=== PATIENT | female | born 1995 | race Caucasian/White ===

== ENCOUNTER 2017-07-26 12:51 | Emergency (ER) | payer MEDICAID, SELFPAY | END 2017-07-26 15:08 | disposition home or self-care (01) | PROVIDERS: Emergency Provider Emergency Medicine; Visit Provider Emergency Medicine | DX: G44.209 Tension-type headache, unspecified, not intractable (principal); I10 Essential (primary) hypertension | CPT/HCPCS: 70450; 81001; 81025; 87086; 96372; 99284 ==

== ENCOUNTER 2017-08-31 13:21 | Emergency (ER) | payer MEDICAID, SELFPAY ==
[2017-08-31 13:54] VITALS: BP 164/90; PULSE 104; RESP 18; TEMP 37; O2SAT 97; BMI 43.9
--- NOTE | 2017-08-31 14:19 | HMH.EDUTC ---
[facility] [place]ression: Viral upper respiratory illness, Left ear impacted cerumen Disposition: Home, Self-Care Condition on Discharge: Good Instructions: DI for Viral Upper Respiratory Infection -- Adult Additional Instructions: * No sign of bacterial infection. Likely viral. Virus can take 7-14 days to run their course * Nasal Saline and bulb syringe or nose crytsal to remove nasal drainage and help with nasal congestion. Hard to eat, drink, sleep with nasal congestion so important to keep nose cleaned out * Monitor Temp. Tylenol every 4 hours as needed no more then 5 times a day or 4000mg in 24 hours and/or ibuprofen every 6 hours as needed no more then 3200mg in 24 hours (as long as your primary care doctor has told you that it is ok to take both) for fever/aches/pain. ER if fever no less than 101 despite tylenol and ibuprofen * Encourage fluids, water, gatorade, powerade, pedialyte if /toddler/child * warm salt water gargles * warm fluids * sore throat lozenges * sleep elevated * humidifier/vaporizer * OTC cold/flu/sinus medication is ok but pick one. Do not take multiple different ones as they have similar ingredients and you can overdose on cold medication. Referrals: Chico Alexandra MD [Primary Care Provider] - (IMMEDIATELY for new or worsening symptoms OR no noticeable improvement over the next 48-72 hours. 911 for difficulty breathing or swallowing.) Time of Disposition: 15:10 Medical Decision Making Vital Signs: 08/31/17 13:54 Temperature 98.6 F Temperature Source Temporal Artery Scan Pulse Rate [Right Brachial] 104 H Respiratory Rate 18 Blood Pressure [Right Arm] 164/90 Blood Pressure Mean [Right Arm] 114 Blood Pressure Source [Right Arm] Automatic Cuff Blood Pressure Position [Right Arm] Sitting 02 Sat by Pulse Oximetry 97 Oxygen Delivery Method Room Air - Lab Data Lab results reviewed: Yes: I reviewed the patient's lab results. Lab Results 08/31/17 13:57: Influenza Type A Ag Negative, Influenza Type B Ag Negative - Prasanna Inquiry Pt receiving controlled substance: No [facility] [place] - General Stated complaint: cough,sob Time Seen by Provider: 08/31/17 14:00 Mode of Arrival: Family Vehicle Source of Information: Patient Limitations: No Limitations Description of Symptoms (Recalled from Triage Doc. by RN): COUGH,YELLOW GREEN MUCOUS, RUNNY NOSE, SOB. HEENT Symptoms (Recalled from RN notes): No Resp Symptoms (Recalled from RN notes): Yes (COUGH, RUNNY NOSE, YELLOW GREEN MUCOUS,SOB) Skin Symptoms (Recalled from RN notes): No MS Symptoms (Recalled from RN notes): No Functional Status (Recalled from RN notes): NA - History of Present Illness Provider Complaint: c/o cough and nasal drainage. Started late yesterday. No fever, aches, chills. Feels SOA at times while coughing. No SOA w/ exertion. Hasn't taken or tried anything for symptoms. w/ rhinorrhea and cough x weeks and neg flu. - Related Data Allergies Allergy/AdvReac Type Severity Reaction Status Date / Time No Known Allergies Allergy Verified 08/31/17 13:59 - Worker's Comp Is this a Worker's Comp case?: No [facility] History I have reviewed the patient's past medical history: Yes (denies PMHx) Laterality Cases: Right: Arthroscopy Knee, Bilateral: Tonsillectomy (and adnoids) Other Surgeries: Yes: Other (oral surgery) - *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 Smoking Status: Never smoker Alcohol Intake: never - Psychiatric History Expresses thoughts of harming self/others: None Suicide Plan Description: No Plan ROS Obtained: Yes Systems reviewed as appropriate & no additional complaints - Constitutional Constitutional: Denies body ache, Denies chills, Denies difficulty sleeping, Denies fever(s), Denies poor appetite - Eyes Eyes: Denies eye discharge - ENT Ears, Nose, Mouth, and Throat: Reports as per HPI, Denies otalgia, Denies sinus pressure, Denies sore throat - Cardiovascular Cardiovascular: Denies chest pain, Denies
[2017-08-31 14:41] LABS: UTC Influenza A Antigen Negative (Negative); UTC Influenza B Antigen Negative (Negative)
== END 2017-08-31 15:32 | disposition home or self-care (01) ==
PROVIDERS: Emergency Provider Nurse Practitioner Family; Family Provider Internal Medicine Adolescent Medicine; PCP Internal Medicine Adolescent Medicine
DX: J06.9 Acute upper respiratory infection, unspecified (principal); H61.22 Impacted cerumen, left ear
CPT/HCPCS: 87804; 99201

== ENCOUNTER 2017-09-15 18:10 | Emergency (ER) | payer MEDICAID, SELFPAY ==
[2017-09-15 18:12] VITALS: BMI 32.0
[2017-09-15 18:17] VITALS: BP 141/85; PULSE 88; RESP 16; TEMP 36.7; O2SAT 98; BMI 43.9
--- NOTE | 2017-09-15 18:17 | XR_ITS ---
XR knee LT 3V HISTORY: Pain following injury ITS.REASON: fall ORDERING PHYSICIAN: Aristeo Mejía MD PATIENT AGE: 22 years COMPARISON: 04/07/2011 FINDINGS: No fracture or dislocation. No lytic or blastic change. Normal mineralization. No significant arthritic changes evident. No other significant findings IMPRESSION: Negative left knee, no acute finding
--- NOTE | 2017-09-15 18:51 | HMH.EDFALL ---
ED Disposition Clinical Impression: Hematoma of leg Qualifiers: Encounter type: initial encounter Laterality: left Qualified Code(s): S80.12XA - Contusion of left lower leg, initial encounter Disposition: Home, Self-Care Condition on Discharge: Good Instructions: DI for Hematoma (Bruise), How to Use Crutches, How to Apply an Victor Hugo Wrap, How To Perform RICE (Rest, Ice, Compress, Elevate) Additional Instructions: Additional instructions for EXTREMITY PAIN: Return to an emergency department immediately if you have uncontrollable pain, fever, loss of feeling or inability to move your injured extremity. Follow-up with your physician if improved in 1 week. Prescriptions: Ibuprofen [Ibuprofen 800mg Tab] 800 mg PO Q8HP PRN #15 tab PRN Reason: Moderate Pain Referrals: [place] Alexandra MD [Primary Care Provider] - - Critical Care Critical Care Time: No Attestation: On 09/15/17, the high probability of a clinically significant, sudden or life threatening deterioration of the following system(s) required my full and direct attention, intervention and personal management. The time I documented below is in addition to time spent performing reported procedures but includes the following listed in this critical care notation. Medical Decision Making Vital Signs: 09/15/17 18:17 Temperature 98.1 F Temperature Source Oral Pulse Rate [Left Radial] 88 Respiratory Rate 16 Blood Pressure [Left Arm] 141/85 Blood Pressure Mean [Left Arm] 103 Blood Pressure Source [Left Arm] Automatic Cuff Blood Pressure Position [Left Arm] Sitting 02 Sat by Pulse Oximetry 98 Oxygen Delivery Method Room Air Orders (Tests/Meds): ORDERS Category Date Time Status Knee XR left 3 views [XR knee LT 3V] Stat Exams 09/15/17 18:17 Taken - Radiology Data #1 Image(s): Knee X-ray interpreted by Aristeo Mejía MD. Negative for fracture, dislocation, or foreign body. - Prasanna Inquiry Pt receiving controlled substance: No Fall HPI - General Chief Complaint: Fall Stated Complaint: [id number] injured left leg Mode of Arrival: Wheelchair Limitations: No Limitations Description of Symptoms (Recalled from ER Triage Doc. by RN): fell, injured left knee - History of Present Illness HPI Narrative: 30 minutes ago the patient fell into a hole trapping her left leg. She now has swelling and bruising in the infrapatellar area. No other areas. She is able to walk for couple of minutes but then has a lot of pain. No true prior to arrival. - Related Data Previous Rx's Medication Instructions Recorded Ibuprofen [Ibuprofen 800mg Tab] 800 mg PO Q8HP PRN #15 tab 09/15/17 Allergies Allergy/AdvReac Type Severity Reaction Status Date / Time No Known Allergies Allergy Verified 08/31/17 13:59 [facility] History I have reviewed the patient's past medical history: Yes 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: Denies:: Cancer, Diabetes Mellitus Type 1, Diabetes Mellitus Type 2, MRSA Laterality Cases: Right: Arthroscopy Knee, Bilateral: Tonsillectomy Other Surgeries: Yes: Other (oral surgery) Amputation: No - *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 Educational Level: Completed High School Smoking Status: Never smoker Alcohol Intake: current Alcohol Intake Frequency:: holidays/special occasions only - Psychiatric History Expresses thoughts of harming self/others: None Suicide Plan Description: No Plan Para: 2 ROS Obtained: Yes Systems reviewed as appropriate & no additional complaints - Musculoskeletal Musculoskeletal: Reports as per HPI - Neurologic Neurologic: Denies weakness Physical Exam - General General appearance: alert, in no apparent distress - Respiratory Respiratory exam: Absent: respiratory distress - Cardiovascular Cardiovascular exam: Present: regular rate, normal rhythm - Neurological Exam Neurological exam: Present: alert, oriented X3 - Other Other exam information: Soft tissue swelling and ecchymosis, hematoma in the proximal pretibial
[2017-09-15 19:21] VITALS: BP 133/79; PULSE 89; RESP 16; TEMP 36.4
--- NOTE | 2017-09-15 19:22 | PC.NURSE ---
MARGARITA WRAP AND CRUTCHES GIVEN WITH TEACHING
== END 2017-09-15 19:23 | disposition home or self-care (01) ==
PROVIDERS: Emergency Provider Emergency Medicine; Family Provider Internal Medicine Adolescent Medicine; PCP Internal Medicine Adolescent Medicine
DX: S80.12XA Contusion of left lower leg, initial encounter (principal); W17.2XXA Fall into hole, initial encounter
CPT/HCPCS: 73562; 99281

== ENCOUNTER 2017-10-05 09:30 | Outpatient (RCR) | payer MEDICAID, SELFPAY ==
--- NOTE | 2017-09-27 09:31 | HMH.PTOPEV ---
Rehab Outpatient Evaluation Rehab OP Evaluation Start: 09/27/17 09:16 Freq: Status: Active Protocol: Document 09/27/17 09:17 BILLROSLYN (Rec: 09/27/17 09:31 BILLROSLYN [id number]) Electronically Signed By Maximo Mansfield PT 09/27/17 09:17 Outpatient Therapy Subjective History Subjective History This is the initial Physical Therapy evaluation for Yaritza Sanders. Pt is a 22 y/o female referred to PT for c/o L knee pain. Pt reports ~ 2 weeks ago she stepped on a water main cover and the cover gave way. Pt reports this caused her leg to drop into the underground space, up to the thigh, and caused her to fall. Pt reports pain and swelling since this injury. Xray was negative for fx. Chief Complaint Pain Swelling Symptom Type Sharp Symptoms Relieved By Rest/Positioning Symptoms Aggravated By Standing Physical Activity Walking Prior Functional Limitations None Current Functional Limitations Housework Standing Squatting Recreation Activity Walking Stairs Symptom Description Intermittent Level of pain today (0-10) 0 Pain scale - at its best (0-10) 0 Pain scale - at its worst (0-10) 5 Hip/Knee Eval Gait Observation General Gait Pattern Observation Antalgic Gait Decrease Weight Bear (L) Decrease Stride Lngth (L) Assistive Device Assistive Devices None / NA Palpation Tenderness left Knee Palpation Finding Tenderness Knee Palpation Overall Comment TTP 2/4 at L pes anserine and L lateral Jt line Hip Palpation Findings None/Normal MMT Hip Strength Reason Not Measured WFL Knee Extension Strength Grade 4 Good Knee Flexion Strength Grade 4 Good ROM Knee Extension Active Range of Motion ( lacking 15 degrees degrees) Knee Flexion Active Range of Motion ( 90 w/ pain at end degrees) Knee ROM Limitations Pain Effusion joint effusion knee exam standard left Special Tests Knee Apprehension Test Negative Left Knee Apley Compression Test Positive Left
== END 2017-10-05 09:35 | disposition home or self-care (01) ==
LOC: PT 09:30
PROVIDERS: Family Provider Internal Medicine Adolescent Medicine; PCP Internal Medicine Adolescent Medicine; Visit Provider Nurse Practitioner Family
DX: M25.562 Pain in left knee (principal)
CPT/HCPCS: 97010; 97014; 97110; G0283

== ENCOUNTER 2017-10-20 10:27 | Emergency (ER) | payer MEDICAID, SELFPAY ==
[2017-10-20 10:37] VITALS: BP 137/86; PULSE 85; RESP 20; TEMP 36.6; O2SAT 97; BMI 37.5
--- NOTE | 2017-10-20 10:49 | HMH.EDUTC ---
[facility] [place] Clinical Impression: Otitis media Qualifiers: Otitis media type: unspecified Laterality: right Qualified Code(s): H66.91 - Otitis media, unspecified, right ear Disposition: Home, Self-Care Condition on Discharge: Good Instructions: Ear Infections (Alternative Therapy), Ear Infections (Middle Ear) (Alternative Therapy), Middle Ear Infection Additional Instructions: Take medication as prescribed Follow up with family doctor 12-24 hours if no improvement or worsening of symptoms Return if needed Straight to ER if if any life threatening symptoms Prescriptions: Amoxicillin [Amoxicillin 500mg Cap] 500 mg PO TID #30 cap Fluticasone Propionate [Flonase 50mcg nasal spray 16gm] 2 spr NS DAILY #1 bottle Guaifenesin/Pseudoephedrne HCl [Mucinex D ER 1,200-120 mg Tab] 1 each PO Q12H #10 tab.er.12h Referrals: Nikia Haywood APRN [Primary Care Provider] - Forms: Work/School Release Time of Disposition: 10:57 Medical Decision Making - Medical Records Medical records reviewed: Yes: I reviewed the patient's medical records. Vital Signs: 10/20/17 10:37 Temperature 98 F Temperature Source Temporal Artery Scan Pulse Rate [Right] 85 Respiratory Rate 20 Blood Pressure [Right Arm] 137/86 Blood Pressure Mean [Right Arm] 103 02 Sat by Pulse Oximetry 97 Oxygen Delivery Method Room Air - Prasanna Inquiry Pt receiving controlled substance: No Prasanna was queried for this patient: No [facility] [place] HPI - General Stated complaint: ear pain,cough,congestion Mode of Arrival: Ambulatory Source of Information: Patient Limitations: No Limitations HEENT Symptoms (Recalled from RN notes): Yes Resp Symptoms (Recalled from RN notes): No Skin Symptoms (Recalled from RN notes): No MS Symptoms (Recalled from RN notes): No Functional Status (Recalled from RN notes): N - History of Present Illness Provider Complaint: Patient state that she has been having pain in her right ear, cough, nasal congestion and sore throat for about 6-7 days now State that pain in left ear has continued to get worse State that this morning she woke up and pain in right ear has continued to get worse and now feels sore to touch - Related Data Previous Rx's Medication Instructions Recorded Ibuprofen [Ibuprofen 800mg Tab] 800 mg PO Q8HP PRN #15 tab 09/15/17 Amoxicillin [Amoxicillin 500mg 500 mg PO TID #30 cap 10/20/17 Cap] Fluticasone Propionate [Flonase 2 spr NS DAILY #1 bottle 10/20/17 50mcg nasal spray 16gm] Guaifenesin/Pseudoephedrne HCl 1 each PO Q12H #10 tab.er.12h 10/20/17 [Mucinex D ER 1,200-120 mg Tab] Allergies Allergy/AdvReac Type Severity Reaction Status Date / Time No Known Allergies Allergy Verified 08/31/17 13:59 - Worker's Comp Is this a Worker's Comp case?: No [facility] History I have reviewed the patient's past medical history: Yes 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: Denies:: Cancer, Diabetes Mellitus Type 1, Diabetes Mellitus Type 2, MRSA Laterality Cases: Right: Arthroscopy Knee, Bilateral: Tonsillectomy Other Surgeries: Yes: Other (oral surgery) Amputation: No - 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 Smoking Status: Never smoker Alcohol Intake: never Alcohol Intake Frequency:: holidays/special occasions only - Psychiatric History Expresses thoughts of harming self/others: None Suicide Plan Description: No Plan ROS Obtained: Yes All systems reviewed & no additional complaints - Constitutional Constitutional: Reports chills - ENT Ears, Nose, Mouth, and Throat: Reports otalgia, Reports nasal congestion, Reports sore throat - Respiratory Respiratory: Yes cough Physical Exam - General General appearance: alert, in no apparent distress - Expanded ENT Exam TM/Canal exam: Right TM: erythema, bulging Comment: Throat red, irritated - Respiratory Respiratory exam: Present: normal lung sounds bilaterally. Absent: respiratory distress - Cardiovascular Cardiovascular exam: Present: regular rate, normal rhythm. Absent: JVD
--- NOTE | 2017-10-20 10:52 | ED_ITS ---
[facility] [place] Clinical Impression: Otitis media Qualifiers: Otitis media type: unspecified Laterality: right Qualified Code(s): H66.91 - Otitis media, unspecified, right ear Disposition: Home, Self-Care Condition on Discharge: Good Instructions: Ear Infections (Alternative Therapy), Ear Infections (Middle Ear ) (Alternative Therapy), Middle Ear Infection Additional Instructions: Take medication as prescribed Follow up with family doctor 12-24 hours if no improvement or worsening of symptoms Return if needed Straight to ER if if any life threatening symptoms Prescriptions: Amoxicillin [Amoxicillin 500mg Cap] 500 mg PO TID #30 cap Fluticasone Propionate [Flonase 50mcg nasal spray 16gm] 2 spr NS DAILY #1 bottle Guaifenesin/Pseudoephedrne HCl [Mucinex D ER 1,200-120 mg Tab] 1 each PO Q12H # 10 tab.er.12h Referrals: Nikia Haywood APRN [Primary Care Provider] - Forms: Work/School Release Time of Disposition: 10:57 Medical Decision Making - Medical Records Medical records reviewed: Yes: I reviewed the patient's medical records. Vital Signs: 10/20/17 10:37 Temperature 98 F Temperature Source Temporal Artery Scan Pulse Rate [Right] 85 Respiratory Rate 20 Blood Pressure [Right Arm] 137/86 Blood Pressure Mean [Right Arm] 103 02 Sat by Pulse Oximetry 97 Oxygen Delivery Method Room Air - Prasanna Inquiry Pt receiving controlled substance: No Prasanna was queried for this patient: No [facility] [place] [facility] [place]PI - General Stated complaint: ear pain,cough,congestion Mode of Arrival: Ambulatory Source of Information: Patient Limitations: No Limitations HEENT Symptoms (Recalled from RN notes): Yes Resp Symptoms (Recalled from RN notes): No Skin Symptoms (Recalled from RN notes): No MS Symptoms (Recalled from RN notes): No Functional Status (Recalled from RN notes): N - History of Present Illness Provider Complaint: Patient state that she has been having pain in her right ear , cough, nasal congestion and sore throat for about 6-7 days now State that pain in left ear has continued to get worse State that this morning she woke up and pain in right ear has continued to get worse and now feels sore to touch - Related Data Previous Rx's Medication Instructions Recorded Ibuprofen [Ibuprofen 800mg Tab] 800 mg PO Q8HP PRN #15 tab 09/15/17 Amoxicillin [Amoxicillin 500mg 500 mg PO TID #30 cap 10/20/17 Cap] Fluticasone Propionate [Flonase 2 spr NS DAILY #1 bottle 10/20/17 50mcg nasal spray 16gm] Guaifenesin/Pseudoephedrne HCl 1 each PO Q12H #10 tab.er.12h 10/20/17 [Mucinex D ER 1,200-120 mg Tab] Allergies Allergy/AdvReac Type Severity Reaction Status Date / Time No Known Allergies Allergy Verified 08/31/17 13:59 - Worker's Comp Is this a Worker's Comp case?: No [facility] History I have reviewed the patient's past medical history: Yes 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: Denies:: Cancer, Diabetes Mellitus Type 1, Diabetes Mellitus Type 2, MRSA Laterality Cases: Right: Arthroscopy Knee, Bilateral: Tonsillectomy Other Surgeries: Yes: Other (oral surgery) Amputation: No - 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 Smoking Status: Never smoker Alcohol Intake: never Alcohol Intake Frequency:: holidays/special occasions only - Psychiatric History Expresses thoughts of harming self/others: None Suicide Plan Description: No Plan ROS Obtained: Yes All systems
[2017-10-20 11:12] VITALS: BP 137/86; PULSE 85; RESP 20; TEMP 36.6
== END 2017-10-20 11:12 | disposition home or self-care (01) ==
PROVIDERS: Emergency Provider Nurse Practitioner; Family Provider Internal Medicine Adolescent Medicine; PCP Nurse Practitioner Family
DX: H66.91 Otitis media, unspecified, right ear (principal)
CPT/HCPCS: 99202

== ENCOUNTER 2017-10-25 12:30 | Emergency (ER) | payer MEDICAID, SELFPAY ==
[2017-10-25 12:44] VITALS: PULSE 90; RESP 16; TEMP 36.6; O2SAT 98; BMI 47.5
--- NOTE | 2017-10-25 12:48 | XR_ITS ---
XR hand LT 2V HISTORY: Pain following injury ITS.REASON: SMASHED HANDS LIFTING A TOY BOX ORDERING PHYSICIAN: Josie Reynolds PATIENT AGE: 22 years COMPARISON: None FINDINGS: No fracture or dislocation. No lytic or blastic change. There is normal mineralization.. The joint spaces are well-preserved. No significant degenerative/arthritic changes. No erosive changes evident.. IMPRESSION: Negative left hand, no acute finding
--- NOTE | 2017-10-25 12:48 | HMH.EDUTC ---
[facility] – [place] Disposition Clinical Impression: Bilateral thumb pain Disposition: Home, Self-Care Condition on Discharge: Good Instructions: How To Perform RICE (Rest, Ice, Compress, Elevate) Additional Instructions: *RICE, Rest the extremity, Ice 15-20 minutes 3-4 times daily, Compress- wear the victor hugo wrap as discussed as much as possible to help reduce swelling and pain, Elevate the extremity when at rest *Victor Hugo wrap and finger splint is for support and help control swelling, use it except in the shower. Be sure that is not to tight but not to loose either *Elevate when resting *Ibuprofen every 6-8 hours as needed for pain an inflammation. If need something more can take Tylenol in between doses of Ibuprofen to help Immediately follow up for new or worsening of symptoms, or no noticeable improvement over the next 3-5 days Referrals: Nikia Haywood APRN [Primary Care Provider] - Time of Disposition: 13:27 Medical Decision Making - Medical Records Medical records reviewed: Yes: I reviewed the patient's medical records. - Prasanna Inquiry Pt receiving controlled substance: No Prasanna was queried for this patient: No Vital Signs: 10/25/17 12:44 Temperature 97.8 F Temperature Source Temporal Artery Scan Pulse Rate [Right] 90 Respiratory Rate 16 02 Sat by Pulse Oximetry 98 Oxygen Delivery Method Room Air - Radiology Data #1 Image(s): Other (Bilateral hand xray) Image Reviewed: Yes I reviewed the patient's radiology results, Yes I have reviewed radiologist's interpretation Preliminary Findings: Normal/NAD, No Fracture Seen [facility] [place] HPI - General Stated complaint: AO [id number] both thumbs injured Time Seen by Provider: 10/25/17 12:49 Mode of Arrival: Ambulatory Source of Information: Patient Limitations: No Limitations Description of Symptoms (Recalled from Triage Doc. by RN): INJURED BOTH THUMBS 1200 HEENT Symptoms (Recalled from RN notes): No Resp Symptoms (Recalled from RN notes): No Skin Symptoms (Recalled from RN notes): No MS Symptoms (Recalled from RN notes): Yes Functional Status (Recalled from RN notes): N - History of Present Illness Provider Complaint: Patient state that she was lifting a toy box when the lid fell smashing both her thumbs State that she is now having pain and swelling in both thumbs States that pain is worse in left thumb and runs up the side of her hand States that ever since it happened she is not been able to move thumbs without pain - Related Data Previous Rx's Medication Instructions Recorded Ibuprofen [Ibuprofen 800mg Tab] 800 mg PO Q8HP PRN #15 tab 09/15/17 Amoxicillin [Amoxicillin 500mg 500 mg PO TID #30 cap 10/20/17 Cap] Fluticasone Propionate [Flonase 2 spr NS DAILY #1 bottle 10/20/17 50mcg nasal spray 16gm] Guaifenesin/Pseudoephedrne HCl 1 each PO Q12H #10 tab.er.12h 10/20/17 [Mucinex D ER 1,200-120 mg Tab] Allergies Allergy/AdvReac Type Severity Reaction Status Date / Time No Known Allergies Allergy Verified 08/31/17 13:59 - Worker's Comp Is this a Worker's Comp case?: No [facility] History I have reviewed the patient's past medical history: Yes 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: Denies:: Cancer, Diabetes Mellitus Type 1, Diabetes Mellitus Type 2, MRSA Laterality Cases: Right: Arthroscopy Knee, Bilateral: Tonsillectomy Other Surgeries: Yes: Other (oral surgery) Amputation: No - 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 Smoking Status: Never smoker Alcohol Intake: never Alcohol Intake Frequency:: holidays/special occasions only - Psychiatric History Expresses thoughts of harming self/others: None Suicide Plan Description: No Plan ROS Obtained: Yes All systems reviewed & no additional complaints - Allergic/Immunologic Comments: Lid to toy box fell and smashed both her thumbs now having pain and swelling Physical Exam - General General appearance: alert, in no apparent distress - Respiratory Respiratory exam: Present: normal lung sounds bilaterally. Absent: respiratory dist
--- NOTE | 2017-10-25 12:50 | XR_ITS ---
XR hand RT 2V HISTORY: Pain following injury ITS.REASON: SMASHED HAND LIFTING TOY BOX ORDERING PHYSICIAN: Josie Reynolds PATIENT AGE: 22 years COMPARISON: None FINDINGS: No fracture or dislocation. No lytic or blastic change. There is normal mineralization.. The joint spaces are well-preserved. No significant degenerative/arthritic changes. No erosive changes evident.. There is mild cortical thickening of the mid and distal shaft of the first metacarpal which could be related to an old injury. IMPRESSION: Negative, no acute finding
--- NOTE | 2017-10-25 12:52 | ED_ITS ---
[facility] [place] Disposition Clinical Impression: Bilateral thumb pain Disposition: Home, Self-Care Condition on Discharge: Good Instructions: How To Perform RICE (Rest, Ice, Compress, Elevate) Additional Instructions: *RICE, Rest the extremity, Ice 15-20 minutes 3-4 times daily, Compress- wear the victor hugo wrap as discussed as much as possible to help reduce swelling and pain, Elevate the extremity when at rest *Victor [place] wrap and finger splint is for support and help control swelling, use it except in the shower. Be sure that is not to tight but not to loose either *Elevate when resting *Ibuprofen every 6-8 hours as needed for pain an inflammation. If need something more can take Tylenol in between doses of Ibuprofen to help Immediately follow up for new or worsening of symptoms, or no noticeable improvement over the next 3-5 days Referrals: Nikia Haywood APRN [Primary Care Provider] - Time of Disposition: 13:27 Medical Decision Making - Medical Records Medical records reviewed: Yes: I reviewed the patient's medical records. - Prasanna Inquiry Pt receiving controlled substance: No Prasanna was queried for this patient: No Vital Signs: 10/25/17 12:44 Temperature 97.8 F Temperature Source Temporal Artery Scan Pulse Rate [Right] 90 Respiratory Rate 16 02 Sat by Pulse Oximetry 98 Oxygen Delivery Method Room Air - Radiology Data #1 Image(s): Other (Bilateral hand xray) Image Reviewed: Yes I reviewed the patient's radiology results, Yes I have reviewed radiologist's interpretation Preliminary Findings: Normal/NAD, No Fracture Seen [facility] [place] HPI - General Stated complaint: AO [id number] both thumbs injured Time Seen by Provider: 10/25/17 12:49 Mode of Arrival: Ambulatory Source of Information: Patient Limitations: No Limitations Description of Symptoms (Recalled from Triage Doc. by RN): INJURED BOTH THUMBS 1200 HEENT Symptoms (Recalled from RN notes): No Resp Symptoms (Recalled from RN notes): No Skin Symptoms (Recalled from RN notes): No MS Symptoms (Recalled from RN notes): Yes Functional Status (Recalled from RN notes): N - History of Present Illness Provider Complaint: Patient state that she was lifting a toy box when the lid fell smashing both her thumbs State that she is now having pain and swelling in both thumbs States that pain is worse in left thumb and runs up the side of her hand States that ever since it happened she is not been able to move thumbs without pain - Related Data Previous Rx's Medication Instructions Recorded Ibuprofen [Ibuprofen 800mg Tab] 800 mg PO Q8HP PRN #15 tab 09/15/17 Amoxicillin [Amoxicillin 500mg 500 mg PO TID #30 cap 10/20/17 Cap] Fluticasone Propionate [Flonase 2 spr NS DAILY #1 bottle 10/20/17 50mcg nasal spray 16gm] Guaifenesin/Pseudoephedrne HCl 1 each PO Q12H #10 tab.er.12h 10/20/17 [Mucinex D ER 1,200-120 mg Tab] Allergies Allergy/AdvReac Type Severity Reaction Status Date / Time No Known Allergies Allergy Verified 08/31/17 13:59 - Worker's Comp Is this a Worker's Comp case?: No [facility] History I have reviewed the patient's past medical history: Yes 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: Denies:: Cancer, Diabetes Mellitus Type 1, Diabetes Mellitus Type 2, MRSA Laterality Cases: Right: Arthroscopy Knee, Bilateral: Tonsillectomy Other Surgeries: Yes: Other (oral surgery) Amputation: No - 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
[2017-10-25 13:34] VITALS: BP 118/72; PULSE 82; RESP 20; TEMP 36.3
== END 2017-10-25 13:35 | disposition home or self-care (01) ==
PROVIDERS: Emergency Provider Nurse Practitioner; Family Provider Internal Medicine Adolescent Medicine; PCP Nurse Practitioner Family
DX: M79.642 Pain in left hand (principal); M79.641 Pain in right hand; X50.0XXA Overexertion from strenuous movement or load, initial encounter; Y92.019 Unspecified place in single-family (private) house as the place of occurrence of the external cause
CPT/HCPCS: 73120; 99201

== ENCOUNTER → 2017-10-26 12:22 | Outpatient (CLI) | payer MEDICAID, SELFPAY ==
[2017-10-26 12:37] LABS: Basophils % 0.2 % (0.1-2.0); Eosinophils # 0.2 K/mm3 (0.0-0.4); Eosinophils % 2.3 % (0.1-12.0); Hematocrit 42.3 % (37.0-47.0); Hemoglobin 13.8 g/dL (12.2-16.2); Lymphocytes # 2.4 K/mm3 (0.7-4.5); Lymphocytes % 36.4 K/mm3 (10-50); Mean Corpuscular HGB Conc 32.6 g/dL (31.8-35.4); Mean Corpuscular Hemoglobin 29.5 pg (27.0-31.2); Mean Corpuscular Volume 90.5 fl (81-99); Monocytes # 0.3 K/mm3 (0.1-1.0); Monocytes % 4.3 % (1.7-9.3); Neutrophils # 3.7 K/mm3 (1.8-7.8); Neutrophils % 56.8 % (37.0-80.0); Platelet Count 368 K/mm3 (142-424); Red Blood Count 4.68 M/mm3 (4.20-5.40); Red Cell Distribution Width 13.1 % (11.5-17.5); White Blood Count 6.5 K/mm3 (4.8-10.8)
[2017-10-26 13:04] LABS: Alanine Aminotransferase 26 U/L (12-78); Albumin Level 3.3 gm/dL (3.4-5.0); Albumin/Globulin Ratio 0.7 (1.1-1.8); Alkaline Phosphatase 123 U/L (46-116); Aspartate Amino Transferase 13 U/L (15-37); Bilirubin,Total 0.2 mg/dL (0.2-1.0); Blood Urea Nitrogen 13 mg/dL (7-18); Calcium 8.5 mg/dL (8.5-10.1); Carbon Dioxide 26 mmol/L (21.0-32.0); Chloride 106 mmol/L (98-107); Chol/HDL Ratio 4.4 (1-3.5); Cholesterol 219 mg/dL (140-200); Creatinine,Serum 0.48 mg/dL (0.55-1.02); Estimated Glomerular Filt Rate 163 ml/min (>60); GFR (African American) 198 ML/MIN (>60); Globulin 4.5 gm/dl (1.3-3.2); Glucose 90 mg/dL (74-106); HDL Cholesterol 50 mg/dL (29-89); LDL Cholesterol 150 mg/dL (0-130); Sodium 140 mmol/L (136-145); Thyroid Stimulating Hormone 2.17 uIU/ml (0.358-3.740); Total Protein,Serum 7.8 gm/dL (6.4-8.2); Triglycerides 97 mg/dL (30-200); VLDL Cholesterol 19 mg/dL (0-40)
[2017-10-28 18:29] LABS: Vitamin B12 625 pg/mL (232-1245)
[2017-10-28 18:30] LABS: Vitamin D 25 Hydroxy 25.1 ng/mL (30.0-100.0)
== END ==
PROVIDERS: Visit Provider Nurse Practitioner Family
DX: R53.83 Other fatigue (principal); Z00.00 Encounter for general adult medical examination without abnormal findings
CPT/HCPCS: 36415; 80053; 80061; 82607; 82652; 84443; 85025

== ENCOUNTER → 2018-05-11 13:16 | Outpatient (CLI) | payer MEDICAID, SELFPAY ==
--- NOTE | 2018-05-11 13:23 | XR_ITS ---
XR chest 2V HISTORY: ITS.REASON: COUGH, SOB, LYMPHADENOPATHY ORDERING PHYSICIAN: Nikia Haywood PATIENT AGE: 23 years COMPARISON: 08/19/2012 FINDINGS: The cardiomediastinal silhouette and pulmonary vascularity are within normal limits. Cardiac size is upper limits of normal The lungs are clear without infiltrates, suspicious nodules, or pleural effusions. No acute bony abnormalities. IMPRESSION: No acute finding
[2018-05-11 15:07] LABS: Basophils % 0.3 % (0.1-2.0); Eosinophils # 0.2 K/mm3 (0.0-0.4); Eosinophils % 2.3 % (0.1-12.0); Hematocrit 38.6 % (37.0-47.0); Hemoglobin 12.6 g/dL (12.2-16.2); Lymphocytes # 2.5 K/mm3 (0.7-4.5); Lymphocytes % 26.5 K/mm3 (10-50); Mean Corpuscular HGB Conc 32.5 g/dL (31.8-35.4); Mean Corpuscular Hemoglobin 29.6 pg (27.0-31.2); Mean Platelet Volume 6.9 fl (7.4-10.4); Monocytes # 0.4 K/mm3 (0.1-1.0); Monocytes % 4.4 % (1.7-9.3); Neutrophils # 6.2 K/mm3 (1.8-7.8); Neutrophils % 66.4 % (37.0-80.0); Platelet Count 353 K/mm3 (142-424); Red Blood Count 4.24 M/mm3 (4.20-5.40); Red Cell Distribution Width 13.5 % (11.5-17.5); White Blood Count 9.3 K/mm3 (4.8-10.8)
[2018-05-11 15:59] LABS: Alanine Aminotransferase 24 U/L (12-78); Albumin Level 3.1 gm/dL (3.4-5.0); Albumin/Globulin Ratio 0.9 (1.1-1.8); Alkaline Phosphatase 127 U/L (46-116); Anion Gap 14.2 mEq/L (5-15); Aspartate Amino Transferase 13 U/L (15-37); Bilirubin,Total 0.2 mg/dL (0.2-1.0); Blood Urea Nitrogen 9 mg/dL (7-18); Calcium 8.5 mg/dL (8.5-10.1); Carbon Dioxide 27 mmol/L (21.0-32.0); Chloride 104 mmol/L (98-107); Creatinine,Serum 0.56 mg/dL (0.55-1.02); Estimated Glomerular Filt Rate 135 ml/min (>60); GFR (African American) 164 ML/MIN (>60); Globulin 3.5 gm/dl (1.3-3.2); Glucose 81 mg/dL (74-106); Potassium 4.2 mmoL/L (3.5-5.1); Sodium 141 mmol/L (136-145); Total Protein,Serum 6.6 gm/dL (6.4-8.2)
[2018-05-15 06:11] LABS: EBV Ab VCA, IgM <36.0 U/mL (0.0-35.9); Toxoplasma gondii Ab,IgG,Qn <3.0 IU/mL (0.0-7.1); Toxoplasma gondii Ab,IgM,Qn <3.0 AU/mL (0.0-7.9)
[2018-05-16 11:32] LABS: CMV PCR Negative (Negative)
== END ==
PROVIDERS: PCP Nurse Practitioner Family; Visit Provider Nurse Practitioner Family
DX: R59.1 Generalized enlarged lymph nodes (principal); R05 Cough; R06.02 Shortness of breath
CPT/HCPCS: 36415; 71046; 80053; 85025; 86665; 86777; 87496

== ENCOUNTER → 2018-06-18 10:13 | Outpatient (CLI) | payer MEDICAID, SELFPAY ==
--- NOTE | 2018-06-18 10:40 | CT_ITS ---
CT abdomen w con CLINICAL INDICATION: Follow-up possible liver lesion ITS.REASON: LIVER LESION ORDERING PHYSICIAN: [place] Alexandra MD PATIENT AGE: 23 years COMPARISON: 06/10/2019 TECHNIQUE: Axial images obtained with sagittal and coronal reformats. All CT scans at the facility use one or more dose reduction, viz: automated exposure control, ma/kV adjustment per patient size (including targeted exams where dose is matched to indication, i.e. head), or iterative reconstruction technique. 30 seconds, 60 seconds, and 5 minute delayed images are obtained PROCEDURE: Oral Contrast: None IV Contrast: 75 mL of Isovue-370. FINDINGS: There is some mosaic groundglass density in the left lung base posteriorly nonspecific. Previous exam showed a small hyperdense nodule in the right hepatic lobe. There is diffuse fatty liver infiltration with some sparing of the fatty liver in the hepatic dome and around the caval region. There remains a hyperdense nodule in the right hepatic lobe in segment 8. This measures approximately 9 mm is somewhat more intense on the immediate enhanced images but does not increase in intensity on the delayed images.. No other liver lesions are evident. The spleen, adrenal glands, pancreas, and kidneys have an unremarkable appearance. No radio opaque gallstones are evident. IMPRESSION: 1. There is a 9 mm hyperdense liver nodule in segment 8 of the liver. The show some minimal enhancement. Etiology is indeterminate. This could represent an atypical hemangioma. The clinical significance is uncertain. Consider 3 month follow-up which will be performed without contrast. 2. Hepatic steatosis with some sparing of fatty liver.
== END ==
PROVIDERS: PCP Internal Medicine Adolescent Medicine; Visit Provider Internal Medicine Adolescent Medicine
DX: K76.9 Liver disease, unspecified (principal)
CPT/HCPCS: 74160; Q9967

== ENCOUNTER → 2019-04-08 12:13 | Outpatient (CLI) | payer MEDICAID, SELFPAY ==
--- NOTE | 2019-04-08 12:22 | XR_ITS ---
PROCEDURE: XR FOOT WT BEARING RT 3V CLINICAL INDICATION: pain COMPARISON: No exams were available for comparison FINDINGS: No fracture or dislocation. No lytic or blastic change. There is normal mineralization. The joint spaces are well-preserved. No significant degenerative/arthritic changes. No erosive changes evident. Other findings:None. IMPRESSION: No acute findings. Dictated by: Kendrick Lima MD 04/08/2019 15:11 Signed by: <Electronically signed by Kendrick Lima MD in [place]> 04/08/2019 15:11
--- NOTE | 2019-04-08 12:22 | XR_ITS ---
PROCEDURE: XR ANKLE WT BEARING RT MIN 3V CLINICAL INDICATION: pain COMPARISON: No exams were available for comparison FINDINGS: No fracture, dislocation, lytic change, or blastic change evident. No significant degenerative change IMPRESSION: No acute findings. Dictated by: Kendrick Lima MD 04/08/2019 15:11 Signed by: <Electronically signed by Kendrick Lima MD in [place]> 04/08/2019 15:11
== END ==
PROVIDERS: PCP Nurse Practitioner Family; Visit Provider Podiatrist
DX: M79.671 Pain in right foot (principal); M25.571 Pain in right ankle and joints of right foot
CPT/HCPCS: 73610; 73630

== ENCOUNTER → 2019-10-15 11:42 | Outpatient (CLI) | payer OTHER, SELFPAY ==
[2019-10-15 13:30] LABS: HCG,Quantitative 24 mIU/ml (0-5.42)
== END ==
PROVIDERS: Visit Provider Nurse Practitioner Obstetrics & Gynecology
DX: Z34.90 Encounter for supervision of normal pregnancy, unspecified, unspecified trimester (principal)
CPT/HCPCS: 36415; 84702

== ENCOUNTER → 2019-10-18 12:26 | Outpatient (CLI) | payer OTHER, SELFPAY ==
[2019-10-18 15:12] LABS: HCG,Quantitative 17 mIU/ml (0-5.42)
== END ==
PROVIDERS: Visit Provider Nurse Practitioner Obstetrics & Gynecology
DX: Z34.90 Encounter for supervision of normal pregnancy, unspecified, unspecified trimester (principal)
CPT/HCPCS: 36415; 84702

== ENCOUNTER → 2019-10-30 13:35 | Outpatient (CLI) | payer OTHER, SELFPAY ==
[2019-10-30 17:18] LABS: HCG,Quantitative < 2 mIU/ml (0-5.42)
== END ==
PROVIDERS: Visit Provider Nurse Practitioner Obstetrics & Gynecology
DX: Z34.90 Encounter for supervision of normal pregnancy, unspecified, unspecified trimester (principal)
CPT/HCPCS: 36415; 84702

== ENCOUNTER 2020-02-15 22:47 | Emergency (ER) | payer OTHER, SELFPAY ==
[2020-02-15 22:49] VITALS: BP 169/108; PULSE 110; RESP 20; TEMP 37.3; O2SAT 98; BMI 49.4
--- NOTE | 2020-02-15 22:52 | XR_ITS ---
PROCEDURE: XR HAND RT MIN 3V CLINICAL INDICATION: hand went through glass Laceration with injury and pain COMPARISON: [id number] XR hand RT 2V from 10/25/2017 [id number] XR hand LT 2V from 10/25/2017 FINDINGS: No fracture or dislocation. No lytic or blastic change. There is normal mineralization. The joint spaces are well-preserved. No significant degenerative/arthritic changes. No erosive changes evident. Other findings:None. IMPRESSION: No acute findings. Dictated by: Kendrick Lima MD 02/16/2020 08:15 Electronically signed by Kendrick iLma MD in [place] 02/16/2020 08:15
[2020-02-15 22:59] VITALS: BMI 49.4
--- NOTE | 2020-02-15 23:25 | HMH.EDWNDL ---
ED Disposition Clinical Impression: Laceration, Abrasion, Elevated BP without diagnosis of hypertension Disposition: Home, Self-Care Condition on Discharge: Good Instructions: DI for Laceration Repair Additional Instructions: sutures out 10-12 days and recheck if any problems - see your pcp about bp Referrals: Nikia Haywood APRN [Primary Care Provider] - - Critical Care Critical Care Time: No Attestation: On 02/15/20, the high probability of a clinically significant, sudden or life threatening deterioration of the following system(s) required my full and direct attention, intervention and personal management. The time I documented below is in addition to time spent performing reported procedures but includes the following listed in this critical care notation. Medical Decision Making - Medical Records Medical records reviewed: Yes: I reviewed the patient's medical records. - Prasanna Inquiry Pt receiving controlled substance: No Vital Signs: 02/15/20 22:49 Temperature 99.2 F Temperature Source Oral Pulse Rate [Left Brachial] 110 H Respiratory Rate 20 Blood Pressure [Left Arm] 169/108 H Blood Pressure Mean [Left Arm] 128 Blood Pressure Position [Left Arm] Sitting 02 Sat by Pulse Oximetry 98 Oxygen Delivery Method Room Air Orders (Tests/Meds): ED MEDICATIONS Discontinued Medications Generic Name Dose Route Start Last Admin Trade Name Freq PRN Reason Stop Dose Admin Tetanus/Diphtheria Toxoids 0.5 ml 02/15/20 23:00 02/15/20 23:26 Tenivac 0.5ml Syringe IM 02/15/20 23:01 0.5 ml .ONCE ONE Administration ORDERS Category Date Time Status XR hand RT min 3V Stat Exams 02/15/20 22:52 Taken - Radiology Data #1 Image(s): Hand Image Reviewed: Yes I reviewed the patient's radiology image Preliminary Findings: No Fracture Seen Wound/Laceration HPI - General Chief Complaint: Wound/Laceration Stated Complaint: AO [id number] lac to R Hand Time Seen by Provider: 02/15/20 23:25 Mode of Arrival: Ambulatory Source of Information: Patient, Medical Record Limitations: No Limitations Description of Symptoms (Recalled from ER Triage Doc. by RN): pt was pulling storm door close and right hand went through the glass. laceration to right thumb and wrist. - History of Present Illness HPI narrative: lac rt distal thumb and rt volar wrist - pushed through glass on door Onset (ago): hour(s) Extremity Location: Left: wrist, hand Place: home Patient tetanus UTD: Yes Context: accidental Associated symptoms: none - Related Data Home Medications Medication Instructions Recorded Confirmed PARoxetine HCL [Paroxetine HCl] 40 mg PO DAILY 03/19/19 08/17/19 Previous Rx's Medication Instructions Recorded Promethazine HCl [Phenergan 25mg 25 mg PO Q6H PRN 6 Days #20 tab 09/25/19 tab] Sulfamethoxazole/Trimethoprim 1 each PO BID 7 Days #14 tab 09/25/19 [Bactrim DS tablet] Promethazine HCl [Phenergan 25mg 25 mg PO Q6H PRN #20 tab 10/17/19 tab] Allergies Allergy/AdvReac Type Severity Reaction Status Date / Time No Known Allergies Allergy Verified 08/13/19 10:51 [facility] History - Hepatitis A Screen Drug use history?: No High risk sexual behaviors?: No History of sexually transmitted infection?: No Currently employed?: No Childcare worker?: No Do you have indoor plumbing?: Yes Do you have electricity?: Yes Attestation statement:: This patient has been screened for Hepatitis A risk factors. I have reviewed the patient's past medical history: Yes 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: Reports:: Anxiety, Depression Denies:: Cancer, Chronic Obstructive Pulmonary Disease (COPD), Diabetes Mellitus Type 1, Diabetes Mellitus Type 2, Hypertension, MRSA Other 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: Reports: Other (fatty liver disease) Laterality Cases: Right: Arthroscopy Knee, Bilateral: Tonsillectomy Other Surgeries: Yes: Other Amputation: No Fractures: No - 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 Smoking Status: Never smoke
[2020-02-16 00:10] VITALS: BP 121/79; PULSE 79; RESP 19; TEMP 36.7; O2SAT 98
== END 2020-02-16 00:14 | disposition home or self-care (01) ==
PROVIDERS: Emergency Provider Emergency Medicine; PCP Nurse Practitioner Family
DX: S61.511A Laceration without foreign body of right wrist, initial encounter (principal); S61.011A Laceration without foreign body of right thumb without damage to nail, initial encounter; W25.XXXA Contact with sharp glass, initial encounter; Y92.019 Unspecified place in single-family (private) house as the place of occurrence of the external cause; F41.8 Other specified anxiety disorders; Z90.09 Acquired absence of other part of head and neck; Z23 Encounter for immunization
CPT/HCPCS: 12002; 73130; 90471; 90714; 99282

== ENCOUNTER 2020-02-25 16:27 | Emergency (ER) | payer OTHER, SELFPAY ==
[2020-02-25 17:27] VITALS: BP 140/80; PULSE 70; RESP 18; O2SAT 98; BMI 42.9
[2020-02-25 17:54] VITALS: BP 140/80; PULSE 70; RESP 18; TEMP 36.7; O2SAT 98
== END 2020-02-25 17:55 | disposition home or self-care (01) ==
PROVIDERS: Emergency Provider Nurse Practitioner Family; PCP Nurse Practitioner Family
DX: S61.511D Laceration without foreign body of right wrist, subsequent encounter (principal); S61.011D Laceration without foreign body of right thumb without damage to nail, subsequent encounter

== ENCOUNTER 2020-03-13 15:39 | Emergency (ER) | payer OTHER, SELFPAY ==
[2020-03-13 16:46] VITALS: BP 135/90; PULSE 81; RESP 20; TEMP 36.6; O2SAT 99; BMI 45.7
--- NOTE | 2020-03-13 16:48 | HMH.EDUTC ---
[facility] [place] Clinical Impression: Diarrhea Qualifiers: Diarrhea type: presumed infectious Qualified Code(s): R19.7 - Diarrhea, unspecified Disposition: Home, Self-Care Condition on Discharge: Good Instructions: DI for Diarrhea and Traveler's Diarrhea -- Adult Additional Instructions: You have been tested for COVID19. Those results generally take 48-72 hours to return. Please act as if you are positive and quarantine yourself until results are received. Your diarrhea panel results are generally available several hours after you return your specimen. Prescriptions: Ondansetron [Ondansetron Odt 8mg Tab] 8 mg PO TID PRN 10 Days #30 tab PRN Reason: Nausea Transmission Status: Pending to [facility] #[id number] Referrals: Nikia Haywood APRN [Primary Care Provider] - Time of Disposition: 16:55 Medical Decision Making - Prasanna Inquiry Pt receiving controlled substance: No Vital Signs: 03/13/20 16:46 Temperature 97.8 F Temperature Source Oral Pulse Rate [Right Brachial] 81 Respiratory Rate 20 Blood Pressure [Right Arm] 135/90 Blood Pressure Mean [Right Arm] 105 Blood Pressure Source [Right Arm] Automatic Cuff Blood Pressure Position [Right Arm] Sitting 02 Sat by Pulse Oximetry 99 Oxygen Delivery Method Room Air [facility] [place] HPI - General Stated complaint: diarrhea, chills and aches, fever at night Time Seen by Provider: 03/13/20 16:48 - History of Present Illness Provider Complaint: Diarrhea, body aches, fever, chills X 3 days. No known sick contacts. Onset (ago): day(s) (3) Location: abdomen Associated symptoms: fever/chills Treatments prior to arrival: none - Related Data Home Medications Medication Instructions Recorded Confirmed PARoxetine HCL [Paroxetine HCl] 40 mg PO DAILY 03/19/19 08/17/19 Previous Rx's Medication Instructions Recorded Promethazine HCl [Phenergan 25mg 25 mg PO Q6H PRN 6 Days #20 tab 09/25/19 tab] Sulfamethoxazole/Trimethoprim 1 each PO BID 7 Days #14 tab 09/25/19 [Bactrim DS tablet] Promethazine HCl [Phenergan 25mg 25 mg PO Q6H PRN #20 tab 10/17/19 tab] Ibuprofen [Ibuprofen 600mg 600 mg PO Q6HP PRN #30 tab 02/25/20 Tablet] Mupirocin [Bactroban 2% Ointment 1 applicatio TP TID 7 Days #1 tube 02/25/20 22gm tube] cephALEXin [Keflex 500mg Cap] 500 mg PO Q6H 10 Days #40 cap 02/25/20 Ondansetron [Ondansetron Odt 8mg 8 mg PO TID PRN 10 Days #30 tab 03/13/20 Tab] Allergies Allergy/AdvReac Type Severity Reaction Status Date / Time No Known Allergies Allergy Verified 08/13/19 10:51 [facility] History - Hepatitis A Screen Attestation statement:: This patient has been screened for Hepatitis A risk factors. I have reviewed the patient's past medical history: Yes 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: Reports:: Anxiety, Depression Denies:: Cancer, Chronic Obstructive Pulmonary Disease (COPD), Diabetes Mellitus Type 1, Diabetes Mellitus Type 2, Hypertension, MRSA Other 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: Reports: Other (fatty liver disease) Laterality Cases: Right: Arthroscopy Knee, Bilateral: Tonsillectomy Other Surgeries: Yes: Other Amputation: No Fractures: No - 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 Smoking Status: Never smoker Tobacco Type: cigarettes # Packs/Day (cigarettes): 1 Alcohol Intake: never Alcohol Intake Frequency:: holidays/special occasions only Substance Use Type: denies use Occupational Status: employed Housing: house - Psychiatric History Pschychiatric History:: Reports:: Anxiety, Depression Family Hx:: Coronary Artery Disease, Cancer, Diabetes ROS Obtained: Yes All systems reviewed & no additional complaints - Constitutional Constitutional: Reports body ache, Reports chills, Reports fever(s) - Gastrointestinal Gastrointestingal: Reports: loose stools Physical Exam - General General appearance: alert, in no apparent distress - Head Head exam: atraumatic, normocephalic, normal inspection - Eye Eye exam: Present: normal appearance, PERRL, EO
[2020-03-13 17:07] VITALS: BP 135/90; PULSE 81; RESP 20; TEMP 36.6; O2SAT 99
[2020-03-15 10:18] LABS: Covid-19 Nasal PCR Sendout UK Not Detected
== END 2020-03-13 17:17 | disposition home or self-care (01) ==
PROVIDERS: Emergency Provider Physician Assistant; PCP Nurse Practitioner Family
DX: R19.7 Diarrhea, unspecified (principal); Z03.818 Encounter for observation for suspected exposure to other biological agents ruled out; F17.210 Nicotine dependence, cigarettes, uncomplicated
CPT/HCPCS: 99201; U0003

== ENCOUNTER 2020-04-02 09:12 | Emergency (ER) | payer OTHER, SELFPAY ==
[2020-04-02 09:13] VITALS: BP 154/100; BP 158/98; PULSE 110; PULSE 86; RESP 16; RESP 18; TEMP 36.9; O2SAT 98; BMI 45.3
[2020-04-02 09:32] LABS: Microscopic, Urine URINE MICROSCOPIC (MICROSCOPIC)
[2020-04-02 09:34] LABS: Appearance,Urine SL CLOUDY (Clear); Bilirubin,Urine Negative (Negative); Blood, Urine TRACE-I (Negative); Color,Urine YELLOW (Yellow); Glucose,Urine (UA) TRACE (Negative); Ketones,Urine Negative (Negative); Leukocyte Esterase,Urine Negative (Negative); Nitrate,Urine Negative (Negative); Protein,Urine Negative (Negative); Specific Gravity, Urine >= 1.030 (1.005-1.030); Urobilinogen,Urine 0.2 EU/dl (0.2)
[2020-04-02 09:37] LABS: Basophils # 0.1 K/mm3 (0-0.2); Basophils % 0.6 % (0.1-2.0); Eosinophils # 0.3 K/mm3 (0.0-0.4); Eosinophils % 3.4 % (0.1-12.0); Hematocrit 42.6 % (37.0-47.0); Hemoglobin 14.1 g/dL (12.2-16.2); Lymphocytes # 2.3 K/mm3 (0.7-4.5); Lymphocytes % 28.4 % (10-50); Mean Corpuscular HGB Conc 33.1 g/dL (31.8-35.4); Mean Corpuscular Hemoglobin 31.3 pg (27.0-31.2); Mean Corpuscular Volume 94.5 fl (81-99); Mean Platelet Volume 7.4 fl (7.4-10.4); Monocytes # 0.4 K/mm3 (0.1-1.0); Monocytes % 5.1 % (1.7-9.3); Neutrophils # 5.1 K/mm3 (1.8-7.8); Neutrophils % 62.6 % (37.0-80.0); Platelet Count 314 K/mm3 (142-424); Red Blood Count 4.51 M/mm3 (4.20-5.40); White Blood Count 8.1 K/mm3 (4.8-10.8)
[2020-04-02 09:37] LABS: Urine Pregnancy, HCG Qual. Negative (Negative)
[2020-04-02 09:43] VITALS: BP 157/91; PULSE 78; RESP 16; O2SAT 95
[2020-04-02 09:43] LABS: Chloride 109 mmol/L (98-107); Sodium 142 mmol/L (136-145)
[2020-04-02 09:44] LABS: Potassium 3.6 mmoL/L (3.5-5.1)
[2020-04-02 09:46] LABS: Alanine Aminotransferase 29 U/L (12-78); Amylase 51 U/L (30-110); Anion Gap 13.6 mEq/L (5-15); Aspartate Amino Transferase 37 U/L (14-36); Blood Urea Nitrogen 12 mg/dl (7-17); Carbon Dioxide 23 mmol/L (22.0-30.0); Creatinine Clearance Estimated 110 mL/min (50-200); Estimated Glomerular Filt Rate 124 ml/min (>60); GFR (African American) 150 ML/MIN (>60)
[2020-04-02 09:47] LABS: Albumin Level 3.9 g/dl (3.5-5.0); Albumin/Globulin Ratio 1.3 (1.1-1.8); Alkaline Phosphatase 114 U/L (38-126); Bilirubin,Total 0.3 mg/dl (0.2-1.3); Calcium 9.5 mg/dl (8.4-10.2); Globulin 3.1 g/dL (1.3-3.2); Glucose 138 mg/dl (74-100); Lipase 82 U/L (23-300)
--- NOTE | 2020-04-02 09:52 | HMH.EDABDPAI ---
ED Disposition Clinical Impression: Gastroenteritis Disposition: Home, Self-Care Condition on Discharge: Fair Instructions: DI for Viral Gastroenteritis -- Adult Prescriptions: Ondansetron [Zofran 4mg ODT] 4 mg PO TID PRN #10 tab.rapdis PRN Reason: Nausea Transmission Status: Pending to [facility] #[id number] Referrals: Nikia Haywood APRN [Primary Care Provider] - - Critical Care Critical Care Time: No Attestation: On 04/02/20, the high probability of a clinically significant, sudden or life threatening deterioration of the following system(s) required my full and direct attention, intervention and personal management. The time I documented below is in addition to time spent performing reported procedures but includes the following listed in this critical care notation. Medical Decision Making - Prasanna Inquiry Pt receiving controlled substance: No Vital Signs: 04/02/20 09:13 04/02/20 09:43 04/02/20 10:13 Temperature 98.4 F Temperature Source Oral Pulse Rate [Left Radial] 110 H Pulse Rate [Left] 86 78 77 Respiratory Rate 18 16 18 Blood Pressure [Left Arm] 154/100 H 157/91 H 125/68 Blood Pressure [Right Arm] 158/98 H Blood Pressure Mean [Left Arm] 118 113 87 Blood Pressure Mean [Right Arm] 118 Blood Pressure Source [Left Arm] Automatic Cuff Automatic Cuff Automatic Cuff Blood Pressure Position [Left Arm] Supine Sitting Sitting Blood Pressure Position [Right Arm] Sitting 02 Sat by Pulse Oximetry 98 95 96 Oxygen Delivery Method Room Air Room Air Room Air - Lab Data Lab Results 04/02/20 09:25: Urine Color Yellow, Urine Appearance Sl cloudy, Urine pH 6.0, Ur Specific [place] >= 1.030, Urine Protein Negative, Urine Glucose (UA) Trace, Urine Ketones Negative, Urine Blood Trace-i, Urine Nitrate Negative, Urine Bilirubin Negative, Urine Urobilinogen 0.2, Ur Leukocyte Esterase Negative, Urine RBC 3-5, Urine WBC 5-10, Ur Squamous Epith Cells 20-50, Urine Bacteria 1+ 04/02/20 09:25: Urine HCG, Qual Negative 04/02/20 09:30: WBC 8.1, RBC 4.51, Hgb 14.1, Hct 42.6, MCV 94.5, MCH 31.3 H, MCHC 33.1, RDW 14.0, Plt Count 314, MPV 7.4, Neut % (Auto) 62.6, Lymph % (Auto) 28.4, [place] % (Auto) 5.1, Eos % (Auto) 3.4, Baso % (Auto) 0.6, Neut # (Auto) 5.1, Lymph # (Auto) 2.3, [place] # (Auto) 0.4, Eos # (Auto) 0.3, Baso # (Auto) 0.1 04/02/20 09:30: Sodium 142, Potassium 3.6, Chloride 109 H, Carbon Dioxide 23, Anion Gap 13.6, BUN 12, Creatinine 0.60, Estimated Creat Clear 110, Estimated GFR 124, Est GFR ( Amer) 150, Glucose 138 H, Calcium 9.5, Total Bilirubin 0.3, AST 37 H, ALT 29, Alkaline Phosphatase 114, Total Protein 7.0, Albumin 3.9, Globulin 3.1, Albumin/Globulin Ratio 1.3, Amylase 51, Lipase 82 Result diagrams: 04/02/20 09:30 04/02/20 09:30 Orders (Tests/Meds): ED MEDICATIONS Generic Name Dose Route Start Last Admin Trade Name Freq PRN Reason Stop Dose Admin Sodium Chloride 1,000 mls @ 999 mls/hr 04/02/20 09:30 04/02/20 09:31 Sod Chlor 0.9% 1000ml Bag IV 04/02/20 10:30 999 mls/hr .Q1H1M OJ Administration Sodium Chloride 8 ml 04/02/20 09:51 04/02/20 09:55 Sodium Chloride 0.9% 10ml Vial IV 05/02/20 09:50 8 ml NEEDED PRN Administration dilute pepcid Discontinued Medications Generic Name Dose Route Start Last Admin Trade Name Freq PRN Reason Stop Dose Admin Famotidine 20 mg 04/02/20 09:51 04/02/20 09:55 Pepcid 20mg/2ml Vial IV 04/02/20 09:52 20 mg ONCE ONE Administration Ondansetron HCl 4 mg 04/02/20 09:29 04/02/20 09:31 Zofran 4mg/2ml Vial IV 04/02/20 09:30 4 mg ONCE ONE Administration - Reevaluation(s) Time: 10:24 Reevaluation #1: On reevaluation, patient is feeling much better. Repeat abdominal exam is benign. She is tolerating oral intake. Patient will be discharged with medications for nausea. Needs to follow-up with PCP. Given strict return precautions. Verbalized understanding. Medical Decision Narrative: 2
[2020-04-02 09:58] LABS: Bacteria,Urine 1+ /lpf; Squamous Epithelial Cell,Urine 20-50 #/hpf (0-5)
[2020-04-02 10:13] VITALS: BP 125/68; PULSE 77; RESP 18; O2SAT 96
[2020-04-02 10:30] VITALS: BP 124/62; PULSE 82; RESP 16; O2SAT 93
[2020-04-02 10:37] VITALS: BP 124/62; PULSE 82; RESP 14; TEMP 36.9; O2SAT 99
== END 2020-04-02 10:38 | disposition home or self-care (01) ==
PROVIDERS: Emergency Provider Emergency Medicine; PCP Nurse Practitioner Family
DX: K52.9 Noninfective gastroenteritis and colitis, unspecified (principal); F41.8 Other specified anxiety disorders; F17.210 Nicotine dependence, cigarettes, uncomplicated
CPT/HCPCS: 80053; 81001; 81025; 82150; 83690; 85025; 96365; 99284; J2405

== ENCOUNTER 2020-04-07 04:52 | Emergency (ER) | payer OTHER, SELFPAY ==
[2020-04-07 05:03] VITALS: BP 151/71; PULSE 96; RESP 15; TEMP 36.7; O2SAT 97; BMI 46.3
--- NOTE | 2020-04-07 05:12 | CT_ITS ---
PROCEDURE: CT ABDOMEN PELVIS W CON CLINICAL INDICATION: nause vomiting diarrhea Nausea, vomiting diarrhea with blood in emesis COMPARISON: CT CT ABDOMEN PELVIS WO CON from 09/25/2019 TECHNIQUE: IV Contrast: 75ML OPTIRAY 350 Oral Contrast None Axial images obtained with sagittal and coronal reformats. All CT scans at the facility use one or more dose reduction, viz: automated exposure control, ma/kV adjustment per patient size (including targeted exams where dose is matched to indication, i.e. head), or iterative reconstruction technique. FINDINGS: LOWER THORAX: There is hepatic steatosis. No focal liver lesion is evident. The gallbladder slightly distended. Borderline splenomegaly at 13 cm. The adrenal glands, pancreas, and kidneys have an unremarkable appearance. No intestinal obstruction or free air. No evidence of appendicitis. No evidence of diverticulitis. No pelvic mass abnormal fluid collection or focal inflammatory change. The bowel gas pattern is unremarkable. No acute bony anomalies. ABDOMEN & PELVIS: The liver, spleen, pancreas, adrenal glands, and kidneys show no acute finding. No intestinal obstruction or free air. No evidence of appendicitis or diverticulitis. No pelvic mass, abnormal fluid collection, or focal inflammatory change of the pelvis. No acute bony anomalies. IMPRESSION: 1. Hepatic steatosis with borderline splenomegaly. 2. No acute finding Dictated by: Kendrick Lima MD 04/07/2020 06:34 Kendrick Lima MD in [place] 04/07/2020 06:34
[2020-04-07 05:21] LABS: Basophils % 0.3 % (0.1-2.0); Eosinophils # 0.3 K/mm3 (0.0-0.4); Eosinophils % 2.4 % (0.1-12.0); Hematocrit 41.1 % (37.0-47.0); Hemoglobin 14.3 g/dL (12.2-16.2); Lymphocytes # 2.8 K/mm3 (0.7-4.5); Lymphocytes % 26.2 % (10-50); Mean Corpuscular HGB Conc 34.9 g/dL (31.8-35.4); Mean Corpuscular Hemoglobin 31.5 pg (27.0-31.2); Mean Corpuscular Volume 90.4 fl (81-99); Mean Platelet Volume 7.4 fl (7.4-10.4); Monocytes # 0.6 K/mm3 (0.1-1.0); Monocytes % 5.4 % (1.7-9.3); Neutrophils # 6.9 K/mm3 (1.8-7.8); Neutrophils % 65.7 % (37.0-80.0); Platelet Count 309 K/mm3 (142-424); Red Blood Count 4.55 M/mm3 (4.20-5.40); Red Cell Distribution Width 13.9 % (11.5-17.5); White Blood Count 10.5 K/mm3 (4.8-10.8)
[2020-04-07 05:28] LABS: Chloride 107 mmol/L (98-107); Potassium 3.1 mmoL/L (3.5-5.1); Sodium 141 mmol/L (136-145)
[2020-04-07 05:30] LABS: Alanine Aminotransferase 34 U/L (12-78); Aspartate Amino Transferase 36 U/L (14-36); Blood Urea Nitrogen 7 mg/dl (7-17); Creatinine Clearance Estimated 110 mL/min (50-200); Estimated Glomerular Filt Rate 124 ml/min (>60); GFR (African American) 150 ML/MIN (>60)
[2020-04-07 05:30] LABS: Microscopic, Urine URINE MICROSCOPIC (MICROSCOPIC)
[2020-04-07 05:31] LABS: Albumin Level 4.3 g/dl (3.5-5.0); Albumin/Globulin Ratio 1.3 (1.1-1.8); Alkaline Phosphatase 123 U/L (38-126); Anion Gap 13.1 mEq/L (5-15); Bilirubin,Total 0.6 mg/dl (0.2-1.3); Calcium 9.5 mg/dl (8.4-10.2); Carbon Dioxide 24 mmol/L (22.0-30.0); Globulin 3.4 g/dL (1.3-3.2); Glucose 105 mg/dl (74-100); Total Protein,Serum 7.7 g/dl (6.3-8.2)
[2020-04-07 05:32] LABS: Blood, Urine TRACE-I (Negative); Color,Urine YELLOW (Yellow); Glucose,Urine (UA) Negative (Negative); Ketones,Urine Negative (Negative); Leukocyte Esterase,Urine TRACE (Negative); Nitrate,Urine Negative (Negative); PH,Urine 5.5 (5.0-8.5); Protein,Urine TRACE (Negative); Specific Gravity, Urine >= 1.030 (1.005-1.030)
[2020-04-07 05:34] LABS: Urine Pregnancy, HCG Qual. Negative (Negative)
[2020-04-07 05:35] LABS: Appearance,Urine Slightly Cloudy (Clear); Bilirubin,Urine Negative (Negative)
[2020-04-07 05:37] LABS: C-Reactive Protein 42.7 mg/L (0-4)
[2020-04-07 06:18] LABS: Erythrocyte Sedimentation Rate 50 mm/hr (0-20)
[2020-04-07 06:26] LABS: Bacteria,Urine 2+ /lpf; Squamous Epithelial Cell,Urine 20-50 #/hpf (0-5)
[2020-04-07 07:15] VITALS: BP 150/91; PULSE 78; O2SAT 99
--- NOTE | 2020-04-07 07:20 | HMH.EDNVD ---
ED Disposition Clinical Impression: Gastritis Qualifiers: Gastritis type: unspecified gastritis Chronicity: acute Gastritis bleeding: presence of bleeding unspecified Qualified Code(s): K29.00 - Acute gastritis without bleeding Disposition: Home, Self-Care Condition on Discharge: Good Instructions: DI for Nausea -- Adult Additional Instructions: call pcp today for follow up Referrals: Nikia Haywood APRN [Primary Care Provider] - - Critical Care Critical Care Time: No Attestation: On 04/07/20, the high probability of a clinically significant, sudden or life threatening deterioration of the following system(s) required my full and direct attention, intervention and personal management. The time I documented below is in addition to time spent performing reported procedures but includes the following listed in this critical care notation. Medical Decision Making - Medical Records Medical records reviewed: Yes: I reviewed the patient's medical records. - Prasanna Inquiry Pt receiving controlled substance: No Vital Signs: 04/07/20 05:03 04/07/20 07:15 Temperature 98.1 F Temperature Source Oral Pulse Rate [Right Brachial] 96 H 78 Respiratory Rate 15 Blood Pressure [Right Arm] 151/71 H 150/91 H Blood Pressure Mean [Right Arm] 97 110 Blood Pressure Source [Right Arm] Automatic Cuff Blood Pressure Position [Right Arm] Sitting Supine 02 Sat by Pulse Oximetry 97 99 Oxygen Delivery Method Room Air - Lab Data Lab results reviewed: Yes: I reviewed the patient's lab results. Lab Results 04/07/20 05:08: WBC 10.5, RBC 4.55, Hgb 14.3, Hct 41.1, MCV 90.4, MCH 31.5 H, MCHC 34.9, RDW 13.9, Plt Count 309, MPV 7.4, Neut % (Auto) 65.7, Lymph % (Auto) 26.2, [place] % (Auto) 5.4, Eos % (Auto) 2.4, Baso % (Auto) 0.3, Neut # (Auto) 6.9, Lymph # (Auto) 2.8, [place] # (Auto) 0.6, Eos # (Auto) 0.3, Baso # (Auto) 0.0 04/07/20 05:08: Sodium 141, Potassium 3.1 L, Chloride 107, Carbon Dioxide 24, Anion Gap 13.1, BUN 7, Creatinine 0.60, Estimated Creat Clear 110, Estimated GFR 124, Est GFR ( Amer) 150, Glucose 105 H, Calcium 9.5, Total Bilirubin 0.6, AST 36, ALT 34, Alkaline Phosphatase 123, C-Reactive Protein 42.7 H, Total Protein 7.7, Albumin 4.3, Globulin 3.4 H, Albumin/Globulin Ratio 1.3 04/07/20 05:08: ESR 50 H 04/07/20 05:20: Urine Color Yellow, Urine Appearance Slightly cloudy, Urine pH 5.5, Ur Specific [place] >= 1.030, Urine Protein Trace, Urine Glucose (UA) Negative, Urine Ketones Negative, Urine Blood Trace-i, Urine Nitrate Negative, Urine Bilirubin Negative, Urine Urobilinogen 1.0, Ur Leukocyte Esterase Trace, Urine RBC 5-10, Urine WBC 10-20, Ur Squamous Epith Cells 20-50, Urine Bacteria 2+ 04/07/20 05:20: Urine HCG, Qual Negative Result diagrams: 04/07/20 05:08 04/07/20 05:08 Orders (Tests/Meds): ED MEDICATIONS Discontinued Medications Generic Name Dose Route Start Last Admin Trade Name Freq PRN Reason Stop Dose Admin Sodium Chloride 1,000 mls @ 999 mls/hr 04/07/20 05:15 04/07/20 05:19 Sod Chlor 0.9% 1000ml Bag IV 04/07/20 06:15 999 mls/hr .Q1H1M OJ Administration Ioversol 75 ml 04/07/20 06:26 04/07/20 06:27 Rad-Optiray 350 100ml Vial IV 04/07/20 06:27 75 ml ONCE ONE Administration Protocol Ondansetron HCl 4 mg 04/07/20 05:14 04/07/20 05:19 Zofran 4mg/2ml Vial IV 04/07/20 05:15 4 mg ONCE ONE Administration Sodium Chloride 10 ml 04/07/20 06:26 04/07/20 06:27 Rad-Saline Flush 10ml Syringe IV 04/07/20 06:27 10 ml ONCE ONE Administration ORDERS Category Date Time Status Urine Culture Stat Micro 04/07/20 05:20 Received - CT Data CT Scan: Abdomen, Pelvis Time Received: 07:[address] Reviewed: Yes: I have viewed the radiologist's interpretation Preliminary Findings: Normal/NAD Nausea/Vomiting/Diarrhea HPI - General Chief complaint: Nausea/Vomiting/Diarrhea Stated complaint: bloody emesis,diarrhea Time Seen by Provider: 04/07/20 06:40 Mode of Arr
[2020-04-07 07:44] VITALS: BP 151/97; PULSE 77; RESP 18; TEMP 36.8; O2SAT 100
== END 2020-04-07 07:47 | disposition home or self-care (01) ==
PROVIDERS: Emergency Provider Emergency Medicine; PCP Nurse Practitioner Family
DX: K29.00 Acute gastritis without bleeding (principal); F41.8 Other specified anxiety disorders; K76.0 Fatty (change of) liver, not elsewhere classified; F17.210 Nicotine dependence, cigarettes, uncomplicated
CPT/HCPCS: 74177; 80053; 81001; 81025; 85025; 85651; 86140; 87086; 96365; 96375; 99283; J2405; Q9967

== ENCOUNTER 2020-04-10 23:12 | Emergency (ER) | payer OTHER, SELFPAY ==
[2020-04-10 23:14] VITALS: BMI 45.3
--- NOTE | 2020-04-10 23:15 | XR_ITS ---
PROCEDURE: XR CHEST PORTABLE CLINICAL HISTORY: SOA COMPARISON: CR CXR CHEST(2 VIEWS-NOT PORTABLE) from 08/19/2012 DX CXR2V XR chest 2V from 05/11/[address] ANGIO CHEST from 08/17/2019 CR XR CHEST 2V from 08/17/2019 FINDINGS: Normal heart size. There is mild prominence of the pulmonary outflow. The lungs are clear without infiltrates, suspicious nodules, or pleural effusions. No acute bony abnormalities. IMPRESSION: Mild prominence of pulmonary outflow tract not significantly changed otherwise negative Dictated by: Kendrick Lima MD 04/11/2020 06:17 Kendrick Lima MD in [place] 04/11/2020 06:17
[2020-04-10 23:24] VITALS: BP 164/100; PULSE 130; RESP 22; TEMP 38.3; O2SAT 95; BMI 45.3
[2020-04-10 23:36] LABS: Chloride 108 mmol/L (98-107); Potassium 3.2 mmoL/L (3.5-5.1); Sodium 140 mmol/L (136-145)
[2020-04-10 23:38] LABS: Alanine Aminotransferase 25 U/L (12-78); Aspartate Amino Transferase 22 U/L (14-36); Bilirubin,Total 0.3 mg/dl (0.2-1.3); Blood Urea Nitrogen 9 mg/dl (7-17); Creatinine Clearance Estimated 110 mL/min (50-200); Estimated Glomerular Filt Rate 124 ml/min (>60); GFR (African American) 150 ML/MIN (>60); Lactic Acid 1.7 mmol/L (0.7-2.1)
[2020-04-10 23:39] LABS: Albumin Level 3.7 g/dl (3.5-5.0); Albumin/Globulin Ratio 1.2 (1.1-1.8); Alkaline Phosphatase 104 U/L (38-126); Anion Gap 12.2 mEq/L (5-15); Calcium 9.3 mg/dl (8.4-10.2); Carbon Dioxide 23 mmol/L (22.0-30.0); Globulin 3.1 g/dL (1.3-3.2); Glucose 154 mg/dl (74-100); Total Protein,Serum 6.8 g/dl (6.3-8.2)
[2020-04-10 23:42] LABS: Strep Scrn Group A (Rapid) Negative (Negative)
[2020-04-10 23:46] LABS: Basophils % 0.1 % (0.1-2.0); Eosinophils # 0.3 K/mm3 (0.0-0.4); Eosinophils % 2.2 % (0.1-12.0); Hematocrit 42.3 % (37.0-47.0); Lymphocytes % 9.2 % (10-50); Mean Corpuscular HGB Conc 33.2 g/dL (31.8-35.4); Mean Corpuscular Volume 93.5 fl (81-99); Mean Platelet Volume 7.5 fl (7.4-10.4); Monocytes # 0.4 K/mm3 (0.1-1.0); Monocytes % 3.3 % (1.7-9.3); Neutrophils # 9.7 K/mm3 (1.8-7.8); Neutrophils % 85.3 % (37.0-80.0); Platelet Count 284 K/mm3 (142-424); Red Blood Count 4.52 M/mm3 (4.20-5.40); Red Cell Distribution Width 13.7 % (11.5-17.5); White Blood Count 11.3 K/mm3 (4.8-10.8)
[2020-04-10 23:48] LABS: MANUAL DIFFERENTIAL MANUAL DIFFERENTIAL (MANUAL DIFF)
[2020-04-10 23:50] VITALS: BP 152/76; PULSE 116; RESP 20; O2SAT 95
[2020-04-10 23:52] LABS: Microscopic, Urine URINE MICROSCOPIC (MICROSCOPIC)
[2020-04-10 23:57] LABS: Lymphocytes % 9 % (10-50); Monocytes % 2 % (2-9); Neutrophils % 88 % (42-76); Platelet Estimate Normal; RBC Morphology Normal; Total Cells Counted 100
[2020-04-10 23:58] LABS: Urine Pregnancy, HCG Qual. Negative (Negative)
[2020-04-10 23:59] LABS: Appearance,Urine CLEAR (Clear); Bilirubin,Urine Negative (Negative); Blood, Urine Negative (Negative); Color,Urine YELLOW (Yellow); Glucose,Urine (UA) Negative (Negative); Ketones,Urine Negative (Negative); Leukocyte Esterase,Urine TRACE (Negative); Nitrate,Urine Negative (Negative); Protein,Urine Negative (Negative); Specific Gravity, Urine 1.025 (1.005-1.030)
[2020-04-11] LABS: Mucus,Urine 4+ /lpf
[2020-04-11] LABS: Coronavirus 19 IgG Antibody Negative (Negative); Coronavirus 19 IgM Antibody Negative (Negative)
--- NOTE | 2020-04-11 00:17 | HMH.EDGENADL ---
ED Disposition Clinical Impression: Suspected 2019 novel coronavirus infection Upper respiratory infection Qualifiers: URI type: unspecified viral URI Qualified Code(s): J06.9 - Acute upper respiratory infection, unspecified Disposition: Home, Self-Care Condition on Discharge: Fair Instructions: Preventing the Spread of Coronavirus Discharge Instructions, DI for Acute Bronchitis Additional Instructions: You have been evaluated for fever, chills, sore throat, muscle aches, cough, diarrhea, consistent with viral upper respiratory infection or COVID-19. Please take Tylenol for pain and fever. Follow-up with your primary care doctor. Self isolate until you have negative COVID results were symptom-free. Return to the emergency department if you have any new or worsening symptoms, shortness of breath, other concerns. Referrals: Nikia Haywood APRN [Primary Care Provider] - Forms: Work/School Release Time of Disposition: 00:29 - Critical Care Critical Care Time: No Attestation: On 04/10/20, the high probability of a clinically significant, sudden or life threatening deterioration of the following system(s) required my full and direct attention, intervention and personal management. The time I documented below is in addition to time spent performing reported procedures but includes the following listed in this critical care notation. Medical Decision Making - Medical Records Medical records reviewed: Yes: I reviewed the patient's medical records. - Prasanna Inquiry Pt receiving controlled substance: No Vital Signs: 04/10/20 23:24 04/10/20 23:50 Temperature 100.9 F H Temperature Source Oral Pulse Rate [Right] 130 H 116 H Respiratory Rate 22 20 Blood Pressure [Right Arm] 164/100 H 152/76 H Blood Pressure Mean [Right Arm] 121 101 Blood Pressure Source [Right Arm] Automatic Cuff Automatic Cuff Blood Pressure Position [Right Arm] Sitting Sitting 02 Sat by Pulse Oximetry 95 95 Oxygen Delivery Method Room Air Room Air - Lab Data Lab Results 04/10/20 23:20: WBC 11.3 H, RBC 4.52, Hgb 14.0, Hct 42.3, MCV 93.5, MCH 31.0, MCHC 33.2, RDW 13.7, Plt Count 284, MPV 7.5, Neut % (Auto) 85.3 H, Lymph % (Auto) 9.2 L, [place] % (Auto) 3.3, Eos % (Auto) 2.2, Baso % (Auto) 0.1, Neut # (Auto) 9.7 H, Lymph # (Auto) 1.0, [place] # (Auto) 0.4, Eos # (Auto) 0.3, Baso # (Auto) 0.0, Total Counted 100, Neutrophils % (Manual) 88 H, Band Neutrophils % 1.0, Lymphocytes % (Manual) 9 L, Monocytes % (Manual) 2, Platelet Estimate Normal, RBC Morphology Normal 04/10/20 23:20: Sodium 140, Potassium 3.2 L, Chloride 108 H, Carbon Dioxide 23, Anion Gap 12.2, BUN 9, Creatinine 0.60, Estimated Creat Clear 110, Estimated GFR 124, Est GFR ( Amer) 150, Glucose 154 H, Calcium 9.3, Total Bilirubin 0.3, AST 22, ALT 25, Alkaline Phosphatase 104, Total Protein 6.8, Albumin 3.7, Globulin 3.1, Albumin/Globulin Ratio 1.2 04/10/20 23:20: Lactate 1.7 04/10/20 23:20: SARS-CoV-2 IgG Ab (Rapid) Negative, SARS-CoV-2 IgM Ab (Rapid) Negative 04/10/20 23:20: Group A Strep Rapid Negative 04/10/20 23:50: Urine Color Yellow, Urine Appearance Clear, Urine pH 7.0, Ur Specific [place] 1.025, Urine Protein Negative, Urine Glucose (UA) Negative, Urine Ketones Negative, Urine Blood Negative, Urine Nitrate Negative, Urine Bilirubin Negative, Urine Urobilinogen 1.0, Ur Leukocyte Esterase Trace, Urine WBC 3-5, Ur Squamous Epith Cells 10-20, Urine Mucus 4+ 04/10/20 23:50: Urine HCG, Qual Negative Result diagrams: 04/10/20 23:20 04/10/20 23:20 Orders (Tests/Meds): ORDERS Category Date Time Status XR chest portable Stat Exams 04/10/20 23:15 Taken Covid-19 Nasal PCR Sendout [facility] Stat Lab 04/10/20 23:16 Received Blood Culture Stat Micro 04/10/20 23:20 Received Strep Screen Confirmation Stat Micro 04/10/20 23:20 Received Medical Decision Narrative: In summary this is a 24-year-old female presenting to the emergency department with nausea, malaise, muscle aches. Patient a
[2020-04-11 00:28] VITALS: BP 148/70; PULSE 100; RESP 16; TEMP 37.6; O2SAT 98
[2020-04-12 17:03] LABS: Covid-19 Nasal PCR Sendout UK Not Detected
== END 2020-04-11 00:38 | disposition home or self-care (01) ==
PROVIDERS: Emergency Provider Emergency Medicine; PCP Nurse Practitioner Family
DX: Z20.828 Contact with and (suspected) exposure to other viral communicable diseases (principal); J06.9 Acute upper respiratory infection, unspecified; F41.8 Other specified anxiety disorders; F17.210 Nicotine dependence, cigarettes, uncomplicated; Z79.899 Other long term (current) drug therapy
CPT/HCPCS: 71045; 80053; 81001; 81025; 83605; 85007; 85025; 86328; 87040; 87430; 99284; U0003

== ENCOUNTER 2020-04-20 01:59 | Emergency (ER) | payer OTHER, SELFPAY ==
[2020-04-20 02:00] VITALS: BP 159/104; PULSE 110; RESP 18; TEMP 36.9; O2SAT 99; BMI 45.3
--- NOTE | 2020-04-20 02:03 | HMH.EDGENADL ---
ED Disposition Clinical Impression: Serous otitis media Qualifiers: Chronicity: acute Laterality: bilateral Recurrence: not specified as recurrent Qualified Code(s): H65.03 - Acute serous otitis media, bilateral Disposition: Home, Self-Care Condition on Discharge: Good Instructions: Ear Infections (Alternative Therapy) Additional Instructions: Low up with your PCP. I do not think your ears are infected at this time, however I will send you home with an antibiotic prescription and you can wait and see if your symptoms get worse or you have worsening fever, then he should start antibiotics. If you have any new, changing, worsening, or concerning symptoms, come back to the emergency department. Prescriptions: Amoxicillin [Amoxicillin 875MG Tab] 875 mg PO Q12H 5 Days #10 tab Prescription Printed Referrals: Nikia Haywood APRN [Primary Care Provider] - Time of Disposition: 02:19 - Critical Care Critical Care Time: No Attestation: On , the high probability of a clinically significant, sudden or life threatening deterioration of the following system(s) required my full and direct attention, intervention and personal management. The time I documented below is in addition to time spent performing reported procedures but includes the following listed in this critical care notation. Medical Decision Making - Medical Records Medical records reviewed: Yes: I reviewed the patient's medical records. MR Comment: 34-year-old female presents the emergency department with bilateral ear pain. She arrives the ED hemodynamically stable, with reassuring vitals, and looks well on exam. There is no concern on exam for mastoiditis, no external ear findings that are worrisome. Likely a serous otitis media from her viral URI, but we will give her a [id number] prescription for antibiotics given that she notes a fever and worsening ear pain over the last day. Treat her pain with Toradol, she reports relief. She is given strict return precautions and discharge instructions including follow-up for further evaluation and treatment and verbalizes an understanding and agreement with the plan. Safe to discharge. - Prasanna Inquiry Pt receiving controlled substance: No General Adult HPI - General Stated complaint: Ear Pain both ears Time Seen by Provider: 04/20/20 02:03 - History of Present Illness HPI narrative: 24-year-old female presents the emergency department with bilateral ear pain. She also states she has had cough and digestion. Started last night. She states she thought she had a fever last night, has not had fever or chills today. No shortness of breath or rash. No headache. No drainage from the ears. Tylenol at home is not helping. She denies any other complaints or concerns at this time. - Related Data Home Medications Medication Instructions Recorded Confirmed PARoxetine HCL [Paroxetine HCl] 40 mg PO DAILY 03/19/19 04/02/20 Previous Rx's Medication Instructions Recorded Ondansetron [Zofran 4mg ODT] 4 mg PO TID PRN #10 tab.rapdis 04/02/20 Amoxicillin [Amoxicillin 875MG 875 mg PO Q12H 5 Days #10 tab 04/20/20 Tab] Allergies Allergy/AdvReac Type Severity Reaction Status Date / Time No Known Allergies Allergy Verified 04/20/20 02:13 [facility] History - Hepatitis A Screen Attestation statement:: This patient has been screened for Hepatitis A risk factors. I have reviewed the patient's past medical history: Yes 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: Reports:: Anxiety, Depression Denies:: Cancer, Chronic Obstructive Pulmonary Disease (COPD), Diabetes Mellitus Type 1, Diabetes Mellitus Type 2, Hypertension, MRSA Other 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: Reports: Other (fatty liver disease) Laterality Cases: Right: Arthroscopy Knee, Bilateral: Tonsillectomy Other Surgeries: Yes: Other Amputation: No Fractures: No - 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 Smoking Status: Current every day smoker Tobacco Type: cigarettes # Packs/Day (cigarettes): 1 Alcohol In
[2020-04-20 02:22] VITALS: BP 159/104; PULSE 94; RESP 16; TEMP 36.9; O2SAT 99
== END 2020-04-20 02:25 | disposition home or self-care (01) ==
PROVIDERS: Emergency Provider Emergency Medicine; PCP Nurse Practitioner Family
DX: H65.03 Acute serous otitis media, bilateral (principal); F41.8 Other specified anxiety disorders; Z79.899 Other long term (current) drug therapy; F17.210 Nicotine dependence, cigarettes, uncomplicated
CPT/HCPCS: 96372; 99281

== ENCOUNTER 2020-04-26 17:31 | Emergency (ER) | payer OTHER, SELFPAY ==
[2020-04-26 18:03] VITALS: BP 134/78; PULSE 110; RESP 16; TEMP 37.1; O2SAT 98; BMI 45.3
--- NOTE | 2020-04-26 18:40 | HMH.EDUTC ---
[facility] [place] Clinical Impression: Cerumen impaction Qualifiers: Laterality: right Qualified Code(s): H61.21 - Impacted cerumen, right ear Disposition: Home, Self-Care Condition on Discharge: Good Instructions: DI for Cerumen Impaction, Middle Ear Infections (Alternative Therapy), Middle Ear Infection, DI for Ear Pain-Adult Additional Instructions: Continue to take antibiotics as prescribed FOllow up with Family Doctor if no improvement or any worsening of symptoms Follow up with ENT if no improvement or any worsening of symptoms Straight to ER if any life threatening symptoms Over the counter Motrin and/or Tylenol as directed on the package for fever or pain Prescriptions: Fluticasone Propionate [Flonase 50mcg nasal spray 16gm] 1 - 2 spr NS DAILY #1 bottle Transmission Status: Sent to [facility][id number] Referrals: Nikia Haywood APRN [Primary Care Provider] - As needed Syed Justin MD [Staff Physician] - Sofya Velásquez MD [Consulting Physician] - Time of Disposition: 18:46 Medical Decision Making - Prasanna Inquiry Pt receiving controlled substance: No Prasanna was queried for this patient: No Vital Signs: 04/26/20 18:03 Temperature 98.8 F Temperature Source Oral Pulse Rate [Right Brachial] 110 H Respiratory Rate 16 Blood Pressure [Right Arm] 134/78 Blood Pressure Mean [Right Arm] 96 Blood Pressure Source [Right Arm] Automatic Cuff Blood Pressure Position [Right Arm] Sitting 02 Sat by Pulse Oximetry 98 Oxygen Delivery Method Room Air [facility] [place] HPI - General Stated complaint: Ear pain Time Seen by Provider: 04/26/20 18:40 Mode of Arrival: Ambulatory Source of Information: Patient Limitations: No Limitations Description of Symptoms (Recalled from Triage Doc. by RN): PATIENT C/O RIGHT EAR PAIN WITH LOSS OF HEARING. STATES HEARING IS GOING IN AND OUT ON HER LEFT SIDE HEENT Symptoms (Recalled from RN notes): Yes Resp Symptoms (Recalled from RN notes): No Skin Symptoms (Recalled from RN notes): No MS Symptoms (Recalled from RN notes): No Functional Status (Recalled from RN notes): WNL - History of Present Illness Provider Complaint: Patient states that she was just recently started on antibiotics for otitis media and she has been having pain in her right ear and feels like she cannot hear well out of it State that her hearing comes and goes in her right ear States that it is worse at night - Related Data Home Medications Medication Instructions Recorded Confirmed PARoxetine HCL [Paroxetine HCl] 40 mg PO DAILY 03/19/19 04/26/20 Amoxicillin [Amoxicillin 875MG 875 mg PO Q12H 04/26/20 04/26/20 Tab] Previous Rx's Medication Instructions Recorded Fluticasone Propionate [Flonase 1 - 2 spr NS DAILY #1 bottle 04/26/20 50mcg nasal spray 16gm] Allergies Allergy/AdvReac Type Severity Reaction Status Date / Time No Known Allergies Allergy Verified 04/20/20 02:13 - Worker's Comp Is this a Worker's Comp case?: No [facility] History - Hepatitis A Screen Drug use history?: No High risk sexual behaviors?: No History of sexually transmitted infection?: No Currently employed?: No Childcare worker?: No Do you have indoor plumbing?: Yes Do you have electricity?: Yes Attestation statement:: This patient has been screened for Hepatitis A risk factors. I have reviewed the patient's past medical history: Yes 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: Reports:: Anxiety, Depression Denies:: Cancer, Chronic Obstructive Pulmonary Disease (COPD), Diabetes Mellitus Type 1, Diabetes Mellitus Type 2, Hypertension, MRSA Other 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: Reports: Other (fatty liver disease) Laterality Cases: Right: Arthroscopy Knee, Bilateral: Tonsillectomy Other Surgeries: Yes: Other Amputation: No Fractures: No - 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 Smoking Status: Current every day smoker Tobacco Type: cigarettes # Packs/Day (cigarettes): 1 Alcohol Intake: never Alcohol Intake Frequency:: holidays/special occasions only Substance Use Type:
[2020-04-26 18:48] VITALS: BP 134/78; PULSE 110; RESP 16; TEMP 37.1; O2SAT 98
== END 2020-04-26 18:51 | disposition home or self-care (01) ==
PROVIDERS: Emergency Provider Nurse Practitioner; PCP Nurse Practitioner Family
DX: H66.91 Otitis media, unspecified, right ear (principal); H61.21 Impacted cerumen, right ear; F41.8 Other specified anxiety disorders; K76.9 Liver disease, unspecified; F17.210 Nicotine dependence, cigarettes, uncomplicated
CPT/HCPCS: 99201

== ENCOUNTER 2020-06-04 23:31 | Emergency (ER) | payer OTHER, SELFPAY ==
[2020-06-04 23:41] VITALS: BP 151/82; PULSE 107; RESP 18; TEMP 37.5; O2SAT 98; BMI 54.8
[2020-06-04 23:48] LABS: POC Glucose,Bedside 188 (70-110)
[2020-06-05] VITALS: BP 155/95; PULSE 104; RESP 17; O2SAT 97
--- NOTE | 2020-06-05 00:22 | HMH.EDGENADL ---
ED Disposition Clinical Impression: Hyperglycemia Disposition: Home, Self-Care Condition on Discharge: Good Instructions: DI for Hyperglycemia -- Adult Additional Instructions: Follow-up with primary care provider, call for appointment. Turn to the emergency department if symptoms worsen. Referrals: Nikia Haywood APRN [Primary Care Provider] - - Critical Care Critical Care Time: No Attestation: On 06/04/20, the high probability of a clinically significant, sudden or life threatening deterioration of the following system(s) required my full and direct attention, intervention and personal management. The time I documented below is in addition to time spent performing reported procedures but includes the following listed in this critical care notation. Medical Decision Making - Prasanna Inquiry Pt receiving controlled substance: No Vital Signs: 06/04/20 23:41 06/05/20 00:00 06/05/20 00:30 Temperature 99.5 F Temperature Source Oral Pulse Rate [Right] 107 H 104 H 98 H Respiratory Rate 18 17 17 Blood Pressure [Left Arm] 151/82 H 155/95 H 149/94 H Blood Pressure Mean [Left Arm] 105 115 112 Blood Pressure Source [Left Arm] Automatic Cuff Automatic Cuff Automatic Cuff Blood Pressure Position [Left Arm] Supine Supine Supine 02 Sat by Pulse Oximetry 98 97 97 Oxygen Delivery Method Room Air Room Air Room Air 06/05/20 01:00 06/05/20 01:30 Temperature Temperature Source Pulse Rate [Right] 94 H 100 H Respiratory Rate 18 17 Blood Pressure [Left Arm] 141/89 H 149/94 H Blood Pressure Mean [Left Arm] 106 112 Blood Pressure Source [Left Arm] Automatic Cuff Automatic Cuff Blood Pressure Position [Left Arm] Supine Supine 02 Sat by Pulse Oximetry 95 97 Oxygen Delivery Method Room Air Room Air - Lab Data Lab Results 06/04/20 23:41: POC Glucose 188 H 06/05/20 00:25: Urine Color Yellow, Urine Appearance Clear, Urine pH 6.5, Ur Specific [place] 1.020, Urine Protein Negative, Urine Glucose (UA) Trace, Urine Ketones Negative, Urine Blood Trace-i, Urine Nitrate Negative, Urine Bilirubin Negative, Urine Urobilinogen 1.0, Ur Leukocyte Esterase Negative, Urine RBC 3-5, Urine WBC 3-5, Ur Squamous Epith Cells 10-20, Urine Bacteria 1+, Urine Mucus 1+ 06/05/20 00:25: Urine HCG, Qual Negative 06/05/20 00:35: WBC 12.7 H, RBC 4.96, Hgb 14.9, Hct 47.0, MCV 94.7, MCH 30.1, MCHC 31.8, RDW 13.9, Plt Count 373, MPV 7.3 L, Neut % (Auto) 74.0, Lymph % (Auto) 19.4, [place] % (Auto) 4.9, Eos % (Auto) 1.5, Baso % (Auto) 0.3, Neut # (Auto) 9.4 H, Lymph # (Auto) 2.5, [place] # (Auto) 0.6, Eos # (Auto) 0.2, Baso # (Auto) 0.0 06/05/20 00:35: Sodium 140, Potassium 3.3 L, Chloride 105, Carbon Dioxide 25, Anion Gap 13.3, BUN 8, Creatinine 0.70, Estimated Creat Clear 94, Estimated GFR 103, Est GFR ( Amer) 124, Glucose 87, Calcium 9.5, Total Bilirubin 0.3, AST 48 H, ALT 44, Alkaline Phosphatase 111, Total Protein 7.6, Albumin 4.4, Globulin 3.2, Albumin/Globulin Ratio 1.4 06/05/20 00:35: Hemoglobin A1c 5.1 Result diagrams: 06/05/20 00:35 06/05/20 00:35 - Reevaluation(s) Time: 02:15 Reevaluation #1: Patient says she feels better, just feels tired now. Discussed results. General Adult HPI - General Chief complaint: Hyper/Hypoglycemia Stated complaint: lightheaded, blurred vision Time Seen by Provider: 06/05/20 00:22 Mode of Arrival: EMS Limitations: No Limitations Description of Symptoms (Recalled from ER Triage Doc. by RN): Pt states she started shaking and sweating today, checked her FSBS at work abd it was 326, we rechecked on arrival and it was 188 - History of Present Illness HPI narrative: Complains of high blood sugar and shakiness. She says that she had gestational diabetes in 2014. Since then she has had problems with her blood sugar off and on but has not been officially diagnosed with diabetes since then. For the past month she says she has felt worse. She says that she gets shaky when her blood sugar is low and when it i
[2020-06-05 00:30] VITALS: BP 149/94; PULSE 98; RESP 17; O2SAT 97
[2020-06-05 00:36] LABS: Microscopic, Urine URINE MICROSCOPIC (MICROSCOPIC)
[2020-06-05 00:52] LABS: Appearance,Urine CLEAR (Clear); Bilirubin,Urine Negative (Negative); Blood, Urine TRACE-I (Negative); Color,Urine YELLOW (Yellow); Glucose,Urine (UA) TRACE (Negative); Ketones,Urine Negative (Negative); Leukocyte Esterase,Urine Negative (Negative); Nitrate,Urine Negative (Negative); PH,Urine 6.5 (5.0-8.5); Protein,Urine Negative (Negative)
[2020-06-05 00:54] LABS: Urine Pregnancy, HCG Qual. Negative (Negative)
[2020-06-05 01:00] VITALS: BP 141/89; PULSE 94; RESP 18; O2SAT 95
[2020-06-05 01:02] LABS: Basophils % 0.3 % (0.1-2.0); Eosinophils # 0.2 K/mm3 (0.0-0.4); Eosinophils % 1.5 % (0.1-12.0); Hemoglobin 14.9 g/dL (12.2-16.2); Lymphocytes # 2.5 K/mm3 (0.7-4.5); Lymphocytes % 19.4 % (10-50); Mean Corpuscular HGB Conc 31.8 g/dL (31.8-35.4); Mean Corpuscular Hemoglobin 30.1 pg (27.0-31.2); Mean Corpuscular Volume 94.7 fl (81-99); Mean Platelet Volume 7.3 fl (7.4-10.4); Monocytes # 0.6 K/mm3 (0.1-1.0); Monocytes % 4.9 % (1.7-9.3); Neutrophils # 9.4 K/mm3 (1.8-7.8); Platelet Count 373 K/mm3 (142-424); Red Blood Count 4.96 M/mm3 (4.20-5.40); Red Cell Distribution Width 13.9 % (11.5-17.5); White Blood Count 12.7 K/mm3 (4.8-10.8)
[2020-06-05 01:03] LABS: Bacteria,Urine 1+ /lpf; Mucus,Urine 1+ /lpf
[2020-06-05 01:08] LABS: Alanine Aminotransferase 44 U/L (12-78); Albumin Level 4.4 g/dl (3.5-5.0); Albumin/Globulin Ratio 1.4 (1.1-1.8); Alkaline Phosphatase 111 U/L (38-126); Anion Gap 13.3 mEq/L (5-15); Aspartate Amino Transferase 48 U/L (14-36); Bilirubin,Total 0.3 mg/dl (0.2-1.3); Blood Urea Nitrogen 8 mg/dl (7-17); Calcium 9.5 mg/dl (8.4-10.2); Carbon Dioxide 25 mmol/L (22.0-30.0); Chloride 105 mmol/L (98-107); Creatinine Clearance Estimated 94 mL/min (50-200); Estimated Glomerular Filt Rate 103 ml/min (>60); GFR (African American) 124 ML/MIN (>60); Globulin 3.2 g/dL (1.3-3.2); Glucose 87 mg/dl (74-100); Potassium 3.3 mmoL/L (3.5-5.1); Sodium 140 mmol/L (136-145); Total Protein,Serum 7.6 g/dl (6.3-8.2)
[2020-06-05 01:30] VITALS: BP 149/94; PULSE 100; RESP 17; O2SAT 97
[2020-06-05 02:10] LABS: Hemoglobin A1C 5.1 % (4.0-6.0)
[2020-06-05 02:25] VITALS: BP 139/88; PULSE 88; RESP 16; TEMP 37.5; O2SAT 98
== END 2020-06-05 02:27 | disposition home or self-care (01) ==
PROVIDERS: Emergency Provider Emergency Medicine; PCP Nurse Practitioner Family
DX: R73.9 Hyperglycemia, unspecified (principal); R42 Dizziness and giddiness; Z86.32 Personal history of gestational diabetes; F41.8 Other specified anxiety disorders; F17.210 Nicotine dependence, cigarettes, uncomplicated; K76.0 Fatty (change of) liver, not elsewhere classified
CPT/HCPCS: 80053; 81001; 81025; 82962; 83036; 85025; 99283

== ENCOUNTER 2020-06-24 12:07 | Emergency (ER) | payer OTHER, SELFPAY ==
[2020-06-24 12:08] VITALS: BP 119/74; PULSE 97; RESP 14; TEMP 37.4; O2SAT 98; BMI 45.3
--- NOTE | 2020-06-24 12:13 | ECG_ITS ---
APPROVED REPORT Exam: Resting ECG HR:108 bpm ECG Measurements Heart Rate 108 AXES [place] 168 P 43 QRSd 82 QRS 57 QT 318 T 16 QTc 426 Conclusion Sinus tachycardia Otherwise normal ECG Electronically signed by : Pillo Meehan, 06/26/2020 17:03:53
[2020-06-24 12:14] VITALS: BMI 45.3
[2020-06-24 12:30] LABS: Basophils % 0.3 % (0.1-2.0); Eosinophils # 0.1 K/mm3 (0.0-0.4); Eosinophils % 1.3 % (0.1-12.0); Hematocrit 46.3 % (37.0-47.0); Hemoglobin 14.5 g/dL (12.2-16.2); Lymphocytes # 1.7 K/mm3 (0.7-4.5); Lymphocytes % 22.5 % (10-50); Mean Corpuscular HGB Conc 31.4 g/dL (31.8-35.4); Mean Corpuscular Hemoglobin 29.9 pg (27.0-31.2); Mean Corpuscular Volume 95.2 fl (81-99); Mean Platelet Volume 6.9 fl (7.4-10.4); Monocytes # 0.4 K/mm3 (0.1-1.0); Monocytes % 5.1 % (1.7-9.3); Neutrophils # 5.3 K/mm3 (1.8-7.8); Neutrophils % 70.7 % (37.0-80.0); Platelet Count 343 K/mm3 (142-424); Red Blood Count 4.87 M/mm3 (4.20-5.40); Red Cell Distribution Width 13.3 % (11.5-17.5); White Blood Count 7.5 K/mm3 (4.8-10.8)
[2020-06-24 12:32] LABS: Blood Urea Nitrogen 9 mg/dl (7-17); Creatinine Clearance Estimated 94 mL/min (50-200); Estimated Glomerular Filt Rate 103 ml/min (>60); GFR (African American) 124 ML/MIN (>60)
[2020-06-24 12:33] LABS: Alanine Aminotransferase 29 U/L (12-78); Albumin Level 4.6 g/dl (3.5-5.0); Albumin/Globulin Ratio 1.2 (1.1-1.8); Alkaline Phosphatase 113 U/L (38-126); Aspartate Amino Transferase 34 U/L (14-36); Bilirubin,Total 0.5 mg/dl (0.2-1.3); Carbon Dioxide 25 mmol/L (22.0-30.0); Globulin 3.8 g/dL (1.3-3.2); Total Protein,Serum 8.4 g/dl (6.3-8.2)
[2020-06-24 12:34] LABS: Calcium 9.9 mg/dl (8.4-10.2); Glucose 132 mg/dl (74-100)
--- NOTE | 2020-06-24 12:35 | HMH.EDGENADL ---
ED Disposition Clinical Impression: Miscarriage, Amanda-Dobbins tear Vomiting Qualifiers: Vomiting type: unspecified Vomiting Intractability: non-intractable Nausea presence: with nausea Qualified Code(s): R11.2 - Nausea with vomiting, unspecified Disposition: Home, Self-Care Condition on Discharge: Good Instructions: DI for Miscarriage, DI for Amanda-Dobbins Syndrome, DI for Vaginal Bleeding Additional Instructions: Follow-up with Dr. Burns, call for appointment Follow-up with your primary care provider, call for appointment Zofran and Pepcid as prescribed. Turn to the emergency department if severe vaginal bleeding or abdominal pain or if vomiting of blood persists. Prescriptions: Famotidine [Pepcid 20mg Tablet] 20 mg PO BID 5 Days #10 tab Transmission Status: Pending to [facility] #[id number] Ondansetron [Zofran 4mg ODT] 4 mg PO TIDP PRN #10 tab.rapdis PRN Reason: Nausea And Vomiting Transmission Status: Pending to [facility] #[id number] Referrals: Nikia Haywood APRN [Primary Care Provider] - - Critical Care Critical Care Time: No Attestation: On 06/24/20, the high probability of a clinically significant, sudden or life threatening deterioration of the following system(s) required my full and direct attention, intervention and personal management. The time I documented below is in addition to time spent performing reported procedures but includes the following listed in this critical care notation. Medical Decision Making - Medical Records Medical records reviewed: Yes: I reviewed the patient's medical records. MR Comment: Blood type is O+ - Prasanna Inquiry Pt receiving controlled substance: No Vital Signs: 06/24/20 12:08 06/24/20 13:05 06/24/20 13:30 Temperature 99.4 F Temperature Source Oral Pulse Rate [Apical] 97 H 89 79 Respiratory Rate 14 14 18 Blood Pressure [Right Arm] 119/74 134/84 114/72 Blood Pressure Mean [Right Arm] 89 100 86 Blood Pressure Source [Right Arm] Automatic Cuff Automatic Cuff Automatic Cuff Blood Pressure Position [Right Arm] Sitting Sitting Sitting 02 Sat by Pulse Oximetry 98 97 97 Oxygen Delivery Method Room Air Room Air Room Air 06/24/20 14:00 Temperature Temperature Source Pulse Rate [Apical] 95 H Respiratory Rate 18 Blood Pressure [Right Arm] 126/73 Blood Pressure Mean [Right Arm] 90 Blood Pressure Source [Right Arm] Automatic Cuff Blood Pressure Position [Right Arm] Sitting 02 Sat by Pulse Oximetry 99 Oxygen Delivery Method Room Air - Lab Data Lab results reviewed: Yes: I reviewed the patient's lab results. Lab Results 06/24/20 12:15: WBC 7.5, RBC 4.87, Hgb 14.5, Hct 46.3, MCV 95.2, MCH 29.9, MCHC 31.4 L, RDW 13.3, Plt Count 343, MPV 6.9 L, Neut % (Auto) 70.7, Lymph % (Auto) 22.5, [place] % (Auto) 5.1, Eos % (Auto) 1.3, Baso % (Auto) 0.3, Neut # (Auto) 5.3, Lymph # (Auto) 1.7, [place] # (Auto) 0.4, Eos # (Auto) 0.1, Baso # (Auto) 0.0 06/24/20 12:15: Sodium 141, Potassium 3.6, Chloride 105, Carbon Dioxide 25, Anion Gap 14.6, BUN 9, Creatinine 0.70, Estimated Creat Clear 94, Estimated GFR 103, Est GFR ( Amer) 124, Glucose 132 H, Calcium 9.9, Total Bilirubin 0.5, AST 34, ALT 29, Alkaline Phosphatase 113, Troponin I < 0.01, Total Protein 8.4 H, Albumin 4.6, Globulin 3.8 H, Albumin/Globulin Ratio 1.2, HCG, Quant 2 06/24/20 12:15: Serum HCG, Qual Negative Result diagrams: 06/24/20 12:15 06/24/20 12:15 Orders (Tests/Meds): ED MEDICATIONS Generic Name Dose Route Start Last Admin Trade Name Freq PRN Reason Stop Dose Admin Sodium Chloride 8 ml 06/24/20 12:48 06/24/20 12:52 Sodium Chloride 0.9% 10ml Vial IV 07/24/20 12:47 8 ml NEEDED PRN Administration dilute pepcid Discontinued Medications Generic Name Dose Route Start Last Admin Trade Name Freq PRN Reason Stop Dose Admin Famotidine 20 mg 06/24/20 12:48 06/24/20 12:52 Famotidine 20mg/2ml Vial IV 06/24/20 12:49 20 mg ONCE ONE Administration
[2020-06-24 12:36] LABS: Sodium 141 mmol/L (136-145)
[2020-06-24 12:38] LABS: HCG Qualitative, Serum Negative (Negative)
[2020-06-24 12:44] LABS: Anion Gap 14.6 mEq/L (5-15); Chloride 105 mmol/L (98-107); Potassium 3.6 mmoL/L (3.5-5.1)
[2020-06-24 12:46] LABS: Troponin I < 0.01 ng/ml (0.00-0.034)
[2020-06-24 12:51] LABS: HCG,Quantitative 2 mIU/ml (0-5.42)
[2020-06-24 13:05] VITALS: BP 134/84; PULSE 89; RESP 14; O2SAT 97
[2020-06-24 13:30] VITALS: BP 114/72; PULSE 79; RESP 18; O2SAT 97
[2020-06-24 14:00] VITALS: BP 126/73; PULSE 95; RESP 18; O2SAT 99
--- NOTE | 2020-06-24 14:20 | PC.NURSE ---
pt informed dr florian that she will now consent to having blood drawn for medical testing. pt states that no one is allow to have the results of this testing.
[2020-06-24 14:29] LABS: Microscopic, Urine URINE MICROSCOPIC (MICROSCOPIC)
[2020-06-24 15:03] VITALS: BP 122/76; PULSE 95; RESP 16; TEMP 37.4; O2SAT 99
[2020-06-24 15:20] LABS: Appearance,Urine SL CLOUDY (Clear); Blood, Urine 3+ (Negative); Color,Urine AMBER (Yellow); Glucose,Urine (UA) Negative (Negative); Ketones,Urine Negative (Negative); Leukocyte Esterase,Urine TRACE (Negative); Nitrate,Urine Negative (Negative); Protein,Urine 1+ (Negative); Specific Gravity, Urine 1.025 (1.005-1.030); Urobilinogen,Urine 0.2 EU/dl (0.2)
[2020-06-24 15:22] LABS: Bilirubin,Urine Negative (Negative)
[2020-06-24 16:16] LABS: Bacteria,Urine 2+ /lpf; RBC,Urine 20-50 #/hpf (0-3)
== END 2020-06-24 15:03 | disposition home or self-care (01) ==
PROVIDERS: Emergency Provider Emergency Medicine; PCP Nurse Practitioner Family
DX: R55 Syncope and collapse (principal); O20.0 Threatened abortion; K22.6 Gastro-esophageal laceration-hemorrhage syndrome; F41.8 Other specified anxiety disorders; F17.210 Nicotine dependence, cigarettes, uncomplicated
CPT/HCPCS: 80053; 81001; 84484; 84702; 84703; 85025; 87086; 93005; 96365; 96366; 96375; 99283; J2405

== ENCOUNTER 2020-08-29 12:45 | Emergency (ER) | payer OTHER, SELFPAY ==
[2020-08-29 12:46] VITALS: BP 126/70; PULSE 120; RESP 16; TEMP 36.6; O2SAT 98; BMI 49.1
[2020-08-29 13:44] LABS: Microscopic, Urine URINE MICROSCOPIC (MICROSCOPIC)
--- NOTE | 2020-08-29 13:48 | HMH.EDGENADL ---
ED Disposition Clinical Impression: Periodontal disease UTI (urinary tract infection) Qualifiers: Urinary tract infection type: acute cystitis Hematuria presence: with hematuria Qualified Code(s): N30.01 - Acute cystitis with hematuria Disposition: Home, Self-Care Condition on Discharge: Good Additional Instructions: You were seen on an emergency basis. It is very important that you follow up with your primary care provider and/or specialist as we discussed within 2 days. All labs and imaging were obtained and interpreted here to rule out life threatening emergencies, but your final results should be reviewed by your primary doctor at your follow up appointment. Please return to the emergency department if any of your symptoms worsen, or if they do not improve as we discussed. Prescriptions: Cefdinir [Omnicef 300mg Capsule] 300 mg PO BID #20 cap Transmission Status: Pending to [facility] #[id number] Referrals: Nikia Haywood APRN [Primary Care Provider] - - Critical Care Critical Care Time: No Attestation: On 08/29/20, the high probability of a clinically significant, sudden or life threatening deterioration of the following system(s) required my full and direct attention, intervention and personal management. The time I documented below is in addition to time spent performing reported procedures but includes the following listed in this critical care notation. Medical Decision Making - Medical Records Medical records reviewed: Yes: I reviewed the patient's medical records. - Prasanna Inquiry Pt receiving controlled substance: No Vital Signs: 08/29/20 12:46 Temperature 98 F Temperature Source Oral Pulse Rate [Radial] 120 H Respiratory Rate 16 Blood Pressure [Right Arm] 126/70 Blood Pressure Mean [Right Arm] 88 Blood Pressure Position [Right Arm] Sitting 02 Sat by Pulse Oximetry 98 Oxygen Delivery Method Room Air - Lab Data Lab results reviewed: Yes: I reviewed the patient's lab results. Lab Results 08/29/20 12:53: Urine Color Yellow, Urine Appearance Cloudy, Urine pH 5.5, Ur Specific [place] >= 1.030, Urine Protein Negative, Urine Glucose (UA) Negative, Urine Ketones Negative, Urine Blood Negative, Urine Nitrate Negative, Urine Bilirubin Negative, Urine Urobilinogen 0.2, Ur Leukocyte Esterase 1+ A, Urine RBC 3-5, Urine WBC 5-10, Ur Squamous Epith Cells 10-20, Urine Bacteria 2+ 08/29/20 12:53: Urine HCG, Qual Negative 08/29/20 13:30: WBC 7.5, RBC 4.84, Hgb 15.1, Hct 45.4, MCV 93.8, MCH 31.3 H, MCHC 33.3, RDW 13.6, Plt Count 285, MPV 7.5, Neut % (Auto) 74.5, Lymph % (Auto) 18.5, [place] % (Auto) 4.4, Eos % (Auto) 2.3, Baso % (Auto) 0.2, Neut # (Auto) 5.6, Lymph # (Auto) 1.4, [place] # (Auto) 0.3, Eos # (Auto) 0.2, Baso # (Auto) 0.0 08/29/20 13:30: Sodium 137, Potassium 4.0, Chloride 102, Carbon Dioxide 27, Anion Gap 12.0, BUN 13, Creatinine 0.70, Estimated Creat Clear 94, Estimated GFR 103, Est GFR ( Amer) 124, Glucose 143 H, Calcium 10.0, Total Bilirubin 0.5, AST 24, ALT 19, Alkaline Phosphatase 115, Total Protein 8.1, Albumin 4.3, Globulin 3.8 H, Albumin/Globulin Ratio 1.1 Result diagrams: 08/29/20 13:30 08/29/20 13:30 Orders (Tests/Meds): ED MEDICATIONS Discontinued Medications Generic Name Dose Route Start Last Admin Trade Name Freq PRN Reason Stop Dose Admin Acetaminophen 1,000 mg 08/29/20 12:55 08/29/20 13:32 Acetaminophen 500mg Tab PO 08/29/20 12:56 1,000 mg ONCE ONE Administration Lactated Ringer's 500 mls @ 999 mls/hr 08/29/20 13:00 08/29/20 13:32 Lactated Ringer's 1000 Ml Bag IV 08/29/20 13:30 999 mls/hr .Q31M OJ Administration Ondansetron HCl 4 mg 08/29/20 12:55 08/29/20 13:32 Ondansetron 4mg/2ml Vial IV 08/29/20 12:56 4 mg ONCE ONE Administration ORDERS Category Date Time Status Urine Culture Stat Micro 08/29/20 12:53 Received Medical Decision Narrative: 25-year-old female with chronic oral pain presenting with persistent
[2020-08-29 14:00] LABS: Alanine Aminotransferase 19 U/L (12-78); Albumin Level 4.3 g/dl (3.5-5.0); Albumin/Globulin Ratio 1.1 (1.1-1.8); Alkaline Phosphatase 115 U/L (38-126); Aspartate Amino Transferase 24 U/L (14-36); Bilirubin,Total 0.5 mg/dl (0.2-1.3); Blood Urea Nitrogen 13 mg/dl (7-17); Carbon Dioxide 27 mmol/L (22.0-30.0); Chloride 102 mmol/L (98-107); Creatinine Clearance Estimated 94 mL/min (50-200); Estimated Glomerular Filt Rate 103 ml/min (>60); GFR (African American) 124 ML/MIN (>60); Globulin 3.8 g/dL (1.3-3.2); Glucose 143 mg/dl (74-100); Sodium 137 mmol/L (136-145); Total Protein,Serum 8.1 g/dl (6.3-8.2)
[2020-08-29 14:18] LABS: Basophils % 0.2 % (0.1-2.0); Eosinophils # 0.2 K/mm3 (0.0-0.4); Eosinophils % 2.3 % (0.1-12.0); Hematocrit 45.4 % (37.0-47.0); Hemoglobin 15.1 g/dL (12.2-16.2); Lymphocytes # 1.4 K/mm3 (0.7-4.5); Lymphocytes % 18.5 % (10-50); Mean Corpuscular HGB Conc 33.3 g/dL (31.8-35.4); Mean Corpuscular Hemoglobin 31.3 pg (27.0-31.2); Mean Corpuscular Volume 93.8 fl (81-99); Mean Platelet Volume 7.5 fl (7.4-10.4); Monocytes # 0.3 K/mm3 (0.1-1.0); Monocytes % 4.4 % (1.7-9.3); Neutrophils # 5.6 K/mm3 (1.8-7.8); Neutrophils % 74.5 % (37.0-80.0); Platelet Count 285 K/mm3 (142-424); Red Blood Count 4.84 M/mm3 (4.20-5.40); Red Cell Distribution Width 13.6 % (11.5-17.5); White Blood Count 7.5 K/mm3 (4.8-10.8)
[2020-08-29 14:53] LABS: Urine Pregnancy, HCG Qual. Negative (Negative)
[2020-08-29 15:19] LABS: Appearance,Urine CLOUDY (Clear); Bilirubin,Urine Negative (Negative); Blood, Urine Negative (Negative); Color,Urine YELLOW (Yellow); Glucose,Urine (UA) Negative (Negative); Ketones,Urine Negative (Negative); Leukocyte Esterase,Urine 1+ (Negative); Nitrate,Urine Negative (Negative); PH,Urine 5.5 (5.0-8.5); Protein,Urine Negative (Negative); Specific Gravity, Urine >= 1.030 (1.005-1.030); Urobilinogen,Urine 0.2 EU/dl (0.2)
[2020-08-29 15:56] LABS: Bacteria,Urine 2+ /lpf
[2020-08-29 16:13] VITALS: BP 113/60; PULSE 72; RESP 16; TEMP 36.8; O2SAT 98
== END 2020-08-29 16:14 | disposition home or self-care (01) ==
PROVIDERS: Emergency Provider Physician Assistant; PCP Nurse Practitioner Family
DX: N30.01 Acute cystitis with hematuria (principal); K05.6 Periodontal disease, unspecified; F41.8 Other specified anxiety disorders; F17.210 Nicotine dependence, cigarettes, uncomplicated; Z79.899 Other long term (current) drug therapy
CPT/HCPCS: 80053; 81001; 81025; 85025; 87086; 96365; 96375; 99282; J2405

== ENCOUNTER 2020-08-31 11:09 | Emergency (ER) | payer OTHER, SELFPAY ==
[2020-08-31 11:30] VITALS: BP 117/70; PULSE 84; RESP 16; TEMP 37; O2SAT 100; BMI 49.1
--- NOTE | 2020-08-31 11:52 | HMH.EDUTC ---
[facility] [place] Disposition Clinical Impression: Viral upper respiratory illness, Encounter for laboratory testing for COVID-19 virus Disposition: Home, Self-Care Condition on Discharge: Good Instructions: DI for COVID-19 (Suspected or Confirmed ), Coronavirus Disease 2019, Preventing the Spread of Coronavirus Discharge Instructions Additional Instructions: *Monitor Temp, Over the counter Motrin or Tylenol as directed/as needed Tylenol every 4 hours and Motrin every 6 hours (as long as your family doctor has told you that you can take it) for fever or pain. and straight to ER if unable to lower temp less than 101.0 after medication given *Warm salt water gargles may help to soothe the throat *Throat Lozenges *Warm fluids like tea with honey may help to soothe the throat *Sleep elevated *Humidifier/Vaporizer Follow up IMMEDIATELY for new or worsening symptoms or no Noticeable improvement over the next 48-72 hours. 911 for difficulty breathing or swallowing You were tested for today for COVID19 your test result should be back in the next 24-48 hours, you may call to the [facility] to see if your test results are back in the next 48 hours [phone] [facility] hours are 9am-9pm You was given a handout with instructions for Self Quarantine and Self isolation for while you wait on test results and what to do if they are positive If you are positive the Health Dept will be contacting you also Prescriptions: Ondansetron [Zofran 4mg ODT] 4 mg PO TIDP PRN #9 tab PRN Reason: Nausea Transmission Status: Pending to [facility] #[id number] Referrals: Nikia Haywood APRN [Primary Care Provider] - As needed Forms: Work/School Release Medical Decision Making - Prasanna Inquiry Pt receiving controlled substance: No Prasanna was queried for this patient: No Vital Signs: 08/31/20 11:30 Temperature 98.6 F Temperature Source Oral Pulse Rate [Right Brachial] 84 Respiratory Rate 16 Blood Pressure [Right Arm] 117/70 Blood Pressure Mean [Right Arm] 85 Blood Pressure Source [Right Arm] Automatic Cuff Blood Pressure Position [Right Arm] Sitting 02 Sat by Pulse Oximetry 100 Oxygen Delivery Method Room Air Orders (Tests/Meds): ORDERS Category Date Time Status Covid-19 Nasal PCR ([facility]) Routine Lab 08/31/20 11:14 Ordered Medical Decision Narrative: Patient states that she has taken Zofran before without complications or reactions [facility] HPI - General Stated complaint: covid test Time Seen by Provider: 08/31/20 11:52 Mode of Arrival: Ambulatory Source of Information: Patient Limitations: No Limitations Description of Symptoms (Recalled from Triage Doc. by RN): PATIENT C/O BODY ACHES, COUGH, VOMITING, NAUSEA, DIARRHEA, AND SOA X 1 DAYS. LUCINDA TESTED POSITIVE FOR COVID YESTERDAY HEENT Symptoms (Recalled from RN notes): No Resp Symptoms (Recalled from RN notes): No Skin Symptoms (Recalled from RN notes): No MS Symptoms (Recalled from RN notes): No Functional Status (Recalled from RN notes): WNL - History of Present Illness Provider Complaint: Patient states that her fiance tested postive for COVID yesterday States that she is is also having symptoms and wanted to get tested State that she has been having cough, runny nose, body aches felt a little short of breath earlier and had some nausea States that she is currently taking Cefdinr for UTI - Related Data Previous Rx's Medication Instructions Recorded Famotidine [Pepcid 20mg Tablet] 20 mg PO BID 5 Days #10 tab 06/24/20 Ondansetron [Zofran 4mg ODT] 4 mg PO TIDP PRN #10 tab.rapdis 06/24/20 fluoxetine 20 mg capsule 20 mg PO DAILY #90 cap 06/26/20 Cefdinir [Omnicef 300mg Capsule] 300 mg PO BID #20 cap 08/29/20 Ondansetron [Zofran 4mg ODT] 4 mg PO TIDP PRN #9 tab 08/31/20 Allergies Allergy/AdvReac Type Severity Reaction Status Date / Time No Known Allergies Allergy Verified 06/26/20 08:53 - Worker's Comp Is this a Worker's Comp case?: No [facility] History -
[2020-08-31 11:58] VITALS: BP 117/70; PULSE 84; RESP 16; TEMP 37; O2SAT 100
[2020-09-01 09:51] LABS: Covid-19 Nasal PCR Sendout P&C NEGATIVE
== END 2020-08-31 12:00 | disposition home or self-care (01) ==
PROVIDERS: Emergency Provider Nurse Practitioner; PCP Nurse Practitioner Family
DX: Z20.822 Contact with and (suspected) exposure to COVID-19 (principal); J06.9 Acute upper respiratory infection, unspecified; F41.8 Other specified anxiety disorders
CPT/HCPCS: 99202; G0463; U0004

== ENCOUNTER → 2020-09-01 15:56 | Outpatient (CLI) | payer OTHER, SELFPAY ==
[2020-09-01 17:31] LABS: HCG,Quantitative 46 mIU/ml (0-5.42)
== END ==
PROVIDERS: Visit Provider Nurse Practitioner Obstetrics & Gynecology
DX: N92.6 Irregular menstruation, unspecified (principal)
CPT/HCPCS: 36415; 84702

== ENCOUNTER → 2020-09-25 15:13 | Outpatient (CLI) | payer OTHER, SELFPAY | PROVIDERS: Visit Provider Nurse Practitioner Obstetrics & Gynecology | DX: Z34.90 Encounter for supervision of normal pregnancy, unspecified, unspecified trimester (principal) | CPT/HCPCS: 36415; 84702 ==

== ENCOUNTER → 2020-09-30 09:43 | Outpatient (CLI) | payer OTHER, SELFPAY ==
--- NOTE | 2020-09-30 09:47 | US_ITS ---
PROCEDURE: US OB <= 14 WEEKS FETUS CLINICAL INDICATION: Confirmation of -DATES COMPARISON: US US OB TRANSVAGINAL from 10/18/2019 FINDINGS: An intrauterine gestational sac is present with a pole with a crown-rump length of 1.4cm correlating to gestational age of 7weeks 5days. heart tones are present with an FHR of 144bpm. Yolk sac is noted. Right ovary within normal limits. Left ovary contains a corpus luteum cyst and is within normal limits for active . Estimated due date by Ultrasound is 05/14/2021 gestational age last menstrual period is 8 weeks 5 days, correlating to an estimated due date of 05/07/2021. IMPRESSION: Viable intrauterine as described above. Dictated by: Janet Bailey MD 09/30/2020 11:35 Janet Bailey MD in [place] 09/30/2020 11:35
[2020-09-30 10:43] LABS: Basophils % 0.2 % (0.1-2.0); Eosinophils # 0.3 K/mm3 (0.0-0.4); Eosinophils % 2.4 % (0.1-12.0); Hematocrit 40.3 % (37.0-47.0); Hemoglobin 12.8 g/dL (12.2-16.2); Lymphocytes # 2.8 K/mm3 (0.7-4.5); Lymphocytes % 27.8 % (10-50); Mean Corpuscular HGB Conc 31.8 g/dL (31.8-35.4); Mean Corpuscular Hemoglobin 30.3 pg (27.0-31.2); Mean Corpuscular Volume 95.2 fl (81-99); Mean Platelet Volume 7.3 fl (7.4-10.4); Monocytes # 0.5 K/mm3 (0.1-1.0); Monocytes % 4.9 % (1.7-9.3); Neutrophils # 6.5 K/mm3 (1.8-7.8); Neutrophils % 64.6 % (37.0-80.0); Platelet Count 358 K/mm3 (142-424); Red Blood Count 4.24 M/mm3 (4.20-5.40); Red Cell Distribution Width 13.5 % (11.5-17.5); White Blood Count 10.1 K/mm3 (4.8-10.8)
[2020-10-01 10:19] LABS: Rapid Plasma Reagin Ab Titer Non Reactive (NonRea<1:1)
[2020-10-01 11:28] LABS: HIV Screen 4th Generation wRfx Non Reactive (Non Reactive); Hepatitis B Surface Antigen Negative (Negative); Hepatitis C Antibody <0.1 s/co ratio (0.0-0.9); Rubella Antibodies, IgG 2.37 index (Immune >0.99)
== END ==
PROVIDERS: PCP Nurse Practitioner Family; Visit Provider Nurse Practitioner Obstetrics & Gynecology
DX: O26.841 Uterine size-date discrepancy, first trimester (principal); Z3A.08 8 weeks gestation of pregnancy; Z34.90 Encounter for supervision of normal pregnancy, unspecified, unspecified trimester
CPT/HCPCS: 36415; 76801; 85025; 86592; 86703; 86762; 86850; 87340; 87380; G0432

== ENCOUNTER 2020-11-06 15:26 | Emergency (ER) | payer OTHER, SELFPAY ==
[2020-11-06 15:48] VITALS: BP 154/90; PULSE 106; RESP 20; TEMP 36.3; O2SAT 98; BMI 46.0
--- NOTE | 2020-11-06 15:52 | HMH.EDUTC ---
[facility] [place] Clinical Impression: Headache Qualifiers: Headache type: unspecified Headache chronicity pattern: episodic headache Intractability: not intractable Qualified Code(s): R51.9 - Headache, unspecified Qualifiers: Weeks of gestation: 13 weeks Qualified Code(s): Z3A.13 - 13 weeks gestation of Disposition: Home, Self-Care Condition on Discharge: Good Instructions: Migraine -- Adult, Diet, DI for Migraine Additional Instructions: Follow up with your primary care doctor. 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 Please call them and let them know that you are having headaches. Continue to check your blood pressure at home like you have been doing. Take tylenol for headache unless you are directed to do something else by Dr. Ramirez. GO TO THE ER FOR ANY WORSENING SYMPTOMS OR CONCERNS Prescriptions: Promethazine HCl [Phenergan 25mg tab] 25 mg PO Q6H PRN #20 tab PRN Reason: Nausea And Vomiting Transmission Status: Received by [facility] #[id number] Referrals: Nikia Haywood APRN [Primary Care Provider] - Time of Disposition: 16:19 Medical Decision Making - Medical Records Medical records reviewed: No: I reviewed the patient's medical records. - Prasanna Inquiry Pt receiving controlled substance: No Vital Signs: 11/06/20 15:48 11/06/20 16:11 11/06/20 16:20 Temperature 97.4 F L 97.9 F Temperature Source Oral Pulse Rate 99 H Pulse Rate [Right] 106 H Respiratory Rate 20 20 Blood Pressure 139/79 Blood Pressure [Right Arm] 154/90 H 139/79 Blood Pressure Mean [Right Arm] 111 99 Blood Pressure Source [Right Arm] Automatic Cuff Blood Pressure Position [Right Arm] Sitting 02 Sat by Pulse Oximetry 98 Oxygen Delivery Method Room Air Room Air Orders (Tests/Meds): ED MEDICATIONS Discontinued Medications Generic Name Dose Route Start Last Admin Trade Name Freq PRN Reason Stop Dose Admin Acetaminophen 650 mg 11/06/20 16:04 11/06/20 16:06 Acetaminophen 325mg Tab PO 11/06/20 16:05 650 mg ONCE ONE Administration [facility] [place]PI - General Stated complaint: 13 wk preg CARTAGENA Time Seen by Provider: 11/06/20 15:52 - History of Present Illness Provider Complaint: She states that she has been having a headache for the past 2 days. She is 13 weeks . She has took tylenol at home yesterday and it did help, but then the headache came back. In the past she has had migraines and came in here and got a migraine cocktail. She has been checking her blood pressure at home and it has been normal. - Related Data Home Medications Medication Instructions Recorded Confirmed Fluoxetine HCl [Prozac] 20 mg PO DAILY 11/06/20 11/06/20 Folic Acid 1 mg PO DAILY 11/06/20 11/06/20 Pnv No.95/Ferrous Fum/Folic AC 1 each PO DAILY 11/06/20 11/06/20 [ Caplet] Previous Rx's Medication Instructions Recorded Promethazine HCl [Phenergan 25mg 25 mg PO Q6H PRN #20 tab 11/06/20 tab] Allergies Allergy/AdvReac Type Severity Reaction Status Date / Time No Known Allergies Allergy Verified 10/28/20 14:19 [facility] History - Hepatitis A Screen Attestation statement:: This patient has been screened for Hepatitis A risk factors. I have reviewed the patient's past medical history: Yes 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: Reports:: Anxiety, Depression Denies:: Cancer, Chronic Obstructive Pulmonary Disease (COPD), Diabetes Mellitus Type 1, Diabetes Mellitus Type 2, Hypertension, MRSA Other 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: Reports: Other Laterality Cases: Right: Arthroscopy Knee, Bilateral: Tonsillectomy Other Surgeries: Yes: Other Amputation: No Fractures: No - 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 Smoking Status: Current every day smoker Tobacco Type: cigarettes # Packs/Day (cigarettes): 1 Alcohol Intake: never Alcohol Intake Frequency:: holidays/special occasions only Substance Use Type: denies use Occupational Status: other Housing: house Household Members: spouse
[2020-11-06 16:11] VITALS: BP 139/79
[2020-11-06 16:20] VITALS: BP 139/79; PULSE 99; RESP 20; TEMP 36.6
== END 2020-11-06 16:21 | disposition home or self-care (01) ==
PROVIDERS: Emergency Provider Nurse Practitioner Family; PCP Nurse Practitioner Family
DX: R51.9 Headache, unspecified (principal); Z3A.13 13 weeks gestation of pregnancy; F41.8 Other specified anxiety disorders; F17.210 Nicotine dependence, cigarettes, uncomplicated; Z79.899 Other long term (current) drug therapy
CPT/HCPCS: 99202; G0463

== ENCOUNTER 2020-11-08 02:10 | Emergency (ER) | payer OTHER, SELFPAY ==
[2020-11-08 02:47] VITALS: BP 130/83; PULSE 109; RESP 22; TEMP 37; O2SAT 98; BMI 50.6
--- NOTE | 2020-11-08 02:56 | PC.NURSE ---
FHR 151 PER US DOPPLER
[2020-11-08 03:04] LABS: Microscopic, Urine URINE MICROSCOPIC (MICROSCOPIC)
[2020-11-08 03:11] LABS: Appearance,Urine CLOUDY (Clear); Bilirubin,Urine Negative (Negative); Blood, Urine Negative (Negative); Color,Urine YELLOW (Yellow); Glucose,Urine (UA) Negative (Negative); Ketones,Urine TRACE (Negative); Leukocyte Esterase,Urine Negative (Negative); Nitrate,Urine Negative (Negative); Protein,Urine Negative (Negative); Specific Gravity, Urine >= 1.030 (1.005-1.030); Urobilinogen,Urine 0.2 EU/dl (0.2)
[2020-11-08 03:15] LABS: Amorphous Sediment,Urine 1+ /lpf; Calcium Oxalate Crystals,Urine 1+ /lpf; Mucus,Urine Trace /lpf; Squamous Epithelial Cell,Urine 20-50 #/hpf (0-5)
[2020-11-08 03:21] LABS: Amphetamine/Metha Screen,Urine Negative ng/ml (<1000); Benzodiazepines Screen,Urine Negative ng/ml (<200)
[2020-11-08 03:22] LABS: Barbiturates Screen,Urine Negative ng/ml (<200)
[2020-11-08 03:23] LABS: Cannabinoid Screen,Urine Negative ng/ml (<50); Cocaine Screen,Urine Negative ng/ml (<300)
[2020-11-08 03:24] LABS: Methadone Screen,Urine Negative ng/ml (<300)
[2020-11-08 03:25] LABS: Opiate Screen,Urine Negative ng/ml (<300); Phencyclidine Screen,Urine Negative ng/ml (<25)
--- NOTE | 2020-11-08 04:29 | HMH.EDPREG ---
ED Disposition Clinical Impression: Qualifiers: Weeks of gestation: 13 weeks Qualified Code(s): Z3A.13 - 13 weeks gestation of Disposition: Home, Self-Care Condition on Discharge: Good Instructions: DI for -- Discomforts and Remedies Additional Instructions: s pcp for follow up Referrals: Nikia Haywood APRN [Primary Care Provider] - Graham Burns MD [Staff Physician] - - Critical Care Critical Care Time: No Attestation: On 11/08/20, the high probability of a clinically significant, sudden or life threatening deterioration of the following system(s) required my full and direct attention, intervention and personal management. The time I documented below is in addition to time spent performing reported procedures but includes the following listed in this critical care notation. Medical Decision Making - Medical Records Medical records reviewed: Yes: I reviewed the patient's medical records. - Prasanna Inquiry Pt receiving controlled substance: No Vital Signs: 11/08/20 02:47 Temperature 98.6 F Temperature Source Oral Pulse Rate [Right Brachial] 109 H Respiratory Rate 22 Blood Pressure [Right Arm] 130/83 Blood Pressure Mean [Right Arm] 98 Blood Pressure Source [Right Arm] Automatic Cuff Blood Pressure Position [Right Arm] Sitting 02 Sat by Pulse Oximetry 98 Oxygen Delivery Method Room Air - Lab Data Lab results reviewed: Yes: I reviewed the patient's lab results. Lab Results 11/08/20 03:00: Urine Color Yellow, Urine Appearance Cloudy, Urine pH 6.0, Ur Specific [place] >= 1.030, Urine Protein Negative, Urine Glucose (UA) Negative, Urine Ketones Trace, Urine Blood Negative, Urine Nitrate Negative, Urine Bilirubin Negative, Urine Urobilinogen 0.2, Ur Leukocyte Esterase Negative, Ur Squamous Epith Cells 20-50, Calcium Oxalate Crystal 1+, Amorphous Sediment 1+, Urine Mucus Trace 11/08/20 03:00: Urine Opiates Screen Negative, Urine Methadone Screen Negative, Ur Barbituates Screen Negative, Ur Phencyclidine Scrn Negative, Ur Amphetamines Screen Negative, U Benzodiazepines Scrn Negative, Urine Cocaine Screen Negative, U Marijuana (THC) Screen Negative HPI - General Chief complaint: Anxiety Stated complaint: 13 weeks with High heart rate,migraine cr Time Seen by Provider: 11/08/20 03:00 Mode of Arrival: Family Vehicle Source of Information: Patient, Significant Other, Medical Record Limitations: No Limitations Description of Symptoms (Recalled from ER Triage Doc. by RN): PT WORRIED ABOUT BABY DUE TO HER OWN HR BEING ELEVATED. STATED SHE FEELS LIKE SOMETHING IS WRONG WITH THE BABY BECAUSE HER HR GOES UP WHEN SHE GETS UP AND MOVES AROUND. - History of Present Illness HPI Narrative: pt with occ abd pain with hx of 13 weeks and no vag bleeding or trauma Complaint: abdominal pain Onset (ago): hour(s) Consistency: intermittent Location: abdomen Severity: moderate Quality: sharp Radiation: abdomen Associated symptoms: denies other symptoms Vaginal bleeding: none : Yes Date of Last Menstrual Period: UNK - Related Data Home Medications Medication Instructions Recorded Confirmed Fluoxetine HCl [Prozac] 20 mg PO DAILY 11/06/20 11/08/20 Folic Acid 1 mg PO DAILY 11/06/20 11/08/20 Pnv No.95/Ferrous Fum/Folic AC 1 each PO DAILY 11/06/20 11/08/20 [ Caplet] Previous Rx's Medication Instructions Recorded Promethazine HCl [Phenergan 25mg 25 mg PO Q6H PRN #20 tab 11/06/20 tab] Allergies Allergy/AdvReac Type Severity Reaction Status Date / Time No Known Allergies Allergy Verified 10/28/20 14:19 [facility] History - Hepatitis A Screen Drug use history?: No High risk sexual behaviors?: No History of sexually transmitted infection?: No Currently employed?: No Childcare worker?: No Do you have indoor plumbing?: No Do you have electricity?: No Attestation statement:: This patient has been screened for Hepat
[2020-11-08 04:41] VITALS: BP 151/88; PULSE 87; RESP 16; TEMP 36.8; O2SAT 98
== END 2020-11-08 04:43 | disposition home or self-care (01) ==
PROVIDERS: Emergency Provider Emergency Medicine; PCP Nurse Practitioner Family
DX: R00.0 Tachycardia, unspecified (principal); Z3A.13 13 weeks gestation of pregnancy; F41.8 Other specified anxiety disorders; F17.210 Nicotine dependence, cigarettes, uncomplicated
CPT/HCPCS: 80305; 81001; 99282

== ENCOUNTER → 2020-12-25 15:07 | Outpatient (CLI) | payer OTHER, SELFPAY ==
--- NOTE | 2020-12-25 15:07 | US_ITS ---
PROCEDURE: US OB >= 14 WEEKS FETUS CLINICAL INDICATION: 20 WEEKS GESTATION Anatomy exam COMPARISON: US US OB <= 14 WEEKS FETUS from 09/30/2020 FINDINGS: Single viable intrauterine gestation. Breech position. Placenta: Anteriorplacenta grade 1. There is average amount fluid. The cervix appears satisfactory. Complete survey performed and was unremarkable on the submitted images as in PACS. No discrete anomalies identified on survey imaging by technologist. Active fetus. Three-vessel cord with satisfactory umbilical cord insertion. 4- chamber heart noted. Survey of brain & ventricles Unremarkable. Face and neck survey unremarkable. Diaphragm and chest views unremarkable. Abdomen: Both kidneys noted and unremarkable. Stomach noted and satisfactory. Spine: Survey of the spine satisfactory with no anomalies identified nor imaged. Both arms and legs noted. Amniotic Fluid: Adequate. Maternal adnexa: No significant findings. Measurements: Average ultrasound age 20weeks 2days. Gestational Age 20weeks 2days Estimated due date by ultrasound age 0905/12/2021. Estimated weight 333g BPD = 20weeks 4days OFD = 20weeks 5days HC = 20weeks AC = 20weeks FL = 20weeks 3days Growth Percentile= 52% Heart Rate = 150bpm Cerebellum = 20weeks 6days Humerus = 20weeks 2days HC/AC is 1.19 CI is 0.78 FL/BPD is 0.69 FL/AC is 0.23 IMPRESSION: Live IUP at 20 weeks 2 days in breech presentation. No obvious anomalies. Please see above for detail Dictated by: Kendrick Lima MD 12/28/2020 08:39 Kendrick Lima MD in [place] 12/28/2020 08:39
== END ==
PROVIDERS: PCP Nurse Practitioner Family; Visit Provider Nurse Practitioner Obstetrics & Gynecology
DX: Z34.90 Encounter for supervision of normal pregnancy, unspecified, unspecified trimester (principal); Z3A.20 20 weeks gestation of pregnancy
CPT/HCPCS: 76805

== ENCOUNTER 2021-01-02 21:06 | Emergency (ER) | payer OTHER, SELFPAY ==
[2021-01-02 21:07] VITALS: BP 174/108; PULSE 130; RESP 24; TEMP 36.9; O2SAT 99; BMI 36.6
--- NOTE | 2021-01-02 21:50 | HMH.EDGENADL ---
ED Disposition Clinical Impression: Sunburn of second degree Qualifiers: Weeks of gestation: 22 weeks Qualified Code(s): Z3A.22 - 22 weeks gestation of Disposition: Home, Self-Care Condition on Discharge: Good Instructions: DI for Sunburn Additional Instructions: fluids and cream and call ob for follow up Referrals: Nikia Haywood APRN [Primary Care Provider] - - Critical Care Critical Care Time: No Attestation: On 01/02/21, the high probability of a clinically significant, sudden or life threatening deterioration of the following system(s) required my full and direct attention, intervention and personal management. The time I documented below is in addition to time spent performing reported procedures but includes the following listed in this critical care notation. Medical Decision Making - Medical Records Medical records reviewed: Yes: I reviewed the patient's medical records. - Prasanna Inquiry Pt receiving controlled substance: No Vital Signs: 01/02/21 21:07 Temperature 98.4 F Temperature Source Oral Pulse Rate [Right Radial] 130 H Respiratory Rate 24 Blood Pressure [Right Arm] 174/108 H Blood Pressure Mean [Right Arm] 130 Blood Pressure Source [Right Arm] Automatic Cuff 02 Sat by Pulse Oximetry 99 Oxygen Delivery Method Room Air - Lab Data Lab results reviewed: Yes: I reviewed the patient's lab results. - Physician Consults Physician Consulted: shelly Reason -: Pt condition Medical Decision Narrative: fluids and use meds and call ob for f/u General Adult HPI - General Chief complaint: PAIN Stated complaint: possible sun poisoning Time Seen by Provider: 01/02/21 21:30 Mode of Arrival: Ambulatory Source of Information: Patient, Spouse, Medical Record Limitations: No Limitations Description of Symptoms (Recalled from ER Triage Doc. by RN): patient has had very painful sunburn for 3 days from camping; has tried aloe, tylenol, and vinegar bath; no blisters present, patient has redness mostly to bilateral arms, shoulders, and chest- chest and shoulders have some edema. patient states she is 21 weeks - History of Present Illness HPI narrative: pt with sun exposure with reported pain over the last 3 days - has tried otc meds - 21 weeks Onset (ago): day(s) Location: chest, upper extremity Severity: moderate Associated symptoms: denies other symptoms - Related Data Home Medications Medication Instructions Recorded Confirmed Fluoxetine HCl [Prozac] 20 mg PO DAILY 11/06/20 12/23/20 Folic Acid 1 mg PO DAILY 11/06/20 12/23/20 Pnv No.95/Ferrous Fum/Folic AC 1 each PO DAILY 11/06/20 12/23/20 [ Caplet] Previous Rx's Medication Instructions Recorded Promethazine HCl [Phenergan 25mg 25 mg PO Q6H PRN #20 tab 11/06/20 tab] labetalol 200 mg tablet 200 mg PO BID #60 tab 11/10/20 permethrin 5 % topical cream 1 applic TOPICAL Q14D 0 Days #60 g 12/23/20 Allergies Allergy/AdvReac Type Severity Reaction Status Date / Time No Known Allergies Allergy Verified 12/23/20 15:46 [facility] History - Hepatitis A Screen Drug use history?: No High risk sexual behaviors?: No History of sexually transmitted infection?: No Currently employed?: No Childcare worker?: No Do you have indoor plumbing?: Yes Do you have electricity?: Yes Attestation statement:: This patient has been screened for Hepatitis A risk factors. I have reviewed the patient's past medical history: Yes 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: Reports:: Anxiety, Depression Denies:: Cancer, Chronic Obstructive Pulmonary Disease (COPD), Diabetes Mellitus Type 1, Diabetes Mellitus Type 2, Hypertension, MRSA Other 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: Reports: Other Laterality Cases: Right: Arthroscopy Knee, Bilateral: Tonsillectomy Other Surgeries: Yes: Other Amputation: No Fractures: No - 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 Smoking Status: Current every day smoker Tobacco Type: cigarettes # Packs/Day (cigarettes): 1 Alcohol Intake
--- NOTE | 2021-01-02 21:56 | PC.NURSE ---
Dr. Mendez s/w Dr. Burns
[2021-01-02 22:03] VITALS: BP 113/75; PULSE 82; RESP 18; TEMP 36.8; O2SAT 99
== END 2021-01-02 22:11 | disposition home or self-care (01) ==
PROVIDERS: Emergency Provider Emergency Medicine; PCP Nurse Practitioner Family
DX: L55.1 Sunburn of second degree (principal); Z3A.22 22 weeks gestation of pregnancy; F41.8 Other specified anxiety disorders; F17.210 Nicotine dependence, cigarettes, uncomplicated
CPT/HCPCS: 96372; 99282

== ENCOUNTER 2021-02-04 19:31 | Outpatient (CLI) | payer OTHER, SELFPAY ==
[2021-02-04 19:39] VITALS: BP 140/85; PULSE 99; RESP 20; TEMP 36.9; O2SAT 100; BMI 44.7
[2021-02-04 20:19] LABS: Microscopic, Urine URINE MICROSCOPIC (MICROSCOPIC)
[2021-02-04 20:24] LABS: Appearance,Urine SL CLOUDY (Clear); Bilirubin,Urine Negative (Negative); Blood, Urine Negative (Negative); Color,Urine YELLOW (Yellow); Glucose,Urine (UA) Negative (Negative); Ketones,Urine Negative (Negative); Leukocyte Esterase,Urine Negative (Negative); Nitrate,Urine Negative (Negative); Protein,Urine Negative (Negative); Specific Gravity, Urine >= 1.030 (1.005-1.030); Urobilinogen,Urine 0.2 EU/dl (0.2)
[2021-02-04 20:33] LABS: Bacteria,Urine 3+ /lpf; Calcium Oxalate Crystals,Urine 1+ /lpf
[2021-02-04 20:34] LABS: Amphetamine/Metha Screen,Urine Negative ng/ml (<1000)
[2021-02-04 20:35] LABS: Barbiturates Screen,Urine Negative ng/ml (<200)
[2021-02-04 20:36] LABS: Benzodiazepines Screen,Urine Negative ng/ml (<200); Cannabinoid Screen,Urine Negative ng/ml (<50)
[2021-02-04 20:37] LABS: Cocaine Screen,Urine Negative ng/ml (<300); Methadone Screen,Urine Negative ng/ml (<300)
[2021-02-04 20:38] LABS: Opiate Screen,Urine Negative ng/ml (<300)
[2021-02-04 20:39] LABS: Phencyclidine Screen,Urine Negative ng/ml (<25)
== END 2021-02-04 21:45 | disposition home or self-care (01) ==
LOC: OBOUT 19:32 → OB 19:34
PROVIDERS: PCP Nurse Practitioner Family; Visit Provider Obstetrics & Gynecology
DX: O47.02 False labor before 37 completed weeks of gestation, second trimester (principal); Z3A.25 25 weeks gestation of pregnancy
CPT/HCPCS: 80305; 81001; 87086; 96365; 96372; G0463

== ENCOUNTER → 2021-02-11 10:25 | Outpatient (CLI) | payer OTHER, SELFPAY ==
[2021-02-11 11:05] LABS: Glucose,Fasting 111 mg/dl (74-100)
[2021-02-11 13:33] LABS: Glucose 1 Hour 154 mg/dL (74-100)
== END ==
PROVIDERS: Visit Provider Nurse Practitioner Obstetrics & Gynecology
DX: Z34.90 Encounter for supervision of normal pregnancy, unspecified, unspecified trimester (principal)
CPT/HCPCS: 36415; 82951

== ENCOUNTER → 2021-03-19 14:07 | Outpatient (CLI) | payer OTHER, SELFPAY ==
--- NOTE | 2021-03-19 14:08 | US_ITS ---
PROCEDURE: US OB BIOPHYSICAL PROFILE CLINICAL INDICATION: LGA Large for gestational age TECHNIQUE: FINDINGS: The following parameters are obtained: There is a single live fetus which is in cephalic presentation. heart body motion is noted. The cervix is closed and measures 3.5 cm. The placenta is anterior and grade 2. Average ultrasound age is Average 34weeks 6days Estimated due date by ultrasound is 04/24/2021. Estimated weight is 2,556g. This is 98 percentile indicating large for gestational age. BPD: 34weeks 6days OFD: 34weeks 6days HC: 31cm AC: 31.6cm FL: 6.6cm heart rate: 149bpm bpm. HC/AC: 0.98 Cephalic index: 0.8 FL/BPD: 0.76 FL/AC: 0.21 Amniotic fluid index: 15.47cm Qualitative AFV: 2 breathing movements: 2 Gross body movements: 2 Tone: 2 Biophysical profile score: 8 IMPRESSION: Live IUP in cephalic presentation with an average ultrasound age of 34 weeks 6 days and an estimated weight of 2556 g which is 98 percentile indicating large for gestational age. ELVIA is normal at 15 cm Biophysical profile 8 of 8 Dictated by: Kendrick Lima MD 03/19/2021 15:43 Kendrick Lima MD in [place] 03/19/2021 15:43
== END ==
PROVIDERS: PCP Nurse Practitioner Family; Visit Provider Nurse Practitioner Obstetrics & Gynecology
DX: O36.60X0 Maternal care for excessive fetal growth, unspecified trimester, not applicable or unspecified (principal)
CPT/HCPCS: 76816; 76819

== ENCOUNTER 2021-03-25 13:58 | Emergency (ER) | payer OTHER, SELFPAY ==
[2021-03-25 13:58] VITALS: BP 125/71; PULSE 91; RESP 19; TEMP 37; O2SAT 98; BMI 44.2
--- NOTE | 2021-03-25 15:13 | HMH.EDUTC ---
[facility] [place] Clinical Impression: Encounter for laboratory testing for COVID-19 virus, Viral syndrome Disposition: Home, Self-Care Condition on Discharge: Good Instructions: DI for COVID-19 (Suspected or Confirmed ), Preventing the Spread of Coronavirus Discharge Instructions Additional Instructions: *Monitor Temp, Over the counter Motrin or Tylenol as directed/as needed Tylenol every 4 hours and Motrin every 6 hours (as long as your family doctor has told you that you can take it) for fever or pain. and straight to ER if unable to lower temp less than 101.0 after medication given *Warm salt water gargles may help to soothe the throat *Throat Lozenges *Warm fluids like tea with honey may help to soothe the throat *Sleep elevated *Humidifier/Vaporizer Follow up IMMEDIATELY for new or worsening symptoms or no Noticeable improvement over the next 48-72 hours. 911 for difficulty breathing or swallowing You were tested for today for COVID19 your test result should be back in the next 24-48 hours, you may call to the [facility] to see if your test results are back in the next 48 hours [phone] [facility] hours are 9am-9pm You was given a handout with instructions for Self Quarantine and Self isolation for while you wait on test results and what to do if they are positive If you are positive the Health Dept will be contacting you also Make sure to take your Vitamins Vit. C Vit D and Zinc if you can take them Referrals: Nikia Haywood APRN [Primary Care Provider] - As needed Forms: Work/School Release Time of Disposition: 15:16 Medical Decision Making - Prasanna Inquiry Pt receiving controlled substance: No Prasanna was queried for this patient: No Vital Signs: 03/25/21 13:58 Temperature 98.6 F Temperature Source Oral Pulse Rate [Left Radial] 91 H Respiratory Rate 19 Blood Pressure [Right Arm] 125/71 Blood Pressure Mean [Right Arm] 89 02 Sat by Pulse Oximetry 98 Oxygen Delivery Method Room Air Orders (Tests/Meds): ORDERS Category Date Time Status Covid-19 Nasal PCR ([facility]) Routine Lab 03/25/21 14:36 Received [facility] [place] HPI - General Stated complaint: 33 wks diarrhea, cough, congestion Time Seen by Provider: 03/25/21 15:13 Mode of Arrival: Ambulatory Source of Information: Patient Limitations: No Limitations Description of Symptoms (Recalled from Triage Doc. by RN): c/o dirrhea, sore throat, cough and congestion for 3 days HEENT Symptoms (Recalled from RN notes): Yes Resp Symptoms (Recalled from RN notes): No Skin Symptoms (Recalled from RN notes): No MS Symptoms (Recalled from RN notes): No Functional Status (Recalled from RN notes): na - History of Present Illness Provider Complaint: Patient states that she is 33wks OB and she wanted to get tested for COVID States that she has been having body aches, chills, diarrhea today, scratchy throat and nasal congestion for several days States that when started having similar symptoms they wanted her to come in and get tested for COVID - Related Data Home Medications Medication Instructions Recorded Confirmed Fluoxetine HCl [Prozac] 20 mg PO DAILY 11/06/20 03/11/21 Folic Acid 1 mg PO DAILY 11/06/20 03/11/21 Pnv No.95/Ferrous Fum/Folic AC 1 each PO DAILY 11/06/20 03/11/21 [ Caplet] Famotidine [Acid Executive Receptionist] 20 mg PO DAILY 02/04/21 03/11/21 Labetalol HCl 200 mg PO BID 02/04/21 03/11/21 paroxetine HCl 40 mg tablet 40 mg PO tab 03/11/21 03/11/21 Previous Rx's Medication Instructions Recorded Promethazine HCl [Phenergan 25mg 25 mg PO Q6H PRN #20 tab 11/06/20 tab] ferrous sulfate 325 mg (65 mg 325 mg PO DAILY #30 tab 02/18/21 iron) tablet Allergies Allergy/AdvReac Type Severity Reaction Status Date / Time No Known Allergies Allergy Verified 03/11/21 11:23 - Worker's Comp Is this a Worker's Comp case?: No H History - Hepatitis A Screen Drug use history?: No High risk sexual behaviors?: No History of sexually t
[2021-03-25 15:23] VITALS: BP 125/71; PULSE 91; RESP 19; TEMP 37; O2SAT 98
== END 2021-03-25 15:24 | disposition home or self-care (01) ==
PROVIDERS: Emergency Provider Nurse Practitioner; PCP Nurse Practitioner Family
DX: Z20.822 Contact with and (suspected) exposure to COVID-19 (principal); B34.9 Viral infection, unspecified; Z3A.33 33 weeks gestation of pregnancy; F41.8 Other specified anxiety disorders; F17.210 Nicotine dependence, cigarettes, uncomplicated
CPT/HCPCS: 99202; G0463; U0003

== ENCOUNTER → 2021-04-09 14:14 | Outpatient (CLI) | payer OTHER, SELFPAY | PROVIDERS: Visit Provider Nurse Practitioner Obstetrics & Gynecology | DX: Z34.90 Encounter for supervision of normal pregnancy, unspecified, unspecified trimester (principal); Z3A.35 35 weeks gestation of pregnancy | CPT/HCPCS: 86403 ==

== ENCOUNTER → 2021-04-21 14:20 | Outpatient (CLI) | payer OTHER, SELFPAY ==
--- NOTE | 2021-04-21 14:20 | US_ITS ---
PROCEDURE: US OB FOLLOW UP CLINICAL INDICATION: LGA and Gest Diabetes FINDINGS: The following parameters are obtained: Average ultrasound age is Average 38weeks Estimated due date by ultrasound is 05/05/2021. Estimated weight is 4,265g. This is 98 percentile indicating large for gestational age. BPD: 39weeks 2days OFD: 39 weeks 3 days HC: 37weeks 6days AC: Greater than 40 weeks FL: 36weeks 5days heart rate: 152bpm bpm. HC/AC: 0.84 Cephalic index: 0.84 FL/BPD: 0.75 FL/AC: 0.18 Amniotic fluid index: 18.47cm The femur length is 36weeks 5days No obvious anomalies evident. Placenta: Anterior in grade 2 Cervix: Closed measuring 2.5 cm IMPRESSION: There is a single live fetus present in cephalic presentation. Average ultrasound age 38 weeks with an estimated weight 4265 g which is 98 percentile indicating large for gestational age. The abdominal circumference is larger than the other parameters with and HC/AC ratio of 0.84 and a FL/AC ratio of 18 percent both less than normal Dictated by: Kendrick Lima MD 04/21/2021 16:19 Kendrick Lima MD in [place] 04/21/2021 16:19
== END ==
PROVIDERS: PCP Nurse Practitioner Family; Visit Provider Nurse Practitioner Obstetrics & Gynecology
DX: O24.419 Gestational diabetes mellitus in pregnancy, unspecified control (principal); O36.60X0 Maternal care for excessive fetal growth, unspecified trimester, not applicable or unspecified; Z3A.37 37 weeks gestation of pregnancy
CPT/HCPCS: 76816; 76819

== ENCOUNTER 2021-04-23 17:57 | Outpatient (CLI) | payer OTHER, SELFPAY ==
[2021-04-23 18:43] VITALS: BMI 51.2
[2021-04-23 19:22] LABS: Microscopic, Urine URINE MICROSCOPIC (MICROSCOPIC)
[2021-04-23 19:37] VITALS: BP 132/72; PULSE 94; RESP 18; TEMP 36.4; O2SAT 96; BMI 51.2
[2021-04-23 19:47] LABS: Appearance,Urine SL CLOUDY (Clear); Bilirubin,Urine Negative (Negative); Blood, Urine Negative (Negative); Color,Urine DK YELLOW (Yellow); Glucose,Urine (UA) 1+ (Negative); Ketones,Urine Negative (Negative); Leukocyte Esterase,Urine Negative (Negative); Nitrate,Urine Negative (Negative); Protein,Urine TRACE (Negative); Specific Gravity, Urine >= 1.030 (1.005-1.030); Urobilinogen,Urine 0.2 EU/dl (0.2)
[2021-04-23 19:55] LABS: Bacteria,Urine 1+ /lpf
[2021-04-23 20:18] LABS: Amphetamine/Metha Screen,Urine Negative ng/ml (<1000); Barbiturates Screen,Urine Negative ng/ml (<200)
[2021-04-23 20:19] LABS: Benzodiazepines Screen,Urine Negative ng/ml (<200)
[2021-04-23 20:20] LABS: Cannabinoid Screen,Urine Negative ng/ml (<50); Cocaine Screen,Urine Negative ng/ml (<300)
[2021-04-23 20:21] LABS: Methadone Screen,Urine Negative ng/ml (<300)
[2021-04-23 20:22] LABS: Opiate Screen,Urine Negative ng/ml (<300); Phencyclidine Screen,Urine Negative ng/ml (<25)
== END 2021-04-23 20:10 | disposition home or self-care (01) ==
LOC: OUTP 17:59 → OB 18:01
PROVIDERS: PCP Nurse Practitioner Family; Visit Provider Obstetrics & Gynecology
DX: Z34.90 Encounter for supervision of normal pregnancy, unspecified, unspecified trimester (principal)
CPT/HCPCS: 59025; 80305; 81001; G0463

== ENCOUNTER → 2021-04-24 11:45 | Outpatient (CLI) | payer OTHER, SELFPAY ==
[2021-04-24 12:24] LABS: Basophils % 0.1 % (0.1-2.0); Eosinophils # 0.1 K/mm3 (0.0-0.4); Eosinophils % 1.3 % (0.1-12.0); Hematocrit 36.5 % (37.0-47.0); Hemoglobin 11.9 g/dL (12.2-16.2); Lymphocytes # 1.8 K/mm3 (0.7-4.5); Lymphocytes % 22.4 % (10-50); Mean Corpuscular HGB Conc 32.5 g/dL (31.8-35.4); Mean Corpuscular Hemoglobin 30.3 pg (27.0-31.2); Mean Corpuscular Volume 93.2 fl (81-99); Mean Platelet Volume 8.3 fl (7.4-10.4); Monocytes # 0.5 K/mm3 (0.1-1.0); Monocytes % 5.8 % (1.7-9.3); Neutrophils # 5.6 K/mm3 (1.8-7.8); Neutrophils % 70.3 % (37.0-80.0); Platelet Count 283 K/mm3 (142-424); Red Blood Count 3.92 M/mm3 (4.20-5.40); Red Cell Distribution Width 14.4 % (11.5-17.5)
[2021-04-24 13:43] LABS: Chloride 110 mmol/L (98-107)
[2021-04-24 13:44] LABS: Sodium 137 mmol/L (136-145)
[2021-04-24 13:46] LABS: Blood Urea Nitrogen 5 mg/dl (7-17); Estimated Glomerular Filt Rate 152 ml/min (>60); GFR (African American) 183 ML/MIN (>60)
[2021-04-24 13:47] LABS: Calcium 8.7 mg/dl (8.4-10.2); Carbon Dioxide 19 mmol/L (22.0-30.0); Glucose 135 mg/dl (74-100)
== END ==
PROVIDERS: Visit Provider Nurse Practitioner Obstetrics & Gynecology
DX: Z3A.37 37 weeks gestation of pregnancy (principal)
CPT/HCPCS: 36415; 80048; 85025; C9803; U0003; U0005

== ENCOUNTER 2021-04-26 04:56 | Inpatient (IN) | payer OTHER, SELFPAY ==
[2021-04-26] VITALS (20 sets, daily range): BP systolic 117–170; BP diastolic 62–108; PULSE 75–101; RESP 16–20; TEMP 36.2–36.8; O2SAT 97–99; BMI 45.2; BMI 45.3
--- NOTE | 2021-04-26 08:10 | HMH.PHAINT ---
MEDICATION RECONCILIATION COMPLETED ON PATIENT USING EXTERNAL FILL HISTORY FROM PHARMACY. -WILBERTO BESS, MELYD
[2021-04-26 08:41] LABS: Cord Blood PH 7.28 (7.35-7.45)
--- NOTE | 2021-04-26 09:07 | HMH.OPNOTE ---
Date of procedure: 04/26/21 Pre-op Diagnosis:: Term , large for gestational age, gestational diabetes on medication, chronic hypertension, morbid obesity, Covid positive Post-op Diagnosis:: Term , large for gestational age infant, gestational diabetes on medication, chronic hypertension, morbid obesity, Covid positive Procedure performed:: Primary lower segment transverse section, bilateral salpingectomy Surgeon:: Graham Burns MD Hand Candy Dipper(s):: Dr. Salguero SALES EXPERT:: Other (Kirby Torres) Anesthesia: spinal Estimated blood loss (mL): 1,000 Clinical Note:: She is a 26-year-old 5 para 2 aborta 2 who was 38 weeks gestational age. She has gestational diabetes and has been taking glyburide. She also has chronic hypertension and has been taking labetalol. She is morbidly obese. She has had 2 previous large for gestational age infant and this baby was found to be more than 9 pounds last week. As result of that she was offered primary lower segment transverse section. She also expressed desire for sterilization at the time of her surgery. Operative findings:: She delivered a liveborn male child at 8:24 AM on the morning of April 26, 2021. The baby had Apgars of 7 at 1 minute and 8 at 5 minutes. pH was 7.27. Ovaries and tubes appeared normal. Operative note:: She was taken to the operating room where spinal anesthesia was found be adequate. She was prepped and draped in normal sterile fashion in the supine position with a leftward tilt. A Leavitt catheter was in the bladder. An adhesive pannus retractor was placed on the mother's abdomen prior to prep. A Pfannenstiel skin incision was made with knife then carried through to the underlying layer of fascia with cautery. The fascia was opened in the midline with cautery and extended laterally using Portillo scissors. [place] clamps were applied to the superior aspect of the fascial incision which was tented up and the underlying rectus muscles dissected off using cautery. The Anhun clamps were then applied to the inferior aspect of the fascial incision which in a similar fashion was tented up and the underlying rectus muscles dissected off using cautery. The rectus muscles were then in the midline, the peritoneum identified, and entered sharply with Metzenbaum scissors. This incision was then extended superiorly and inferiorly with cautery. We had good visualization of the bladder inferiorly. The bladder peritoneum was then opened in the midline and extended laterally using Metzenbaum scissors. A bladder flap was created digitally. Started an extra-large Zoltan retractor. Transverse incision was made through the uterine muscle to the amnion. This incision was then extended laterally using fingers traction. The amnion was entered sharply with knife. There was clear amniotic fluid. The 's head was then delivered atraumatically. This was followed by the anterior shoulder and the rest of the infant's body atraumatically. The oropharynx and nasopharynx were bulb suctioned. The infant was then handed off to Dr. Potter who assigned Apgars of 7 at 1 minute and 8 at 5 minutes. We then obtained cord blood as well as cord pH. The pH was 7.27. Using gentle traction on the cord and countertraction on the fundus I was able to easily deliver the placenta intact. It had a normal three-vessel cord. The uterus was then cleared of clots and debris . The uterine incision was then closed using running 0 Vicryl suture in a locked fashion. A second layer of the same suture was used to imbricate the first layer. The bladder peritoneum was then closed using running 2-0 Vicryl suture in a locked fashion. The gutters and cul-de-sac were then cleared of clots and debris . Once again hemostasis was assured. We then performed a bilateral salpingectomy. The distal end of the tube was grasped with my fingers and using the endoseal I cut through the mesosalpinx. I then cut
--- NOTE | 2021-04-26 09:17 | P.PN_ITS ---
[facility] Anesthesia Checklist - Patient Identification Patient Identification: Arm Band, Verbal (Name & ) - Structural Data Admitted From: Inpatient Planned Operative Procedure/s: c section Consent for Planned Operative Procedure(s) Verified: Yes Verified Documents: History and Physical - NPO Status Verified Time NPO: 00:00 - Chart Verification Results Verified: CBC, BMP - Additional verifications Patient : Yes Anesthesia Reactions: No Hx Blood Transfusions: No Blood Transfusion Reaction: No Cephalosporin Allergy: No Previous Colonoscopy: No - Cardiovascular Assessment Heart Sounds: S1 & S2 Pulse Strength: Baseline Pulse Rhythm: Regular Peripheral Edema: No - Airway Assessment C-Spine Mobility Assessed: Yes TMJ Mobility Assessed: Yes Dentition: Good Dentition - Neurological Assessment Level of Consciousness: Awake, Alert, Appropriate Hx Seizures: No Numbness or tingling in extremities: No - Anesthesia Plan Anesthesia Risk discussed: Yes Anesthesia Plan: Verified ASA Class: III Anesthesia Type: Spinal [facility] History I have reviewed the patient's past medical history: Yes 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: Reports:: Anxiety, Depression Denies:: Cancer, Chronic Obstructive Pulmonary Disease (COPD), Diabetes Mellitus Type 1, Diabetes Mellitus Type 2, Hypertension, MRSA *Have you ever received a pneumonia vaccine?: No *Have you received a flu vaccine this season?: No Other 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: Reports: Other Anesthesia experience/problems:: none Laterality Cases: Right: Arthroscopy Knee, Bilateral: Tonsillectomy Other Surgeries: Yes: Other. 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
--- NOTE | 2021-04-26 09:19 | P.PN_ITS ---
[facility] Anesthesia Record Part I Intake, IV Amount: 1,400 Estimated blood loss (mL): 1,000 Urine output (mL): 60 Blood Products used (#): none Blood Pressure: 150/95 SaO2: 99 Pulse Rate: 95 Respiratory Rate: 20 Temperature: 97.5 F Patient is:: Awake, Stable Stable to PACU at:: 09:13
--- NOTE | 2021-04-26 09:40 | HMH.OBAPHP ---
OB - H&P: HPI Antepartum - History of Present Illness Chief complaint: LGA, gestational diabetes, chronic hypertension, Covid History of present illness: She is a 26-year-old 2 para 2 aborta 2 who is 38 weeks gestational age. She has had 2 previous large for gestational age but has been followed this time for gestational diabetes. She has been on glyburide. She also has chronic hypertension has been taking labetalol. She had an ultrasound last week that showed that her baby was almost 9-1/2 pounds. As a result of that she was offered primary lower segment transverse section at term. She also expressed desire for sterilization. She was diagnosed with Covid this morning. - History of Present Criteria for establishing EDC:: LMP confirmed by 1st trimester US care: good care Ultrasounds: normal 1st trimester US, normal mid trimester US Obstetrical complications: gestational diabetes, gestational hypertension, other Medical complications: other - Labs Blood type: O (+) positive Rubella: immune RPR/VDRL: nonreactive GBS status: negative HBsAG: negative [facility] History I have reviewed the patient's past medical history: Yes 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: Reports:: Anxiety, Depression Denies:: Cancer, Chronic Obstructive Pulmonary Disease (COPD), Diabetes Mellitus Type 1, Diabetes Mellitus Type 2, Hypertension, MRSA, Seizures *Have you ever received a pneumonia vaccine?: No *Have you received a flu vaccine this season?: No Other 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: Reports: Other. Denies: Blood Transfusion Reaction Anesthesia experience/problems:: none Laterality Cases: Right: Arthroscopy Knee, Bilateral: Tonsillectomy Other Surgeries: Yes: Other. 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 Para: 2 Review of Systems - Review of Systems Review of systems:: pertinent systems reviewed and negative unless documented below Meds Home Medications Medication Instructions Recorded Confirmed Type Pnv No.95/Ferrous Fum/Folic AC 1 each PO DAILY 11/06/20 04/26/21 History [ Caplet] RX: Fluoxetine HCl [Prozac] 20 mg PO DAILY 11/06/20 04/26/21 History RX: Folic Acid 1 mg PO DAILY 11/06/20 04/26/21 History RX: Famotidine [Acid Deployment Engineer] 20 mg PO DAILY 02/04/21 04/26/21 History RX: Labetalol HCl 200 mg PO BID 02/04/21 04/26/21 History paroxetine HCl 40 mg tablet 40 mg PO DAILY tab 03/11/21 04/26/21 History glyburide 2.5 mg tablet 2.5 mg PO BIDWMEAL tab 04/09/21 04/26/21 History RX: Ferrous Sulfate 325 mg PO DAILY 04/26/21 04/26/21 History Allergies Allergy/AdvReac Type Severity Reaction Status Date / Time No Known Allergies Allergy Verified 04/23/21 09:24 OB - H&P: Exam - Physical Exam Vital signs: Temp Pulse Resp BP Pulse Ox 97.5 F L 95 H 20 150/95 H 99 04/26/21 09:20 04/26/21 09:20 04/26/21 09:20 04/26/21 09:20 04/26/21 06:40 - Constitutional no acute distress, morbidly obese - Routine HEENT Exam Head: Present: normocephalic Eye: Present: EOMI, PERRL ENT: Present: mucous membranes moist - Routine Neck Exam Present: supple, full ROM - Routine Respiratory Exam Absent: accessory muscle use (good air entry bilaterally), respiratory distress, wheezes, crackles - Routine Cardiovascular Exam Present: RRR. Absent: murmur - Routine Abdominal Exam Present: soft, normoactive bowel sounds. Absent: tenderness, distended, guarding - Routine Rectal Exam Patient deferred
[2021-04-26 09:41] LABS: POC Glucose,Bedside 146 (70-110)
[2021-04-26 10:18] LABS: Basophils % 0.1 % (0.1-2.0); Eosinophils # 0.1 K/mm3 (0.0-0.4); Eosinophils % 0.7 % (0.1-12.0); Hematocrit 34.2 % (37.0-47.0); Hemoglobin 11.2 g/dL (12.2-16.2); Lymphocytes # 1.6 K/mm3 (0.7-4.5); Lymphocytes % 15.1 % (10-50); Mean Corpuscular HGB Conc 32.9 g/dL (31.8-35.4); Mean Corpuscular Hemoglobin 30.4 pg (27.0-31.2); Mean Corpuscular Volume 92.3 fl (81-99); Mean Platelet Volume 8.1 fl (7.4-10.4); Monocytes # 0.4 K/mm3 (0.1-1.0); Monocytes % 3.9 % (1.7-9.3); Neutrophils # 8.6 K/mm3 (1.8-7.8); Neutrophils % 80.2 % (37.0-80.0); Platelet Count 282 K/mm3 (142-424); Red Cell Distribution Width 14.3 % (11.5-17.5); White Blood Count 10.8 K/mm3 (4.8-10.8)
--- NOTE | 2021-04-26 10:46 | SUR.PHASEI ---
0930 MD contacted regarding blood loss and QBL protocol, verbal order for hemabate IM x 1, obtained from pharmacy and given as ordered, ordered Type/screen HOLD 2 units and `18 guage IV insertion per protocol, orders completed. 1000 MD at bedside to insert bakri, inserted without complication
[2021-04-26 11:28] LABS: POC Glucose,Bedside 157 (70-110)
[2021-04-26 11:37] LABS: Microscopic, Urine URINE MICROSCOPIC (MICROSCOPIC)
[2021-04-26 11:46] LABS: Appearance,Urine SL CLOUDY (Clear); Blood, Urine Negative (Negative); Color,Urine YELLOW (Yellow); Glucose,Urine (UA) Negative (Negative); Ketones,Urine Negative (Negative); Leukocyte Esterase,Urine TRACE (Negative); Nitrate,Urine Negative (Negative); Protein,Urine 1+ (Negative); Specific Gravity, Urine >= 1.030 (1.005-1.030); Urobilinogen,Urine 0.2 EU/dl (0.2)
[2021-04-26 11:51] LABS: Bilirubin,Urine 1+ (Negative)
[2021-04-26 12:41] LABS: WBC,Urine Occasional #/hpf (0-3)
[2021-04-26 12:42] LABS: Bacteria,Urine Trace /lpf
--- NOTE | 2021-04-26 14:08 | P.CONPHA_ITS ---
[facility] Pharmacy VTE Monitoring - Patient Demographics Admission date: 04/26/21 Report Date: 04/26/21 Time: 14:08 Allergies/Adverse Reactions: Patient Allergies No Known Allergies Allergy (Verified 04/23/21 09:24) Height: 1.68 m Weight: 127.459 kg Patient Problems: Current Active Problems Gestational diabetes mellitus (GDM) treated with oral hypoglycemic therapy (A cute) Chronic hypertension affecting (Acute) Morbid obesity with BMI of 50.0-59.9, adult (Acute) SARS-CoV-2 positive (Acute) Sterilization (Acute) delivery delivered (Acute) Large for gestational age fetus affecting management of mother (Acute) - VTE Risk Labs: VTE Related Lab Results Hgb 11.2 g/dL (12.2-16.2) L 04/26/21 09:54 Hct 34.2 % (37.0-47.0) L 04/26/21 09:54 Plt Count 282 K/mm3 (142-424) 04/26/21 09:54 - Prophylaxis VTE Prophylaxis Ordered?: Yes Types of VTE Prophylaxis: IPCS Thigh High Location of Applied Device: Bilateral Lower Extremeties
--- NOTE | 2021-04-26 14:42 | P.PN_ITS ---
[facility] Anesthesia Record Part II Discharge Time: 10:18 Destination: Obstetric PACU nurse assessment reviewed?: Yes Patient Condition:: Good Anesthesia Complications:: None Swallowing reflex intact?: Yes Cyanosis?: No Blood Pressure: 146/87 Pulse Rate: 84 Temperature: 97.2 F Mental Status: Alert & Oriented Pain level:: 8 Nausea and/or vomitting:: None Intake, IV Amount: 0
[2021-04-26 17:11] LABS: Hematocrit 30.8 % (37.0-47.0); Hemoglobin 10.3 g/dL (12.2-16.2)
[2021-04-27 00:26] VITALS: BP 122/58; PULSE 74; RESP 17; TEMP 36.8; O2SAT 98
[2021-04-27 04:34] VITALS: BP 138/85; PULSE 92; RESP 18; TEMP 36.7; O2SAT 98
[2021-04-27 08:00] VITALS: BP 133/67; PULSE 93; RESP 20; TEMP 37; O2SAT 100
[2021-04-27 08:15] LABS: Hematocrit 29.2 % (37.0-47.0); Hemoglobin 9.4 g/dL (12.2-16.2)
--- NOTE | 2021-04-27 11:22 | HMH.ACPN2 ---
Internal Medicine - PN: Subj *Date: 04/27/21 *Time: 11:22 Interval history: She is doing well this morning. She has no further episodes of heavy bleeding. She had a BAKRI balloon placed yesterday after her surgery. I remove the balloon this morning. She had a Leavitt catheter as well and we have remove this. She complains of a severe headache and it is worse with sitting up. I suspect she may have a spinal headache. She is Covid positive. She is receiving monoclonal antibodies as well. Exam Vital signs and Labs for Last 24 Hours: Temp Pulse Resp BP Pulse Ox 98.6 F 93 H 20 133/67 100 04/27/21 08:00 04/27/21 08:00 04/27/21 08:00 04/27/21 08:00 04/27/21 08:00 Laboratory Results - last 24 hr 04/26/21 08:00: Urine Color Yellow, Urine Appearance Sl cloudy, Urine pH 6.0, Ur Specific [place] >= 1.030, Urine Protein 1+, Urine Glucose (UA) Negative, Urine Ketones Negative, Urine Blood Negative, Urine Nitrate Negative, Urine Bilirubin 1+ A, Urine Urobilinogen 0.2, Ur Leukocyte Esterase Trace, Urine RBC None, Urine WBC Occasional, Ur Squamous Epith Cells 3-5, Urine Bacteria Trace 04/26/21 10:54: POC Glucose 157 H 04/26/21 16:45: Hgb 10.3 L, Hct 30.8 L 04/27/21 06:37: Hgb 9.4 L, Hct 29.2 L I & O for Last 24 hours: Intake & Output 04/24/21 04/25/21 04/26/21 04/27/21 11:59 11:59 11:59 11:59 Intake Total 1400 / 1400 0 / 0 Output Total 900 / 900 Balance 1400 / 1400 -900 / -900 Weight 281 lb - Constitutional no acute distress - *Routine HEENT Exam Head: Present: normocephalic Eye: Present: EOMI, PERRL ENT: Present: mucous membranes moist Assessment and Plan (1) Gestational diabetes mellitus (GDM) treated with oral hypoglycemic therapy Status: Acute Category: Medical Code(s): O24.415 - Gestational diabetes mellitus in , controlled by oral hypoglycemic drugs (2) Chronic hypertension affecting Status: Acute Category: Medical Code(s): O10.919 - Unspecified pre-existing hypertension complicating , unspecified trimester (3) Morbid obesity with BMI of 50.0-59.9, adult Status: Acute Category: Medical Code(s): E66.01 - Morbid (severe) obesity due to excess calories; Z68.43 - Body mass index [BMI] 50.0-59.9, adult (4) SARS-CoV-2 positive Status: Acute Category: Medical Code(s): U07.1 - COVID-19 (5) Sterilization Status: Acute Category: Medical Code(s): Z30.2 - Encounter for sterilization (6) delivery delivered Status: Acute Category: Medical Code(s): O82 - Encounter for delivery without indication (7) Large for gestational age fetus affecting management of mother Status: Acute Category: Medical Code(s): O36.60X0 - Maternal care for excessive growth, unspecified trimester, not applicable or unspecified - Assessment and plan all Dx Assessment and Plan for all problems:: I suspect she may have a spinal headache so we will have anesthesia take a look at her and see if she needs a blood patch. I removed her intrauterine balloon today. There is no active bleeding. I removed her Leavitt catheter as well. We will plan to keep her for another couple of days.
[2021-04-27 12:10] VITALS: BP 130/63; PULSE 81; RESP 20; TEMP 36.8; O2SAT 95
[2021-04-27 16:00] VITALS: BP 143/73; PULSE 79; RESP 20; TEMP 37.5; O2SAT 96
[2021-04-27 16:16] LABS: POC Glucose,Bedside 70 (70-110)
[2021-04-27 20:00] VITALS: BP 138/67; PULSE 102; RESP 20; TEMP 37.3; O2SAT 98
[2021-04-28] VITALS (7 sets, daily range): BP systolic 132–155; BP diastolic 63–75; PULSE 80–107; RESP 16–18; TEMP 36.6–37.2; O2SAT 96–98
--- NOTE | 2021-04-28 09:52 | HMH.ACPN2 ---
Internal Medicine - PN: Subj *Date: 04/28/21 *Time: 09:53 Interval history: She is feeling much better this morning. She had a blood patch done yesterday and her headache has completely resolved. She is eating and drinking and will ambulate today. Her pain is well controlled. She is pumping her breast. Exam Vital signs and Labs for Last 24 Hours: Temp Pulse Resp BP Pulse Ox 98.9 F 88 18 138/72 97 04/28/21 03:59 04/28/21 03:59 04/28/21 03:59 04/28/21 03:59 04/28/21 03:59 Laboratory Results - last 24 hr 04/27/21 15:40: POC Glucose 70 I & O for Last 24 hours: Intake & Output 04/25/21 04/26/21 04/27/21 04/28/21 11:59 11:59 11:59 11:59 Intake Total 1400 / 1400 0 / 0 Output Total 900 / 900 Balance 1400 / 1400 -900 / -900 Weight 281 lb - Constitutional no acute distress - *Routine HEENT Exam Head: Present: normocephalic Eye: Present: EOMI, PERRL ENT: Present: mucous membranes moist Assessment and Plan (1) Gestational diabetes mellitus (GDM) treated with oral hypoglycemic therapy Status: Acute Category: Medical Code(s): O24.415 - Gestational diabetes mellitus in , controlled by oral hypoglycemic drugs (2) Chronic hypertension affecting Status: Acute Category: Medical Code(s): O10.919 - Unspecified pre-existing hypertension complicating , unspecified trimester (3) Morbid obesity with BMI of 50.0-59.9, adult Status: Acute Category: Medical Code(s): E66.01 - Morbid (severe) obesity due to excess calories; Z68.43 - Body mass index [BMI] 50.0-59.9, adult (4) SARS-CoV-2 positive Status: Acute Category: Medical Code(s): U07.1 - COVID-19 (5) Sterilization Status: Acute Category: Medical Code(s): Z30.2 - Encounter for sterilization (6) delivery delivered Status: Acute Category: Medical Code(s): O82 - Encounter for delivery without indication (7) Large for gestational age fetus affecting management of mother Status: Acute Category: Medical Code(s): O36.60X0 - Maternal care for excessive growth, unspecified trimester, not applicable or unspecified (8) Spinal headache complicating labor and delivery, delivered Status: Acute Category: Medical Code(s): O74.5 - Spinal and epidural anesthesia-induced headache during labor and delivery - Assessment and plan all Dx Assessment and Plan for all problems:: She had a blood patch yesterday and is doing much better. Her headache is completely resolved. Her incision is clean and dry. She is eating and drinking and will start to ambulate more today. She is pumping her breast. We will plan to send her home tomorrow.
[2021-04-29 03:36] VITALS: BP 138/69; PULSE 86; RESP 18; TEMP 37.1; O2SAT 97
--- NOTE | 2021-04-29 08:28 | HMH.OBDCSM ---
General - General Admission date:: 04/26/21 Discharge date: 04/29/21 HPI - History of Present Illness History of present illness: She is a 26-year-old 5 para 2 aborta 2 who was 38 weeks gestational age. She was followed with gestational hypertension as well as gestational diabetes. She is morbidly obese. Her baby was found to be extremely large and as result of that she was offered primary lower segment transverse section at term. She also expressed desire for sterilization. Hospital Course Hospital Course: On April 26, 2021 she underwent a primary lower segment transverse section and bilateral salpingectomy. She delivered a liveborn male child at 8:24 AM. The baby weighed 9 pounds 10 ounces and was 20-1/2 inches long. He had Apgars of 7 at 1 minute and 8 at 5 minutes. She has done well and has remained afebrile throughout her hospitalization. On her first postoperative day she did have a severe headache. We suspected a spinal headache and anesthesia provided her with a blood patch. Since then she has been doing better. She has O+ blood, she is rubella immune and was group B streptococcus negative. She is breast and bottlefeeding. Her spray operator is Dr. Potter. She is discharged home to follow-up with me in approximately 2 weeks time. She will continue with her vitamins and iron. She will continue with Prozac at home as well. She was given a prescription for Percocet 5/325 number 20 tablets. She was given the usual instructions with respect to limiting her activity, driving and sexual activity. She was given instructions with respect to wound care. Her condition on discharge is stable and improved. Rhogam Administration: Not Indicated Objective Vital signs: Temp Pulse Resp BP Pulse Ox 98.7 F 86 18 138/69 97 04/29/21 03:36 04/29/21 03:36 04/29/21 03:36 04/29/21 03:36 04/29/21 03:36 no acute distress - *Routine HEENT Exam Head: Present: normocephalic Eye: Present: EOMI, PERRL ENT: Present: mucous membranes moist DS: Diagnosis - Discharge Diagnosis (1) Gestational diabetes mellitus (GDM) treated with oral hypoglycemic therapy Status: Acute (2) Chronic hypertension affecting Status: Acute (3) Morbid obesity with BMI of 50.0-59.9, adult Status: Acute (4) SARS-CoV-2 positive Status: Acute (5) Sterilization Status: Acute (6) delivery delivered Status: Acute (7) Large for gestational age fetus affecting management of mother Status: Acute (8) Spinal headache complicating labor and delivery, delivered Status: Acute Discharge Plan - Patient Discharge Instructions ACTIVITY: No heavy lifting DIET: continue same diet Additional Instructions: no heavy lifting, no strenuous activity and nothing in the vagina for 6 weeks Patient Instructions: Depression, Hemorrhage, DI for , DI for Pre-eclampsia, DI for Surgical Site Infection, DI for Postoperative Pain, [facility] Post Discharge Instructions, Preventing the Spread of Coronavirus Discharge Instructions - Follow up Plan Follow up with: Graham Burns MD [Staff Physician] - Disposition: Home, Self-Care Condition at discharge:: Stable Home Medications: Home Medications Medication Instructions Recorded Confirmed Type Fluoxetine HCl [Prozac] 20 mg PO DAILY 11/06/20 04/26/21 History Folic Acid 1 mg PO DAILY 11/06/20 04/26/21 History Pnv No.95/Ferrous Fum/Folic AC 1 each PO DAILY 11/06/20 04/26/21 History [ Caplet] Famotidine [Acid L[place] Cook] 20 mg PO DAILY 02/04/21 04/26/21 History Labetalol HCl 200 mg PO BID 02/04/21 04/26/21 History paroxetine HCl 40 mg tablet 40 mg PO DAILY tab 03/11/21 04/26/21 History glyburide 2.5 mg tablet 2.5 mg PO BIDWMEAL tab 04/09/21 04/26/21 History Ferrous Sulfate 325 mg PO DAILY 04/26/21 04/26/21 History Oxycodone HCl/Acetaminophen 1 tab PO Q4-
[2021-04-29 09:03] VITALS: BP 162/92; PULSE 78; RESP 18; TEMP 36.9; O2SAT 97
[2021-04-29 09:30] VITALS: BP 126/67; PULSE 77
== END 2021-04-29 11:00 | disposition home or self-care (01) | DRG 783 ==
PROVIDERS: Admitting Provider Nurse Practitioner Obstetrics & Gynecology; PCP Nurse Practitioner Family; Visit Provider Nurse Practitioner Obstetrics & Gynecology
PROC: (CPT 59514; principal; 2021-04-26 07:30)
DX: O36.63X0 Maternal care for excessive fetal growth, third trimester, not applicable or unspecified (principal); U07.1 COVID-19; O98.513 Other viral diseases complicating pregnancy, third trimester; O10.02 Pre-existing essential hypertension complicating childbirth; O24.415 Gestational diabetes mellitus in pregnancy, controlled by oral hypoglycemic drugs; Z37.0 Single live birth; Z30.2 Encounter for sterilization; O89.4 Spinal and epidural anesthesia-induced headache during the puerperium; Z3A.38 38 weeks gestation of pregnancy
CPT/HCPCS: 59514; 58700; 62273; 36415; 59025; 80048; 80305; 81001; 82800; 82962; 85014; 85018; 85025; 86850; 94761; C9290; C9803; G0283; G0463; J2405; U0003; U0005

== ENCOUNTER 2021-04-29 13:46 | Outpatient (CLI) | payer OTHER, SELFPAY ==
[2021-04-29] VITALS (10 sets, daily range): BP systolic 132–161; BP diastolic 70–101; PULSE 81–90; RESP 16–20; TEMP 36.7–37; O2SAT 96–99; BMI 51.5
--- NOTE | 2021-04-29 14:02 | PC.NURSE ---
Prior to triaging pt, Dr Burns called and stated that he wanted the pt to go to OB because they are familiar with her current status and that they will care for her. Vitals obtained on pt. BP 149/93; HR 88; O2 97% RA
--- NOTE | 2021-04-29 15:27 | HMH.ANESCL ---
[facility] Anesthesia Checklist - Patient Identification Patient Identification: Arm Band - Structural Data Admitted From: Home Planned Operative Procedure/s: Epidural Blood Patch Consent for Planned Operative Procedure(s) Verified: Yes Verified Documents: Surgical Consent - NPO Status Verified Time NPO: 12:00 - Additional verifications Anesthesia Reactions: No Hx Blood Transfusions: No Blood Transfusion Reaction: No - Airway Assessment C-Spine Mobility Assessed: Yes TMJ Mobility Assessed: Yes Dentition: Good Dentition - Neurological Assessment Level of Consciousness: Awake, Alert - Anesthesia Plan Anesthesia Risk discussed: Yes Anesthesia Plan: Verified ASA Class: II Anesthesia Type: Epidural (blood patch) [facility] History I have reviewed the patient's past medical history: Yes 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: Reports:: Anxiety, Depression Denies:: Cancer, Chronic Obstructive Pulmonary Disease (COPD), Diabetes Mellitus Type 1, Diabetes Mellitus Type 2, Hypertension, MRSA, Seizures *Have you ever received a pneumonia vaccine?: No *Have you received a flu vaccine this season?: No Other 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: Reports: Other. Denies: Blood Transfusion Reaction Anesthesia experience/problems:: nac Laterality Cases: Right: Arthroscopy Knee, Bilateral: Tonsillectomy Other Surgeries: Yes: Other. 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
--- NOTE | 2021-04-29 15:29 | P.PCN_ITS ---
[facility] Procedure Note Procedure Note:: Pt presents with symptoms consistent with post dural puncture headache. Pt received SAB for Repeat C/S 04/26. Pt recieved first epidural blood patch 04/27. Pt was discharged home today but is back with severe headache, neck ache, jaw pain, photophobia. Consent was obtained and risks explained of procedure. Pt verbalized understanding. Sitting position, sterile prep/drape with betadine, 1% lidocaine 2 cc @ L4/5, 18 G Tuohy needle inserted midline x1 with BIN with saline at 7-8 cm. 20 cc of autologous blood drawn by RN and inserted into the epidural space. After 18 cc of blood inserted pt c/o pressure. Epidural needle withdrawn and bandaid applied. 18 cc of blood total was given. Pt to supine position stating relief of headache. We will monitor vital signs for 1 hour and then discharge pt home.
== END 2021-04-29 17:50 | disposition home or self-care (01) ==
LOC: OBOUT 14:33 → OB 14:34
PROVIDERS: PCP Nurse Practitioner Family; Visit Provider Emergency Medicine
DX: O89.4 Spinal and epidural anesthesia-induced headache during the puerperium (principal); Z86.16 Personal history of COVID-19
CPT/HCPCS: 62273; G0463

== ENCOUNTER → 2021-05-03 14:58 | Outpatient (CLI) | payer OTHER, SELFPAY | PROVIDERS: PCP Nurse Practitioner Family; Visit Provider Nurse Practitioner | DX: Z20.822 Contact with and (suspected) exposure to COVID-19 (principal) | CPT/HCPCS: C9803; U0003; U0005 ==

== ENCOUNTER → 2021-07-13 11:40 | Outpatient (CLI) | payer OTHER, SELFPAY ==
--- NOTE | 2021-07-14 10:20 | PC.NURSE ---
attempted to call pt to give covid swab results left message on pts voicemail asking for a return call.
--- NOTE | 2021-07-14 12:40 | PC.NURSE ---
notified pt of positive covid result at this time
== END ==
PROVIDERS: PCP Nurse Practitioner Family; Visit Provider Nurse Practitioner
DX: U07.1 COVID-19 (principal)
CPT/HCPCS: C9803; U0003; U0005

== ENCOUNTER 2021-09-06 08:24 | Emergency (ER) | payer OTHER, SELFPAY ==
--- NOTE | 2021-09-06 08:41 | HMH.EDGENADL ---
ED Disposition Clinical Impression: Bronchitis Sinusitis Qualifiers: Sinusitis location: maxillary Chronicity: acute Recurrence: non-recurrent Qualified Code(s): J01.00 - Acute maxillary sinusitis, unspecified Disposition: Home, Self-Care Condition on Discharge: Good Instructions: Sinusitis, Acute Bronchitis Additional Instructions: follow up pcp if not better Prescriptions: Albuterol Sulfate [Albuterol Sulfate Hfa] 6.7 gm IH Q4-6H PRN 10 Days #1 each PRN Reason: Wheezing Transmission Status: Pending to [facility] Azithromycin [Zithromax 500mg Tab Tri-Haresh] 500 mg PO DAILY #3 tab Transmission Status: Pending to Clinic [facility] Referrals: Nikia Haywood APRN [Primary Care Provider] - - Critical Care Critical Care Time: No Attestation: On 09/06/21, the high probability of a clinically significant, sudden or life threatening deterioration of the following system(s) required my full and direct attention, intervention and personal management. The time I documented below is in addition to time spent performing reported procedures but includes the following listed in this critical care notation. Medical Decision Making - Medical Records Medical records reviewed: Yes: I reviewed the patient's medical records. - Prasanna Inquiry Pt receiving controlled substance: No Orders (Tests/Meds): ORDERS Category Date Time Status Covid-19 Nasal PCR ([facility]) Routine Lab 09/06/21 08:39 Ordered General Adult HPI - General Stated complaint: congestion, cough, soa, chills Time Seen by Provider: 09/06/21 08:41 Source of Information: Patient Limitations: No Limitations - History of Present Illness HPI narrative: prod cough, sinus congestion, fever subjective, few days, wheezing Onset (ago): day(s) Radiation: non-radiation Severity: moderate Consistency: intermittent Relieving factors: none Exacerbating factors: none Associated symptoms: denies other symptoms - Related Data Home Medications Medication Instructions Recorded Confirmed Fluoxetine HCl [Prozac] 20 mg PO DAILY 11/06/20 05/10/21 Pnv No.95/Ferrous Fum/Folic AC 1 each PO DAILY 11/06/20 05/10/21 [ Caplet] Ferrous Sulfate 325 mg PO DAILY 04/26/21 05/10/21 Previous Rx's Medication Instructions Recorded labetalol 200 mg tablet See Rx Instructions .ROUTE 06/14/21 .COMPLEX #60 tablet Albuterol Sulfate [Albuterol 6.7 gm IH Q4-6H PRN 10 Days #1 each 09/06/21 Sulfate Hfa] Azithromycin [Zithromax 500mg Tab 500 mg PO DAILY #3 tab 09/06/21 Tri-Haresh] Allergies Allergy/AdvReac Type Severity Reaction Status Date / Time No Known Allergies Allergy Verified 05/10/21 11:07 [facility] History - Hepatitis A Screen Attestation statement:: This patient has been screened for Hepatitis A risk factors. 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: Reports:: Anxiety, Depression Denies:: Cancer, Chronic Obstructive Pulmonary Disease (COPD), Diabetes Mellitus Type 1, Diabetes Mellitus Type 2, Hypertension, MRSA, Seizures Other 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: Reports: Other. Denies: Blood Transfusion Reaction Laterality Cases: Right: Arthroscopy Knee, Bilateral: Tonsillectomy Other Surgeries: Yes: , Tubal Ligation (Bilateral Salpingectomy), Other Amputation: No Fractures: No - 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 Smoking Status: Current every day smoker Tobacco Type: cigarettes # Packs/Day (cigarettes): 1 Alcohol Intake: never Alcohol Intake Frequency:: holidays/special occasions only Substance Use Type: denies use Occupational Status: unemployed Housing: house Household Members: spouse - Psychiatric History Pschychiatric History:: Reports:: Anxiety, Depression Family Hx:: No significant family history 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
[2021-09-06 08:45] VITALS: BP 148/86; PULSE 75; RESP 18; TEMP 36.8; O2SAT 98; BMI 43.9
[2021-09-06 09:03] VITALS: BP 148/86; PULSE 75; RESP 18; TEMP 36.8; O2SAT 98
== END 2021-09-06 09:04 | disposition home or self-care (01) ==
PROVIDERS: Emergency Provider Emergency Medicine; PCP Nurse Practitioner Family
DX: J20.9 Acute bronchitis, unspecified (principal); J01.00 Acute maxillary sinusitis, unspecified; F41.8 Other specified anxiety disorders; F17.210 Nicotine dependence, cigarettes, uncomplicated
CPT/HCPCS: 99282; C9803; U0003; U0005

== ENCOUNTER 2021-10-04 19:28 | Emergency (ER) | payer OTHER, SELFPAY ==
--- NOTE | 2021-10-04 20:02 | HMH.EDUTC ---
[facility] Clinical Impression: Gastroenteritis, Viral syndrome Disposition: Home, Self-Care Condition on Discharge: Good Instructions: Viral Gastroenteritis, DI for Viral Gastroenteritis -- Adult, Gastroenteritis Diet, Promethazine, DI for COVID-19 (Suspected or Confirmed ), Preventing the Spread of Coronavirus Discharge Instructions Additional Instructions: Drink plenty of fluids. Take tylenol or ibuprofen for pain or fever. Take the zofran as directed for nausea and vomiting. Take the bentyl (dicyclomine) for abdominal cramping if that symptoms continues by the time your pharmacy opens tomorrow. Follow up with your regular doctor. GO TO THE ER FOR ANY WORSENING SYMPTOMS Quarantine until you know the results of your covid-19 test. Notify your school or workplace of your results and follow their instructions regarding return to work/school. Go to the ER for any worsening symptoms, especially abdominal pain. Early symptoms of an appendicitis can start out like this. Prescriptions: Ondansetron [Zofran 4mg ODT] 4 mg PO Q8HP PRN #20 tab PRN Reason: Nausea Transmission Status: Received by [facility] Dicyclomine HCl [Bentyl 10mg capsule] 10 mg PO TIDP PRN #20 cap PRN Reason: Cramping Transmission Status: Received by [facility] Referrals: Nikia Haywood APRN [Primary Care Provider] - Time of Disposition: 20:58 Medical Decision Making - Medical Records Medical records reviewed: No: I reviewed the patient's medical records. - Prasanna Inquiry Pt receiving controlled substance: No Vital Signs: 10/04/21 20:12 10/04/21 21:07 Temperature 99.7 F H 99.7 F H Temperature Source Oral Oral Pulse Rate 129 H Pulse Rate [Right Brachial] 129 H Respiratory Rate 18 20 Blood Pressure 148/79 H Blood Pressure [Right Arm] 155/80 H Blood Pressure Mean [Right Arm] 105 Blood Pressure Source Automatic Cuff Blood Pressure Source [Right Arm] Automatic Cuff Blood Pressure Position Sitting Blood Pressure Position [Right Arm] Sitting 02 Sat by Pulse Oximetry 97 Oxygen Delivery Method Room Air Room Air - Lab Data Lab results reviewed: Yes: I reviewed the patient's lab results. Lab Results 10/04/21 20:05: Strep Scn Rapid Clinic Negative 10/04/21 20:06: Chlamy pneumoniae PCR Not detected, Adenovirus (PCR) Not detected, B. pertussis DNA (PCR) Not detected, Coronavirus OC43 (PCR) Not detected, Coronavirus HKU1 (PCR) Not detected, Coronavirus 229E (PCR) Not detected, SARS-CoV-2 (PCR) Not detected, Coronavirus NL63 (PCR) Not detected, Human Metapneumovir PCR Not detected, Influenza A (H1) PCR Not detected, Influ A (H1N1/09) PCR Not detected, Influenza A (H3) PCR Not detected, Influenza Type A (PCR) Not detected, Influenza Type B (PCR) Not detected, M. pneumoniae (PCR) Not detected, Parainfluenza 1 (PCR) Not detected, Parainfluenza 2 (PCR) Not detected, Parainfluenza 3 (PCR) Not detected, Parainfluenza 4 (PCR) Not detected, RSV (PCR) Not detected, Entero/Rhino (PCR) Not detected Orders (Tests/Meds): ED MEDICATIONS Discontinued Medications Generic Name Dose Route Start Last Admin Trade Name Joshq PRN Reason Stop Dose Admin Promethazine HCl 25 mg 10/04/21 20:54 10/04/21 20:59 Promethazine Hcl 25mg/Ml 1ml Vial IM 10/04/21 20:55 25 mg ONCE ONE Administration Sodium Chloride 25 ml 10/04/21 20:54 10/04/21 21:01 Sodium Chloride 0.9% 25ml Bag IV 10/04/21 20:55 Not Given ONCE ONE ORDERS Category Date Time Status Strep Screen Confirmation Stat Micro 10/04/21 20:05 Received [facility] [place]PI - General Stated complaint: covid type symptoms Time Seen by Provider: 10/04/21 20:02 - History of Present Illness Provider Complaint: She states that since earlier today, she has had nausea, vomiting and diarrhea. She has had periods of abdominal cramping before she has had diarrhea. She states she has been unable to hold anything down on her stomach today.
[2021-10-04 20:12] VITALS: BP 155/80; PULSE 129; RESP 18; TEMP 37.6; O2SAT 97; BMI 51.4
[2021-10-04 20:16] LABS: UTC Strep Screen (Rapid) Negative (Negative)
[2021-10-04 20:29] LABS: Adenovirus,PCR Not Detected (NotDetected); Bordetella Pertussis Not Detected (NotDetected); Chlamydophila Pneumoniae, PCR Not Detected (NotDetected); Coronavirus 19, PCR Not Detected (NotDetected); Coronavirus 229E Not Detected (NotDetected); Coronavirus NL63 Not Detected (NotDetected); Coronavirus OC43 Not Detected (NotDetected); Coronovirus HKU1,PCR Not Detected (NotDetected); Human Metapneumovirus Not Detected (NotDetected); Influenza A, PCR Not Detected (NotDetected); Influenza AH1, 2009 Not Detected (NotDetected); Influenza AH1, PCR Not Detected (NotDetected); Influenza AH3,PCR Not Detected (NotDetected); Influenza B, PCR Not Detected (NotDetected); Mycoplasma Pneumoniae, PCR Not Detected (NotDetected); Parainfluenza 1, PCR Not Detected (NotDetected); Parainfluenza 2, PCR Not Detected (NotDetected); Parainfluenza 3, PCR Not Detected (NotDetected); Parainfluenza 4, PCR Not Detected (NotDetected); Respiratory Syncytial Virus Not Detected (NotDetected); Rhinovirus/Enterovirus Not Detected (NotDetected)
[2021-10-04 21:07] VITALS: BP 148/79; PULSE 129; RESP 20; TEMP 37.6; O2SAT 97
== END 2021-10-04 21:10 | disposition home or self-care (01) ==
PROVIDERS: Emergency Provider Nurse Practitioner Family; PCP Nurse Practitioner Family
DX: K52.9 Noninfective gastroenteritis and colitis, unspecified (principal); F41.8 Other specified anxiety disorders
CPT/HCPCS: 87581; 87632; 87798; 87880; 96372; 99202; C9803; G0463; U0003; U0005

== ENCOUNTER 2021-12-03 14:48 | Emergency (ER) | payer OTHER, SELFPAY ==
[2021-12-03 14:48] VITALS: BP 121/57; PULSE 82; RESP 20; TEMP 36.7; O2SAT 95; BMI 52.6
--- NOTE | 2021-12-03 15:53 | HMH.EDUTC ---
[facility] [place] Disposition Clinical Impression: Sore throat (viral) Disposition: Home, Self-Care Condition on Discharge: Good Instructions: Sore Throat, DI for Viral Pharyngitis, DI for Nasal Congestion Additional Instructions: *Monitor Temp, Over the counter Motrin or Tylenol as directed/as needed Tylenol every 4 hours and Motrin every 6 hours (as long as your family doctor has told you that you can take it) for fever or pain. and straight to ER if unable to lower temp less than 101.0 after medication given *Warm salt water gargles may help to soothe the throat *Throat Lozenges *Warm fluids like tea with honey may help to soothe the throat *Sleep elevated *Humidifier/Vaporizer *Flonase 2 sprays in each nostril daily but be aware that it may take 2-3 days before you notice improvement *Bromfed may cause drowsiness. Know how it effects you (your child) before driving, caring for small child, or sending your child to school. Not other antihistamines/allergy medications while taking bromfed Your throat swab was sent for culture. Those results are typically sent to your primary care. Be sure to follow up in 2-3 days with your family doctor/primary care physician if no improvement so they can review those result and treat if necessary. If you don?t have a primary care doctor, I recommend you get one but in the mean time, you will have to return to a walk in clinic Follow up IMMEDIATELY for new or worsening symptoms or no Noticeable improvement over the next 48-72 hours. 911 for difficulty breathing or swallowing Referrals: Nikia Haywood APRN [Primary Care Provider] - As needed Time of Disposition: 16:06 Medical Decision Making - Prasanna Inquiry Pt receiving controlled substance: No Prasanna was queried for this patient: No Vital Signs: 12/03/21 14:48 Temperature 98.1 F Temperature Source Oral Pulse Rate [Left Radial] 82 Respiratory Rate 20 Blood Pressure [Right Arm] 121/57 L Blood Pressure Mean [Right Arm] 78 Blood Pressure Source [Right Arm] Automatic Cuff Blood Pressure Position [Right Arm] Sitting 02 Sat by Pulse Oximetry 95 Oxygen Delivery Method Room Air - Lab Data Lab results reviewed: Yes: I reviewed the patient's lab results. Lab Results 12/03/21 15:40: Group A Strep Rapid Negative Orders (Tests/Meds): ORDERS Category Date Time Status Strep Screen Confirmation Stat Micro 12/03/21 15:40 Received [facility] [place] HPI - General Stated complaint: sore throat, congestion Time Seen by Provider: 12/03/21 15:15 Mode of Arrival: Ambulatory Source of Information: Patient Limitations: No Limitations Description of Symptoms (Recalled from Triage Doc. by RN): C/O SORE THROAT AND CONGESTION THAT STARTED YESTERDAY HEENT Symptoms (Recalled from RN notes): Yes Resp Symptoms (Recalled from RN notes): No Skin Symptoms (Recalled from RN notes): No MS Symptoms (Recalled from RN notes): No Functional Status (Recalled from RN notes): NA - History of Present Illness Provider Complaint: Patient states that she has been having sore throat and nasal congestion that started yesterday States that family member has had strep throat for about a week States that she thinks she may have it now too - Related Data Home Medications Medication Instructions Recorded Confirmed PARoxetine HCL [Paxil] 40 mg PO DAILY 10/04/21 10/04/21 Previous Rx's Medication Instructions Recorded Dicyclomine HCl [Bentyl 10mg 10 mg PO TIDP PRN #20 cap 10/04/21 capsule] Ondansetron [Zofran 4mg ODT] 4 mg PO Q8HP PRN #20 tab 10/04/21 Allergies Allergy/AdvReac Type Severity Reaction Status Date / Time No Known Allergies Allergy Verified 10/04/21 20:12 - Worker's Comp Is this a Worker's Comp case?: No [facility] History - Hepatitis A Screen Drug use history?: No High risk sexual behaviors?: No History of sexually transmitted infection?: No Currently employed?: No Childcare worker?: No Do you have indoor plumbing?: Yes Do you hav
[2021-12-03 16:04] LABS: Strep Scrn Group A (Rapid) Negative (Negative)
[2021-12-03 16:57] VITALS: BP 121/57; PULSE 82; RESP 95; TEMP 36.7
== END 2021-12-03 16:58 | disposition home or self-care (01) ==
PROVIDERS: Emergency Provider Nurse Practitioner; PCP Nurse Practitioner Family
DX: J02.9 Acute pharyngitis, unspecified (principal); F41.8 Other specified anxiety disorders
CPT/HCPCS: 87430; 99212; G0463

== ENCOUNTER → 2021-12-23 16:54 | Outpatient (CLI) | payer OTHER, SELFPAY ==
[2021-12-23 17:24] LABS: Basophils # 0.1 K/mm3 (0-0.2); Basophils % 0.9 % (0.1-2.0); Eosinophils # 0.3 K/mm3 (0.0-0.4); Eosinophils % 2.6 % (0.1-12.0); Hematocrit 39.9 % (37.0-47.0); Hemoglobin 13.4 g/dL (12.2-16.2); Lymphocytes # 2.4 K/mm3 (0.7-4.5); Lymphocytes % 25.6 % (10-50); Mean Corpuscular HGB Conc 33.5 g/dL (31.8-35.4); Mean Corpuscular Hemoglobin 30.4 pg (27.0-31.2); Mean Platelet Volume 7.9 fl (7.4-10.4); Monocytes # 0.4 K/mm3 (0.1-1.0); Monocytes % 4.2 % (1.7-9.3); Neutrophils # 6.3 K/mm3 (1.8-7.8); Neutrophils % 66.7 % (37.0-80.0); Platelet Count 434 K/mm3 (142-424); Red Blood Count 4.39 M/mm3 (4.20-5.40); Red Cell Distribution Width 14.2 % (11.5-17.5); White Blood Count 9.4 K/mm3 (4.8-10.8)
[2021-12-23 17:47] LABS: Hemoglobin A1C 5.2 % (4.0-6.0)
[2021-12-23 17:51] LABS: Alanine Aminotransferase 28 U/L (12-78); Albumin/Globulin Ratio 1.4 (1.1-1.8); Alkaline Phosphatase 126 U/L (38-126); Anion Gap 13.9 mEq/L (5-15); Aspartate Amino Transferase 28 U/L (14-36); Blood Urea Nitrogen 7 mg/dl (7-17); Calcium 9.3 mg/dl (8.4-10.2); Carbon Dioxide 24 mmol/L (22.0-30.0); Chloride 106 mmol/L (98-107); Chol/HDL Ratio 5.7 (1-3.5); Cholesterol 245 mg/dl (140-200); Estimated Glomerular Filt Rate 122 ml/min (>60); GFR (African American) 147 ML/MIN (>60); Globulin 2.9 g/dL (1.3-3.2); Glucose 102 mg/dl (74-100); HDL Cholesterol 43 mg/dl (40-60); Potassium 3.9 mmoL/L (3.5-5.1); Sodium 140 mmol/L (136-145); Total Protein,Serum 6.9 g/dl (6.3-8.2); Triglycerides 179 mg/dl (30-150); VLDL Cholesterol 36 mg/dL (0-40)
[2021-12-23 17:53] LABS: Bilirubin,Total < 0.1 mg/dl (0.2-1.3)
[2021-12-23 18:03] LABS: Direct LDL Cholesterol 160.73 mg/dL (100-129)
[2021-12-23 18:22] LABS: Thyroid Stimulating Hormone 1.57 uIU/mL (0.465-4.68)
== END ==
PROVIDERS: PCP Nurse Practitioner Family; Visit Provider Nurse Practitioner Family
DX: Z00.00 Encounter for general adult medical examination without abnormal findings (principal); K76.0 Fatty (change of) liver, not elsewhere classified; K76.9 Liver disease, unspecified; R63.5 Abnormal weight gain; R30.0 Dysuria
CPT/HCPCS: 36415; 80053; 80061; 83036; 84443; 85025

== ENCOUNTER 2022-01-11 20:16 | Emergency (ER) | payer OTHER, SELFPAY ==
[2022-01-11 20:17] VITALS: BP 151/70; PULSE 129; RESP 24; TEMP 37.9; O2SAT 98; BMI 51.2
--- NOTE | 2022-01-11 20:44 | CT_ITS ---
PROCEDURE INFORMATION: Exam: CT Abdomen And Pelvis Without Contrast Exam date and time: 01/11/2022 9:03 PM Age: 26 years old Clinical indication: Abdominal pain; Localized; Left; Prior surgery; Surgery type: Tubal; Additional info: Flank pain TECHNIQUE: Imaging protocol: Computed tomography of the abdomen and pelvis without contrast. Radiation optimization: All CT scans at this facility use at least one of these dose optimization techniques: automated exposure control; mA and/or kV adjustment per patient size (includes targeted exams where dose is matched to clinical indication); or iterative reconstruction. COMPARISON: CT ABDOMEN PELVIS W CON 04/07/2020 6:15 AM FINDINGS: Lungs: Dependent atelectasis and scarring. Diaphragm: Small sliding hiatal hernia. Liver: Liver is diffusely hypoattenuating but without focal lesion. Gallbladder and bile ducts: Normal. No calcified stones. No ductal dilation. Pancreas: Normal. No ductal dilation. Spleen: Normal. No splenomegaly. Adrenal glands: Normal. No mass. Kidneys and ureters: Normal. No hydronephrosis. Stomach and bowel: Unremarkable. No obstruction. No mucosal thickening. Appendix: No evidence of appendicitis. Intraperitoneal space: Unremarkable. No free air. No significant fluid collection. Vasculature: Unremarkable. No abdominal aortic aneurysm. Lymph nodes: Unremarkable. No enlarged lymph nodes. Urinary bladder: Unremarkable as visualized. Reproductive: Unremarkable as visualized. Bones/joints: Unremarkable. No acute fracture. Soft tissues: Unremarkable. IMPRESSION: 1. Hepatic steatosis. 2. Small sliding hiatal hernia. 3. No evidence for renal or ureteral calculus disease, hydronephrosis or hydroureter. 4. No evidence of appendicitis or diverticulitis. 5. No evidence of free fluid, free air, or gastrointestinal obstruction.
[2022-01-11 20:53] LABS: Basophils # 0.3 K/mm3 (0-0.2); Basophils % 2.4 % (0.1-2.0); Eosinophils # 0.2 K/mm3 (0.0-0.4); Eosinophils % 1.8 % (0.1-12.0); Hematocrit 40.1 % (37.0-47.0); Hemoglobin 13.4 g/dL (12.2-16.2); Lymphocytes # 2.6 K/mm3 (0.7-4.5); Mean Corpuscular HGB Conc 33.4 g/dL (31.8-35.4); Mean Corpuscular Hemoglobin 30.3 pg (27.0-31.2); Mean Corpuscular Volume 90.9 fl (81-99); Mean Platelet Volume 7.3 fl (7.4-10.4); Monocytes # 0.5 K/mm3 (0.1-1.0); Monocytes % 4.3 % (1.7-9.3); Neutrophils # 8.6 K/mm3 (1.8-7.8); Neutrophils % 70.5 % (37.0-80.0); Platelet Count 374 K/mm3 (142-424); Red Blood Count 4.42 M/mm3 (4.20-5.40); Red Cell Distribution Width 14.3 % (11.5-17.5); White Blood Count 12.2 K/mm3 (4.8-10.8)
[2022-01-11 20:53] LABS: Microscopic, Urine URINE MICROSCOPIC (MICROSCOPIC)
[2022-01-11 21:00] VITALS: BP 177/106; PULSE 121; O2SAT 98
[2022-01-11 21:02] LABS: Bilirubin,Urine Negative (Negative); Blood, Urine 1+ (Negative); Glucose,Urine (UA) TRACE (Negative); Ketones,Urine Negative (Negative); Leukocyte Esterase,Urine TRACE (Negative); Nitrate,Urine Negative (Negative); PH,Urine 7.5 (5.0-8.5); Protein,Urine 1+ (Negative); Urobilinogen,Urine 0.2 EU/dl (0.2)
[2022-01-11 21:03] LABS: Alanine Aminotransferase 23 U/L (12-78); Albumin/Globulin Ratio 1.2 (1.1-1.8); Alkaline Phosphatase 123 U/L (38-126); Amylase 52 U/L (30-110); Anion Gap 11.7 mEq/L (5-15); Aspartate Amino Transferase 27 U/L (14-36); Blood Urea Nitrogen 11 mg/dl (7-17); Calcium 9.2 mg/dl (8.4-10.2); Carbon Dioxide 25 mmol/L (22.0-30.0); Chloride 103 mmol/L (98-107); Creatinine Clearance Estimated 97 mL/min (50-200); Estimated Glomerular Filt Rate 102 ml/min (>60); GFR (African American) 123 ML/MIN (>60); Globulin 3.4 g/dL (1.3-3.2); Glucose 151 mg/dl (74-100); Lipase 57 U/L (23-300); Potassium 3.7 mmoL/L (3.5-5.1); Sodium 136 mmol/L (136-145); Total Protein,Serum 7.4 g/dl (6.3-8.2)
[2022-01-11 21:03] LABS: Appearance,Urine Cloudy (Clear); Color,Urine Dark Yellow (Yellow)
[2022-01-11 21:04] LABS: Lactic Acid 1.8 mmol/L (0.7-2.1)
[2022-01-11 21:05] LABS: Bilirubin,Total < 0.1 mg/dl (0.2-1.3)
[2022-01-11 21:09] LABS: C-Reactive Protein 44.2 mg/L (0-4)
[2022-01-11 21:13] LABS: Erythrocyte Sedimentation Rate 66 mm/hr (0-20)
[2022-01-11 21:23] LABS: Procalcitonin 0.073 ng/mL (0.0-2.0)
[2022-01-11 21:31] VITALS: BP 130/64; PULSE 103; O2SAT 97
--- NOTE | 2022-01-11 21:41 | HMH.EDNVD ---
ED Disposition Clinical Impression: Flank pain, acute Disposition: Home, Self-Care Condition on Discharge: Good Instructions: DI for Flank Pain Additional Instructions: use meds and see pcp for follow up Referrals: Nikia Haywood APRN [Primary Care Provider] - - Critical Care Critical Care Time: No Attestation: On 01/11/22, the high probability of a clinically significant, sudden or life threatening deterioration of the following system(s) required my full and direct attention, intervention and personal management. The time I documented below is in addition to time spent performing reported procedures but includes the following listed in this critical care notation. Medical Decision Making - Medical Records Medical records reviewed: Yes: I reviewed the patient's medical records. - Prasanna Inquiry Pt receiving controlled substance: No Vital Signs: 01/11/22 20:17 01/11/22 21:00 01/11/22 21:31 Temperature 100.2 F H Temperature Source Oral Pulse Rate 121 H 103 H Pulse Rate [Left] 129 H Respiratory Rate 24 Blood Pressure 177/106 H 130/64 Blood Pressure [Right Arm] 151/70 H Blood Pressure Mean [Right Arm] 97 02 Sat by Pulse Oximetry 98 98 97 Oxygen Delivery Method Room Air Room Air Room Air - Lab Data Lab results reviewed: Yes: I reviewed the patient's lab results. Lab Results 01/11/22 20:25: Urine Color Dark yellow, Urine Appearance Cloudy, Urine pH 7.5, Ur Specific [place] 1.020, Urine Protein 1+, Urine Glucose (UA) Trace, Urine Ketones Negative, Urine Blood 1+, Urine Nitrate Negative, Urine Bilirubin Negative, Urine Urobilinogen 0.2, Ur Leukocyte Esterase Trace, Urine RBC 5-10, Urine WBC 10-20, Ur Squamous Epith Cells 3-5, Amorphous Sediment 2+, Urine Bacteria 2+, Urine Mucus 1+ 01/11/22 20:32: WBC 12.2 H, RBC 4.42, Hgb 13.4, Hct 40.1, MCV 90.9, MCH 30.3, MCHC 33.4, RDW 14.3, Plt Count 374, MPV 7.3 L, Neut % (Auto) 70.5, Lymph % (Auto) 21.0, [place] % (Auto) 4.3, Eos % (Auto) 1.8, Baso % (Auto) 2.4 H, Neut # (Auto) 8.6 H, Lymph # (Auto) 2.6, [place] # (Auto) 0.5, Eos # (Auto) 0.2, Baso # (Auto) 0.3 H, ESR 66 H 01/11/22 20:32: Sodium 136, Potassium 3.7, Chloride 103, Carbon Dioxide 25, Anion Gap 11.7, BUN 11, Creatinine 0.70, Estimated Creat Clear 97, Estimated GFR 102, Est GFR ( Amer) 123, Glucose 151 H, Calcium 9.2, Total Bilirubin < 0.1 L, AST 27, ALT 23, Alkaline Phosphatase 123, C-Reactive Protein 44.2 H, Total Protein 7.4, Albumin 4.0, Globulin 3.4 H, Albumin/Globulin Ratio 1.2, Amylase 52, Lipase 57, Procalcitonin 0.073 01/11/22 20:32: Lactate 1.8 Result diagrams: 01/11/22 20:32 01/11/22 20:32 Orders (Tests/Meds): ED MEDICATIONS Generic Name Dose Route Start Last Admin Trade Name Freq PRN Reason Stop Dose Admin Sodium Chloride 1,000 mls @ 999 mls/hr 01/11/22 20:45 01/11/22 20:49 Sod Chlor 0.9% 1000ml Bag IV 01/11/22 21:45 999 mls/hr .Q1H1M OJ Administration Discontinued Medications Generic Name Dose Route Start Last Admin Trade Name Freq PRN Reason Stop Dose Admin Acetaminophen 1,000 mg 01/11/22 20:46 01/11/22 20:49 Acetaminophen 500mg Tab PO 01/11/22 20:47 1,000 mg ONCE ONE Administration Ketorolac Tromethamine 30 mg 01/11/22 20:44 01/11/22 20:50 Ketorolac 30mg/Ml Vial IV 01/11/22 20:45 30 mg ONCE ONE Administration Ondansetron HCl 4 mg 01/11/22 20:44 01/11/22 20:49 Ondansetron 4mg/2ml Vial IV 01/11/22 20:45 4 mg ONCE ONE Administration ORDERS Category Date Time Status Blood Culture Stat Micro 01/11/22 20:32 Received Urine Culture Stat Micro 01/11/22 20:25 Received - CT Data CT Scan: Abdomen, Pelvis Time Received: 22:[address] Reviewed: Yes: I have viewed the radiologist's interpretation Preliminary Findings: Normal/NAD Medical Decision Narrative: u/a abd with c/s pending - will give abx and pain meds and see pcp for follow up Nausea/Vomiting/Diarrhea HPI - General Chief complaint: Abdominal Pain
[2022-01-11 21:44] LABS: Amorphous Sediment,Urine 2+ /lpf; Bacteria,Urine 2+ /lpf; Mucus,Urine 1+ /lpf
[2022-01-11 22:52] VITALS: BP 121/73; PULSE 67; RESP 16; TEMP 37.2; O2SAT 97
== END 2022-01-11 22:53 | disposition home or self-care (01) ==
PROVIDERS: Emergency Provider Emergency Medicine; PCP Nurse Practitioner Family
DX: R10.9 Unspecified abdominal pain (principal); R30.0 Dysuria; Z87.440 Personal history of urinary (tract) infections; F41.9 Anxiety disorder, unspecified; F32.A Depression, unspecified; Z72.0 Tobacco use
CPT/HCPCS: 74176; 80053; 81001; 82150; 83605; 83690; 84145; 85025; 85651; 86140; 87040; 87086; 87088; 87186; 96365; 96375; 99284; J2405

== ENCOUNTER 2022-02-04 09:00 | Emergency (ER) | payer OTHER, SELFPAY ==
[2022-02-04 09:05] VITALS: BP 131/105; PULSE 80; RESP 21; TEMP 36.6; O2SAT 98; BMI 51.2
--- NOTE | 2022-02-04 09:18 | HMH.EDUTC ---
[facility] [place] Disposition Clinical Impression: Viral syndrome Disposition: Home, Self-Care Condition on Discharge: Good Instructions: Diarrhea, DI for Viral Syndrome, DI for Nausea -- Adult, DI for Nasal Congestion Additional Instructions: *Monitor Temp, Over the counter Motrin or Tylenol as directed/as needed Tylenol every 4 hours and Motrin every 6 hours (as long as your family doctor has told you that you can take it) for fever or pain. and straight to ER if unable to lower temp less than 101.0 after medication given *Warm salt water gargles may help to soothe the throat *Throat Lozenges *Warm fluids like tea with honey may help to soothe the throat *Sleep elevated *Humidifier/Vaporizer *Flonase 2 sprays in each nostril daily but be aware that it may take 2-3 days before you notice improvement Your throat swab was sent for culture. Those results are typically sent to your primary care. Be sure to follow up in 2-3 days with your family doctor/primary care physician if no improvement so they can review those result and treat if necessary. If you don?t have a primary care doctor, I recommend you get one but in the mean time, you will have to return to a walk in clinic Follow up IMMEDIATELY for new or worsening symptoms or no Noticeable improvement over the next 48-72 hours. 911 for difficulty breathing or swallowing You were tested for today for COVID19 your test result should be back in the next 24-48 hours, you may check your results on the [facility] my Health Portal Make sure to take your Vitamins Vit. C Vit D and Zinc if you can take them Prescriptions: Fluticasone Propionate [Flonase 50mcg nasal spray 16gm] 1 spr NS DAILY #1 each Transmission Status: Received by [facility] by [facility] # Ondansetron [Zofran 4mg ODT] 4 mg PO TIDP PRN #10 tab PRN Reason: Nausea Transmission Status: Received by [facility] # Referrals: Nikia Haywood APRN [Primary Care Provider] - As needed Forms: Work/School Release Time of Disposition: 09:49 Medical Decision Making - Prasanna Inquiry Pt receiving controlled substance: No Prasanna was queried for this patient: No Vital Signs: 02/04/22 09:05 02/04/22 09:41 02/04/22 09:43 Temperature 97.8 F 97.8 F Temperature Source Oral Pulse Rate 80 Pulse Rate [Right Brachial] 80 Respiratory Rate 21 21 Blood Pressure 131/105 H Blood Pressure [Right Arm] 131/105 H 135/77 Blood Pressure Mean [Right Arm] 113 96 Blood Pressure Source [Right Arm] Automatic Cuff Automatic Cuff Blood Pressure Position [Right Arm] Sitting Sitting 02 Sat by Pulse Oximetry 98 Oxygen Delivery Method Room Air - Lab Data Lab results reviewed: Yes: I reviewed the patient's lab results. Lab Results 02/04/22 09:10: Group A Strep Rapid Negative 02/04/22 09:35: Chlamy pneumoniae PCR Not detected, Adenovirus (PCR) Not detected, B. pertussis DNA (PCR) Not detected, Coronavirus OC43 (PCR) Not detected, Coronavirus HKU1 (PCR) Not detected, Coronavirus 229E (PCR) Not detected, SARS-CoV-2 (PCR) Not detected, Coronavirus NL63 (PCR) Not detected, Human Metapneumovir PCR Not detected, Influenza A (H1) PCR Not detected, Influ A (H1N1/09) PCR Not detected, Influenza A (H3) PCR Not detected, Influenza Type A (PCR) Not detected, Influenza Type B (PCR) Not detected, M. pneumoniae (PCR) Not detected, Parainfluenza 1 (PCR) Not detected, Parainfluenza 2 (PCR) Not detected, Parainfluenza 3 (PCR) Not detected, Parainfluenza 4 (PCR) Not detected, RSV (PCR) Not detected, Entero/Rhino (PCR) Not detected Orders (Tests/Meds): ORDERS Category Date Time Status Strep Screen Confirmation Stat Micro 02/04/22 09:10 Received Medical Decision Narrative: Patient states that she has taken zofran in the past without complications or reactions [facility] [place] HPI - General Stated complaint: nausea, diarrhea, congestion, sore throat Time Seen by Provider: 02/04/22 09:18 Mode of Arrival: Ambulatory Source of Information: Bc
[2022-02-04 09:31] LABS: Strep Scrn Group A (Rapid) Negative (Negative)
[2022-02-04 09:41] VITALS: BP 131/105; PULSE 80; RESP 21; TEMP 36.6; O2SAT 98
[2022-02-04 09:43] VITALS: BP 135/77
[2022-02-04 10:01] LABS: Adenovirus,PCR Not Detected (NotDetected); Bordetella Pertussis Not Detected (NotDetected); Chlamydophila Pneumoniae, PCR Not Detected (NotDetected); Coronavirus 19, PCR Not Detected (NotDetected); Coronavirus 229E Not Detected (NotDetected); Coronavirus NL63 Not Detected (NotDetected); Coronavirus OC43 Not Detected (NotDetected); Coronovirus HKU1,PCR Not Detected (NotDetected); Human Metapneumovirus Not Detected (NotDetected); Influenza A, PCR Not Detected (NotDetected); Influenza AH1, 2009 Not Detected (NotDetected); Influenza AH1, PCR Not Detected (NotDetected); Influenza AH3,PCR Not Detected (NotDetected); Influenza B, PCR Not Detected (NotDetected); Mycoplasma Pneumoniae, PCR Not Detected (NotDetected); Parainfluenza 1, PCR Not Detected (NotDetected); Parainfluenza 2, PCR Not Detected (NotDetected); Parainfluenza 3, PCR Not Detected (NotDetected); Parainfluenza 4, PCR Not Detected (NotDetected); Respiratory Syncytial Virus Not Detected (NotDetected); Rhinovirus/Enterovirus Not Detected (NotDetected)
== END 2022-02-04 09:50 | disposition home or self-care (01) ==
PROVIDERS: Emergency Provider Nurse Practitioner; PCP Nurse Practitioner Family
DX: B34.9 Viral infection, unspecified (principal); R11.0 Nausea; R19.7 Diarrhea, unspecified; R09.89 Other specified symptoms and signs involving the circulatory and respiratory systems; J02.9 Acute pharyngitis, unspecified
CPT/HCPCS: 87430; 87581; 87632; 87798; 99212; C9803; G0463; U0003; U0005

== ENCOUNTER 2022-03-10 14:59 | Emergency (ER) | payer OTHER, SELFPAY ==
[2022-03-10 15:09] VITALS: BP 151/72; PULSE 73; RESP 18; TEMP 37; O2SAT 99; BMI 47.5
--- NOTE | 2022-03-10 15:17 | ECG_ITS ---
APPROVED REPORT Exam: Resting ECG HR:93 bpm ECG Measurements Heart Rate 93 AXES [place] 180 P 53 QRSd 90 QRS 70 QT 314 T 51 QTc 365 Conclusion SINUS RHYTHM NORMAL ECG UNCONFIRMED REPORT Electronically signed by : [place] Alexandra MD 03/10/2022 21:04:22
--- NOTE | 2022-03-10 15:23 | PC.NURSE ---
DARLINE SHAVER at for patient eval
--- NOTE | 2022-03-10 15:26 | HMH.EDANX ---
ED Disposition Clinical Impression: Anxiety reaction Disposition: Home, Self-Care Condition on Discharge: Good Additional Instructions: follow up your prescribing doctor, return here for worse Referrals: Nikia Haywood APRN [Primary Care Provider] - - Critical Care Critical Care Time: No Attestation: On 03/10/22, the high probability of a clinically significant, sudden or life threatening deterioration of the following system(s) required my full and direct attention, intervention and personal management. The time I documented below is in addition to time spent performing reported procedures but includes the following listed in this critical care notation. Medical Decision Making - Medical Records Medical records reviewed: Yes: I reviewed the patient's medical records. - Prasanna Inquiry Pt receiving controlled substance: No Vital Signs: 03/10/22 15:09 Temperature 98.6 F Temperature Source Oral Pulse Rate [Left Radial] 73 Respiratory Rate 18 Blood Pressure [Right Arm] 151/72 H Blood Pressure Mean [Right Arm] 98 02 Sat by Pulse Oximetry 99 Oxygen Delivery Method Room Air Orders (Tests/Meds): ED MEDICATIONS Discontinued Medications Generic Name Dose Route Start Last Admin Trade Name Rusty PRN Reason Stop Dose Admin Diazepam 10 mg 03/10/22 15:26 Diazepam 10mg Tablet PO 03/10/22 15:27 ONCE ONE - ECG Data Tracing #1 I reviewed this ECG and interpreted as documented below: ekg by me nsr, qrs nml, no st elev Anxiety HPI - General Chief Complaint: Anxiety Stated Complaint: SOB, allergic reaction Time Seen by Provider: 03/10/22 15:26 Mode of Arrival: Ambulatory Limitations: No Limitations Description of Symptoms (Recalled from ER Triage Doc. by RN): pt to ed c/o anxiety. pt states her pcp placed her on Vraylar for anxiety/depression. pt states the medication made her feel more anxious and heavy in her chest. pt states she stopped taking the medication x3 days ago and has been feeling anxious since. pt denies any pain. - History of Present Illness HPI narrative: off Vrylar few days due to side effects, today with increased anxiety Symptoms: chest pain Severity: moderate Quality: constant Relieving factors: nothing Exacerbating factors: nothing Associated symptoms: chest pain - Related Data Home Medications: Home Medications Medication Instructions Recorded Confirmed Cariprazine HCl [Vraylar] 1.5 mg PO DAILY 06/24/22 06/24/22 Venlafaxine HCl [Effexor 37.5mg 37.5 mg PO DAILY 02/04/22 02/04/22 tablet] Previous Rx's Medication Instructions Recorded Fluticasone Propionate [Flonase 1 spr NS DAILY #1 each 02/04/22 50mcg nasal spray 16gm] Ondansetron [Zofran 4mg ODT] 4 mg PO TIDP PRN #10 tab 02/04/22 Allergies/Adverse Reactions: Allergies Allergy/AdvReac Type Severity Reaction Status Date / Time No Known Allergies Allergy Verified 10/04/21 20:12 [facility] History - Hepatitis A Screen Attestation statement:: This patient has been screened for Hepatitis A risk factors. 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: Reports:: Anxiety, Depression Denies:: Cancer, Chronic Obstructive Pulmonary Disease (COPD), Diabetes Mellitus Type 1, Diabetes Mellitus Type 2, Hypertension, MRSA, Seizures Other 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: Reports: Other. Denies: Blood Transfusion Reaction Laterality Cases: Right: Arthroscopy Knee, Bilateral: Tonsillectomy Other Surgeries: Yes: , Tubal Ligation (Bilateral Salpingectomy), Other Amputation: No Fractures: No - 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 Smoking Status: Current every day smoker Tobacco Type: cigarettes # Packs/Day (cigarettes): 1 Alcohol Intake: never Alcohol Intake Frequency:: holidays/special occasions only Substance Use Type: denies use Occupational Status: other Housing: house Household Members: spouse - Psychiatric History Pschychiatric History:: Reports:: Anxiety, Depression Family Hx:: No significant family history 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
[2022-03-10 16:30] VITALS: BP 149/97; PULSE 86; RESP 18; TEMP 37; O2SAT 97
== END 2022-03-10 16:30 | disposition home or self-care (01) ==
PROVIDERS: Emergency Provider Emergency Medicine; PCP Nurse Practitioner Family
DX: F41.1 Generalized anxiety disorder (principal); Z79.899 Other long term (current) drug therapy; Z72.0 Tobacco use; F32.A Depression, unspecified
CPT/HCPCS: 93005; 99283

== ENCOUNTER 2022-04-02 14:37 | Emergency (ER) | payer OTHER, SELFPAY ==
[2022-04-02 14:37] VITALS: BP 141/91; PULSE 91; RESP 20; TEMP 36.9; O2SAT 100; BMI 47.5
--- NOTE | 2022-04-02 14:45 | XR_ITS ---
PROCEDURE INFORMATION: Exam: XR Left Ankle Exam date and time: 04/02/2022 2:44 PM Age: 26 years old Clinical indication: Injury or trauma; Fall; Sprain or strain; Ankle; Left TECHNIQUE: Imaging protocol: Radiologic exam of the Left ankle. Views: 3 or more views. COMPARISON: CR XR ANKLE LT MIN 3V 03/19/2019 7:57 PM FINDINGS: Normal anatomic alignment and bone density. Prominent plantar calcaneal spur. No acute fracture, dislocation, or aggressive skeletal lesion. Mild ankle swelling. IMPRESSION: Mild ankle swelling without acute skeletal pathology.
--- NOTE | 2022-04-02 14:52 | PC.NURSE ---
PT TO XR PER WC
--- NOTE | 2022-04-02 14:58 | PC.NURSE ---
PT RETURNED FROM XR
[2022-04-02 15:00] VITALS: BP 120/95; PULSE 73; O2SAT 98
--- NOTE | 2022-04-02 15:03 | PC.NURSE ---
ED MD AT BEDSIDE
--- NOTE | 2022-04-02 15:03 | PC.NURSE ---
DARLINE SHAVER at for justin
--- NOTE | 2022-04-02 15:08 | HMH.EDGENADL ---
ED Disposition Clinical Impression: Left ankle sprain Qualifiers: Encounter type: initial encounter Involved ligament of ankle: unspecified ligament Qualified Code(s): S93.402A - Sprain of unspecified ligament of left ankle, initial encounter Disposition: Home, Self-Care Condition on Discharge: Good Instructions: How to Use Crutches, DI for Ankle Sprain, How To Perform RICE (Rest, Ice, Compress, Elevate) Additional Instructions: Use crutches for 4-5 days. Ice 20 minutes 4-5 times a day and elevate ankle for 2 days. Use air cast for 2 weeks. Ibuprofen for pain. Follow-up with orthopedics, Dr. Vera, if not improving in 4 to 5 days. Referrals: Nikia Haywood APRN [Primary Care Provider] - Jose M Vera MD [Staff Physician] - - Critical Care Critical Care Time: No Attestation: On , the high probability of a clinically significant, sudden or life threatening deterioration of the following system(s) required my full and direct attention, intervention and personal management. The time I documented below is in addition to time spent performing reported procedures but includes the following listed in this critical care notation. Medical Decision Making - Prasanna Inquiry Pt receiving controlled substance: No Vital Signs: 04/02/22 14:37 04/02/22 15:00 Temperature 98.4 F Temperature Source Oral Pulse Rate 73 Pulse Rate [Radial] 91 H Respiratory Rate 20 Blood Pressure 120/95 H Blood Pressure [Right Arm] 141/91 H Blood Pressure Mean 103 Blood Pressure Mean [Right Arm] 107 Blood Pressure Source [Right Arm] Automatic Cuff Blood Pressure Position [Right Arm] Sitting 02 Sat by Pulse Oximetry 100 98 Oxygen Delivery Method Room Air Orders (Tests/Meds): ED MEDICATIONS Discontinued Medications Generic Name Dose Route Start Last Admin Trade Name Freq PRN Reason Stop Dose Admin Ketorolac Tromethamine 60 mg 04/02/22 15:07 04/02/22 15:12 Ketorolac 60mg/2ml Vial IM 04/02/22 15:08 60 mg ONCE ONE Administration - Radiology Data #1 Image(s): Ankle (Preliminary interpretation by me: Mild soft tissue swelling, no fracture or dislocation seen) Image Reviewed: Yes I reviewed the patient's radiology image, Yes I have reviewed radiologist's interpretation Ordering Physician: Aristeo Mejía MD Date of Service: 04/02/22 Procedure(s): XR ankle LT min 3V Accession Number(s): [id number] cc: Nikia Haywood APRN; Eddie Robledo MD~ PROCEDURE INFORMATION: Exam: XR Left Ankle Exam date and time: 04/02/2022 2:44 PM Age: 26 years old Clinical indication: Injury or trauma; Fall; Sprain or strain; Ankle; Left TECHNIQUE: Imaging protocol: Radiologic exam of the Left ankle. Views: 3 or more views. COMPARISON: CR XR ANKLE LT MIN 3V 03/19/2019 7:57 PM FINDINGS: Normal anatomic alignment and bone density. Prominent plantar calcaneal spur. No acute fracture, dislocation, or aggressive skeletal lesion. Mild ankle swelling. IMPRESSION: Mild ankle swelling without acute skeletal pathology. General Adult HPI - General Chief complaint: Extremity Injury, Lower Stated complaint: possible broken ankle Time Seen by Provider: 04/02/22 15:00 Mode of Arrival: Wheelchair Limitations: Physical Limitations Description of Symptoms (Recalled from ER Triage Doc. by RN): PT VIA WC TO ED. STATES HER ANKLE GAVE OUT AND I FELL PAIN TO LEFT ANKLE. SWELLING NOTED TO ANKLE - History of Present Illness HPI narrative: States she was walking and turned her left ankle. Complains of diffuse ankle pain. Denies other injuries. - Related Data Home Medications Medication Instructions Recorded Confirmed Cariprazine HCl [Vraylar] 1.5 mg PO DAILY 02/04/22 02/04/22 Venlafaxine HCl [Effexor 37.5mg 37.5 mg PO DAILY 02/04/22 02/04/22 tablet] Previous Rx's Medication Instructions Recorded
[2022-04-02 15:15] VITALS: BP 120/95; PULSE 73; RESP 20; TEMP 36.9; O2SAT 99
== END 2022-04-02 15:20 | disposition home or self-care (01) ==
PROVIDERS: Emergency Provider Emergency Medicine; PCP Nurse Practitioner Family
DX: S93.402A Sprain of unspecified ligament of left ankle, initial encounter (principal); W18.30XA Fall on same level, unspecified, initial encounter
CPT/HCPCS: 29515; 73610; 96372; 99283

== ENCOUNTER 2022-04-05 13:18 | Emergency (ER) | payer OTHER, SELFPAY ==
--- NOTE | 2022-04-05 13:38 | HMH.EDUTC ---
[facility] [place] Clinical Impression: Left ankle sprain Qualifiers: Encounter type: subsequent encounter Involved ligament of ankle: unspecified ligament Qualified Code(s): S93.402D - Sprain of unspecified ligament of left ankle, subsequent encounter Disposition: Home, Self-Care Condition on Discharge: Good Instructions: Ankle Sprain, DI for Ankle Pain Additional Instructions: Rest the extremity, Elevate the extremity as tolerated while you are resting. Take ibuprofen for pain. I sent in a prescription to your pharmacy. Follow up with Dr. Vera (orthopedics). I put in a referral but you need to call his office and schedule an appointment. Follow up with your regular doctor. GO TO THE ER FOR ANY WORSENING SYMPTOMS Prescriptions: Ibuprofen [Ibuprofen 800mg Tablet] 800 mg PO Q8HP PRN #30 tab PRN Reason: Moderate Pain Transmission Status: Received by [facility] #[id number] Referrals: Nikia Haywood APRN [Primary Care Provider] - Time of Disposition: 14:01 Medical Decision Making - Medical Records Medical records reviewed: No: I reviewed the patient's medical records. - Prasanna Inquiry Pt receiving controlled substance: No Vital Signs: 04/05/22 13:39 04/05/22 14:08 Temperature 98.4 F 98.4 F Temperature Source Oral Pulse Rate 104 H Pulse Rate [Left] 104 H Respiratory Rate 17 17 Blood Pressure 135/77 Blood Pressure [Right Arm] 135/77 Blood Pressure Mean [Right Arm] 96 02 Sat by Pulse Oximetry 100 Orders (Tests/Meds): ED MEDICATIONS Discontinued Medications Generic Name Dose Route Start Last Admin Trade Name Freq PRN Reason Stop Dose Admin Ketorolac Tromethamine 60 mg 04/05/22 13:47 04/05/22 13:58 Ketorolac 60mg/2ml Vial IM 04/05/22 13:48 60 mg ONCE ONE Administration [facility] [place] - General Stated complaint: AO 04/02/22 fell at [employer]; LT ankle pain Time Seen by Provider: 04/05/22 13:38 - History of Present Illness Provider Complaint: She fell on monday. She twisted her left foot and ankle when this happened. Since then she has had left ankle pain. She was seen here in the er and had x-rays done 2 days ago. She states that she is having pain that is not relieved with ibuprofen. So she returned here today. She has not f/u with her pcp or called orthopedics for an appointment. - Related Data Home Medications Medication Instructions Recorded Confirmed Cariprazine HCl [Vraylar] 1.5 mg PO DAILY 02/04/22 02/04/22 Venlafaxine HCl [Effexor 37.5mg 37.5 mg PO DAILY 02/04/22 02/04/22 tablet] Previous Rx's Medication Instructions Recorded Fluticasone Propionate [Flonase 1 spr NS DAILY #1 each 02/04/22 50mcg nasal spray 16gm] Ondansetron [Zofran 4mg ODT] 4 mg PO TIDP PRN #10 tab 02/04/22 Ibuprofen [Ibuprofen 800mg 800 mg PO Q8HP PRN #30 tab 04/05/22 Tablet] Allergies Allergy/AdvReac Type Severity Reaction Status Date / Time No Known Allergies Allergy Verified 04/05/22 13:42 [facility] History - Hepatitis A Screen Attestation statement:: This patient has been screened for Hepatitis A risk factors. I have reviewed the patient's past medical history: Yes 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: Reports:: Anxiety, Depression Denies:: Cancer, Chronic Obstructive Pulmonary Disease (COPD), Diabetes Mellitus Type 1, Diabetes Mellitus Type 2, Hypertension, MRSA, Seizures Other 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: Reports: Other. Denies: Blood Transfusion Reaction Laterality Cases: Right: Arthroscopy Knee, Bilateral: Tonsillectomy Other Surgeries: Yes: , Tubal Ligation (Bilateral Salpingectomy), Other Amputation: No Fractures: No - 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 Smoking Status: Current every day smoker Tobacco Type: cigarettes # Packs/Day (cigarettes): 1 Alcohol Intake: never Alcohol Intake Frequency:: holidays/special occasions only Substance Use Type: denies use Occupational Status: other Housing: house Household Members: spouse - Psychiatric History [facility]
[2022-04-05 13:39] VITALS: BP 135/77; PULSE 104; RESP 17; TEMP 36.9; O2SAT 100; BMI 47.5
[2022-04-05 14:08] VITALS: BP 135/77; PULSE 104; RESP 17; TEMP 36.9
== END 2022-04-05 14:10 | disposition home or self-care (01) ==
PROVIDERS: Emergency Provider Nurse Practitioner Family; PCP Nurse Practitioner Family
DX: S93.402D Sprain of unspecified ligament of left ankle, subsequent encounter (principal); W19.XXXD Unspecified fall, subsequent encounter
CPT/HCPCS: 96372; 99212; G0463

== ENCOUNTER 2022-04-08 14:22 | Outpatient (RCR) | payer OTHER, SELFPAY | END 2022-04-08 15:30 | disposition home or self-care (01) | LOC: PT 14:22 | PROVIDERS: Visit Provider Orthopaedic Surgery | DX: M25.572 Pain in left ankle and joints of left foot (principal); S93.402D Sprain of unspecified ligament of left ankle, subsequent encounter | CPT/HCPCS: 97760 ==

== ENCOUNTER 2022-05-13 17:17 | Emergency (ER) | payer OTHER, SELFPAY ==
[2022-05-13 17:19] VITALS: BP 131/82; PULSE 89; RESP 18; TEMP 36.7; O2SAT 99; BMI 47.5
[2022-05-13 17:25] VITALS: BP 131/82; PULSE 87; RESP 16; O2SAT 98
--- NOTE | 2022-05-13 17:44 | PC.NURSE ---
pt given warm blanket
[2022-05-13 17:49] LABS: Basophils # 0.1 K/mm3 (0-0.2); Basophils % 1.1 % (0.1-2.0); Eosinophils # 0.1 K/mm3 (0.0-0.4); Eosinophils % 1.5 % (0.1-12.0); Hematocrit 39.8 % (37.0-47.0); Lymphocytes # 1.6 K/mm3 (0.7-4.5); Lymphocytes % 24.2 % (10-50); Mean Corpuscular HGB Conc 32.6 g/dL (31.8-35.4); Mean Corpuscular Hemoglobin 29.9 pg (27.0-31.2); Mean Corpuscular Volume 91.6 fl (81-99); Mean Platelet Volume 7.4 fl (7.4-10.4); Monocytes # 0.3 K/mm3 (0.1-1.0); Monocytes % 4.7 % (1.7-9.3); Neutrophils # 4.5 K/mm3 (1.8-7.8); Neutrophils % 68.4 % (37.0-80.0); Platelet Count 371 K/mm3 (142-424); Red Blood Count 4.35 M/mm3 (4.20-5.40); Red Cell Distribution Width 13.7 % (11.5-17.5); White Blood Count 6.6 K/mm3 (4.8-10.8)
--- NOTE | 2022-05-13 17:50 | PC.NURSE ---
pt has call light in reach, lights turned down in room for comfort. will continue to monitor
[2022-05-13 17:52] LABS: Chloride 107 mmol/L (98-107); Potassium 3.4 mmoL/L (3.5-5.1); Sodium 142 mmol/L (136-145)
[2022-05-13 17:55] LABS: Alanine Aminotransferase 51 U/L (12-78); Alkaline Phosphatase 125 U/L (38-126); Anion Gap 13.4 mEq/L (5-15); Aspartate Amino Transferase 67 U/L (14-36); Bilirubin,Total 0.3 mg/dl (0.2-1.3); Blood Urea Nitrogen 5 mg/dl (7-17); Carbon Dioxide 25 mmol/L (22.0-30.0); Creatinine Clearance Estimated 112 mL/min (50-200); Estimated Glomerular Filt Rate 121 ml/min (>60); GFR (African American) 146 ML/MIN (>60); Glucose 123 mg/dl (74-100); Lipase 51 U/L (23-300)
[2022-05-13 17:56] LABS: Albumin Level 4.3 g/dl (3.5-5.0); Albumin/Globulin Ratio 1.4 (1.1-1.8); Globulin 3.1 g/dL (1.3-3.2); Total Protein,Serum 7.4 g/dl (6.3-8.2)
[2022-05-13 18:01] VITALS: BP 116/66; PULSE 83; RESP 15; O2SAT 98
[2022-05-13 18:33] VITALS: BP 148/80; PULSE 98; RESP 18; O2SAT 100
--- NOTE | 2022-05-13 19:13 | PC.NURSE ---
up to bathroom ambulatory with steady gait
--- NOTE | 2022-05-13 19:24 | HMH.EDGENADL ---
Discharge Plan Disposition Patient Disposition: Home, Self-Care Condition: Good Prescriptions Prescriptions: New ondansetron 4 mg tablet,disintegrating 4 mg PO Q8H PRN (Reason: nausea and vomiting) 3 Days Qty: 10 0RF No Action labetalol 200 mg tablet 200 mg PO BID Label Comments: TAKE 1 TABLET BY MOUTH TWICE DAILY paroxetine HCl 40 mg tablet 40 mg PO DAILY Label Comments: TAKE 1 TABLET BY MOUTH EVERY DAY venlafaxine 37.5 MG tablet 37.5 mg PO DAILY cariprazine 1.5 MG capsule 1.5 mg PO DAILY fluticasone propionate 120 SPRAY bottle 1 spr NS DAILY Qty: 1 0RF Rx Instructions: one spray in each nostril daily ibuprofen 800 MG tablet 800 mg PO Q8HP PRN (Reason: Moderate Pain) Qty: 30 0RF Referrals Follow up/Referrals: Nikia Haywood APRN [Primary Care Provider] - See instructions Activity Restrictions/Add. Instructions Additional Instructions/Restrictions: Phenergan take-home pack, then Zofran as needed for nausea and vomiting. Collect a diarrhea sample using the provided supplies and return it along with the order form to ER registration at [facility] for testing. Obtain the results of this test from your primary care provider the next day. Additional instructions for VOMITING/DIARRHEA: See your physician as soon as possible for further evaluation. Drink plenty of fluids. Return immediately if severe abdominal pain, uncontrollable vomiting, shortness of breath, fever, bloody diarrhea, vomiting of blood or abdominal distention. Clinical Impressions Clinical Impression: Gastroenteritis Instructions Patient Instructions: DI for Diarrhea and Traveler's Diarrhea -- Adult, DI for Diarrhea and Traveler's Diarrhea -- Child, DI for Nausea -- Adult, DI for Nausea -- Child Discharge ED Provider: Aristeo Mejía General Adult HPI General Chief complaint: Nausea/Vomiting/Diarrhea Stated complaint: D&V Time Seen by Provider: 05/13/22 19:13 Mode of Arrival: Wheelchair Source of Information: Patient Limitations: No Limitations Description of Symptoms (Recalled from ER Triage Doc. by RN): Pt reports n/v/d x3 days. Pt reports intermittent abd cramping. Pt denies fevers. Denies known sick contacts. 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 Pt states no LOC. History of Present Illness HPI narrative: 3-day history of vomiting, diarrhea, and abdominal cramping. No fever. No blood in her diarrhea. No recent travel, antibiotic, or exposures. No unusual food intake. States she has had 10 or more episodes of diarrhea today. Related Data Home Medications Medication Instructions Recorded Confirmed cariprazine 1.5 mg capsule 1.5 mg PO DAILY Depression 02/04/22 04/08/22 venlafaxine 37.5 mg tablet 37.5 mg PO DAILY Depression 02/04/22 04/08/22 labetalol 200 mg tablet 200 mg PO BID 04/08/22 04/08/22 paroxetine HCl 40 mg tablet 40 mg PO DAILY 04/08/22 04/08/22 Previous Rx's Medication Instructions Recorded fluticasone propionate 50 1 spr intranasal DAILY #1 ea 02/04/22 mcg/actuation nasal spray,suspension ibuprofen 800 mg tablet 800 mg PO Q8HP PRN Moderate Pain 04/05/22 #30 tabs ondansetron 4 mg disintegrating 4 mg PO Q8H PRN nausea and 05/13/22 tablet vomiting 3 days #10 tabs Allergies Allergy/AdvReac Type Severity Reaction Status Date / Time No Known Allergies Allergy Verified 04/08/22 13:36 PFSH PFSH 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 (Updated 05/13/22 @ 19:33 by Aristeo Mejía MD) Anxiety Depression 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 (Updated 04/08/22 @ 14:12 by Erick Bernal JR, MD) Smoking Status: Never smoker second hand exposure: No alcohol intake: never substance use type: denies use current occupational status: other Travel in the last 8 weeks: Inside the [place] household members: spouse housing: house 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
[2022-05-13 19:28] LABS: Microscopic, Urine URINE MICROSCOPIC (MICROSCOPIC)
[2022-05-13 19:31] LABS: Appearance,Urine SL CLOUDY (Clear); Blood, Urine Negative (Negative); Color,Urine YELLOW (Yellow); Glucose,Urine (UA) Negative (Negative); Ketones,Urine 2+ (Negative); Leukocyte Esterase,Urine Negative (Negative); Nitrate,Urine Negative (Negative); Protein,Urine TRACE (Negative); Specific Gravity, Urine >= 1.030 (1.005-1.030); Urobilinogen,Urine 0.2 EU/dl (0.2)
[2022-05-13 19:34] LABS: Bilirubin,Urine 1+ (Negative)
[2022-05-13 19:48] LABS: Bacteria,Urine Trace /lpf
[2022-05-13 20:13] VITALS: BP 141/86; PULSE 90; RESP 16; TEMP 36.7; O2SAT 100
[2022-05-13 20:18] LABS: Urine Pregnancy, HCG Qual. Negative (Negative)
== END 2022-05-13 20:15 | disposition home or self-care (01) ==
PROVIDERS: Emergency Provider Emergency Medicine; PCP Nurse Practitioner Family
DX: R42 Dizziness and giddiness (principal); R11.2 Nausea with vomiting, unspecified; R19.7 Diarrhea, unspecified; R10.9 Unspecified abdominal pain; F32.A Depression, unspecified; F41.9 Anxiety disorder, unspecified; Z79.1 Long term (current) use of non-steroidal anti-inflammatories (NSAID); Z79.51 Long term (current) use of inhaled steroids; Z79.899 Other long term (current) drug therapy
CPT/HCPCS: 80053; 81001; 81025; 83690; 85025; 96360; 99284; J2405

== ENCOUNTER 2022-06-03 15:59 | Emergency (ER) | payer OTHER, SELFPAY ==
[2022-06-03 16:11] VITALS: BP 140/97; PULSE 93; RESP 18; TEMP 36.8; O2SAT 98; BMI 49.7
--- NOTE | 2022-06-03 16:25 | EXP.UTC ---
Discharge Plan Disposition Patient Disposition: Home, Self-Care Condition: Good Prescriptions Prescriptions: New promethazine 12.5 mg tablet 12.5 mg PO TID PRN (Reason: allergy symptoms) Qty: 10 0RF Rx Instructions: 3 doses during day; last dose no later than 4 hr before bedtime No Action labetalol 200 mg tablet 200 mg PO BID Label Comments: TAKE 1 TABLET BY MOUTH TWICE DAILY paroxetine HCl 40 mg tablet 40 mg PO DAILY Label Comments: TAKE 1 TABLET BY MOUTH EVERY DAY venlafaxine 37.5 MG tablet 37.5 mg PO DAILY cariprazine 1.5 MG capsule 1.5 mg PO DAILY fluticasone propionate 120 SPRAY bottle 1 spr NS DAILY Qty: 1 0RF Rx Instructions: one spray in each nostril daily ibuprofen 800 MG tablet 800 mg PO Q8HP PRN (Reason: Moderate Pain) Qty: 30 0RF ondansetron 4 mg tablet,disintegrating 4 mg PO Q8H PRN (Reason: nausea and vomiting) 3 Days Qty: 10 0RF Referrals Follow up/Referrals: Nikia Haywood APRN [Primary Care Provider] - See instructions Activity Restrictions/Add. Instructions Additional Instructions/Restrictions: Return to clinic if not improving Clinical Impressions Clinical Impression: Acute viral syndrome Discharge ED Provider: Deneen Garcia [facility] General Stated complaint: NA, VA pain in left eye and head Mode of Arrival: Ambulatory Source of Information: Patient Limitations: No Limitations Time Seen by Provider: 06/03/22 16:26 Description of Symptoms (Recalled from Triage Doc. by RN): C/O CARTAGENA near left yarsanism and eye, N/V HEENT Symptoms (Recalled from RN notes): Yes (CARTAGENA) Resp Symptoms (Recalled from RN notes): No Skin Symptoms (Recalled from RN notes): No MS Symptoms (Recalled from RN notes): No Functional Status (Recalled from RN notes): n/a History of Present Illness Provider Complaint: Patient has had pain behind left eye, left yarsanism since last night. History of migraines, but this feels different. Started having vomiting this am. Has also had diarrhea. Heart feels funny - like it is fluttering. Has not had much to eat or drink today. No fever. Denies ear pain, sore throat. Onset (ago): day(s) (1) Location: head Relieving factors: none Exacerbating factors: none Treatments prior to arrival: none Related Data Home Medications Medication Instructions Recorded Confirmed cariprazine 1.5 mg capsule 1.5 mg PO DAILY Depression 02/04/22 04/08/22 venlafaxine 37.5 mg tablet 37.5 mg PO DAILY Depression 02/04/22 04/08/22 labetalol 200 mg tablet 200 mg PO BID 04/08/22 04/08/22 paroxetine HCl 40 mg tablet 40 mg PO DAILY 04/08/22 04/08/22 Previous Rx's Medication Instructions Recorded fluticasone propionate 50 1 spr intranasal DAILY #1 ea 02/04/22 mcg/actuation nasal spray,suspension ibuprofen 800 mg tablet 800 mg PO Q8HP PRN Moderate Pain 04/05/22 #30 tabs ondansetron 4 mg disintegrating 4 mg PO Q8H PRN nausea and 05/13/22 tablet vomiting 3 days #10 tabs promethazine 12.5 mg tablet 12.5 mg PO TID PRN allergy 06/03/22 symptoms #10 tabs Allergies Allergy/AdvReac Type Severity Reaction Status Date / Time No Known Allergies Allergy Verified 04/08/22 13:36 Worker's Comp Is this a Worker's Comp case?: No PFSH PFSH 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 (Updated 06/03/22 @ 18:38 by JUAN Lind) Anxiety Depression 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 (Updated 04/08/22 @ 14:12 by Erick Bernal JR, MD) Smoking Status: Never smoker second hand exposure: No alcohol intake: never substance use type: denies use current occupational status: other Travel in the last 8 weeks: [place] the [place] household members: spouse housing: house 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
--- NOTE | 2022-06-03 17:05 | ECG_ITS ---
APPROVED REPORT Exam: Resting ECG HR:87 bpm ECG Measurements Heart Rate 87 AXES [place] 194 P 41 QRSd 92 QRS 65 QT 343 T 33 QTc 388 Conclusion SINUS RHYTHM NORMAL ECG UNCONFIRMED REPORT Electronically signed by : Chico Alexandra MD 06/04/2022 12:13:49
[2022-06-03 17:29] LABS: Basophils # 0.1 K/mm3 (0-0.2); Basophils % 0.9 % (0.1-2.0); Eosinophils # 0.2 K/mm3 (0.0-0.4); Eosinophils % 2.4 % (0.1-12.0); Hematocrit 40.6 % (37.0-47.0); Hemoglobin 12.9 g/dL (12.2-16.2); Lymphocytes # 1.9 K/mm3 (0.7-4.5); Lymphocytes % 24.5 % (10-50); Mean Corpuscular HGB Conc 31.8 g/dL (31.8-35.4); Mean Corpuscular Hemoglobin 29.6 pg (27.0-31.2); Mean Corpuscular Volume 93.1 fl (81-99); Mean Platelet Volume 7.7 fl (7.4-10.4); Monocytes # 0.3 K/mm3 (0.1-1.0); Monocytes % 3.6 % (1.7-9.3); Neutrophils # 5.2 K/mm3 (1.8-7.8); Neutrophils % 68.7 % (37.0-80.0); Platelet Count 418 K/mm3 (142-424); Red Blood Count 4.37 M/mm3 (4.20-5.40); Red Cell Distribution Width 13.5 % (11.5-17.5); White Blood Count 7.5 K/mm3 (4.8-10.8)
[2022-06-03 17:38] LABS: Chloride 102 mmol/L (98-107); Potassium 3.6 mmoL/L (3.5-5.1); Sodium 142 mmol/L (136-145)
[2022-06-03 17:40] LABS: Blood Urea Nitrogen 6 mg/dl (7-17); Creatinine Clearance Estimated 112 mL/min (50-200); Estimated Glomerular Filt Rate 121 ml/min (>60); GFR (African American) 146 ML/MIN (>60)
[2022-06-03 17:41] LABS: Alanine Aminotransferase 25 U/L (12-78); Albumin Level 4.3 g/dl (3.5-5.0); Albumin/Globulin Ratio 1.3 (1.1-1.8); Alkaline Phosphatase 126 U/L (38-126); Anion Gap 14.6 mEq/L (5-15); Aspartate Amino Transferase 31 U/L (14-36); Bilirubin,Total 0.3 mg/dl (0.2-1.3); Calcium 8.8 mg/dl (8.4-10.2); Carbon Dioxide 29 mmol/L (22.0-30.0); Globulin 3.2 g/dL (1.3-3.2); Glucose 94 mg/dl (74-100); Total Protein,Serum 7.5 g/dl (6.3-8.2)
[2022-06-03 18:08] LABS: Erythrocyte Sedimentation Rate 33 mm/hr (0-20)
[2022-06-03 18:53] VITALS: BP 140/97; PULSE 93; RESP 18; TEMP 36.8; O2SAT 98
[2022-06-03 19:15] LABS: UTC Influenza A Antigen Negative (Negative); UTC Influenza B Antigen Negative (Negative)
== END 2022-06-03 18:54 | disposition home or self-care (01) ==
PROVIDERS: Emergency Provider Physician Assistant; PCP Nurse Practitioner Family
DX: B34.9 Viral infection, unspecified (principal)
CPT/HCPCS: 80053; 85025; 85651; 87804; 93005; 96374; 96375; 99213; G0463

== ENCOUNTER → 2022-08-02 10:21 | Outpatient (CLI) | payer OTHER, SELFPAY ==
[2022-08-02 11:32] LABS: Hemoglobin A1C 5.1 % (4.0-6.0)
[2022-08-02 12:13] LABS: Thyroid Stimulating Hormone 3.66 uIU/mL (0.465-4.68)
== END ==
PROVIDERS: PCP Nurse Practitioner Family; Visit Provider Nurse Practitioner Family
DX: R06.02 Shortness of breath (principal); R73.9 Hyperglycemia, unspecified; R00.2 Palpitations
CPT/HCPCS: 36415; 83036; 84443; 93225; 93226

== ENCOUNTER 2022-08-08 13:33 | Emergency (ER) | payer OTHER, SELFPAY ==
--- NOTE | 2022-08-08 14:38 | PC.NURSE ---
pt to triage room to check vital signs. She understands that we are currently waiting on a room to open up and has no other questions at this time. vitals in chart.
[2022-08-08 14:39] VITALS: BP 139/74; PULSE 88; TEMP 37.5; O2SAT 97
[2022-08-08 14:40] VITALS: BMI 51.0
[2022-08-08 15:17] VITALS: BP 0/0; PULSE 0; RESP 0; TEMP -17.7; TEMP 0; O2SAT 0
== END 2022-08-08 15:17 | disposition left against medical advice (07) ==
LOC: ER 15:16
PROVIDERS: Emergency Provider Emergency Medicine; PCP Nurse Practitioner Family
DX: R06.02 Shortness of breath (principal); R42 Dizziness and giddiness; R05.9 Cough, unspecified; R09.81 Nasal congestion; F32.A Depression, unspecified; F41.9 Anxiety disorder, unspecified; Z53.21 Procedure and treatment not carried out due to patient leaving prior to being seen by health care provider
CPT/HCPCS: 99211

== ENCOUNTER → 2022-08-15 14:30 | Outpatient (CLI) | payer OTHER, SELFPAY ==
--- NOTE | 2022-08-15 14:33 | CA_ITS ---
APPROVED REPORT EXAM: Comprehensive 2D, Doppler, and color-flow Echocardiogram Quantitative Research Analyst: Rae Kemp RVT Ht: 5 ft 2 in Wt: 270lbs BSA: 2.17 BP: 140/97 mmHg Indications: PALPS,SOA,HTN,ABN HEART MONITOR,OBESITY 2D Dimensions LVOT 2.33 cm (M/F) 1.5-2.5 LA Volume 22.00 mL LA Volume Index 10.14 mL/m2 (M/F) 16-34 M-Mode Dimensions RVDd 3.22 cm (0.9-2.6) LA Diam 3.17 cm (1.9-4.0) LVDd 3.18 cm (3.5-5.7) Ao Diam 2.79 cm (2.0-3.7) LVDs 2.12 cm (3.5-5.7) IVSd 0.93 cm (0.6-1.1) PWd 0.81 cm (0.6-1.1) EF (Teich) 63.30% FS 33.30% EDV (Teich) 40.30 mL TAPSE 2.10 (<1.7) ESV (Teich) 14.80 mL LV Diastology E Decel Time 217.00 (160-240 msec) E/A Ratio 1.2 MED E' 6.50 (< 7 cm/sec) E'/MED E' Ratio 11.35 (>14) LAT E' 13.70 (<10 cm/sec) E/LAT E' Ratio 5.39 (>14) Aortic Valve AO Peak GR. 6.50 mmHg Mitral Valve MV E Max Bladimir. 74.00 (40-130 cm/s) MV A Velocity 62.00 (40-130 cm/s) E/A Ratio 1.20 MV Decel. Time 217.00 (160-240 ms) MV PHT 63.00 ms Pulmonary Valve PV Peak Velocity 85.00 (50-150 cm/s) Left Ventricle Left atrium is normal size, left ventricle is normal size, estimated ejection fraction 55% with no regional wall motion abnormality, diastolic parameters are within normal range. Right Ventricle Right atrium and right ventricle are normal size and contractility. Aortic Valve Aortic valve is grossly normal there is no aortic stenosis or aortic insufficiency. Mitral Valve Mitral valve grossly normal, there is trace mitral regurgitation. Tricuspid Valve Tricuspid valve is grossly normal, there is trace tricuspid regurgitation, tricuspid regurgitation jet velocity is inadequate for calculation of the right ventricular systolic pressure. Pulmonic Valve Pulmonic valve is poorly visualized. Great Vessels Aortic root is normal size. Inferior vena cava is normal size with normal inspiratory collapse. Pericardium No significant pericardial effusion noted. Conclusion 1. Normal left ventricular size preserved left ventricular systolic function, estimated ejection fraction 55% with no regional wall motion abnormality, diastolic parameters are within normal range. 2. Trace mitral and tricuspid regurgitation. 3. No significant pericardial effusion noted. 4. Inferior vena cava is normal size with normal inspiratory collapse. Electronically signed by : Mitesh Washington MD 08/16/2022 06:33:05
== END ==
PROVIDERS: PCP Nurse Practitioner Family; Visit Provider Nurse Practitioner Family
DX: R06.02 Shortness of breath (principal); R00.2 Palpitations
CPT/HCPCS: 93306

== ENCOUNTER → 2022-08-25 12:28 | Outpatient (CLI) | payer OTHER, SELFPAY ==
--- NOTE | 2022-08-25 | CA_ITS ---
APPROVED REPORT Exam: Exercise Treadmill Technologist: Vanessa Mariano, Ht: 5 ft 2 in Wt: 278 lbs BSA: 2.20 m2 HR: 81 bpm BP: 136/76 mmHg Rhythm: NSR 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: HTN Medications: Trazadone,,,,, PropANOLOL,,,,, Hydroxyzine pamoate,,,,, BuPROPION HCI,,,,, Allergies: No known drug allergies Cardiac Risk Factors: HTN Stress Test Details Test: Manny HR Resting HR: 85 bpm Max Heart Rate (APMHR): 194.181280 bpm Max HR Achieved: 144 bpm Target HR (85% APMHR): 164.200153 bpm % of APMHR: 74.23 Recovery HR: 91 bpm BP Resting BP: 121/77 mmHg Max BP: 138/68 mmHg Recovery BP: 138.0/68.0 mmHg ECG Resting ECG: NSR Clinical Exercise duration: 05:58 min Highest Stage Achieved: Stage 2: 2.5 mph at 12% grade. Exercise capacity: 7.0 METs Stress ECG Conclusion PT EXERCUSED 5:58 INTO STAGE II MANNY PROTOCOL MAX HR: 144 % OF PM: 74% MAX BP: 138/68 METS: 7.0 TEST STOPPED DUE TO: SOA, FATIGUE PT HAD DYSPNEA NO CP NORMAL ST RESPONSE TO EXERCISE NORMAL GXT TO HR ACHIEVED (74% OF PM) BLUNTED HR RESPONSE TO PROPROMOLOL STRESS ECHO IMAGES REPORTED SEPARATELY Test Summary REST . . . . . . . Sitting REST . . . . . . . Standing REST 05:50 0.0 0.0 85 . 121/ 77 . . Stage 1 01:00 10.0 1.7 114 . . . . Stage 1 02:00 10.0 1.7 129 . . . . Stage 1 03:00 10.0 1.7 134 . . . . Stage 2 01:00 12.0 2.5 136 . . . . Stage 2 02:00 12.0 2.5 141 . . . . Stage 2 . . . . . . . Stage held Stage 2 . . . . . . . Stage resumed Stage 2 02:58 12.0 2.5 142 . . . Stop exercise at 05:58 RECOVERY 01:00 0.0 0.0 122 . . . . RECOVERY 02:00 0.0 0.0 0 . . . . RECOVERY 03:00 0.0 0.0 100 . . . . RECOVERY 04:00 0.0 0.0 97 . . . . RECOVERY 05:00 0.0 0.0 95 . 128/ 74 . . RECOVERY 06:00 0.0 0.0 93 . 128/ 74 . . RECOVERY 07:00 0.0 0.0 91 . 138/ 68 . . RECOVERY 08:00 0.0 0.0 92 . 138/ 68 . . RECOVERY 08:33 0.0 0.0 90 . 138/ 68 . . Electronically signed by : Mitesh Washington MD 08/26/2022 09:56:51
--- NOTE | 2022-08-25 12:29 | CA_ITS ---
APPROVED REPORT EXAM: Comprehensive 2D, Doppler, and color-flow Echocardiogram Resin Coater: Cheryl Holbrook CRT Ht: 5 ft 2 in Wt: 278lbs BSA: 2.20 BP: 123/75 mmHg Indications: cp 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: abn holter Cardiac Risk Factors: SOB Stress Test Details Test: Exercise stress testing was performed using a Fabian protocol. HR Resting HR: 70 bpm Max Heart Rate (APMHR): 194.720515 bpm Max HR Achieved: 144 bpm Target HR (85% APMHR): 164.607805 bpm % of APMHR: 74.23 BP Resting BP: 123/76 mmHg ECG Clinical Reason for Termination: Dyspnea Exercise duration: 6 min Conclusion 1. Patient exercised on Fabian protocol achieved 7 METS of workload on treadmill with no chest pain. The EKG portion of the exercise stress echo is nondiagnostic as patient did not achieve the target heart rate. 2. Resting echocardiogram showed normal left ventricular size and function ejection fraction 55%. With exercise there is increase in contractility of all the segments of the myocardium with hyperdynamic left ventricular systolic response with no obvious regional wall motion abnormality to suggest underlying ischemic heart disease. 3. Normal exercise stress echo at submaximal heart rate. Electronically signed by : Mitesh Washington MD 08/26/2022 09:59:38
== END ==
PROVIDERS: PCP Nurse Practitioner Family; Visit Provider Physician Assistant
DX: R06.00 Dyspnea, unspecified (principal); R07.9 Chest pain, unspecified; R42 Dizziness and giddiness; R00.2 Palpitations
CPT/HCPCS: 93017; 93350

== ENCOUNTER 2022-08-30 17:43 | Emergency (ER) | payer OTHER, SELFPAY ==
[2022-08-30 18:04] VITALS: RESP 12; TEMP 36.8; O2SAT 100; BMI 48.4
--- NOTE | 2022-08-30 18:25 | HMH.EDGENADL ---
Discharge Plan Disposition Patient Disposition: Home, Self-Care Condition: Good Prescriptions Prescriptions: New ondansetron 4 mg tablet,disintegrating 4 mg PO Q8H PRN (Reason: nausea and vomiting) 4 Days Qty: 12 0RF No Action trazodone 50 mg tablet 50 mg PO HS hydroxyzine pamoate 50 mg capsule 50 mg PO Q4H PRN Label Comments: TAKE 1 CAPSULE BY MOUTH EVERY 4 HOURS NEEDED FOR ANXIETY propranolol 40 mg tablet 40 mg PO BID bupropion HCl 300 mg tablet extended release 24 hr 300 mg PO DAILY Referrals Follow up/Referrals: Nikia Haywood APRN [Primary Care Provider] - See instructions Activity Restrictions/Add. Instructions Additional Instructions/Restrictions: You were evaluated in the emergency department today for vomiting. At this time, we feel that your symptoms are due to gastroenteritis. Please olive picker your prescription for Zofran at the pharmacy and take as needed for nausea and vomiting. Orally hydrate is much as possible. Eat a bland diet. Return to the emergency department for any new or worsening symptoms. Clinical Impressions Clinical Impression: Gastroenteritis Instructions Patient Instructions: DI for Diarrhea and Traveler's Diarrhea -- Adult, DI for Nausea -- Adult Discharge ED Provider: Samira Vergara General Adult HPI General Chief complaint: Nausea/Vomiting/Diarrhea Stated complaint: Nausea, Vomitting, Stomach pains Time Seen by Provider: 08/30/22 17:52 Mode of Arrival: Ambulatory Source of Information: Patient Limitations: No Limitations Description of Symptoms (Recalled from ER Triage Doc. by RN): Pt observed vomiting, endorses nausea, abd pain and eating at [employer] last PM History of Present Illness HPI narrative: This patient is a 27-year-old female with a history of hypertension presented to the emergency department for evaluation with concern for nausea, vomiting, and abdominal cramping that started today. She reports that she had seafood last night and friend that she ate with also has similar symptoms. She complains of abdominal cramping, but no true pain. No hematemesis, hematochezia, melena, or other concerns. Nothing makes the symptoms better or worse. No medications prior to arrival. Related Data Home Medications Medication Instructions Recorded Confirmed bupropion HCl 300 mg 24 hr tablet, 300 mg PO DAILY 08/16/22 08/16/22 extended release hydroxyzine pamoate 50 mg capsule 50 mg PO Q4H PRN 08/16/22 08/16/22 propranolol 40 mg tablet 40 mg PO BID 08/16/22 08/16/22 trazodone 50 mg tablet 50 mg PO HS 08/16/22 08/16/22 Previous Rx's Medication Instructions Recorded ondansetron 4 mg disintegrating 4 mg PO Q8H PRN nausea and 08/30/22 tablet vomiting 4 days #12 tabs Allergies Allergy/AdvReac Type Severity Reaction Status Date / Time No Known Allergies Allergy Verified 08/16/22 14:34 PFSH PENDING SALE TO [facility] Disclaimer: The information contained in this section may have been updated after the patient was seen, as this information can be updated by other users. 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 Physical Exam General General appearance: alert and in no apparent distress Head Head exam: atraumatic and normocephalic Eye Eye exam: Present normal appearance, PERRL
[2022-08-30 18:43] LABS: Basophils # 0.1 K/mm3 (0-0.2); Basophils % 0.7 % (0.1-2.0); Eosinophils # 0.4 K/mm3 (0.0-0.4); Eosinophils % 2.9 % (0.1-12.0); Hematocrit 42.6 % (37.0-47.0); Hemoglobin 13.8 g/dL (12.2-16.2); Lymphocytes # 1.8 K/mm3 (0.7-4.5); Lymphocytes % 13.6 % (10-50); Mean Corpuscular HGB Conc 32.3 g/dL (31.8-35.4); Mean Corpuscular Hemoglobin 28.9 pg (27.0-31.2); Mean Corpuscular Volume 89.5 fl (81-99); Mean Platelet Volume 7.6 fl (7.4-10.4); Monocytes # 0.5 K/mm3 (0.1-1.0); Monocytes % 3.5 % (1.7-9.3); Neutrophils # 10.6 K/mm3 (1.8-7.8); Neutrophils % 79.4 % (37.0-80.0); Platelet Count 495 K/mm3 (142-424); Red Blood Count 4.76 M/mm3 (4.20-5.40); Red Cell Distribution Width 12.9 % (11.5-17.5); White Blood Count 13.4 K/mm3 (4.8-10.8)
[2022-08-30 18:44] LABS: Chloride 101 mmol/L (98-107); Sodium 138 mmol/L (136-145)
[2022-08-30 18:45] LABS: Potassium 4.4 mmoL/L (3.5-5.1)
[2022-08-30 18:47] LABS: Alanine Aminotransferase 27 U/L (12-78); Albumin Level 4.3 g/dl (3.5-5.0); Albumin/Globulin Ratio 1.2 (1.1-1.8); Alkaline Phosphatase 144 U/L (38-126); Anion Gap 14.4 mEq/L (5-15); Aspartate Amino Transferase 30 U/L (14-36); Bilirubin,Total 0.5 mg/dl (0.2-1.3); Blood Urea Nitrogen 12 mg/dl (7-17); Calcium 8.8 mg/dl (8.4-10.2); Carbon Dioxide 27 mmol/L (22.0-30.0); Creatinine Clearance Estimated 96 mL/min (50-200); Estimated Glomerular Filt Rate 101 ml/min (>60); GFR (African American) 122 ML/MIN (>60); Globulin 3.7 g/dL (1.3-3.2); Glucose 100 mg/dl (74-100); Lipase 74 U/L (23-300)
[2022-08-30 19:55] VITALS: BP 127/78; PULSE 84; RESP 16; TEMP 36.8; O2SAT 100
== END 2022-08-30 19:56 | disposition home or self-care (01) ==
PROVIDERS: Emergency Provider Emergency Medicine; PCP Nurse Practitioner Family
DX: K52.9 Noninfective gastroenteritis and colitis, unspecified (principal); I10 Essential (primary) hypertension; F41.9 Anxiety disorder, unspecified
CPT/HCPCS: 80053; 83690; 85025; 96361; 96374; 99285; J2405

== ENCOUNTER 2022-09-27 13:40 | Emergency (ER) | payer OTHER, SELFPAY ==
[2022-09-27 14:10] VITALS: BP 119/78; PULSE 106; RESP 20; TEMP 37.4; O2SAT 100; BMI 47.0
--- NOTE | 2022-09-27 14:16 | EXP.UTC ---
Discharge Plan Disposition Patient Disposition: Home, Self-Care Condition: Good Prescriptions Prescriptions: No Action trazodone 50 mg tablet 50 mg PO HS hydroxyzine pamoate 50 mg capsule 50 mg PO Q4H PRN (Reason: .) Label Comments: TAKE 1 CAPSULE BY MOUTH EVERY 4 HOURS NEEDED FOR ANXIETY propranolol 40 mg tablet 40 mg PO BID bupropion HCl 300 mg tablet extended release 24 hr 300 mg PO DAILY Referrals Follow up/Referrals: Nikia Haywood APRN [Primary Care Provider] - See instructions Activity Restrictions/Add. Instructions Additional Instructions/Restrictions: *Monitor Temp, Over the counter Motrin or Tylenol as directed/as needed Tylenol every 4 hours and Motrin every 6 hours (as long as your family doctor has told you that you can take it) for fever or pain. and straight to ER if unable to lower temp less than 101.0 after medication given *Warm salt water gargles may help to soothe the throat *Throat Lozenges? *Warm fluids like tea with honey may help to soothe the throat? *Sleep elevated *Humidifier/Vaporizer Follow up IMMEDIATELY for new or worsening symptoms or no Noticeable improvement over the next 48-72 hours. 911 for difficulty breathing or swallowing Clinical Impressions Clinical Impression: Viral upper respiratory illness Stand Alone Forms Stand Alone Forms: Work/School Release Instructions Patient Instructions: DI for COVID-19 (Suspected or Confirmed ), Cough, DI for Nasal Congestion [place] ED Provider[place] Josie [place] [facility] [place] General Stated complaint: Cough,Congestion,chills Time Seen by Provider: 09/27/22 14:16 History of Present Illness Provider Complaint: Patient states that she has been having cough, nasal congestion and fever States that she has continued to not feel well for the last couple of days so today she came in worried that she may have flu or something Related Data Home Medications Medication Instructions Recorded Confirmed bupropion HCl 300 mg 24 hr tablet, 300 mg PO DAILY . 08/16/22 09/27/22 extended release hydroxyzine pamoate 50 mg capsule 50 mg PO Q4H PRN . 08/16/22 09/27/22 propranolol 40 mg tablet 40 mg PO BID . 08/16/22 09/27/22 trazodone 50 mg tablet 50 mg PO HS . 08/16/22 09/27/22 Allergies Allergy/AdvReac Type Severity Reaction Status Date / Time No Known Allergies Allergy Verified 09/27/22 14:23 [facility] Disclaimer: The information contained in this section may have been updated after the patient was seen, as this information can be updated by other users. 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 caffeine: Yes ROS Obtained: Yes All systems reviewed & no additional complaints except as documented and Yes Systems reviewed as appropriate & no additional complaints except as documented Constitutional Constitutional: Reports system reviewed and no additional complaints, except as documented, Reports as per HPI, Reports body ache, Reports chills and Reports fever(s) ENT Ears, Nose, Mouth, and Throat: Reports system reviewed and no additional complaints, except as documented, Reports as per HPI and Reports nasal congestion Cardiovascular Cardiovascular: Reports system reviewed and no additional complaints, except as documented and Reports as per HPI Respiratory Respiratory: Reports system reviewed and no additional complaints, except as documented, Reports as per HPI and Reports cough Physical Exam General Gener
[2022-09-27 14:22] LABS: UTC Influenza A Antigen Negative (Negative); UTC Influenza B Antigen Negative (Negative)
[2022-09-27 15:02] VITALS: BP 119/78; PULSE 106; RESP 20; TEMP 37.4; O2SAT 100
== END 2022-09-27 15:02 | disposition home or self-care (01) ==
PROVIDERS: Emergency Provider Nurse Practitioner; PCP Nurse Practitioner Family
DX: U07.1 COVID-19 (principal); R05.9 Cough, unspecified; R09.89 Other specified symptoms and signs involving the circulatory and respiratory systems; R50.9 Fever, unspecified
CPT/HCPCS: 87804; 99212; C9803; G0463; U0003; U0005

== ENCOUNTER → 2022-11-01 11:34 | Outpatient (CLI) | payer OTHER, SELFPAY ==
[2022-11-01 12:20] LABS: Basophils % 0.2 % (0.1-2.0); Eosinophils # 0.1 K/mm3 (0.0-0.4); Hematocrit 40.9 % (37.0-47.0); Hemoglobin 12.9 g/dL (12.2-16.2); Lymphocytes # 2.1 K/mm3 (0.7-4.5); Lymphocytes % 15.3 % (10-50); Mean Corpuscular HGB Conc 31.5 g/dL (31.8-35.4); Mean Corpuscular Hemoglobin 28.1 pg (27.0-31.2); Mean Corpuscular Volume 89.2 fl (81-99); Mean Platelet Volume 7.5 fl (7.4-10.4); Monocytes # 0.6 K/mm3 (0.1-1.0); Monocytes % 4.1 % (1.7-9.3); Neutrophils # 10.8 K/mm3 (1.8-7.8); Neutrophils % 79.4 % (37.0-80.0); Platelet Count 420 K/mm3 (142-424); Red Blood Count 4.59 M/mm3 (4.20-5.40); Red Cell Distribution Width 13.7 % (11.5-17.5); White Blood Count 13.6 K/mm3 (4.8-10.8)
[2022-11-01 12:56] LABS: Urine Pregnancy, HCG Qual. Negative (Negative)
[2022-11-01 13:14] LABS: Anion Gap 9.6 mEq/L (5-15); Blood Urea Nitrogen 13 mg/dl (7-17); Calcium 8.8 mg/dl (8.4-10.2); Carbon Dioxide 27 mmol/L (22.0-30.0); Chloride 101 mmol/L (98-107); Estimated Glomerular Filt Rate 121 ml/min (>60); GFR (African American) 146 ML/MIN (>60); Glucose 120 mg/dl (74-100); Potassium 4.6 mmoL/L (3.5-5.1); Sodium 133 mmol/L (136-145)
== END ==
PROVIDERS: PCP Nurse Practitioner Family; Visit Provider Surgery
DX: Z01.812 Encounter for preprocedural laboratory examination (principal); N61.1 Abscess of the breast and nipple
CPT/HCPCS: 36415; 80048; 81025; 85025

== ENCOUNTER 2022-11-01 12:11 | Day surgery (SDC) | payer OTHER, SELFPAY ==
[2022-11-01] VITALS (9 sets, daily range): BP systolic 106–143; BP diastolic 62–83; PULSE 80–88; RESP 12–19; TEMP 36.1–43; O2SAT 91–99; BMI 51.5
--- NOTE | 2022-11-01 13:36 | EXP.ANES.CKL ---
[facility] Disclaimer: The information contained in this section may have been updated after the patient was seen, as this information can be updated by other users. 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 (Updated 11/01/22 @ 12:33 by Olga Lidia Sanchez RN) Abnormal Holter monitor finding Anxiety Asthma Chest pain Depression Dizziness Dyspnea History of COVID-19 History of gastroesophageal reflux (GERD) Hypertension Palpitations Urinary tract infection Surgical History (Updated 11/01/22 @ 12:33 by Olga Lidia Sanchez RN) H/O tubal ligation History of History of surgery History of tonsillectomy and adenoidectomy [place] teeth removed Family History (Updated 11/01/22 @ 12:33 by Olga Lidia Sanchez RN) Father Cirrhosis Mother Diabetes Grandmother Breast cancer Heart disease Multiple sclerosis COPD (chronic obstructive pulmonary disease) 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 (Updated 11/01/22 @ 12:34 by Olga Lidia Sanchez RN) Smoking Status: Never smoker second hand exposure: No alcohol intake: never substance use type: denies use current occupational status: unemployed Travel in the last 8 weeks: None household members: spouse housing: house 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 caffeine: Yes [facility] Anesthesia Checklist Patient Identification Patient Identification: Arm Band Structural Data Admitted From: Home Planned Operative Procedure/s: I&D Right Breast Abscess Consent for Planned Operative Procedure(s) Verified: Yes Verified Documents: Surgical Consent and History and Physical NPO Status Verified Time NPO: 00:00 Additional verifications Anesthesia Reactions: No Hx Blood Transfusions: No Blood Transfusion Reaction: No Airway Assessment C-Spine Mobility Assessed: Yes TMJ Mobility Assessed: Yes Dentition: Good Dentition Neurological Assessment Level of Consciousness: Awake and Alert Anesthesia Plan Anesthesia Risk discussed: Yes Anesthesia Plan: Verified ASA Class: III Anesthesia Type: General
--- NOTE | 2022-11-01 13:38 | EXP.ANES.I ---
[facility] Anesthesia Record Part I Anesthesia Record I Intake, IV Amount: 300 Estimated blood loss (mL): 5 Urine output (mL): 0 Blood Products used (#): none Blood Pressure: 106/71 SaO2: 91 Pulse Rate: 88 Respiratory Rate: 16 Temperature: 97.4 F Patient is:: Drowsy and Stable Stable to PACU at:: 13:30
--- NOTE | 2022-11-01 13:54 | P.OP_ITS ---
Date of procedure: 11/01/22 Pre-op Diagnosis:: Right breast abscess Post-op Diagnosis:: Same Procedure performed:: Incision and drainage of right breast abscess Surgeon:: Loy Mancini MD ADULT NURSE PRACTITIONER:: Rafal Santiago Anesthesia: LMA Estimated blood loss (mL): 10 Operative findings:: Shallow subcutaneous abscess Operative note:: After informed consent was obtained the patient was taken to the operating room and placed in the supine position. General anesthesia with laryngeal mask airway was achieved. Her right breast was prepped and draped in a sterile fashion. After infiltration local anesthetic the central portion of necrotic skin was excised. The underlying shallow subcutaneous pocket of purulence was evacuated. Fluid was obtained for Gram stain/culture. Electrocautery was utilized to achieve hemostasis. The wound was packed open with dry gauze. Dressings were applied and patient was transferred to recovery in stable condition. Condition: stable Disposition: PACU Specimens:: Fluid for Gram stain/culture Complications:: No immediate
--- NOTE | 2022-11-01 14:05 | EXP.ANES.II ---
[facility] Anesthesia Record Part II Anesthesia Record Part II Discharge Time: 13:50 Destination: Surgical Day Care (OP Surgery) PACU nurse assessment reviewed?: Yes Patient Condition:: Good Anesthesia Complications:: None Swallowing reflex intact?: Yes Cyanosis?: No Blood Pressure: 126/76 Pulse Rate: 80 Temperature: 97.4 F Mental Status: Alert & Oriented Pain level:: 0 Nausea and/or vomitting:: None Intake, IV Amount: 0
== END 2022-11-01 14:22 | disposition home or self-care (01) ==
PROVIDERS: PCP Nurse Practitioner Family; Visit Provider Surgery
PROC: (CPT 10060; principal; 2022-11-01 11:30)
DX: N61.1 Abscess of the breast and nipple (principal); Z79.899 Other long term (current) drug therapy
CPT/HCPCS: 10060; 87070; 87075; 87205; 96374; J2405

== ENCOUNTER 2023-02-25 12:53 | Emergency (ER) | payer OTHER, SELFPAY ==
[2023-02-25 12:54] VITALS: BP 122/77; PULSE 94; RESP 18; TEMP 37.1; O2SAT 96; BMI 49.4
--- NOTE | 2023-02-25 13:09 | EXP.UTC ---
Discharge Plan Disposition Patient Disposition: Home, Self-Care Condition: Good Prescriptions Prescriptions: New amoxicillin [amoxicillin] 875 mg tablet 875 mg PO Q12H Qty: 20 0RF ddbvptxhaccmlxl-vmtfkomxa-KR [Bromfed DM] 2-30-10 mg/5 mL Syrup 5 ml PO Q6H PRN (Reason: Cough) Qty: 240 0RF prednisone 10 mg tablet 10 mg PO BID 3 Days Qty: 6 0RF No Action hydroxyzine pamoate 50 mg capsule 50 mg PO Q8H PRN (Reason: .) Qty: 90 1RF trazodone 100 mg tablet 100 mg PO .COMPLEX PRN (Reason: sleep) Qty: 60 1RF Rx Instructions: 100 mg PO take 1-2 tablets at bedtime PRN; Auvelity 45-105 mg tablet,IR,delayed rel,biphasic 1 tab PO BID Qty: 60 2RF propranolol 40 mg tablet 40 mg PO BID Referrals Follow up/Referrals: Nikia Harden APRN [Primary Care Provider] - See instructions Activity Restrictions/Add. Instructions Additional Instructions/Restrictions: Drink plenty of fluids. Take tylenol or ibuprofen for pain or fever. Take the medications as directed. Follow up with your regular doctor. GO TO THE ER FOR ANY WORSENING SYMPTOMS Don't start the oral steroids until tomorrow, since you had the shot here today. Clinical Impressions Clinical Impression: Strep throat Instructions Patient Instructions: Strep Throat, DI for Strep Throat, Ceftriaxone Injection, Dexamethasone Injection Discharge ED Provider: Jones Evans [facility] General Stated complaint: congestion - body aches Time Seen by Provider: 02/25/23 13:09 History of Present Illness Provider Complaint: She states that for the past 3 days she has had worsening sore throat, chills, body aches, and fever. Related Data Home Medications Medication Instructions Recorded Confirmed propranolol 40 mg tablet 40 mg PO BID bp 08/16/22 02/06/23 Previous Rx's Medication Instructions Recorded dextromethorphan IR 45 1 tab PO BID #60 tabs 02/06/23 mg-bupropion ER 105 mg biphasic tablet (Auvelity) hydroxyzine pamoate 50 mg capsule 50 mg PO Q8H PRN . #90 caps 02/06/23 trazodone 100 mg tablet 100 mg PO .COMPLEX PRN sleep #60 02/06/23 tabs amoxicillin 875 mg tablet 875 mg PO Q12H #20 tabs 02/25/23 ndxowoitvobuxbo-ghniqbafryzxhrc-ZG 5 ml PO Q6H PRN Cough #240 mL 02/25/23 2 mg-30 mg-10 mg/5 mL oral syrup (Bromfed DM) prednisone 10 mg tablet 10 mg PO BID 3 days #6 tabs 02/25/23 Allergies Allergy/AdvReac Type Severity Reaction Status Date / Time No Known Allergies Allergy Verified 02/06/23 11:18 [facility] Disclaimer: The information contained in this section may have been updated after the patient was seen, as this information can be updated by other users. 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 Abnormal Holter monitor finding Anxiety Asthma Chest pain Depression Dizziness Dyspnea Generalized anxiety disorder History of COVID-19 History of gastroesophageal reflux (GERD) Hypertension Insomnia Major depressive disorder Palpitations Urinary tract infection Surgical History H/O tubal ligation History of History of incision and drainage History of surgery History of tonsillectomy and adenoidectomy [place] teeth removed Family History Father Cirrhosis Mother Diabetes Grandmother Breast cancer Heart disease Multiple sclerosis COPD (chronic obstructive pulmonary disease) 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 Smoking Status: Current every day smoker tobacco type: cigarettes packs per day: 1 and e-cigarettes second hand exposure: No alcohol intake: never counseling given: No substance use type: denies use and other details: delta 8 vape counseling given: No current occupational status: unemployed Travel in the last 8 weeks: None adopted: No caregiver/support person: Yes (she stays home wi
[2023-02-25 13:17] LABS: UTC Strep Screen (Rapid) Positive (Negative)
[2023-02-25 13:53] VITALS: BP 122/77; PULSE 94; RESP 18; TEMP 37.1; O2SAT 96
== END 2023-02-25 13:55 | disposition home or self-care (01) ==
PROVIDERS: Emergency Provider Nurse Practitioner Family; PCP Nurse Practitioner Family
DX: J02.0 Streptococcal pharyngitis (principal); R50.9 Fever, unspecified; F17.210 Nicotine dependence, cigarettes, uncomplicated; I10 Essential (primary) hypertension; F41.1 Generalized anxiety disorder; F33.9 Major depressive disorder, recurrent, unspecified; J45.909 Unspecified asthma, uncomplicated; G47.00 Insomnia, unspecified
CPT/HCPCS: 87880; 96372; 99212; 99214; G0463; J0696

== ENCOUNTER 2023-04-06 17:03 | Emergency (ER) | payer OTHER, SELFPAY ==
[2023-04-06 17:04] VITALS: BP 146/87; PULSE 88; RESP 18; TEMP 36.7; O2SAT 98; BMI 50.3
[2023-04-06 17:41] LABS: Coronavirus 19, PCR Not Detected (NotDetected); Influenza A, PCR Not Detected (NotDetected); Influenza B, PCR Not Detected (NotDetected)
[2023-04-06 18:00] LABS: Basophils % 0.2 % (0.1-2.0); Eosinophils # 0.2 K/mm3 (0.0-0.4); Eosinophils % 4.3 % (0.1-12.0); Hematocrit 37.5 % (37.0-47.0); Hemoglobin 12.3 g/dL (12.2-16.2); Lymphocytes # 1.8 K/mm3 (0.7-4.5); Lymphocytes % 32.9 % (10-50); Mean Corpuscular HGB Conc 32.9 g/dL (31.8-35.4); Mean Corpuscular Hemoglobin 29.6 pg (27.0-31.2); Mean Corpuscular Volume 90.1 fl (81-99); Mean Platelet Volume 7.1 fl (7.4-10.4); Monocytes # 0.2 K/mm3 (0.1-1.0); Monocytes % 4.3 % (1.7-9.3); Neutrophils # 3.1 K/mm3 (1.8-7.8); Neutrophils % 58.4 % (37.0-80.0); Platelet Count 280 K/mm3 (142-424); Red Blood Count 4.16 M/mm3 (4.20-5.40); Red Cell Distribution Width 13.4 % (11.5-17.5); White Blood Count 5.4 K/mm3 (4.8-10.8)
[2023-04-06 18:08] LABS: Chloride 101 mmol/L (98-107); Potassium 3.6 mmoL/L (3.5-5.1); Sodium 136 mmol/L (136-145)
[2023-04-06 18:11] LABS: Alanine Aminotransferase 46 U/L (12-78); Albumin Level 3.5 g/dl (3.5-5.0); Alkaline Phosphatase 108 U/L (38-126); Anion Gap 11.6 mEq/L (5-15); Aspartate Amino Transferase 49 U/L (14-36); Bilirubin,Total 0.3 mg/dl (0.2-1.3); Blood Urea Nitrogen 10 mg/dl (7-17); Carbon Dioxide 27 mmol/L (22.0-30.0); Creatinine Clearance Estimated 96 mL/min (50-200); Estimated Glomerular Filt Rate 101 ml/min (>60); GFR (African American) 122 ML/MIN (>60); Globulin 3.4 g/dL (1.3-3.2); Total Protein,Serum 6.9 g/dl (6.3-8.2)
--- NOTE | 2023-04-06 18:19 | CT_ITS ---
PROCEDURE INFORMATION: Exam: CT Head Without Contrast Exam date and time: 04/06/2023 6:47 PM Age: 27 years old Clinical indication: Pain; Headache; Additional info: Severe global headache TECHNIQUE: Imaging protocol: Computed tomography of the head without contrast. Radiation optimization: All CT scans at this facility use at least one of these dose optimization techniques: automated exposure control; mA and/or kV adjustment per patient size (includes targeted exams where dose is matched to clinical indication); or iterative reconstruction. REPORTING DATA: Count of CT and Cardiac NM exams in prior 12 months: This patient has received 0 known CTs and 0 known cardiac nuclear medicine studies in the 12 months prior to the current study. COMPARISON: HDO CT HEAD W/O CONTRAST 07/26/2017 2:26 PM FINDINGS: Brain: Evaluation at the level of the skull base is limited due to motion artifact. There is no evidence of intracranial hemorrhage. There are no areas of mass effect edema or midline shift. Cortical sulci are unremarkable for age. Cerebral ventricles: Unremarkable for age. Paranasal sinuses: Visualized sinuses are unremarkable. No fluid levels. Mastoid air cells: Visualized mastoid air cells are well aerated. Bones/joints: Unremarkable. No acute fracture. Soft tissues: Unremarkable. IMPRESSION: Technically limited but negative CT examination of the head. No acute intracranial abnormalities.
[2023-04-06 18:20] VITALS: BP 142/84; PULSE 84; O2SAT 100
--- NOTE | 2023-04-06 18:21 | HMH.EDGENADL ---
Discharge Plan Disposition Chief Complaint: Headache Prescriptions Prescriptions: No Action hydroxyzine pamoate 50 mg capsule 50 mg PO Q8H PRN (Reason: .) Qty: 90 1RF trazodone 100 mg tablet 100 mg PO .COMPLEX PRN (Reason: sleep) Qty: 60 1RF Rx Instructions: 100 mg PO take 1-2 tablets at bedtime PRN; Auvelity 45-105 mg tablet,IR,delayed rel,biphasic 1 tab PO BID Qty: 60 2RF propranolol 40 mg tablet 40 mg PO BID amoxicillin [amoxicillin] 875 mg tablet 875 mg PO Q12H Qty: 20 0RF cfunwexwhrbigut-aqehriqkc-GR [Bromfed DM] 2-30-10 mg/5 mL Syrup 5 ml PO Q6H PRN (Reason: Cough) Qty: 240 0RF prednisone 10 mg tablet 10 mg PO BID 3 Days Qty: 6 0RF Referrals Follow up/Referrals: Nikia Harden APRN [Primary Care Provider] - See instructions Activity Restrictions/Add. Instructions Additional Instructions/Restrictions: At this time is felt you are safe to be discharged home. If new or worsening symptoms please not hesitate to return the emergency department. Please follow-up with your family doctor within 1 week for continued evaluation of your headache. Clinical Impressions Clinical Impression: Headache Discharge ED Provider: Julio César Rosenthal General Adult HPI General Chief complaint: Headache Stated complaint: CARTAGENA, rash Time Seen by Provider: 04/06/23 17:32 Mode of Arrival: Ambulatory Source of Information: Patient Limitations: No Limitations Description of Symptoms (Recalled from ER Triage Doc. by RN): c/o headache, chills, runny nose and nausea. States that when she bends her head to her chest she gets pain in her head for 2 days. History of Present Illness HPI narrative: Patient is a 27-year-old female with past medical history of previous migraines not on any controlled medication presents emergency department for evaluation of headache. Patient states that she has had chills, runny nose, nausea over the last 24 to 48 hours. When she bends her head slightly forward pain that shoots up to her neck into the back of her head. Denies visual changes, extremity weakness, paresthesias. There is some associated photophobia to bright lights. Typically her migraines have been unilateral with photophobia and phonophobia. Symptoms are moderate in intensity. No other acute complaints at this time. Related Data Home Medications Medication Instructions Recorded Confirmed propranolol 40 mg tablet 40 mg PO BID bp 08/16/22 02/06/23 Previous Rx's Medication Instructions Recorded dextromethorphan IR 45 1 tab PO BID #60 tabs 02/06/23 mg-bupropion ER 105 mg biphasic tablet (Auvelity) hydroxyzine pamoate 50 mg capsule 50 mg PO Q8H PRN . #90 caps 02/06/23 trazodone 100 mg tablet 100 mg PO .COMPLEX PRN sleep #60 02/06/23 tabs amoxicillin 875 mg tablet 875 mg PO Q12H #20 tabs 02/25/23 qwhbcfuvgrhollt-bdjxpwmuximkrmz-HH 5 ml PO Q6H PRN Cough #240 mL 02/25/23 2 mg-30 mg-10 mg/5 mL oral syrup (Bromfed DM) prednisone 10 mg tablet 10 mg PO BID 3 days #6 tabs 02/25/23 Allergies Allergy/AdvReac Type Severity Reaction Status Date / Time No Known Allergies Allergy Verified 02/06/23 11:18 [facility] Disclaimer: The information contained in this section may have been updated after the patient was seen, as this information can be updated by other users. 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 Abnormal Holter monitor finding Anxiety Asthma Chest pain Depression Dizziness Dyspnea Generalized anxiety disorder History of COVID-19 History of gastroesophageal reflux (GERD) Hypertension Insomnia Major depressive disorder Palpitations Urinary tract infection Surgical History H/O tubal ligation History of History of incision and drainage History of surgery History of tonsillectomy and adenoidectomy [place] teeth removed Family History (Reviewed 02/26/23 @ 10:59 by Jones Evans APRN
[2023-04-06 18:28] LABS: Calcium 8.9 mg/dl (8.4-10.2); Glucose 180 mg/dl (74-100)
[2023-04-06 18:37] LABS: HCG Qualitative, Serum Negative (Negative)
--- NOTE | 2023-04-06 19:31 | PC.NURSE ---
Rounded on patient, she was asleep in the bed and she awoke and reported her headache was improving.
[2023-04-06 20:39] VITALS: BP 132/70; PULSE 75; RESP 16; TEMP 36.8; O2SAT 98
== END 2023-04-06 20:41 | disposition home or self-care (01) ==
PROVIDERS: Emergency Provider Emergency Medicine; PCP Nurse Practitioner Family
DX: R51.9 Headache, unspecified (principal); R11.0 Nausea; R21 Rash and other nonspecific skin eruption; F41.1 Generalized anxiety disorder; J45.909 Unspecified asthma, uncomplicated; F32.9 Major depressive disorder, single episode, unspecified; I10 Essential (primary) hypertension
CPT/HCPCS: 70450; 80053; 84703; 85025; 87636; 96361; 96374; 96375; 99285

== ENCOUNTER 2023-05-16 12:25 | Emergency (ER) | payer OTHER, SELFPAY ==
[2023-05-16 12:26] VITALS: BP 155/71; PULSE 89; RESP 18; TEMP 37; O2SAT 94; BMI 49.4
--- NOTE | 2023-05-16 12:42 | EXP.UTC ---
Discharge Plan Disposition Patient Disposition: Home, Self-Care Condition: Good Prescriptions Prescriptions: New azithromycin [Zithromax] 250 mg tablet 250 mg PO UD DOSE PK Qty: 6 0RF Rx Instructions: Take two (2) tablets today, then one (1) tablet days #2 thru #5 vtssncyjrnnvujw-ivdpgeicm-VH [Bromfed DM] 2-30-10 mg/5 mL Syrup 5 ml PO Q6H PRN (Reason: Cough) Qty: 240 0RF methylprednisolone 4 mg Tablets,Dose Pack 4 mg PO DIRECTED Qty: 21 0RF No Action hydroxyzine pamoate 50 mg capsule 50 mg PO Q8H PRN (Reason: .) Qty: 90 1RF propranolol 40 mg tablet 40 mg PO BID trazodone 100 mg tablet 100 mg PO .COMPLEX PRN (Reason: sleep) Qty: 60 1RF Rx Instructions: 100 mg PO take 1-2 tablets at bedtime PRN; Auvelity 45-105 mg tablet, IR and ER, biphasic 1 tab PO BID Referrals Follow up/Referrals: Nikia Harden APRN [Primary Care Provider] - See instructions Activity Restrictions/Add. Instructions Additional Instructions/Restrictions: Drink plenty of fluids. Take tylenol or ibuprofen for pain or fever. Take the medications as directed. Follow up with your regular doctor. GO TO THE ER FOR ANY WORSENING SYMPTOMS Clinical Impressions Clinical Impression: Acute bronchitis, Acute viral syndrome Instructions Patient Instructions: DI for Acute Bronchitis, DI for Viral Syndrome Discharge ED Provider: Jones Evans [facility] General Stated complaint: cough,sore throat,congrested Time Seen by Provider: 05/16/23 12:42 History of Present Illness Provider Complaint: She states that for the past 2 days she has had cough, chest congestion, sore throat and sinus congestion. Related Data Home Medications Medication Instructions Recorded Confirmed propranolol 40 mg tablet 40 mg PO BID bp 08/16/22 05/16/23 dextromethorphan IR 45 1 tab PO BID . 05/16/23 05/16/23 mg-bupropion ER 105 mg biphasic tablet (Auvelity) Previous Rx's Medication Instructions Recorded hydroxyzine pamoate 50 mg capsule 50 mg PO Q8H PRN . #90 caps 02/06/23 trazodone 100 mg tablet 100 mg PO .COMPLEX PRN sleep #60 05/15/23 tabs azithromycin 250 mg tablet 250 mg PO UD DOSE PK #6 tabs 05/16/23 (Zithromax) mhpfyzdhwkqbxcp-zdnkarbpvpkgadp-RZ 5 ml PO Q6H PRN Cough #240 mL 05/16/23 2 mg-30 mg-10 mg/5 mL oral syrup (Bromfed DM) methylprednisolone 4 mg tablets in 4 mg PO DIRECTED #21 tabs 05/16/23 a dose pack Allergies Allergy/AdvReac Type Severity Reaction Status Date / Time No Known Allergies Allergy Verified 05/16/23 12:55 [facility] Disclaimer: The information contained in this section may have been updated after the patient was seen, as this information can be updated by other users. 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 Abnormal Holter monitor finding Anxiety Asthma Chest pain Depression Dizziness Dyspnea Generalized anxiety disorder History of COVID-19 History of gastroesophageal reflux (GERD) Hypertension Insomnia Major depressive disorder Palpitations Urinary tract infection Surgical History H/O tubal ligation History of History of incision and drainage History of surgery History of tonsillectomy and adenoidectomy [place] teeth removed Family History Father Cirrhosis Mother Diabetes Grandmother Breast cancer Heart disease Multiple sclerosis COPD (chronic obstructive pulmonary disease) 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 Smoking Status: Never smoker second hand exposure: No alcohol intake: never counseling given: No substance use type: denies use and other details: delta 8 vape counseling given: No current occupational status: unemployed Travel in the last 8 weeks: None adopted: No caregiver/support person: Yes (she stays home with her
[2023-05-16 12:53] LABS: UTC Strep Screen (Rapid) Negative (Negative)
[2023-05-16 13:40] VITALS: BP 155/71; PULSE 89; RESP 18; TEMP 37; O2SAT 94
== END 2023-05-16 13:40 | disposition home or self-care (01) ==
PROVIDERS: Emergency Provider Nurse Practitioner Family; PCP Nurse Practitioner Family
DX: J20.9 Acute bronchitis, unspecified (principal); B34.9 Viral infection, unspecified; I10 Essential (primary) hypertension; G47.00 Insomnia, unspecified; K21.9 Gastro-esophageal reflux disease without esophagitis; J45.909 Unspecified asthma, uncomplicated; F41.1 Generalized anxiety disorder; F33.9 Major depressive disorder, recurrent, unspecified
CPT/HCPCS: 87635; 87880; 99212; 99214; G0463

== ENCOUNTER 2023-07-10 11:54 | Emergency (ER) | payer OTHER, SELFPAY ==
--- NOTE | 2023-07-10 13:17 | EXP.UTC ---
Discharge Plan Disposition Patient Disposition: Home, Self-Care Condition: Good Prescriptions Prescriptions: New propranolol 40 mg tablet 40 mg PO BID 30 Days Qty: 60 0RF azithromycin [Zithromax] 250 mg tablet 250 mg PO UD DOSE PK Qty: 6 0RF Rx Instructions: Take two (2) tablets today, then one (1) tablet days #2 thru #5 methylprednisolone 4 mg Tablets,Dose Pack 4 mg PO DIRECTED Qty: 21 0RF No Action propranolol 40 mg tablet 40 mg PO BID trazodone 100 mg tablet 100 mg PO .COMPLEX PRN (Reason: sleep) Qty: 60 1RF Rx Instructions: 100 mg PO take 1-2 tablets at bedtime PRN; hydroxyzine pamoate 50 mg capsule 50 mg PO Q8H PRN (Reason: .) Qty: 90 1RF Auvelity 45-105 mg tablet, IR and ER, biphasic 1 tab PO BID Referrals Follow up/Referrals: Nikia Harden APRN [Primary Care Provider] - See instructions Activity Restrictions/Add. Instructions Additional Instructions/Restrictions: Drink plenty of fluids. Take tylenol or ibuprofen for pain or fever. Take the medications as directed. Follow up with your regular doctor. GO TO THE ER FOR ANY WORSENING SYMPTOMS Clinical Impressions Clinical Impression: Pharyngitis, Hypertension Instructions Patient Instructions: Sore Throat, DI for Pharyngitis/Tonsillopharyngitis -- Adult Discharge ED Provider: Jones Evans [facility] [place] HPI General Stated complaint: cough, sore throat, congestion Time Seen by Provider: 07/10/23 13:17 History of Present Illness Provider Complaint: She states that for the past 2 days she has had sore throat, chills, body aches and low grade fever. She has also ran out of her propranolol for the past 3 days. She request to have that prescribed until she can get in with her pcp. Related Data Home Medications Medication Instructions Recorded Confirmed propranolol 40 mg tablet 40 mg PO BID bp 08/16/22 07/10/23 dextromethorphan IR 45 1 tab PO BID . 05/16/23 07/10/23 mg-bupropion ER 105 mg biphasic tablet (Auvelity) Previous Rx's Medication Instructions Recorded trazodone 100 mg tablet 100 mg PO .COMPLEX PRN sleep #60 10/02/23 tabs hydroxyzine pamoate 50 mg capsule 50 mg PO Q8H PRN . #90 caps 05/18/23 azithromycin 250 mg tablet 250 mg PO UD DOSE PK #6 tabs 07/10/23 (Zithromax) methylprednisolone 4 mg tablets in 4 mg PO DIRECTED #21 tabs 07/10/23 a dose pack propranolol 40 mg tablet 40 mg PO BID 30 days #60 tabs 07/10/23 Allergies Allergy/AdvReac Type Severity Reaction Status Date / Time No Known Allergies Allergy Verified 07/10/23 13:33 [facility] Disclaimer: The information contained in this section may have been updated after the patient was seen, as this information can be updated by other users. 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 Abnormal Holter monitor finding Anxiety Asthma Chest pain Depression Dizziness Dyspnea Generalized anxiety disorder History of COVID-19 History of gastroesophageal reflux (GERD) Hypertension Insomnia Major depressive disorder Palpitations Urinary tract infection Surgical History H/O tubal ligation History of History of incision and drainage History of surgery History of tonsillectomy and adenoidectomy [place] teeth removed Family History Father Cirrhosis Mother Diabetes Grandmother Breast cancer Heart disease Multiple sclerosis COPD (chronic obstructive pulmonary disease) 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 Smoking Status: Never smoker second hand exposure: No alcohol intake: never counseling given: No substance use type: denies use and other details: delta 8 vape counseling given: No current occupational status: unemployed Travel in the last 8 weeks: None adopted: No caregiver/support person: Yes (she stay
[2023-07-10 13:20] VITALS: BP 173/93; PULSE 89; RESP 18; TEMP 36.7; O2SAT 99; BMI 53.0
[2023-07-10 13:32] LABS: UTC Strep Screen (Rapid) Negative (Negative)
[2023-07-10 13:47] VITALS: BP 171/93; PULSE 89; RESP 18; TEMP 36.7; O2SAT 99
== END 2023-07-10 13:47 | disposition home or self-care (01) ==
PROVIDERS: Emergency Provider Nurse Practitioner Family; PCP Nurse Practitioner Family
DX: J02.9 Acute pharyngitis, unspecified (principal); I10 Essential (primary) hypertension; R05.9 Cough, unspecified; R09.81 Nasal congestion; R50.9 Fever, unspecified; J45.909 Unspecified asthma, uncomplicated
CPT/HCPCS: 87880; 99212; 99214; G0463

== ENCOUNTER 2023-07-26 10:18 | Emergency (ER) | payer OTHER, SELFPAY ==
[2023-07-26 10:30] VITALS: BP 139/88; PULSE 68; RESP 18; TEMP 36.7; O2SAT 100; BMI 53.0
--- NOTE | 2023-07-26 10:55 | EXP.UTC ---
Discharge Plan Disposition Patient Disposition: Home, Self-Care Condition: Good Prescriptions Prescriptions: New ondansetron 4 mg tablet,disintegrating 4 mg PO Q8H PRN (Reason: nausea and vomiting) Qty: 10 0RF Rx Instructions: do not take Vistaril if taking zofran No Action trazodone 100 mg tablet 100 mg PO .COMPLEX PRN (Reason: sleep) Qty: 60 1RF Rx Instructions: 100 mg PO take 1-2 tablets at bedtime PRN; hydroxyzine pamoate 50 mg capsule 50 mg PO Q8H PRN (Reason: .) Qty: 90 1RF Auvelity 45-105 mg tablet, IR and ER, biphasic 1 tab PO BID propranolol 40 mg tablet 40 mg PO BID 30 Days Qty: 60 0RF Referrals Follow up/Referrals: Nikia Harden APRN [Primary Care Provider] - See instructions Activity Restrictions/Add. Instructions Additional Instructions/Restrictions: Monitor temperature. Seek treatment if fever develops. Follow-up immediately if new or worse symptoms worsen or no noticeable improvement over 48 hours. Increase fluids such as water, Gatorade, Powerade, juice or Pedialyte with limited formula/dietary in children No food is okay as long as you are drinking. Once ready to eat start bland such as bananas, rice, applesauce, toast. Contagious until no diarrhea, vomiting, fever times 48 hours without medication Avoid antidiarrheals unless told otherwise. Best to let the virus run its course. Follow-up immediately for new or worsening symptoms or no noticeable improvement over the next 48 hours. Clinical Impressions Clinical Impression: Vomiting and diarrhea Instructions Patient Instructions: Nausea and Vomiting-Adult, Diarrhea Discharge ED Provider: Carson ([facility] HPI General Stated complaint: vomiting, diarrhea Mode of Arrival: Ambulatory Source of Information: Patient Limitations: No Limitations Time Seen by Provider: 07/26/23 10:55 Description of Symptoms (Recalled from Triage Doc. by RN): nasuea, vomiting, and diarrhea HEENT Symptoms (Recalled from RN notes): No Resp Symptoms (Recalled from RN notes): No Skin Symptoms (Recalled from RN notes): No MS Symptoms (Recalled from RN notes): No Functional Status (Recalled from RN notes): n/a History of Present Illness Provider Complaint: 28 yr old female presents for nausea, vomiting, and diarrhea pt does not want checked for covid Related Data Home Medications Medication Instructions Recorded Confirmed dextromethorphan IR 45 1 tab PO BID . 05/16/23 07/26/23 mg-bupropion ER 105 mg biphasic tablet (Auvelity) Previous Rx's Medication Instructions Recorded trazodone 100 mg tablet 100 mg PO .COMPLEX PRN sleep #60 05/15/23 tabs hydroxyzine pamoate 50 mg capsule 50 mg PO Q8H PRN . #90 caps 05/18/23 propranolol 40 mg tablet 40 mg PO BID 30 days #60 tabs 07/10/23 ondansetron 4 mg disintegrating 4 mg PO Q8H PRN nausea and 07/26/23 tablet vomiting #10 tabs Allergies Allergy/AdvReac Type Severity Reaction Status Date / Time No Known Allergies Allergy Verified 07/26/23 10:54 Worker's Comp Is this a Worker's Comp case?: No [facility] Disclaimer: The information contained in this section may have been updated after the patient was seen, as this information can be updated by other users. 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
[2023-07-26 11:35] VITALS: BP 139/88; PULSE 68; RESP 18; TEMP 36.7; O2SAT 100
== END 2023-07-26 11:35 | disposition home or self-care (01) ==
PROVIDERS: Emergency Provider Nurse Practitioner Family; PCP Nurse Practitioner Family
DX: R11.2 Nausea with vomiting, unspecified (principal); R19.7 Diarrhea, unspecified; J45.909 Unspecified asthma, uncomplicated; I10 Essential (primary) hypertension
CPT/HCPCS: 99212; 99214; G0463

== ENCOUNTER 2023-08-14 10:56 | Emergency (ER) | payer OTHER, SELFPAY ==
--- NOTE | 2023-08-14 10:56 | ECG_ITS ---
APPROVED REPORT Exam: Resting ECG HR:93 bpm ECG Measurements Heart Rate 93 AXES [place] 175 P 59 QRSd 86 QRS 70 QT 317 T 31 QTc 368 Conclusion SINUS RHYTHM NORMAL ECG UNCONFIRMED REPORT Electronically signed by : [place] Alexandra MD 08/17/2023 20:43:09
[2023-08-14 11:00] VITALS: BP 155/90; PULSE 98; RESP 20; TEMP 36.8; O2SAT 98; BMI 45.1
--- NOTE | 2023-08-14 11:15 | XR_ITS ---
PROCEDURE INFORMATION: Exam: XR Chest Exam date and time: 08/14/2023 11:32 AM Age: 28 years old Clinical indication: Pain; Other: Cp; Additional info: Chest pain TECHNIQUE: Imaging protocol: Radiologic exam of the chest. Views: 1 view. COMPARISON: CR XR CHEST PORTABLE 04/11/2020 12:01 AM FINDINGS: Lungs: Lung volumes are somewhat decreased unchanged likely due to body habitus. No infiltrates or pulmonary edema. Pleural spaces: Unremarkable. No pleural effusion. No pneumothorax. Heart/Mediastinum: Heart appears borderline enlarged on this portable chest, unchanged. There is pulmonary vascular redistribution suggesting elevated central venous pressure. Bones/joints: Unremarkable for age. IMPRESSION: Borderline cardiomegaly with elevated central venous pressure, otherwise negative chest.
[2023-08-14 11:28] LABS: Basophils % 0.5 % (0.1-2.0); Eosinophils # 0.2 K/mm3 (0.0-0.4); Eosinophils % 3.2 % (0.1-12.0); Hematocrit 39.1 % (37.0-47.0); Hemoglobin 12.8 g/dL (12.2-16.2); Lymphocytes # 1.9 K/mm3 (0.7-4.5); Lymphocytes % 26.2 % (10-50); Mean Corpuscular HGB Conc 32.7 g/dL (31.8-35.4); Mean Corpuscular Hemoglobin 29.6 pg (27.0-31.2); Mean Corpuscular Volume 90.4 fl (81-99); Mean Platelet Volume 7.3 fl (7.4-10.4); Monocytes # 0.3 K/mm3 (0.1-1.0); Monocytes % 4.1 % (1.7-9.3); Neutrophils # 4.8 K/mm3 (1.8-7.8); Platelet Count 314 K/mm3 (142-424); Red Blood Count 4.32 M/mm3 (4.20-5.40); Red Cell Distribution Width 13.3 % (11.5-17.5); White Blood Count 7.2 K/mm3 (4.8-10.8)
[2023-08-14 11:31] VITALS: BP 125/63; PULSE 84; RESP 17; O2SAT 96
--- NOTE | 2023-08-14 11:31 | HMH.EDCP ---
Discharge Plan Disposition Patient Disposition: Home, Self-Care Chief Complaint: Chest Pain Prescriptions Prescriptions: No Action trazodone 100 mg tablet 100 mg PO .COMPLEX PRN (Reason: sleep) Qty: 60 1RF Rx Instructions: 100 mg PO take 1-2 tablets at bedtime PRN; hydroxyzine pamoate 50 mg capsule 50 mg PO Q8H PRN (Reason: .) Qty: 90 1RF Auvelity 45-105 mg tablet, IR and ER, biphasic 1 tab PO BID propranolol 40 mg tablet 40 mg PO BID 30 Days Qty: 60 0RF ondansetron 4 mg tablet,disintegrating 4 mg PO Q8H PRN (Reason: nausea and vomiting) Qty: 10 0RF Rx Instructions: do not take Vistaril if taking zofran Referrals Follow up/Referrals: Nikia Harden APRN [Primary Care Provider] - See instructions Activity Restrictions/Add. Instructions Additional Instructions/Restrictions: Call your family doctor to establish care for this visit to the emergency department and schedule follow-up within 48 hours to ensure improvement. If you have any worsening of your condition or any other concerning signs or symptoms, return to the emergency department or your primary care doctor for further evaluation. Clinical Impressions Clinical Impression: Heart palpitations Discharge ED Provider: Lokesh Marlow HPI General Chief Complaint: Chest Pain Stated Complaint: chest pain Time Seen by Provider: 08/14/23 11:02 History of Present Illness HPI narrative: 28-year-old female history of anxiety, depression, paroxysmal tachycardia on propranolol presenting with patient's. Patient states that she ran out of her propranolol 2 days prior to this visit. Today, as well as yesterday, she noted that with minimal exertion, her heart rate would shoot up and not come back down. Came to the emergency department for further evaluation. 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 Related Data Home Medications Medication Instructions Recorded Confirmed dextromethorphan IR 45 1 tab PO BID . 05/16/23 07/26/23 mg-bupropion ER 105 mg biphasic tablet (Auvelity) Previous Rx's Medication Instructions Recorded trazodone 100 mg tablet 100 mg PO .COMPLEX PRN sleep #60 05/15/23 tabs hydroxyzine pamoate 50 mg capsule 50 mg PO Q8H PRN . #90 caps 05/18/23 propranolol 40 mg tablet 40 mg PO BID 30 days #60 tabs 07/10/23 ondansetron 4 mg disintegrating 4 mg PO Q8H PRN nausea and 07/26/23 tablet vomiting #10 tabs Allergies Allergy/AdvReac Type Severity Reaction Status Date / Time No Known Allergies Allergy Verified 07/26/23 10:54 [facility] Disclaimer: The information contained in this section may have been updated after the patient was seen, as this information can be updated by other users. 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) Diabetes Mother Heart disease Grandmother Cirrhosis Father Breast cancer Grandmother COPD (chronic obstructive pulmonary disease) Grandmother Multiple sclerosis Grandmother 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 , 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) Smoking Status: Never smoker second hand exposure: No alcohol intake: never counseling given: No substance use type: denies use and other details: delta 8 vape counseling given: No current occupational status: unemployed Travel in the last 8 weeks: None adopted: No caregiver/support person: Yes (she stays home with her kids; SAH) foster care: No household members: significant other housing: house lives independently: Yes marital status: life partner number of children: 3 number of grandchildren: 0 education level: high school 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 Recent Travel: No sexually active: Yes caffeine: Yes physical activity: none working smoke detector in home: Yes fire extinguisher in home: No carbon monox detector in home: Yes firearms in home: No do you feel safe at home: Yes victim of physical abuse: No victim of emotional abuse: No victim of sexual abuse: No would you like helpful sources: No ROS Obtained: Yes All systems reviewed & no additional complaints except as documented Physical Exam General General appearance: alert Neck Neck exam: Present trachea midline Chest Chest inspection: Present normal inspection and symmetric chest wall rise Respiratory Respiratory exam: Present normal lung sounds bilaterally; Absent respiratory distress, wheezes, stridor, accessory muscle use or prolonged expiratory phase Cardiovascular Cardiovascular exam: Present regular rate and normal rhythm Extremities Exam Extremities exam: Absent edema Neurological Exam Neurological exam: Present alert, oriented X3 and CN II-XII intact Skin Skin exam: Present warm and dry; Absent cyanosis, diaphoresis or pallor HEART Score HEART Score HEART Score assessment performed?: Yes History (anamnesis): Slightly suspicious ECG: Normal Age: <45 years Risk factors: No known risk factors Troponin: </= normal limit HEART Score: 0 Critical Care Critical Care Time Critical Care Time: No Medical Decision Making Medical Records Medical records reviewed: Yes I reviewed the patient's medical records. Prasanna Inquiry Pt receiving controlled substance: No Prasanna was queried for this patient: No Vital Signs Vital Signs: 08/14/23 11:00 08/14/23 11:31 Temperature 98.2 F Temperature Source Oral Pulse Rate 84 Pulse Rate [Left Radial] 98 H Respiratory Rate 20 17 Blood Pressure 125/63 Blood Pressure [Right Arm] 155/90 H Blood Pressure Mean [Right Arm] 111 02 Sat by Pulse Oximetry 98 96 Oxygen Delivery Method Room Air Lab Data Labs: Lab Results 08/14/23 11:20: WBC 7.2, RBC 4.32, Hgb 12.8, Hct 39.1, MCV 90.4, MCH 29.6, MCHC 32.7, RDW 13.3, Plt Count 314, MPV 7.3 L, Neut % (Auto) 66.0, Lymph % (Auto) 26.2, [place] % (Auto) 4.1, Eos % (Auto) 3.2, Baso % (Auto) 0.5, Neut # (Auto) 4.8, Lymph # (Auto) 1.9, [place] # (Auto) 0.3, Eos # (Auto) 0.2, Baso # (Auto) 0.0, Sodium 134 L, Potassium 3.6, Chloride 108 H, Carbon Dioxide 24, Anion Gap 5.6, BUN 7, Creatinine 0.50 L, Estimated GFR 148, Est GFR ( Amer) 179, Glucose 121 H, Calcium 8.1 L, Total Bilirubin 0.3, AST 34, ALT 32, Alkaline Phosphatase 116, Troponin I < 0.01, Total Protein 6.5, Albumin 3.6, Globulin 2.9, Albumin/Globulin Ratio 1.2, HCG, Quant < 2 08/14/23 11:20 08/14/23 11:20 Response Orders (Tests/Meds): ED MEDICATIONS Discontinued Medications Generic Name Dose Route Start Last Admin Trade Name Freq PRN Reason Stop Dose Admin Propranolol HCl 40 mg 08/14/23 11:16 08/14/23 11:37 Propranolol 20mg Tab PO 08/14/23 11:17 40 mg ONCE ONE Administration ORDERS Category Date Time Status XR chest portable Stat Exams 08/14/23 11:15 Completed Complete Blood Count Auto Diff Stat Lab 08/14/23 11:20 Completed Comprehensive Metabolic Panel Stat Lab 08/14/23 11:20 Completed HCG,Quantitative Stat Lab 08/14/23 11:20 Completed Troponin I Q3H Lab 08/14/23 14:15 Ordered Troponin I Q3H Lab 08/14/23 17:15 Ordered Troponin I Stat Lab 08/14/23 11:20 Completed MDM Narrative Medical Decision Narrative: 28-year-old female history of anxiety, depression, paroxysmal tachycardia on propranolol presenting with patient's. Patient states that she ran out of her propranolol 2 days prior to this visit. Today, as well as yesterday, she noted that with minimal exertion, her heart rate would shoot up and not come back down. Came to the emergency department for further evaluation. 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 Hb noted that patient has paroxysmal tachycardia not currently at goal care, which is complicating today's presentation. History was obtained via conversation with patient. On arrival, patient hemodynamically stable, alert, [oriented x4, ][appropriate, ]GCS [15], moving all extremities spontaneously, pupils equal and reactive to light. Full physical exam performed and significant for well-appearing girl in no acute distress. Lungs clear to auscultation bilaterally. Nontachycardic, no evidence of palpitations. Pulses equal and symmetric, abdomen soft, nontender. Neurologically intact.. Differential includes anxiety, medication withdrawal, intoxication, drug withdrawal, ACS, [place], PE, among others. Patient was given propranolol 40 mg p.o. for symptomatic management[ and correction of underlying abnormalities]. Workup independently interpreted and significant for nonactionable CBC or chemistry. Troponin negative. Chest x-ray with mild cardiomegaly, but no acute cardiopulmonary airspace disease. See radiology read for full review of final results. [Independent interpretation of EKG shows] sinus rhythm 93 beats a minute without ST or T wave changes concerning for acute ischemia. [place], QRS, QT intervals within normal limits. [place] normal. PERC negative, heart score 0. On reevaluation, patient resting comfortably. Given patient presentation, workup, history, this most likely represents paroxysmal tachycardia in the setting of medication noncompliance. Less likely heart disease given age and history. Also less likely to be PE given no evidence of tachycardia, hypoxemia, or symptoms at rest. [SDH]
--- NOTE | 2023-08-14 11:33 | PC.NURSE ---
rad at bedside
--- NOTE | 2023-08-14 11:33 | PC.NURSE ---
RAD at for CXR
[2023-08-14] MEDS: PROPRANOLOL 20MG TAB 40 MG PO (11:37)
[2023-08-14 11:38] LABS: Alanine Aminotransferase 32 U/L (12-78); Albumin Level 3.6 g/dl (3.5-5.0); Albumin/Globulin Ratio 1.2 (1.1-1.8); Alkaline Phosphatase 116 U/L (38-126); Anion Gap 5.6 mEq/L (5-15); Aspartate Amino Transferase 34 U/L (14-36); Bilirubin,Total 0.3 mg/dl (0.2-1.3); Blood Urea Nitrogen 7 mg/dl (7-17); Calcium 8.1 mg/dl (8.4-10.2); Carbon Dioxide 24 mmol/L (22.0-30.0); Chloride 108 mmol/L (98-107); Estimated Glomerular Filt Rate 148 ml/min (>60); GFR (African American) 179 ML/MIN (>60); Globulin 2.9 g/dL (1.3-3.2); Glucose 121 mg/dl (74-100); Potassium 3.6 mmoL/L (3.5-5.1); Sodium 134 mmol/L (136-145); Total Protein,Serum 6.5 g/dl (6.3-8.2)
[2023-08-14 11:53] LABS: Troponin I < 0.01 ng/ml (0.00-0.034)
[2023-08-14 11:55] LABS: HCG,Quantitative < 2 mIU/ml (0-5.42)
[2023-08-14 12:23] VITALS: BP 131/70; PULSE 73; RESP 18; TEMP 36.7; O2SAT 95
== END 2023-08-14 12:24 | disposition home or self-care (01) ==
PROVIDERS: Emergency Provider Emergency Medicine; PCP Nurse Practitioner Family
DX: R07.9 Chest pain, unspecified (principal); R00.2 Palpitations; J45.909 Unspecified asthma, uncomplicated; I10 Essential (primary) hypertension
CPT/HCPCS: 71045; 80053; 84484; 84702; 85025; 93005; 99285

== ENCOUNTER 2023-09-01 16:21 | Outpatient (CLI) | payer OTHER, SELFPAY ==
--- NOTE | 2023-09-01 16:28 | XR_ITS ---
PROCEDURE INFORMATION: Exam: XR Chest Exam date and time: 09/01/2023 4:32 PM Age: 28 years old Clinical indication: Abnormal findings; Positive tb skin testing; Additional info: +ppd TECHNIQUE: Imaging protocol: Radiologic exam of the chest. Views: 2 views. COMPARISON: CR XR CHEST PORTABLE 08/14/2023 11:32 AM FINDINGS: Lungs: Unremarkable. No consolidation. Pleural spaces: Unremarkable. No pleural effusion. No pneumothorax. Heart/Mediastinum: Unremarkable. No cardiomegaly. Bones/joints: Unremarkable. IMPRESSION: No acute findings.
== END 2023-09-01 23:59 ==
PROVIDERS: PCP Nurse Practitioner Family; Visit Provider Physician Assistant
DX: R76.11 Nonspecific reaction to tuberculin skin test without active tuberculosis (principal)
CPT/HCPCS: 71046

== ENCOUNTER 2023-09-07 08:35 | Emergency (ER) | payer OTHER, SELFPAY ==
[2023-09-07 08:45] VITALS: BP 148/76; PULSE 78; RESP 20; TEMP 37.1; O2SAT 96; BMI 51.9
--- NOTE | 2023-09-07 09:00 | ED_ITS ---
Discharge Plan Disposition Patient Disposition: Home, Self-Care Condition: Good Prescriptions Prescriptions: New oseltamivir [Tamiflu] 75 mg capsule 75 mg PO Q12H 5 Days Qty: 10 0RF polymyxin B sulf-trimethoprim 10,000 unit- 1 mg/mL drops 2 drp ophthalmic (eye) Q6H 7 Days Qty: 10 0RF Rx Instructions: left eye while awake; do not exceed 6 doses in 24 hours ondansetron 4 mg tablet,disintegrating 4 mg PO Q8H PRN (Reason: nausea and vomiting) Qty: 10 0RF No Action hydroxyzine pamoate 50 mg capsule 50 mg PO Q8H PRN (Reason: .) Qty: 90 1RF trazodone 100 mg tablet See Rx Instructions .ROUTE .COMPLEX Qty: 60 0RF Dose Instruction: TAKE 1 TO 2 TABLETS BY MOUTH AT BEDTIME NEEDED FOR SLEEP Rx Instructions: TAKE 1 TO 2 TABLETS BY MOUTH AT BEDTIME NEEDED FOR SLEEP propranolol 40 mg tablet 40 mg PO BID 30 Days Qty: 60 0RF Auvelity 45-105 mg tablet, IR and ER, biphasic 1 tab PO BID Patient Comments: TAKE 1 TABLET BY MOUTH TWICE DAILY Referrals Follow up/Referrals: Nikia Harden APRN [Primary Care Provider] - See instructions Activity Restrictions/Add. Instructions Additional Instructions/Restrictions: * Start Tamiflu today if you are going to take it. Discussed risk and possible benefits. * Lots of rest * Increase Fluids water, Gatorade, powerade, pedialyte,if infant/toddler/child * Alternate Tylenol and / or ibuprofen as discussed for fever, aches, chills Follow up IMMEDIATELY with your family doctor for new or worsening Symptoms OR no noticeable improvement over the next 48-72 hours, 911 for difficulty or breathing * You or your child area contagious until no fever, aches, chills for 24 hours with medication for symptoms * Help Prevent the spread of influenza: * ?Wash your hands often. Use soap and water. Wash your hands after you use the bathroom, change a child's diapers, or sneeze. Wash your hands before you prepare or eat food. Use gel hand cleanser that has 60% alcohol, when soap and water are not available. Do not touch your eyes, nose, or mouth unless you have washed your hands first. * Cover your mouth when you sneeze or cough. Cough into a tissue or the bend of your arm. If you use a tissue, throw it away immediately and wash your hands. * Clean shared items with a germ-killing road cleaner. Clean table surfaces, doorknobs, and light switches. Do not share towels, silverware, and dishes with people who are sick. Wash bed sheets, towels, silverware, and dishes with soap and water. * Wear a mask over your mouth and nose if you are sick. The face mask may help protect others from becoming infected with the flu. Wear the mask when in common areas of your home or if you seek care with a healthcare provider. * Stay away from others if you are sick. Stay at home until 24 hours after your fever and symptoms are gone. Clinical Impressions Clinical Impression: Influenza Stand Alone Forms Stand Alone Forms: Work/School Release Instructions Patient Instructions: DI for Influenza -- Adult Discharge ED Provider: Josie Reynolds [facility] General Stated complaint: left eye redness itching flu exposure cough st Mode of Arrival: Ambulatory Source of Information: Patient Limitations: No Limitations Time Seen by Provider: 09/07/23 09:09 Description of Symptoms (Recalled from Triage Doc. by RN): PATIENT C/O NAUSEA, SORE THROAT, RUNNY NOSE, HEADACHE, AND LEFT EYE WATERY/BURNING/ITCHING/SWELLING X 2 DAYS. 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 #90 caps 05/18/23 propranolol 40 mg tablet 40 mg PO BID 30 days #60 tabs 07/10/23 trazodone 100 mg tablet See Rx Instructions .Route 08/25/23 .COMPLEX #60 tabs ondansetron 4 mg disintegrating 4 mg PO Q8H PRN nausea and 09/07/23 tablet vomiting #10 tabs oseltamivir 75 mg capsule (Tamiflu) 75 mg PO Q12H 5 days #10 caps 09/07/23 polymyxin B sulfate 10,000 2 drp ophthalmic (eye) Q6H 7 days 09/07/23 unit-trimethoprim 1 mg/mL eye drops #10 mL Allergies Allergy/AdvReac Type Severity Reaction Status Date / Time No Known Allergies Allergy Verified 07/26/23 10:54 Worker's Comp Is this a Worker's Comp case?: No [facility] Disclaimer: The information contained in this section may have been updated after the p atient was seen, as this information can be updated by other users. 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) Diabetes Mother Heart disease Grandmother Cirrhosis Father Breast cancer Grandmother COPD (chronic obstructive pulmonary disease) Grandmother Multiple sclerosis Grandmother 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 , 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) Smoking Status: Never smoker second hand exposure: No alcohol intake: never counseling given: No substance use type: denies use and other details: delta 8 vape counseling given: No current occupational status: unemployed Travel in the last 8 weeks: None adopted: No caregiver/support person: Yes (she stays home with her kids; SAHM) foster care: No household members: significant other housing: house lives independently: Yes marital status: life partner number of children: 3 number of grandchildren: 0 education level: high school 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 Hx Recent Travel: No sexually active: Yes caffeine: Yes physical activity: none working smoke detector in home: Yes fire extinguisher in home: No carbon monox detector in home: Yes firearms in home: No do you feel safe at home: Yes victim of physical abuse: No victim of emotional abuse: No victim of sexual abuse: No would you like helpful sources: No ROS Obtained: Yes All systems reviewed & no additional complaints except as documented and Yes Systems reviewed as appropriate & no additional complaints except as documented Constitutional Constitutional: Reports system reviewed and no additional complaints, except as documented and Reports as per HPI Eyes Eyes: Reports system reviewed and no additional complaints, except as documented, Reports as per HPI, Reports eye discharge and Reports irritation ENT Ears, Nose, Mouth, and Throat: Reports system reviewed and no additional complaints, except as documented, Reports as per HPI, Reports nasal congestion, Reports nasal discharge and Reports sore throat Cardiovascular Cardiovascular: Reports system reviewed and no additional complaints, except as documented and Reports as per HPI Respiratory Respiratory: Reports system reviewed and no additional complaints, except as documented, Reports as per HPI and Reports cough Gastrointestinal Gastrointestingal: Reports system reviewed and no additional complaints, except as documented, as per HPI, nausea and vomiting Physical Exam General General appearance: alert and in no apparent distress Eye Eye exam: Present conjunctival redness (left) and discharge (left with matting particles in lashes) ENT ENT exam: Present mucous membranes moist Expanded ENT Exam Nose exam: Absent sinus tenderness Throat exam: Present normal inspection Respiratory Respiratory exam: Present normal lung sounds bilaterally; Absent respiratory distress or wheezes Cardiovascular Cardiovascular exam: Present regular rate, normal rhythm and normal heart sounds Abdominal Exam Abdominal exam: Present soft and normal bowel sounds; Absent distention or tenderness Neurological Exam Neurological exam: Present alert, oriented X3 and normal gait Medical Decision Making Prasanna Inquiry Pt receiving controlled substance: No Prasanna was queried for this patient: No Vital Signs: 09/07/23 08:45 Temperature 98.8 F Temperature Source Oral Pulse Rate [Left Brachial] 78 Respiratory Rate 20 Blood Pressure [Left Arm] 148/76 H Blood Pressure Mean [Left Arm] 100 Blood Pressure Source [Left Arm] Automatic Cuff Blood Pressure Position [Left Arm] Sitting 02 Sat by Pulse Oximetry 96 Oxygen Delivery Method Room Air Lab Data Lab results reviewed: Yes I reviewed the patient's lab results.
[2023-09-07 09:06] LABS: UTC Influenza A Antigen Positive (Negative); UTC Influenza B Antigen Positive (Negative)
[2023-09-07 09:07] LABS: UTC Strep Screen (Rapid) Negative (Negative)
[2023-09-07 09:15] VITALS: BP 148/76; PULSE 78; RESP 20; TEMP 37.1; O2SAT 96
== END 2023-09-07 09:18 | disposition home or self-care (01) ==
PROVIDERS: Emergency Provider Nurse Practitioner; PCP Nurse Practitioner Family
DX: J10.1 Influenza due to other identified influenza virus with other respiratory manifestations (principal); J10.2 Influenza due to other identified influenza virus with gastrointestinal manifestations; R07.0 Pain in throat; R51.9 Headache, unspecified; R11.0 Nausea; J34.89 Other specified disorders of nose and nasal sinuses; J45.909 Unspecified asthma, uncomplicated; I10 Essential (primary) hypertension
CPT/HCPCS: 87804; 87880; 99212; 99214; G0463

== ENCOUNTER 2023-09-21 17:23 | Emergency (ER) | payer OTHER, SELFPAY ==
[2023-09-21 17:50] VITALS: BP 138/90; PULSE 95; RESP 19; TEMP 37; O2SAT 99; BMI 52.7
--- NOTE | 2023-09-21 18:23 | ED_ITS ---
Discharge Plan Disposition Patient Disposition: Home, Self-Care Condition: Good Prescriptions Prescriptions: New sulfamethoxazole-trimethoprim [Bactrim DS] 800-160 mg tablet 1 tab PO Q12H 10 Days Qty: 20 0RF No Action Auvelity 45-105 mg tablet, IR and ER, biphasic 1 tab PO BID Qty: 60 1RF trazodone 100 mg tablet See Rx Instructions .ROUTE .COMPLEX Qty: 60 1RF Dose Instruction: TAKE 1 TO 2 TABLETS BY MOUTH AT BEDTIME NEEDED FOR SLEEP Rx Instructions: TAKE 1 TO 2 TABLETS BY MOUTH AT BEDTIME NEEDED FOR SLEEP hydroxyzine pamoate 50 mg capsule 50 mg PO Q8H PRN (Reason: .) Qty: 90 1RF propranolol 40 mg tablet 40 mg PO BID 30 Days Qty: 60 0RF Referrals Follow up/Referrals: Nikia Harden APRN [Primary Care Provider] - See instructions Activity Restrictions/Add. Instructions Additional Instructions/Restrictions: [place] warm water and apply warm compress to the area 3-4 times daily Take medication as prescribed Follow up with OBGYN for further evaluation and exam call tomorrow for appointment Over the counter Motrin and/or Tylenol for pain Straight to ER if any life threatening symptoms or streaks from area, worsening of infection etc Clinical Impressions Clinical Impression: Skin problem Instructions Patient Instructions: Trimethoprim/Sulfamethoxazole (Alternative Therapy), DI for Boils Discharge ED Provider: Josie Reynolds [facility] [place] General Stated complaint: boil Mode of Arrival: Ambulatory Source of Information: Patient Limitations: No Limitations Time Seen by Provider: 09/21/23 18:23 Description of Symptoms (Recalled from Triage Doc. by RN): Pt's has a boil in her genital area. HEENT Symptoms (Recalled from RN notes): No Resp Symptoms (Recalled from RN notes): No Skin Symptoms (Recalled from RN notes): Yes MS Symptoms (Recalled from RN notes): No Functional Status (Recalled from RN notes): n/a History of Present Illness Provider Complaint: Patient states that she has a boil like lesion on the side of her vagina between her vagina and her buttock area States that it has been there about 3 days and is sore and tender to the touch States that she gets boils sometimes but never had one here States that some she has had to see a general surgeon for to have them removed Related Data Previous Rx's Medication Instructions Recorded hydroxyzine pamoate 50 mg capsule 50 mg PO Q8H PRN . #90 caps 05/18/23 propranolol 40 mg tablet 40 mg PO BID 30 days #60 tabs 07/10/23 dextromethorphan IR 45 1 tab PO BID #60 ea 09/20/23 mg-bupropion ER 105 mg biphasic tablet (Auvelity) trazodone 100 mg tablet See Rx Instructions .Route 09/20/23 .COMPLEX #60 tabs sulfamethoxazole 800 1 tab PO Q12H 10 days #20 tabs 09/21/23 mg-trimethoprim 160 mg tablet (Bactrim DS) Allergies Allergy/AdvReac Type Severity Reaction Status Date / Time No Known Allergies Allergy Verified 09/21/23 18:12 Worker's Comp Is this a Worker's Comp case?: No [facility] Disclaimer: The information contained in this section may have been updated after the patient was seen, as this information can be updated by other users. 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 (Reviewed 07/26/23 @ 10:56 by Juventino Byrd ([facility]), SCHOOL CROSSING GUARD) Abnormal Holter monitor finding Anxiety Asthma Chest pain Depression Dizziness Dyspnea Generalized anxiety disorder History of COVID-19 History of gastroesophageal reflux (GERD) Hypertension Insomnia Major depressive disorder Palpitations Urinary tract infection Surgical History (Reviewed 07/26/23 @ 10:56 by Juventino Byrd ([facility]), SCHOOL CROSSING GUARD) H/O tubal ligation History of History of incision and drainage History of surgery History of tonsillectomy and adenoidectomy [place] teeth removed Family History (Reviewed 07/26/23 @ 10:56 by Juventino Byrd ([facility]), SCHOOL CROSSING GUARD) Diabetes Mother Heart disease Grandmother Cirrhosis Father Breast cancer Grandmother COPD (chronic obstructive pulmonary disease) Grandmother Multiple sclerosis Grandmother 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 Smoking Status: Never smoker second hand exposure: No alcohol intake: never counseling given: No substance use type: denies use and other details: delta 8 vape counseling given: No current occupational status: unemployed Travel in the last 8 weeks: None adopted: No caregiver/support person: Yes (she stays home with her kids; SAHM) foster care: No household members: significant other housing: house lives independently: Yes marital status: life partner number of children: 3 number of grandchildren: 0 education level: high school 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 Hx Recent Travel: No sexually active: Yes caffeine: Yes physical activity: none working smoke detector in home: Yes fire extinguisher in home: No carbon monox detector in home: Yes firearms in home: No do you feel safe at home: Yes victim of physical abuse: No victim of emotional abuse: No victim of sexual abuse: No would you like helpful sources: No ROS Obtained: Yes All systems reviewed & no additional complaints except as documented and Yes Systems reviewed as appropriate & no additional complaints except as documented Constitutional Constitutional: Reports system reviewed and no additional complaints, except as documented, Reports as per HPI, Denies body ache, Denies chills and Denies fever(s) ENT Ears, Nose, Mouth, and Throat: Reports system reviewed and no additional complaints, except as documented and Reports as per HPI Cardiovascular Cardiovascular: Reports system reviewed and no additional complaints, except as documented and Reports as per HPI Respiratory Respiratory: Reports system reviewed and no additional complaints, except as documented and Reports as per HPI Gastrointestinal Gastrointestingal: Reports system reviewed and no additional complaints, except as documented and as per HPI Genitourinary Female Genitourinary: Reports system reviewed and no additional complaints, except as documented and Reports as per HPI Comments: boil like lesion in her genital area Physical Exam General General appearance: alert and in no apparent distress ENT ENT exam: Present mucous membranes moist Respiratory Respiratory exam: Present normal lung sounds bilaterally; Absent respiratory distress or wheezes Cardiovascular Cardiovascular exam: Present regular rate, normal rhythm and normal heart sounds Expanded Exam Female Image: 1. red hard area noted tender to the touch no drainage mild surrounding redness Neurological Exam Neurological exam: Present alert, oriented X3 and normal gait Medical Decision Making Prasanna Inquiry Pt receiving controlled substance: No Prasanna was queried for this patient: No Vital Signs: 09/21/23 17:50 Temperature 98.6 F Temperature Source Oral Pulse Rate [Right Radial] 95 H Respiratory Rate 19 Blood Pressure [Right Arm] 138/90 Blood Pressure Mean [Right Arm] 106 Blood Pressure Source [Right Arm] Automatic Cuff Blood Pressure Position [Right Arm] Sitting 02 Sat by Pulse Oximetry 99 Oxygen Delivery Method Room Air
[2023-09-21 18:44] VITALS: BP 138/90; PULSE 95; RESP 19; TEMP 37; O2SAT 99
== END 2023-09-21 18:44 | disposition home or self-care (01) ==
PROVIDERS: Emergency Provider Nurse Practitioner; PCP Nurse Practitioner Family
DX: L02.215 Cutaneous abscess of perineum; I10 Essential (primary) hypertension; E66.01 Morbid (severe) obesity due to excess calories; Z68.43 Body mass index [BMI] 50.0-59.9, adult
CPT/HCPCS: 99212; 99214; G0463

== ENCOUNTER 2023-09-22 18:33 | Emergency (ER) | payer OTHER, SELFPAY ==
[2023-09-22 20:05] VITALS: BP 137/56; PULSE 90; RESP 15; TEMP 36.7; O2SAT 100; BMI 52.7
--- NOTE | 2023-09-22 20:09 | XR_ITS ---
PROCEDURE INFORMATION: Exam: XR Left Knee Exam date and time: 09/22/2023 9:08 PM Age: 28 years old Clinical indication: Injury or trauma; Fall; Blunt trauma; Knee; Left; Additional info: Fall with left knee pain TECHNIQUE: Imaging protocol: Radiologic exam of the left knee. Views: 3 views. COMPARISON: CR [id number] XR knee LT 3V 09/15/2017 6:23 PM FINDINGS: Bones/joints: The osseous structures appear intact with no evidence of acute fracture, dislocation, or malalignment. Joint spaces are preserved. No abnormal bone density or destructive lesions are noted. Soft tissues: Soft tissues appear unremarkable. IMPRESSION: At the time of imaging, there is no evidence for acute osseous abnormalities. Clinical correlation is advised for comprehensive assessment.
--- NOTE | 2023-09-22 20:54 | XR_ITS ---
PROCEDURE INFORMATION: Exam: XR Left Tibia and Fibula Exam date and time: 09/22/2023 9:08 PM Age: 28 years old Clinical indication: Injury or trauma; Fall; Blunt trauma; Knee; Left TECHNIQUE: Imaging protocol: Radiologic exam of the left tibia and fibula. Views: 2 views. COMPARISON: CR XR ANKLE LT MIN 3V 04/02/2022 2:44 PM FINDINGS: Bones/joints: Normal. Soft tissues: Normal. IMPRESSION: No acute findings.
[2023-09-22] MEDS: IBUPROFEN 600 MG TABLET PO (21:00)
[2023-09-22] MEDS: ACETAMINOPHEN 500MG TAB 1000 MG PO (21:00)
--- NOTE | 2023-09-22 21:15 | ED_ITS ---
Discharge Plan Disposition Patient Disposition: Home, Self-Care Chief Complaint: Extremity Injury, Lower Prescriptions Prescriptions: No Action Auvelity 45-105 mg tablet, IR and ER, biphasic 1 tab PO BID Qty: 60 1RF trazodone 100 mg tablet See Rx Instructions .ROUTE .COMPLEX Qty: 60 1RF Dose Instruction: TAKE 1 TO 2 TABLETS BY MOUTH AT BEDTIME NEEDED FOR SLEEP Rx Instructions: TAKE 1 TO 2 TABLETS BY MOUTH AT BEDTIME NEEDED FOR SLEEP hydroxyzine pamoate 50 mg capsule 50 mg PO Q8H PRN (Reason: .) Qty: 90 1RF propranolol 40 mg tablet 40 mg PO BID 30 Days Qty: 60 0RF sulfamethoxazole-trimethoprim [Bactrim DS] 800-160 mg tablet 1 tab PO Q12H 10 Days Qty: 20 0RF Referrals Follow up/Referrals: Nikia Harden APRN [Primary Care Provider] - See instructions Activity Restrictions/Add. Instructions Additional Instructions/Restrictions: Call your family doctor to establish care for this visit to the emergency department and schedule follow-up within 48 hours to ensure improvement. If you have any worsening of your condition or any other concerning signs or symptoms, return to the emergency department or your primary care doctor for further evaluation. Take Tylenol 1000 mg every 6 hours (4 times daily) and ibuprofen 400 mg every 6 hours (4 times daily) as needed with food and water to prevent GI upset and kidney damage. Clinical Impressions Clinical Impression: Acute pain of left knee Discharge ED Provider: Lokesh Marlow General Adult HPI General Chief complaint: Extremity Injury, Lower Stated complaint: AO [id number] @08:30 fell, inj to left leg Time Seen by Provider: 09/22/23 20:33 Mode of Arrival: Family Vehicle Source of Information: Patient Limitations: No Limitations Description of Symptoms (Recalled from ER Triage Doc. by RN): 28 YO FEMALE S/P FALL THIS MORNING; PATIENT TRIPPED OVER A SIDEWALK AND INJURED LEFT KNEE. WORKED THROUGHOUT DAY TODAY AND NOW NEEDS EVALUATED History of Present Illness HPI narrative: 28-year-old female no relevant medical history with left knee injury. Patient states that she tripped over an uneven sidewalk today and landed directly on her knee. Has had difficulty bearing weight and walks with a limp. Pain is moderate to severe in intensity when she bears weight. Mild at rest. Has not taken any medications for it. Neurovascularly intact. Able to bend and extend the knee, but bearing weight causes pain just below the knee joint. Related Data Previous Rx's Medication Instructions Recorded hydroxyzine pamoate 50 mg capsule 50 mg PO Q8H PRN . #90 caps 05/18/23 propranolol 40 mg tablet 40 mg PO BID 30 days #60 tabs 07/10/23 dextromethorphan IR 45 1 tab PO BID #60 ea 09/20/23 mg-bupropion ER 105 mg biphasic tablet (Auvelity) trazodone 100 mg tablet See Rx Instructions .Route 09/20/23 .COMPLEX #60 tabs sulfamethoxazole 800 1 tab PO Q12H 10 days #20 tabs 09/21/23 mg-trimethoprim 160 mg tablet (Bactrim DS) Allergies Allergy/AdvReac Type Severity Reaction Status Date / Time No Known Allergies Allergy Verified 09/21/23 18:12 [facility] Disclaimer: The information contained in this section may have been updated after the patient was seen, as this information can be updated by other users. 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) H/O tubal ligation History of History of incision and drainage History of surgery History of tonsillectomy and adenoidectomy [place] teeth removed Family History , AGRICULT[employer] EDUCATION TEACHER) Diabetes Mother Heart disease Grandmother Cirrhosis Father Breast cancer Grandmother COPD (chronic obstructive pulmonary disease) Grandmother Multiple sclerosis Grandmother 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 Smoking Status: Unknown if ever smoked second hand exposure: No alcohol intake: never counseling given: No substance use type: denies use and other details: delta 8 vape counseling given: No current occupational status: unemployed Travel in the last 8 weeks: None adopted: No caregiver/support person: Yes (she stays home with her kids; SAHM) foster care: No household members: significant other housing: house lives independently: Yes marital status: life partner number of children: 3 number of grandchildren: 0 education level: high school 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 Hx Recent Travel: No sexually active: Yes caffeine: Yes physical activity: none working smoke detector in home: Yes fire extinguisher in home: No carbon monox detector in home: Yes firearms in home: No do you feel safe at home: Yes victim of physical abuse: No victim of emotional abuse: No victim of sexual abuse: No would you like helpful sources: No ROS Obtained: Yes All systems reviewed & no additional complaints except as documented Physical Exam General General appearance: alert and in no apparent distress Head Head exam: atraumatic and normocephalic Eye Eye exam: Present normal appearance, PERRL and EOMI ENT ENT exam: Present mucous membranes moist Neck Neck exam: Present normal inspection, full ROM and trachea midline Respiratory Respiratory exam: Absent respiratory distress, wheezes, stridor, accessory muscle use or prolonged expiratory phase Cardiovascular Cardiovascular exam: Present normal rhythm Abdominal Exam Abdominal exam: Present soft; Absent distention, tenderness, guarding, rebound or rigidity Extremities Exam Extremities exam: Present other (Tenderness, bruising, swelling proximal tibia on the left. Significant swelling, unsure if there is acute bony deformity. Structurally intact. ACL, PCL, LCL, MCL intact.); Absent edema Neurological Exam Neurological exam: Present alert, oriented X3 and CN II-XII intact; Absent motor sensory deficit Skin Skin exam: Present warm and dry; Absent diaphoresis or erythema Medical Decision Making Medical Records Medical records reviewed: Yes I reviewed the patient's medical records. Prasanna Inquiry Pt receiving controlled substance: No Prasanna was queried for this patient: No Vital Signs: 09/22/23 20:05 09/22/23 22:00 09/22/23 22:31 Temperature 98.0 F Temperature Source Oral Pulse Rate 81 89 Pulse Rate [Right Brachial] 90 Respiratory Rate 15 Blood Pressure 133/75 123/78 Blood Pressure [Right Arm] 137/56 L Blood Pressure Mean [Right Arm] 83 Blood Pressure Source [Right Arm] Automatic Cuff Blood Pressure Position [Right Arm] Sitting 02 Sat by Pulse Oximetry 100 100 98 Oxygen Delivery Method Room Air Orders (Tests/Meds): ED MEDICATIONS Discontinued Medications Generic Name Dose Route Start Last Admin Trade Name Freq PRN Reason Stop Dose Admin Acetaminophen 1,000 mg 09/22/23 20:54 09/22/23 21:00 Acetaminophen 500mg Tab PO 09/22/23 20:55 1,000 mg ONCE ONE Administration Ibuprofen 600 mg 09/22/23 20:54 09/22/23 21:00 Ibuprofen 600 Mg Tablet PO 09/22/23 20:55 600 mg ONCE ONE Administration ORDERS Category Date Time Status CT knee LT wo con Stat Cat Scan 09/22/23 21:36 Completed Knee XR left 3 views [XR knee LT 3V] Stat Exams 09/22/23 20:09 Completed XR tibia fibula LT 2V Stat Exams 09/22/23 20:54 Completed Medical Decision Narrative: 28-year-old female no relevant medical history with left knee injury. Patient states that she tripped over an uneven sidewalk today and landed directly on her knee. Has had difficulty bearing weight and walks with a limp. Pain is moderate to severe in intensity when she bears weight. Mild at rest. Has not taken any medications for it. Neurovascularly intact. Able to bend and extend the knee, but bearing weight causes pain just below the knee joint. History was obtained via conversation with patient. On arrival, patient hemodynamically stable, alert, oriented x4, appropriate, GCS 15, moving all extremities spontaneously, pupils equal and reactive to light. Full physical exam performed and significant for tenderness and possible deformity proximal left tibia. Bruising and significant swelling. Neurovascular intact. Differential includes fracture, sprain, strain, neurovascular injury, among others. Workup independently interpreted and significant for negative x-rays. CT was ordered given persistent pain and concern for occult tibial plateau. This was negative as well.. See radiology read for full review of final results. Given patient presentation, workup, history, this most likely represents knee injury in the setting of fall. Because patient at baseline without signs or symptoms of clinical decompensation, deemed appropriate for discharge. Results were relayed to patient who voiced understanding and were agreeable to outpatient management and follow up. At the time of discharge the patient was hemodynamically stable, tolerating PO, and mobilizing appropriately. Critical Care Critical Care Time Critical Care Time: No
--- NOTE | 2023-09-22 21:36 | CT_ITS ---
PROCEDURE INFORMATION: Exam: CT Left Lower Extremity Without Contrast, Knee Exam date and time: 09/22/2023 11:01 PM Age: 28 years old Clinical indication: Pain; Knee; Left; Additional info: Concern for tibial plateau TECHNIQUE: Imaging protocol: CT of the left lower extremity without contrast was performed. Exam focused on the knee. Radiation optimization: All CT scans at this facility use at least one of these dose optimization techniques: automated exposure control; mA and/or kV adjustment per patient size (includes targeted exams where dose is matched to clinical indication); or iterative reconstruction. COMPARISON: 1. CR XR KNEE LT 3V 09/22/2023 9:08 PM 2. CR [id number] XR knee LT 3V 09/15/2017 6:23 PM FINDINGS: Bones/joints: There is very mild medial compartment degenerative change with some marginal osteophytes and joint space narrowing. Alignment is satisfactory. No acute fracture or dislocation. No aggressive osseous lesion. Soft tissues: Normal. IMPRESSION: No evidence for obvious fracture. If concern persists, MRI would be more sensitive.
[2023-09-22 22:00] VITALS: BP 133/75; PULSE 81; O2SAT 100
[2023-09-22 22:31] VITALS: BP 123/78; PULSE 89; O2SAT 98
[2023-09-22 23:46] VITALS: BP 132/67; PULSE 88; RESP 16; TEMP 36.7; O2SAT 99
== END 2023-09-22 23:52 | disposition home or self-care (01) ==
PROVIDERS: Emergency Provider Emergency Medicine; PCP Nurse Practitioner Family
DX: M25.562 Pain in left knee (principal); J45.909 Unspecified asthma, uncomplicated; I10 Essential (primary) hypertension; W01.0XXA Fall on same level from slipping, tripping and stumbling without subsequent striking against object, initial encounter
CPT/HCPCS: 73562; 73590; 73700; 99284

== ENCOUNTER 2023-09-27 07:53 | Emergency (ER) | payer OTHER, SELFPAY ==
[2023-09-27] VITALS (14 sets, daily range): BP systolic 105–145; BP diastolic 60–94; PULSE 77–115; RESP 16–18; TEMP 36.6–36.7; O2SAT 96–100; BMI 51.2
--- NOTE | 2023-09-27 | ECG_ITS ---
APPROVED REPORT Exam: Resting ECG HR:96 bpm ECG Measurements Heart Rate 96 AXES HI 183 P 52 QRSd 88 QRS 69 QT 336 T 28 QTc 390 Conclusion SINUS RHYTHM NORMAL ECG UNCONFIRMED REPORT Electronically signed by : [place] Alexandra MD 09/27/2023 20:58:30
--- NOTE | 2023-09-27 07:59 | XR_ITS ---
FINAL REPORT CLINICAL HISTORY: palpitations COMPARISON: 09/01/2023 FINDINGS: Two views of the chest were obtained. The heart size and pulmonary vascularity are within normal limits. The mediastinum is normal. No acute pulmonary abnormality is identified. There is no pneumothorax. The bony thorax is intact. IMPRESSION: No active cardiopulmonary disease. Reviewed, Interpreted and Dictated by Richy Claudio III, MD Transcribed by Cherrie Toney Authenticated and [facility]
--- NOTE | 2023-09-27 08:00 | HMH.EDGENADL ---
Discharge Plan Disposition Patient Disposition: Home, Self-Care Condition: Good Prescriptions Prescriptions: New propranolol 40 mg tablet 40 mg PO BID 60 Days Qty: 120 0RF ondansetron 4 mg tablet,disintegrating 4 mg PO Q6 PRN (Reason: nausea and vomiting) 4 Days Qty: 16 0RF No Action Auvelity 45-105 mg tablet, IR and ER, biphasic 1 tab PO BID Qty: 60 1RF trazodone 100 mg tablet See Rx Instructions .ROUTE .COMPLEX Qty: 60 1RF Dose Instruction: TAKE 1 TO 2 TABLETS BY MOUTH AT BEDTIME NEEDED FOR SLEEP Rx Instructions: TAKE 1 TO 2 TABLETS BY MOUTH AT BEDTIME NEEDED FOR SLEEP hydroxyzine pamoate 50 mg capsule 50 mg PO Q8H PRN (Reason: .) Qty: 90 1RF propranolol 40 mg tablet 40 mg PO BID 30 Days Qty: 60 0RF sulfamethoxazole-trimethoprim [Bactrim DS] 800-160 mg tablet 1 tab PO Q12H 10 Days Qty: 20 0RF Referrals Follow up/Referrals: Nikia Harden APRN [Primary Care Provider] - See instructions Activity Restrictions/Add. Instructions Additional Instructions/Restrictions: You have been evaluated in the ED for your complaints. You may follow-up with your PCP in the next 3 to 5 days. Please return to ED for any new or worsening symptoms. As discussed, please follow-up with your audit machine operator concerning palpitations Clinical Impressions Clinical Impression: Heart palpitations Stand Alone Forms Stand Alone Forms: Work/School Release Instructions Patient Instructions: DI for Palpitations Discharge ED Provider: Doug Stauffer Adult HPI General Chief complaint: Arrhythmia/Palpitations Stated complaint: weakness Time Seen by Provider: 09/27/23 07:56 History of Present Illness HPI narrative: 28-year-old female with past medical history significant for hypertension currently on propranolol 40 mg twice daily, history of fatty liver, history of tubal ligation, presents today for evaluation concerning palpitations, lightheadedness and 1 episode of N/V after waking up this morning and getting up from bed. She denies having any chest pain but does note that she a degree of shortness of breath during onset of her palpitations. Denies having any recent illnesses, cough, congestion, fevers, chills, abdominal pain, dysuria, hematuria. Has not had any diarrhea or constipation. Denies at this time. She is not on contraceptives. No other complaints. Related Data Previous Rx's Medication Instructions Recorded hydroxyzine pamoate 50 mg capsule 50 mg PO Q8H PRN . #90 caps 05/18/23 propranolol 40 mg tablet 40 mg PO BID 30 days #60 tabs 07/10/23 dextromethorphan IR 45 1 tab PO BID #60 ea 09/20/23 mg-bupropion ER 105 mg biphasic tablet (Auvelity) trazodone 100 mg tablet See Rx Instructions .Route 09/20/23 .COMPLEX #60 tabs sulfamethoxazole 800 1 tab PO Q12H 10 days #20 tabs 09/21/23 mg-trimethoprim 160 mg tablet (Bactrim DS) ondansetron 4 mg disintegrating 4 mg PO Q6 PRN nausea and vomiting 09/27/23 tablet 4 days #16 tabs propranolol 40 mg tablet 40 mg PO BID 60 days #120 tabs 09/27/23 Allergies Allergy/AdvReac Type Severity Reaction Status Date / Time No Known Allergies Allergy Verified 09/21/23 18:12 [facility] Disclaimer: The information contained in this section may have been updated after the patient was seen, as this information can be updated by other users. 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) H/O tubal ligation History of History of incision and drainage History of surgery History of tonsillectomy and adenoidectomy [place] teeth removed Family History , FIRE MANAGEMENT OFFICER) Diabetes Mother Heart disease Grandmother Cirrhosis Father Breast cancer Grandmother COPD (chronic obstructive pulmonary disease) Grandmother Multiple sclerosis Grandmother 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 Smoking Status: Never smoker second hand exposure: No alcohol intake: never counseling given: No substance use type: denies use and other details: delta 8 vape counseling given: No current occupational status: unemployed Travel in the last 8 weeks: None adopted: No caregiver/support person: Yes (she stays home with her kids; LANEY) foster care: No household members: significant other housing: house lives independently: Yes marital status: life partner number of children: 3 number of grandchildren: 0 education level: high school 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 Hx Recent Travel: No sexually active: Yes caffeine: Yes physical activity: none working smoke detector in home: Yes fire extinguisher in home: No carbon monox detector in home: Yes firearms in home: No do you feel safe at home: Yes victim of physical abuse: No victim of emotional abuse: No victim of sexual abuse: No would you like helpful sources: No ROS Obtained: Yes All systems reviewed & no additional complaints except as documented Physical Exam General General appearance: alert and in no apparent distress Head Head exam: atraumatic and normocephalic Eye Eye exam: Present normal appearance, PERRL and EOMI ENT ENT exam: Present normal oropharynx and mucous membranes moist Neck Neck exam: Present full ROM; Absent meningismus Respiratory Respiratory exam: Present normal lung sounds bilaterally; Absent respiratory distress, wheezes, stridor or accessory muscle use Cardiovascular Cardiovascular exam: Present normal rhythm and tachycardia Abdominal Exam Abdominal exam: Present soft; Absent distention, tenderness, guarding, rebound or rigidity Neurological Exam Neurological exam: Present alert, oriented X3 and CN II-XII intact; Absent motor sensory deficit Psychiatric Psychiatric exam: Present normal affect and normal mood Skin Skin exam: Present warm and dry Medical Decision Making Medical Records Medical records reviewed: Yes I reviewed the patient's medical records. Prasanna Inquiry Pt receiving controlled substance: No Prasanna was queried for this patient: No Vital Signs: 09/27/23 07:54 09/27/23 08:45 09/27/23 07:57 Temperature 97.9 F Temperature Source Oral Pulse Rate 93 H Pulse Rate [Orthostatic Lying Right Radial] 96 H Pulse Rate [Orthostatic Sitting Right Radial] 105 H Pulse Rate [Orthostatic Standing Right Radial] 115 H Pulse Rate [Radial] 94 H Respiratory Rate 18 Blood Pressure 130/85 Blood Pressure [Orthostatic Lying Left Arm] 126/83 Blood Pressure [Orthostatic Sitting Left Arm] 142/89 H Blood Pressure [Orthostatic Standing Left Arm] 145/94 H Blood Pressure [Right Arm] 130/85 Blood Pressure Mean [Right Arm] 100 Blood Pressure Source [Right Arm] Automatic Cuff Blood Pressure Position [Right Arm] Sitting 02 Sat by Pulse Oximetry 100 100 Oxygen Delivery Method Room Air Room Air 09/27/23 08:00 09/27/23 08:20 09/27/23 08:41 Temperature Temperature Source Pulse Rate 98 H 95 H 85 Pulse Rate [Orthostatic Lying Right Radial] Pulse Rate [Orthostatic Sitting Right Radial] Pulse Rate [Orthostatic Standing Right Radial] Pulse Rate [Radial] Respiratory Rate Blood Pressure 133/64 136/76 114/76 Blood Pressure [Orthostatic Lying Left Arm] Blood Pressure [Orthostatic Sitting Left Arm] Blood Pressure [Orthostatic Standing Left Arm] Blood Pressure [Right Arm] Blood Pressure Mean [Right Arm] Blood Pressure Source [Right Arm] Blood Pressure Position [Right Arm] 02 Sat by Pulse Oximetry 99 99 100 Oxygen Delivery Method Room Air Room Air Room Air 09/27/23 08:50 09/27/23 08:52 09/27/23 09:01 Temperature Temperature Source Pulse Rate 92 H 115 H 80 Pulse Rate [Orthostatic Lying Right Radial] Pulse Rate [Orthostatic Sitting Right Radial] Pulse Rate [Orthostatic Standing Right Radial] Pulse Rate [Radial] Respiratory Rate Blood Pressure 126/83 142/89 H 117/78 Blood Pressure [Orthostatic Lying Left Arm] Blood Pressure [Orthostatic Sitting Left Arm] Blood Pressure [Orthostatic Standing Left Arm] Blood Pressure [Right Arm] Blood Pressure Mean [Right Arm] Blood Pressure Source [Right Arm] Blood Pressure Position [Right Arm] 02 Sat by Pulse Oximetry 100 100 100 Oxygen Delivery Method Room Air Room Air Room Air 09/27/23 09:20 09/27/23 09:40 09/27/23 10:00 Temperature Temperature Source Pulse Rate 88 93 H 81 Pulse Rate [Orthostatic Lying Right Radial] Pulse Rate [Orthostatic Sitting Right Radial] Pulse Rate [Orthostatic Standing Right Radial] Pulse Rate [Radial] Respiratory Rate Blood Pressure 110/60 105/64 L 118/72 Blood Pressure [Orthostatic Lying Left Arm] Blood Pressure [Orthostatic Sitting Left Arm] Blood Pressure [Orthostatic Standing Left Arm] Blood Pressure [Right Arm] Blood Pressure Mean [Right Arm] Blood Pressure Source [Right Arm] Blood Pressure Position [Right Arm] 02 Sat by Pulse Oximetry 99 99 99 Oxygen Delivery Method Room Air Room Air Room Air 09/27/23 10:20 Temperature Temperature Source Pulse Rate 111 H Pulse Rate [Orthostatic Lying Right Radial] Pulse Rate [Orthostatic Sitting Right Radial] Pulse Rate [Orthostatic Standing Right Radial] Pulse Rate [Radial] Respiratory Rate Blood Pressure 120/61 Blood Pressure [Orthostatic Lying Left Arm] Blood Pressure [Orthostatic Sitting Left Arm] Blood Pressure [Orthostatic Standing Left Arm] Blood Pressure [Right Arm] Blood Pressure Mean [Right Arm] Blood Pressure Source [Right Arm] Blood Pressure Position [Right Arm] 02 Sat by Pulse Oximetry 96 Oxygen Delivery Method Room Air Lab Data Lab Results 09/27/23 07:55: WBC 7.6, RBC 4.41, Hgb 13.4, Hct 40.3, MCV 91.3, MCH 30.3, MCHC 33.1, RDW 13.7, Plt Count 362, MPV 7.7, Neut % (Auto) 59.6, Lymph % (Auto) 33.4, [place] % (Auto) 4.7, Eos % (Auto) 1.9, Baso % (Auto) 0.4, Neut # (Auto) 4.5, Lymph # (Auto) 2.5, [place] # (Auto) 0.4, Eos # (Auto) 0.1, Baso # (Auto) 0.0, Sodium 137, Potassium 3.8, Chloride 109 H, Carbon Dioxide 21 L, Anion Gap 10.8, BUN 9, Creatinine 0.70, Estimated Creat Clear 95, Estimated GFR 100, Est GFR ( Amer) 121, Glucose 129 H, Calcium 8.8, Magnesium 1.9, Total Bilirubin 0.3, AST 57 H, ALT 52, Alkaline Phosphatase 153 H, Total Protein 7.2, Albumin 3.8, Globulin 3.4 H, Albumin/Globulin Ratio 1.1, TSH 2.22, Free T4 0.94, Serum HCG, Qual Negative 09/27/23 08:06: SARS-CoV-2 (PCR) Not detected, Influenza A Untype (PCR) Not detected, Influenza Type B (PCR) Not detected 09/27/23 07:55 09/27/23 07:55 Orders (Tests/Meds): ED MEDICATIONS Discontinued Medications Generic Name Dose Route Start Last Admin Trade Name Freq PRN Reason Stop Dose Admin Lactated Ringer's 500 mls @ 999 mls/hr 09/27/23 07:57 09/27/23 08:04 Lactated Ringer's 1000 Ml Bag IV 09/27/23 08:27 999 mls/hr .Q31M ONE Administration Propranolol HCl 40 mg 09/27/23 10:27 09/27/23 10:32 Propranolol 20mg Tab PO 09/27/23 10:28 40 mg ONCE ONE Administration ORDERS Category Date Time Status CXR 2 view (NOT portable) [XR chest 2V] Stat Exams 09/27/23 07:59 Completed CBC w/Auto Diff [Complete Blood Count Auto Diff] Stat Lab 09/27/23 07:55 Completed CMP [Comprehensive Metabolic Panel] Stat Lab 09/27/23 07:55 Completed Free T4 (Free Thyroxine) Stat Lab 09/27/23 07:55 Completed Magnesium Stat Lab 09/27/23 07:55 Completed Rapid PCR Covid and Flu A/B Stat Lab 09/27/23 08:06 Completed Serum [HCG Qualitative, Serum] Stat Lab 09/27/23 07:55 Completed TSH [Thyroid Stimulating Hormone] Stat Lab 09/27/23 07:55 Completed ECG initial [place] Routine Y 09/27/23 Completed ECG Data Tracing #1: I reviewed this ECG and interpreted as documented below: EKG personally interpreted by me. Normal sinus rhythm with a rate of [address] elevations are noted to suggest ischemia. Medical Decision Narrative: 28-year-old female with past medical history significant for hypertension currently on propranolol 40 mg twice daily, history of fatty liver, history of tubal ligation, presents today for evaluation concerning palpitations, lightheadedness and 1 episode of N/V after waking up this morning and getting up from bed. She denies having any chest pain but does note that she a degree of shortness of breath during onset of her palpitations. On assessment, the patient is hemodynamically stable and in no acute distress. Afebrile. Mild tachycardia with heart rate in the upper 90s and low 100s. Chest was clear to auscultation bilaterally. Abdomen was soft nondistended and nontender to palpation. Other physical exam findings were unremarkable. Differential diagnoses include but not limited to vagal response, orthostasis, dysrhythmia, electrolyte disturbance, COVID, influenza, pleural effusion, pneumonia, among others. ACS considered however patient is without chest pain and so troponins were deferred. EKG was with normal sinus rhythm with a rate of [address] elevations. Lab workup today has been nonactionable. CBC was nonactionable with a white count of 7.6. AST 57, alkaline phosphatase of 153. TSH and free T4 within range at 2.2 and 0.94. Negative screen. Negative COVID/influenza swabs. On reassessment the patient remains medically stable and in no acute distress. She states that her symptoms are improved at this time. She is no longer tachycardic and has not had any palpitations. I did ambulate patient while in the ED and she maintained a normal heart rate. I discussed ED workup results and current plan to discharge with supportive care measures. She will contact her audit machine operator to schedule follow-up within the next 48 hours concerning her palpitations. Provided with return ED precautions. She verbalized understanding and agreement. Certainly discharged home in medically stable and in no acute distress. Critical Care Critical Care Time Critical Care Time: No
[2023-09-27] MEDS: LACTATED RINGERS 1000ML 500 ML 999 ML IV (08:04)
[2023-09-27 08:07] LABS: Basophils % 0.4 % (0.1-2.0); Eosinophils # 0.1 K/mm3 (0.0-0.4); Eosinophils % 1.9 % (0.1-12.0); Hematocrit 40.3 % (37.0-47.0); Hemoglobin 13.4 g/dL (12.2-16.2); Lymphocytes # 2.5 K/mm3 (0.7-4.5); Lymphocytes % 33.4 % (10-50); Mean Corpuscular HGB Conc 33.1 g/dL (31.8-35.4); Mean Corpuscular Hemoglobin 30.3 pg (27.0-31.2); Mean Corpuscular Volume 91.3 fl (81-99); Mean Platelet Volume 7.7 fl (7.4-10.4); Monocytes # 0.4 K/mm3 (0.1-1.0); Monocytes % 4.7 % (1.7-9.3); Neutrophils # 4.5 K/mm3 (1.8-7.8); Neutrophils % 59.6 % (37.0-80.0); Platelet Count 362 K/mm3 (142-424); Red Blood Count 4.41 M/mm3 (4.20-5.40); Red Cell Distribution Width 13.7 % (11.5-17.5); White Blood Count 7.6 K/mm3 (4.8-10.8)
[2023-09-27 08:09] LABS: Coronavirus 19, PCR Not Detected (NotDetected); Influenza A, PCR Not Detected (NotDetected); Influenza B, PCR Not Detected (NotDetected)
[2023-09-27 08:20] LABS: HCG Qualitative, Serum Negative (Negative)
[2023-09-27 08:38] LABS: Chloride 109 mmol/L (98-107); Potassium 3.8 mmoL/L (3.5-5.1); Sodium 137 mmol/L (136-145)
[2023-09-27 08:40] LABS: Alanine Aminotransferase 52 U/L (12-78); Aspartate Amino Transferase 57 U/L (14-36); Blood Urea Nitrogen 9 mg/dl (7-17); Creatinine Clearance Estimated 95 mL/min (50-200); Estimated Glomerular Filt Rate 100 ml/min (>60); GFR (African American) 121 ML/MIN (>60)
[2023-09-27 08:41] LABS: Albumin Level 3.8 g/dl (3.5-5.0); Albumin/Globulin Ratio 1.1 (1.1-1.8); Alkaline Phosphatase 153 U/L (38-126); Anion Gap 10.8 mEq/L (5-15); Bilirubin,Total 0.3 mg/dl (0.2-1.3); Calcium 8.8 mg/dl (8.4-10.2); Carbon Dioxide 21 mmol/L (22.0-30.0); Globulin 3.4 g/dL (1.3-3.2); Glucose 129 mg/dl (74-100); Total Protein,Serum 7.2 g/dl (6.3-8.2)
[2023-09-27 08:42] LABS: Magnesium 1.9 mg/dl (1.6-2.3)
--- NOTE | 2023-09-27 09:05 | PC.NURSE ---
Pt resting in bed. No needs voiced at this time. Call light within reach
[2023-09-27 09:12] LABS: Thyroid Stimulating Hormone 2.22 uIU/mL (0.465-4.68)
[2023-09-27 09:30] LABS: Free T4 (Free Thyroxine) 0.94 ng/dl (0.78-2.19)
--- NOTE | 2023-09-27 10:00 | PC.NURSE ---
ROUNDED ON PT, PT DENIES NEEDS OR CONCERNS. CALL LIGHT WITHIN REACH
[2023-09-27] MEDS: PROPRANOLOL 20MG TAB 40 MG PO (10:32)
== END 2023-09-27 11:02 | disposition home or self-care (01) ==
PROVIDERS: Emergency Provider Emergency Medicine; PCP Nurse Practitioner Family
DX: R00.2 Palpitations (principal); R42 Dizziness and giddiness; R11.2 Nausea with vomiting, unspecified; I10 Essential (primary) hypertension
CPT/HCPCS: 71046; 80053; 83735; 84439; 84443; 84703; 85025; 87636; 93005; 99284

== ENCOUNTER 2023-10-04 15:46 | Outpatient (CLI) | payer OTHER, SELFPAY | END 2023-10-04 23:59 | PROVIDERS: PCP Nurse Practitioner Family; Visit Provider Internal Medicine | DX: I10 Essential (primary) hypertension (principal); R06.00 Dyspnea, unspecified; R07.9 Chest pain, unspecified | CPT/HCPCS: 93270 ==

== ENCOUNTER 2023-10-05 08:13 | Outpatient (CLI) | payer OTHER, SELFPAY ==
[2023-10-05 08:53] LABS: Basophils % 0.2 % (0.1-2.0); Eosinophils # 0.2 K/mm3 (0.0-0.4); Eosinophils % 3.2 % (0.1-12.0); Hematocrit 40.6 % (37.0-47.0); Hemoglobin 12.9 g/dL (12.2-16.2); Lymphocytes # 2.2 K/mm3 (0.7-4.5); Mean Corpuscular HGB Conc 31.8 g/dL (31.8-35.4); Mean Corpuscular Volume 94.5 fl (81-99); Mean Platelet Volume 7.1 fl (7.4-10.4); Monocytes # 0.4 K/mm3 (0.1-1.0); Monocytes % 5.7 % (1.7-9.3); Neutrophils # 4.1 K/mm3 (1.8-7.8); Neutrophils % 58.9 % (37.0-80.0); Platelet Count 378 K/mm3 (142-424); Red Blood Count 4.29 M/mm3 (4.20-5.40); Red Cell Distribution Width 13.6 % (11.5-17.5); White Blood Count 6.9 K/mm3 (4.8-10.8)
[2023-10-05 09:18] LABS: Chloride 104 mmol/L (98-107); Sodium 137 mmol/L (136-145)
[2023-10-05 09:19] LABS: Potassium 4.1 mmoL/L (3.5-5.1)
[2023-10-05 09:22] LABS: Anion Gap 5.1 mEq/L (5-15); Blood Urea Nitrogen 14 mg/dl (7-17); Calcium 9.1 mg/dl (8.4-10.2); Carbon Dioxide 32 mmol/L (22.0-30.0); Estimated Glomerular Filt Rate 100 ml/min (>60); GFR (African American) 121 ML/MIN (>60); Glucose 127 mg/dl (74-100)
[2023-10-05 09:37] LABS: Free T4 (Free Thyroxine) 0.75 ng/dl (0.78-2.19)
[2023-10-05 09:51] LABS: Thyroid Stimulating Hormone 3.79 uIU/mL (0.465-4.68)
[2023-10-14 13:36] LABS: Dopamine, Plasma < 30 pg/mL (0-48); Epinephrine, Plasma 38 pg/mL (0-62); Norepinephrine, Plasma 314 pg/mL (0-874)
[2023-10-17 09:52] LABS: Antinuclear Antibodies, IFA Positive
== END 2023-10-05 23:59 | disposition home or self-care (01) ==
LOC: LAB 08:14
PROVIDERS: PCP Nurse Practitioner Family; Visit Provider Internal Medicine
DX: I10 Essential (primary) hypertension (principal); R06.00 Dyspnea, unspecified; R07.9 Chest pain, unspecified; R00.2 Palpitations; R00.0 Tachycardia, unspecified; R20.0 Anesthesia of skin; R20.2 Paresthesia of skin
CPT/HCPCS: 36415; 80048; 82384; 82533; 83520; 84439; 84443; 85025; 86038

== ENCOUNTER 2023-10-12 08:53 | Outpatient (CLI) | payer OTHER, SELFPAY ==
--- NOTE | 2023-10-12 08:53 | CT_ITS ---
APPROVED REPORT Stone Grader: CLINICAL INDICATION Chest Pain TECHNIQUE Image Acquisition: A 128 slice MDCT scanner (Dreamitizea View) was used for data acquisition. A noncontrast coronary calcium scan was performed. A CT attenuation threshold of 130 Hounsfield units (HU) was used for the detection of calcium in contiguous voxels of 1 sq mm in area to be counted as individual lesions. Bolus tracking in the ascending aorta with a threshold of 180 HU was performed. Immediately afterwards, ECG synchronized cardiac CT was then performed from the cardiac base to apex using retrospective gating with ECG tube current modulation. A total of 85 mL of Isovue 370 mg/mL contrast medium was administered at 5 mL/sec followed by a saline flush using a biphasic injection protocol. A tube voltage of 120 KVp was used. The patient received the following medications prior to the cardiac CT. 75 mg of oral metoprolol 15 mg of intravenous metoprolol 15 mg of oral ivabradine 0.8 mg of sublingual nitroglycerin The average heart rate at the time of acquisition was 58 bpm and regular. Image Reconstruction Transaxial images were reconstructed at 0.67 mm slide thickness. Data was reviewed interactively on an advanced workstation capable of 2 and 3-dimensional displays in all conventional reconstruction formats, including multiplanar reformations, maximum intensity projections, curved multiplanar reformations, and volume rendered reconstructions. When applicable, selected routine images describing the relevant coronary anatomy and pathology were saved and sent to PACS. Complications None Technical Quality Overall image quality was good. Coronary artery opacification was adequate. Total DLP (Dose-Length Product) is 2088.5 mGy-cm. The reported value represents the total of one or more individual components during the CT acquisition of this date and at this time, and as such, the same value may appear in more than one CT report depending on the interpreting/reporting physicians. COMPARISON None FINDINGS CT Coronary Calcium Scoring LMA (Left Main Artery) = 0 LAD (Left Anterior Descending) = 0 LCX (Left Coronary Circumflex) = 0 RCA (Right Coronary Artery) = 0 Total Calcium Score = 0 using the AJ-130 method. The interpretation of the calcium heart score is based on the following continuum*: 0 = no calcified plaque detected (risk of coronary artery disease is very low ??? less than 5%) 1-10 = calcium detected in extremely minimal levels (risk of coronary diseases is still low ??? less than 10%) 11-100 = mild levels of plaque detected with certainty (mild or minimal narrowing of heart arteries is likely) 101-400 = definite,at least moderate levels of plaque detected (relatively high risk of a heart attack within 3-5 years) >401-999 = extensive levels of plaque detected (high risk of heart attack, high levels of vascular disease are present, high likelihood of at least one significant coronary narrowing) *The calcium heart score quantifies the burden of coronary calcification/plaque in the coronary arteries. The calcium heart score is not able to evaluate the presence or burden of non-calcified (i.e. soft) plaque. There is no identifiable calcification in the aortic valve, mitral annulus or mitral valve, pericardium, or myocardium. Coronary CT Angiography The coronary arterial system is right dominant. Quantitative Stenosis Grading: Left Main (LM): The left main originates normally from the left sinus of Valsalva. The LM bifurcates into the left anterior descending artery and left circumflex artery. The LM is patent with no evidence of atherosclerosis. Left Anterior Descending (LAD) and Diagonal Branches: The LAD gives off 2 diagonal branch(es). The LAD and its branches are patent with no evidence of atherosclerosis. There is no evidence of LAD-myocardial bridge. Left Circumflex (LCX) and Obtuse Marginals (OM): The LCX gives off 1 Obtuse Marginal (OM) branch(es). The LCX and its branches are patent with no evidence of atherosclerosis. Right Coronary Artery (RCA): The RCA originates normally from the right sinus of Valsalva. The RCA gives off a posterior descending artery (PDA) and posterolateral (PL) branches. The RCA and its branches are patent with no evidence of atherosclerosis. Non-Coronary Cardiac Findings: Analysis of the left ventricular (LV) structure and function was performed after 3-D reconstruction of the LV from axial images, with user-corrected automatic contouring for assessment of LV volumes and user-defined reconstruction from oblique planes for measurement of 3-D cardiac structure and function. -The left ventricle systolic function is normal (LVEF 52%) -There is no left atrial appendage filling defect. Two right pulmonary veins and two left pulmonary veins drain normally into the left atrium. -No pericardial thickening or calcification. -Central and branch pulmonary arteries in the [id number] are unremarkable. -Thoracic aorta within the visualized thoracic aortic-branches in the [id number] is unremarkable. Extracardiac Structures No significant extra-cardiac findings. Note, however, that this study is focused on the cardiac findings. IMPRESSION -No coronary calcification with an Agatston score = 0 using the AJ-130 method. -No evidence of significant flow-limiting atherosclerosis of the coronary arteries. -No evidence of coronary anomalies or myocardial bridge. -CAD-RADS 0. Management recommendations per ACC/AHA guidelines*, as clinically appropriate. *Recommendations: CAD RADS 0: Reassurance. Consider non-atherosclerotic causes of chest pain. CAD RADS 1: Consider non-atherosclerotic causes of chest pain. Consider preventive therapy and risk factor modification. CAD RADS 2: Consider non-atherosclerotic causes of chest pain. Consider preventive therapy and risk factor modification, particularly for patients with nonobstructive plaque in multiple segments. CAD RADS 3: Consider further functional testing. Consider symptom-guided anti-ischemic and preventive pharmacotherapy as well as risk factor modification per published guideline statements. CAD RADS 4A: Consider further functional testing or invasive coronary angiography with revascularization per published guideline statements. Consider symptom-guided anti-ischemic and preventive pharmacotherapy as well as risk factor modification per published guideline statements. CAD RADS 4B: Invasive coronary angiography recommended with revascularization per published guideline statements. Consider symptom-guided anti-ischemic and preventive pharmacotherapy as well as risk factor modification per published guideline statements. CAD RADS 5: Consider invasive angiography and/or viability assessment with revascularization per published guideline statements. Consider symptom-guided anti-ischemic and preventive pharmacotherapy as well as risk factor modification per published guideline statements. CRITICAL RESULT None COMMUNICATION Per this written report The coronary and cardiac findings of this CCTA were reviewed, reported, and signed by Galileo Rubio MD (Mechanical Reliability Engineer) Conclusion Electronically signed by : Tari Rubio MD 10/16/2023 16:13:48
[2023-10-12 09:12] VITALS: BMI 51.2
[2023-10-12 09:22] VITALS: BP 130/75; PULSE 72; RESP 18; TEMP 36.2; O2SAT 99
[2023-10-12] MEDS: METOPROLOL TARTRATE 25MG TABLET 25 MG (09:22)
[2023-10-12] MEDS: IVABRADINE HCL 7.5MG TABLET PO (09:22)
[2023-10-12] MEDS: METOPROLOL TARTRATE 50MG TABLET PO (09:22)
[2023-10-12 09:27] LABS: Urine Pregnancy, HCG Qual. Negative (Negative)
--- NOTE | 2023-10-12 10:38 | CA_ITS ---
APPROVED REPORT EXAM: Comprehensive 2D, Doppler, and color-flow Echocardiogram Mentally Impaired Teacher: Rae Kemp RVT Ht: 5 ft 2 in Wt: 287lbs BSA: 2.23 BP: 122/74 mmHg Indications: SOA,CP,HTN,PALPS,TACHYCARDIA 2D Dimensions LA Volume 32.90 mL LA Volume Index 14.75 mL/m2 (M/F) 16-34 M-Mode Dimensions RVDd 3.02 cm (0.9-2.6) LA Diam 3.27 cm (1.9-4.0) LVDd 4.74 cm (3.5-5.7) LVDs 3.53 cm (3.5-5.7) IVSd 0.76 cm (0.6-1.1) PWd 0.51 cm (0.6-1.1) EF (Teich) 50.30% FS 25.50% EDV (Teich) 104.40 mL TAPSE 2.68 (<1.7) ESV (Teich) 51.90 mL LV Diastology E Decel Time 150 (160-240 msec) E/A Ratio 1.6 Aortic Valve CARMEN Index 1.92 cm2/m2 AoV Peak Bladimir. 137.0 (50-130 cm/s) AO Peak GR. 7.50 mmHg AO Mean GR. 3.70 (<5 mmHg) AO VTI 28.5 (18-25 cm) CARMEN (VTI) 4.38 (2.5-4.5 cm2) Mitral Valve MV E Max Bladimir. 114.0 (40-130 cm/s) MV A Velocity 73.0 (40-130 cm/s) E/A Ratio 1.56 MV PHT 44.0 ms Pulmonary Valve PV Peak Velocity 72.0 (50-150 cm/s) Left Ventricle The left ventricle is normal size. The left ventricular systolic function is normal. The left ventricular ejection fraction is within the normal range. There is normal left ventricular wall thickness. There is normal LV segmental wall motion. The left ventricular diastolic function is normal. LVEF is 55%. Right Ventricle The right ventricle is normal size. The right ventricular systolic function is normal. Atria The left atrium size is normal. The right atrium size is normal. There is no Doppler evidence of interatrial shunt. Aortic Valve The aortic valve opens well. There is no aortic valvular stenosis. No aortic regurgitation is present. Mitral Valve The mitral valve is normal in structure. No evidence of mitral valve stenosis. There is no mitral valve regurgitation noted. Tricuspid Valve The tricuspid valve leaflets are thin and pliable. Trace tricuspid regurgitation. There is insufficient TR jet to estimate RVSP. Pulmonic Valve The pulmonary valve is normal in structure. Trace pulmonic regurgitation. Great Vessels The aortic root is normal in size. The ascending aorta is normal in size. IVC is normal in size and collapses >50% with inspiration. Pericardium There is no pericardial effusion. Other Information Study Quality: Fair Conclusion Normal biventricular systolic function. No significant valvular stenosis or regurgitation. Electronically signed by : Tari Rubio MD 10/16/2023 17:10:14
[2023-10-12 10:39] VITALS: BP 118/75; PULSE 69; RESP 16; O2SAT 96
[2023-10-12] MEDS: NITROGLYCERIN 0.4MG SL TABLET SL (10:42)
[2023-10-12 10:44] VITALS: BP 100/62; PULSE 67; RESP 16; O2SAT 97
[2023-10-12] MEDS: METOPROLOL TARTRATE 5MG/5ML VIAL 5 MG IV ×3 (10:44→10:56)
[2023-10-12 10:49] VITALS: BP 108/67; PULSE 66; RESP 16; O2SAT 98
[2023-10-12 10:56] VITALS: BP 114/69; PULSE 61; RESP 16; O2SAT 98
[2023-10-12] MEDS: IOPAMIDOL-370 (76%);100ML BOTTLE 85 ML IV (11:08)
[2023-10-12] MEDS: 0.9 % SODIUM CHLORIDE 50 ML VIAL IV (11:08)
== END 2023-10-12 11:15 | disposition home or self-care (01) ==
PROVIDERS: PCP Nurse Practitioner Family; Visit Provider Internal Medicine
DX: R06.00 Dyspnea, unspecified (principal); R07.9 Chest pain, unspecified; R00.2 Palpitations; I10 Essential (primary) hypertension
CPT/HCPCS: 75571; 75574; 81025; 93306; Q9967

== ENCOUNTER 2023-12-12 08:09 | Emergency (ER) | payer OTHER, SELFPAY ==
[2023-12-12] VITALS (10 sets, daily range): BP systolic 111–145; BP diastolic 60–91; PULSE 30–85; RESP 12–19; TEMP 36.7–36.8; O2SAT 96–100; BMI 53.0
--- NOTE | 2023-12-12 08:07 | ECG_ITS ---
APPROVED REPORT Exam: Resting ECG HR:82 bpm ECG Measurements Heart Rate 82 AXES ID [id number] P 66 QRSd 93 QRS 83 QT 348 T 60 QTc 386 Conclusion SINUS RHYTHM NORMAL ECG Electronically signed by : ROX MANRIQUE, 12/12/2023 14:25:55
--- NOTE | 2023-12-12 08:15 | PC.NURSE ---
DR MANRIQUE AT BEDSIDE
--- NOTE | 2023-12-12 08:15 | PC.NURSE ---
dr hurt is at bedside with pt
[2023-12-12 08:20] LABS: Basophils # 0.1 K/mm3 (0-0.2); Basophils % 0.7 % (0.1-2.0); Eosinophils # 0.2 K/mm3 (0.0-0.4); Eosinophils % 1.6 % (0.1-12.0); Hematocrit 39.7 % (37.0-47.0); Hemoglobin 12.9 g/dL (12.2-16.2); Lymphocytes # 2.6 K/mm3 (0.7-4.5); Lymphocytes % 22.4 % (10-50); Mean Corpuscular HGB Conc 32.5 g/dL (31.8-35.4); Mean Corpuscular Hemoglobin 30.1 pg (27.0-31.2); Mean Corpuscular Volume 92.6 fl (81-99); Mean Platelet Volume 7.5 fl (7.4-10.4); Monocytes # 0.5 K/mm3 (0.1-1.0); Monocytes % 4.7 % (1.7-9.3); Neutrophils # 8.1 K/mm3 (1.8-7.8); Neutrophils % 70.6 % (37.0-80.0); Platelet Count 378 K/mm3 (142-424); Red Blood Count 4.28 M/mm3 (4.20-5.40); Red Cell Distribution Width 13.9 % (11.5-17.5); White Blood Count 11.4 K/mm3 (4.8-10.8)
[2023-12-12] MEDS: ONDANSETRON 4MG/2ML VIAL 4 MG IV (08:26)
--- NOTE | 2023-12-12 08:31 | [facility].EDCP ---
Discharge Plan Disposition Patient Disposition: Home, Self-Care Condition: Good Prescriptions Prescriptions: No Action quetiapine [Seroquel] 25 mg tablet 25 mg PO HS Qty: 30 2RF Auvelity 45-105 mg tablet, IR and ER, biphasic 1 tab PO BID Qty: 60 1RF Wegovy 0.25 mg/0.5 mL pen injector 0.25 mg SQ WEEKLY Qty: 2 1RF Rx Instructions: administer weeks 1 through 4 of therapy propranolol 40 mg tablet 40 mg PO BID 30 Days Qty: 60 0RF hydroxyzine pamoate 50 mg capsule 50 mg PO Q8H PRN (Reason: Anxiety) Referrals Follow up/Referrals: Nikia Harden APRN [Primary Care Provider] - See instructions Activity Restrictions/Add. Instructions Additional Instructions/Restrictions: You were evaluated in the emergency department today. Please follow-up closely with your primary care provider. Return to the emergency department for new or worsening symptoms. Clinical Impressions Clinical Impression: Chest pain, Anxiety Stand Alone Forms Stand Alone Forms: Work/School Release Instructions Patient Instructions: DI for Atypical Chest Pain, DI for Anxiety -- Adult Discharge ED Provider: Samira Vergara [facility] General Chief Complaint: Chest Pain Stated Complaint: chest pain Time Seen by Provider: 12/12/23 08:12 Mode of Arrival: EMS Source of Information: Patient and EMS Limitations: No Limitations Description of Symptoms (Recalled from ER Triage Doc. by RN): Pt c/o midsternal chest pain that began suddenly while sitting at work this morning @ 0730. States she has a hx of HTN and Anxiety and takes Propanolol & Hydroxyzine, which she did take this morning. On arrival to ER she reports her symtpoms are gone she does report nausea that began last night. No prior cardiac issues. History of Present Illness HPI narrative: This patient is a 28-year-old female with a history of anxiety and recurrent palpitations presenting to the emergency department for evaluation with concern for midsternal chest tightness that started suddenly at work at 730 this morning. She also felt nauseated last night. Patient states that she has a history of hypertension and anxiety and takes propranolol and hydroxyzine, which she did take this morning. She has that this episode felt similar to prior episodes that she has had in the past, and she states that she has had heart workup in the past and everything has been normal. She states that she is feeling better now. EMS brought in the patient who noted that she was hemodynamically stable en route with reassuring EKG. No other concerns or complaints noted. Related Data Home Medications Medication Instructions Recorded Confirmed hydroxyzine pamoate 50 mg capsule 50 mg PO Q8H PRN Anxiety 12/12/23 12/12/23 Previous Rx's Medication Instructions Recorded propranolol 40 mg tablet 40 mg PO BID 30 days #60 tabs 07/10/23 dextromethorphan IR 45 1 tab PO BID #60 ea 10/19/23 mg-bupropion ER 105 mg biphasic tablet (Auvelity) quetiapine 25 mg tablet (Seroquel) 25 mg PO HS #30 tabs 10/19/23 semaglutide (weight loss) 0.25 0.25 mg (0.5 mL) SQ WEEKLY #2 mL 11/01/23 mg/0.5 mL subcutaneous pen injector (Wegovy) Allergies Allergy/AdvReac Type Severity Reaction Status Date / Time No Known Allergies Allergy Verified 11/01/23 14:09 [facility] Disclaimer: The information contained in this section may have been updated after the patient was seen, as this information can be updated by other users. 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 Hx gestational diabetes Insulin resistance Tachycardia Insomnia Major depressive disorder Generalized anxiety disorder Urinary tract infection History of COVID-19 Asthma History of gastroesophageal reflux (GERD) Hypertension Dizziness Dyspnea Palpitations Abnormal Holter monitor finding Chest pain Depression Anxiety Surgical History History of incision and drainage H/O tubal ligation History of [place] teeth removed History of tonsillectomy and adenoidectomy History of surgery Family History Father Cirrhosis Mother Diabetes Grandmother Breast cancer Heart disease Multiple sclerosis COPD (chronic obstructive pulmonary disease) 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 Smoking Status: Current every day smoker tobacco type: cigarettes packs per day: 1 and e-cigarettes second hand exposure: No alcohol intake: never counseling given: No substance use type: denies use and other details: delta 8 vape counseling given: No current occupational status: unemployed Travel in the last 8 weeks: None adopted: No caregiver/support person: Yes (she stays home with her kids; LANEY) foster care: No household members: significant other housing: house lives independently: Yes marital status: life partner number of children: 3 number of grandchildren: 0 education level: high school 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 Hx Recent Travel: No sexually active: Yes caffeine: Yes physical activity: none working smoke detector in home: Yes fire extinguisher in home: No carbon monox detector in home: Yes firearms in home: No do you feel safe at home: Yes victim of physical abuse: No victim of emotional abuse: No victim of sexual abuse: No would you like helpful sources: No ROS Obtained: Yes All systems reviewed & no additional complaints except as documented Physical Exam General General appearance: alert, in no apparent distress and obese Head Head exam: atraumatic and normocephalic Eye Eye exam: Present normal appearance, PERRL and EOMI ENT ENT exam: Present normal exam, normal oropharynx, mucous membranes moist and normal external ear exam Neck Neck exam: Present normal inspection, full ROM and trachea midline; Absent tenderness Chest Chest inspection: Present normal inspection and symmetric chest wall rise; Absent tenderness Respiratory Respiratory exam: Present normal lung sounds bilaterally; Absent respiratory distress, wheezes, stridor or accessory muscle use Cardiovascular Cardiovascular exam: Present regular rate and normal rhythm Abdominal Exam Abdominal exam: Present soft; Absent distention, tenderness or guarding Extremities Exam Extremities exam: Present normal inspection, full ROM and normal capillary refill; Absent tenderness or edema Back Exam Back exam: Present normal inspection and full ROM; Absent tenderness Neurological Exam Neurological exam: Present alert, oriented X3, CN II-XII intact and normal gait; Absent motor sensory deficit Psychiatric Psychiatric exam: Present normal affect and normal mood Skin Skin exam: Present warm and dry HEART Score HEART Score HEART Score assessment performed?: Yes History (anamnesis): Slightly suspicious ECG: Normal Age: <45 years Risk factors: 1-2 risk factors Troponin: </= normal limit HEART Score: 1 Critical Care Critical Care Time Critical Care Time: No Medical Decision Making Medical Records Medical records reviewed: Yes I reviewed the patient's medical records. Prasanna Inquiry Pt receiving controlled substance: No Vital Signs Vital Signs: 12/12/23 08:09 12/12/23 08:17 12/12/23 08:31 Temperature 98.2 F Temperature Source Oral Pulse Rate 83 85 Pulse Rate [Right] 83 Respiratory Rate 15 13 12 Blood Pressure 145/90 H 144/91 H Blood Pressure [Right Arm] 145/90 H Blood Pressure Mean Blood Pressure Mean [Right Arm] 108 Blood Pressure Source [Right Arm] Automatic Cuff 02 Sat by Pulse Oximetry 98 97 97 Oxygen Delivery Method Room Air Room Air 12/12/23 08:57 12/12/23 09:01 12/12/23 09:30 Temperature Temperature Source Pulse Rate 83 77 76 Pulse Rate [Right] Respiratory Rate 19 18 Blood Pressure 131/72 Blood Pressure [Right Arm] Blood Pressure Mean Blood Pressure Mean [Right Arm] Blood Pressure Source [Right Arm] 02 Sat by Pulse Oximetry 97 96 Oxygen Delivery Method Room Air 12/12/23 09:52 12/12/23 10:01 12/12/23 10:31 Temperature Temperature Source Pulse Rate 30 L 70 71 Pulse Rate [Right] Respiratory Rate 19 19 18 Blood Pressure 111/72 131/60 141/88 H Blood Pressure [Right Arm] Blood Pressure Mean 86 Blood Pressure Mean [Right Arm] Blood Pressure Source [Right Arm] 02 Sat by Pulse Oximetry 100 98 98 Oxygen Delivery Method Room Air Room Air 12/12/23 11:05 Temperature 98.1 F Temperature Source Oral Pulse Rate 74 Pulse Rate [Right] Respiratory Rate 18 Blood Pressure 123/67 Blood Pressure [Right Arm] Blood Pressure Mean Blood Pressure Mean [Right Arm] Blood Pressure Source [Right Arm] 02 Sat by Pulse Oximetry Oxygen Delivery Method Room Air Lab Data Labs: Lab Results 12/12/23 08:07: WBC 11.4 H, RBC 4.28, Hgb 12.9, Hct 39.7, MCV 92.6, MCH 30.1, MCHC 32.5, RDW 13.9, Plt Count 378, MPV 7.5, Neut % (Auto) 70.6, Lymph % (Auto) 22.4, [place] % (Auto) 4.7, Eos % (Auto) 1.6, Baso % (Auto) 0.7, Neut # (Auto) 8.1 H, Lymph # (Auto) 2.6, [place] # (Auto) 0.5, Eos # (Auto) 0.2, Baso # (Auto) 0.1, Sodium 138, Potassium 3.6, Chloride 108 H, Carbon Dioxide 26, Anion Gap 7.6, BUN 13, Creatinine 0.70, Estimated Creat Clear 95, Estimated GFR 100, Est GFR ( Amer) 121, Glucose 189 H, Calcium 9.5, Total Bilirubin 0.4, AST 34, ALT 37, Alkaline Phosphatase 111, Troponin I < 0.01, Total Protein 7.1, Albumin 4.0, Globulin 3.1, Albumin/Globulin Ratio 1.3, Lipase 73, Serum HCG, Qual Negative 12/12/23 10:22: Troponin I < 0.01 12/12/23 08:07 12/12/23 08:07 Response Orders (Tests/Meds): ED MEDICATIONS Discontinued Medications Generic Name Dose Route Start Last Admin Trade Name Freq PRN Reason Stop Dose Admin Ondansetron HCl 4 mg 12/12/23 08:18 12/12/23 08:26 Ondansetron 4mg/2ml Vial IV 12/12/23 08:19 4 mg ONCE ONE Administration ORDERS Category Date Time Status XR chest 2V Stat Exams 12/12/23 08:38 Completed Complete Blood Count Auto Diff Stat Lab 12/12/23 08:07 Completed Comprehensive Metabolic Panel Stat Lab 12/12/23 08:07 Completed HCG Qualitative, Serum Stat Lab 12/12/23 08:07 Completed Lipase Stat Lab 12/12/23 08:07 Completed Troponin I Q3H Lab 12/12/23 10:22 Completed Troponin I Stat Lab 12/12/23 08:07 Completed ECG Data Tracing #1: Attestation: I reviewed this ECG and interpreted as documented below: ECG Narrative: Normal sinus rhythm with a ventricular rate of 82 bpm. Benign early repolarization. No significant changes from prior EKG. No acute ST changes. ECG initial impression date: 12/12/23 ECG initial impression time: 08:11 MDM Narrative Medical Decision Narrative: In summary, this patient is a 28-year-old female presenting to the Emergency Department for evaluation of chest tightness, palpitations, and nausea. Differential diagnoses considered include but are not limited to ACS, dysrhythmia, GERD, costochondritis, anxiety, panic attack. Ruling out the most morbid conditions drove assessment. It should be noted patient's history includes anxiety and hypertension which are not at goal therapy. This complicates all aspects of care by increasing patient's risk for morbidity. I reviewed patient's past medical records and noted his evaluations in the emergency department for similar issues, with reassuring workups at those times. I also note prior evaluation by cardiology with a negative CCTA and a normal echo. On exam, the patient is resting comfortably in no acute distress. She is mildly hypertensive but otherwise vitals are reassuring on cardiac telemetry. No tachycardia or hypoxia. She is PERC negative for pulmonary embolus. Workup included CBC, CMP, troponin, lipase, test, and chest x-ray. EKG was obtained and was reassuring. She was given IV Zofran for symptomatic improvement. I independently interpreted x-ray prior to the radiologist read and noted focal consolidation, pneumothorax, or other concern. Please see their read for final interpretation. Labs were obtained that demonstrated no acutely concerning abnormalities with a negative initial troponin. At 0850, patient was placed in ED observation status pending second troponin to determine whether or not the patient would be appropriate for discharge versus admission. The patient was provided serial reevaluations and cardiac monitoring while awaiting ultimate disposition. On subsequent reassessments, the patient is resting comfortably with no symptoms. She states she is feeling much better. Patient's second troponin resulted and was also negative. At 11 AM, given reassuring workup and exam, it is felt that the patient is appropriate for discharge at this time. Total ED observation time was 2 hours and 10 minutes. I had a [id number] visit with the patient when providing discharge instructions. The total time involved in discharging this patient was less than 30 minutes.
[2023-12-12 08:32] LABS: Chloride 108 mmol/L (98-107); Potassium 3.6 mmoL/L (3.5-5.1); Sodium 138 mmol/L (136-145)
[2023-12-12 08:34] LABS: Blood Urea Nitrogen 13 mg/dl (7-17); Creatinine Clearance Estimated 95 mL/min (50-200); Estimated Glomerular Filt Rate 100 ml/min (>60); GFR (African American) 121 ML/MIN (>60)
[2023-12-12 08:35] LABS: Alanine Aminotransferase 37 U/L (12-78); Albumin/Globulin Ratio 1.3 (1.1-1.8); Alkaline Phosphatase 111 U/L (38-126); Anion Gap 7.6 mEq/L (5-15); Aspartate Amino Transferase 34 U/L (14-36); Bilirubin,Total 0.4 mg/dl (0.2-1.3); Calcium 9.5 mg/dl (8.4-10.2); Carbon Dioxide 26 mmol/L (22.0-30.0); Globulin 3.1 g/dL (1.3-3.2); Glucose 189 mg/dl (74-100); Total Protein,Serum 7.1 g/dl (6.3-8.2)
--- NOTE | 2023-12-12 08:38 | XR_ITS ---
FINAL REPORT CLINICAL HISTORY: chest pain COMPARISON: 09/27/2023 FINDINGS: No acute pulmonary density is evident. There is no evidence of effusion or other pleural disease. The mediastinum has a normal appearance. The cardiac silhouette is unremarkable. IMPRESSION: Unremarkable chest exam. Reviewed, Interpreted and Dictated by Lisa Caldwell MD Transcribed by Yenifer Kumar Authenticated and . [facility]
[2023-12-12 08:51] LABS: Troponin I < 0.01 ng/ml (0.00-0.034)
[2023-12-12 08:54] LABS: Lipase 73 U/L (23-300)
--- NOTE | 2023-12-12 08:58 | PC.NURSE ---
rounded on pt, updated on troponin and expected wait time for 2nd troponin level
[2023-12-12 09:34] LABS: HCG Qualitative, Serum Negative (Negative)
--- NOTE | 2023-12-12 09:35 | PC.NURSE ---
pt returned to room from RAD
[2023-12-12 10:51] LABS: Troponin I < 0.01 ng/ml (0.00-0.034)
--- NOTE | 2023-12-12 11:06 | PC.NURSE ---
DR MANRIQUE AT BEDSIDE TO UPDATE PT
== END 2023-12-12 11:13 | disposition home or self-care (01) ==
PROVIDERS: Emergency Provider Emergency Medicine; PCP Nurse Practitioner Family
DX: R07.9 Chest pain, unspecified (principal); F41.1 Generalized anxiety disorder; I10 Essential (primary) hypertension; F17.210 Nicotine dependence, cigarettes, uncomplicated
CPT/HCPCS: 71046; 80053; 83690; 84484; 84703; 85025; 93005; 96374; 99284; J2405

== ENCOUNTER 2024-02-22 15:53 | Outpatient (CLI) | payer OTHER, SELFPAY ==
[2024-02-22 14:44] LABS: Basophils % 0.3 % (0.1-2.0); Eosinophils # 0.2 K/mm3 (0.0-0.4); Eosinophils % 2.1 % (0.1-12.0); Hematocrit 40.2 % (37.0-47.0); Lymphocytes # 2.4 K/mm3 (0.7-4.5); Lymphocytes % 25.3 % (10-50); Mean Corpuscular HGB Conc 32.4 g/dL (31.8-35.4); Mean Corpuscular Hemoglobin 30.7 pg (27.0-31.2); Mean Corpuscular Volume 94.7 fl (81-99); Mean Platelet Volume 9.7 fl (7.4-10.4); Monocytes # 0.5 K/mm3 (0.1-1.0); Monocytes % 5.4 % (1.7-9.3); Neutrophils # 6.2 K/mm3 (1.8-7.8); Platelet Count 365 K/mm3 (142-424); Red Blood Count 4.25 M/mm3 (4.20-5.40); White Blood Count 9.3 K/mm3 (4.8-10.8)
[2024-02-22 15:07] LABS: Hemoglobin A1C 5.4 % (4.0-6.0)
[2024-02-22 15:11] LABS: Alanine Aminotransferase 34 U/L (12-78); Albumin/Globulin Ratio 1.4 (1.1-1.8); Alkaline Phosphatase 130 U/L (38-126); Aspartate Amino Transferase 30 U/L (14-36); Bilirubin,Total 0.4 mg/dl (0.2-1.3); Blood Urea Nitrogen 14 mg/dl (7-17); Calcium 9.5 mg/dl (8.4-10.2); Carbon Dioxide 24 mmol/L (22.0-30.0); Chloride 106 mmol/L (98-107); Chol/HDL Ratio 5.7 (1-3.5); Cholesterol 250 mg/dl (140-200); Estimated Glomerular Filt Rate 120 ml/min (>60); GFR (African American) 145 ML/MIN (>60); Globulin 2.9 g/dL (1.3-3.2); Glucose 147 mg/dl (74-100); HDL Cholesterol 44 mg/dl (40-60); Sodium 138 mmol/L (136-145); Total Protein,Serum 6.9 g/dl (6.3-8.2); Triglycerides 238 mg/dl (30-150); VLDL Cholesterol 48 mg/dL (0-40)
[2024-02-22 15:42] LABS: Thyroid Stimulating Hormone 3.62 uIU/mL (0.465-4.68)
[2024-02-22 15:51] LABS: 25-OH Vitamin D, Total 39.8 ng/mL (30-100)
== END 2024-02-22 23:59 | disposition home or self-care (01) ==
LOC: LAB.DROPOF 15:54
PROVIDERS: PCP Physician Assistant; Visit Provider Physician Assistant
DX: E88.819 Insulin resistance, unspecified (principal); I10 Essential (primary) hypertension; Z72.0 Tobacco use
CPT/HCPCS: 80050; 80053; 80061; 82306; 83036; 84443; 85025

== ENCOUNTER 2024-03-05 12:35 | Emergency (ER) | payer OTHER, SELFPAY ==
[2024-03-05 12:50] VITALS: BP 128/79; PULSE 79; RESP 21; TEMP 36.9; O2SAT 97; BMI 53.0
--- NOTE | 2024-03-05 12:52 | ED_ITS ---
Discharge Plan Disposition Patient Disposition: Home, Self-Care Condition: Good Prescriptions Prescriptions: New amoxicillin 875 mg tablet 875 mg PO Q12H Qty: 20 0RF syymgecjgurfjde-hebbnxsnj-[id number] [Bromfed DM] 2-30-10 mg/5 mL Syrup 5 ml PO Q6H PRN (Reason: Cough) Qty: 240 0RF No Action propranolol 40 mg tablet 40 mg PO BID 30 Days Qty: 60 7RF quetiapine [Seroquel] 25 mg tablet 25 mg PO HS Qty: 30 2RF Auvelity 45-105 mg tablet, IR and ER, biphasic 1 tab PO BID Qty: 60 1RF hydroxyzine pamoate 50 mg capsule See Rx Instructions .ROUTE .COMPLEX Qty: 90 0RF Dose Instruction: TAKE 1 CAPSULE BY MOUTH EVERY 8 HOURS NEEDED Rx Instructions: TAKE 1 CAPSULE BY MOUTH EVERY 8 HOURS NEEDED atorvastatin [Lipitor] 10 mg tablet 10 mg PO HS Qty: 30 2RF metformin 500 mg tablet 500 mg PO BID Qty: 60 2RF topiramate 25 mg tablet 25 mg PO BID Qty: 60 0RF Referrals Follow up/Referrals: Nikia Harden APRN [Primary Care Provider] - See instructions Activity Restrictions/Add. Instructions Additional Instructions/Restrictions: Drink plenty of fluids. Take tylenol or ibuprofen for pain or fever. Take the medications as directed. Follow up with your regular doctor. GO TO THE ER FOR ANY WORSENING SYMPTOMS Clinical Impressions Clinical Impression: Pharyngitis, Acute viral syndrome Stand Alone Forms Stand Alone Forms: Work/School Release Instructions Patient Instructions: Sore Throat, DI for Pharyngitis/Tonsillopharyngitis -- Adult Discharge ED Provider: Jones Evans [facility] General Stated complaint: sore throat Time Seen by Provider: 03/05/24 12:51 Related Data Previous Rx's Medication Instructions Recorded propranolol 40 mg tablet 40 mg PO BID 30 days #60 tabs 01/05/24 quetiapine 25 mg tablet (Seroquel) 25 mg PO HS #30 tabs 01/05/24 dextromethorphan IR 45 1 tab PO BID #60 ea 02/06/24 mg-bupropion ER 105 mg biphasic tablet (Auvelity) hydroxyzine pamoate 50 mg capsule See Rx Instructions .Route 02/06/24 .COMPLEX #90 caps atorvastatin 10 mg tablet (Lipitor) 10 mg PO HS #30 tabs 02/23/24 metformin 500 mg tablet 500 mg PO BID #60 tabs 02/23/24 amoxicillin 875 mg tablet 875 mg PO Q12H #20 tabs 03/05/24 crleqfovjpaogls-nepmshtzrrgcvch-AD 5 ml PO Q6H PRN Cough #240 mL 03/05/24 2 mg-30 mg-10 mg/5 mL oral syrup (Bromfed DM) topiramate 25 mg tablet 25 mg PO BID #60 tabs 03/05/24 Allergies Allergy/AdvReac Type Severity Reaction Status Date / Time No Known Allergies Allergy Verified 02/22/24 09:02 [facility] Disclaimer: The information contained in this section may have been updated after the patient was seen, as this information can be updated by other users. 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 (Updated 03/05/24 @ 13:30 by Jones Evans APRN) Gestational diabetes mellitus (GDM) Gestational diabetes mellitus (GDM) treated with oral hypoglycemic therapy Hx gestational diabetes Insulin resistance Tachycardia Insomnia Major depressive disorder Generalized anxiety disorder Urinary tract infection History of COVID-19 Asthma History of gastroesophageal reflux (GERD) Hypertension Dizziness Dyspnea Palpitations Abnormal Holter monitor finding Chest pain Depression Anxiety Surgical History History of incision and drainage H/O tubal ligation History of [place] teeth removed History of tonsillectomy and adenoidectomy History of surgery Family History Father Cirrhosis Mother Diabetes Grandmother Breast cancer Heart disease Multiple sclerosis COPD (chronic obstructive pulmonary disease) 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 Smoking Status: Current every day smoker tobacco type: cigarettes packs per day: 1 and e-cigarettes second hand exposure: No alcohol intake: never counseling given: No substance use type: denies use and other details: delta 8 vape counseling given: No current occupational status: unemployed Travel in the last 8 weeks: None adopted: No caregiver/support person: Yes (she stays home with her kids; SAHM) foster care: No household members: significant other housing: house lives independently: Yes marital status: life partner number of children: 3 number of grandchildren: 0 education level: high school 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 Hx Recent Travel: No sexually active: Yes caffeine: Yes physical activity: none working smoke detector in home: Yes fire extinguisher in home: No carbon monox detector in home: Yes firearms in home: No do you feel safe at home: Yes victim of physical abuse: No victim of emotional abuse: No victim of sexual abuse: No would you like helpful sources: No ROS Obtained: Yes All systems reviewed & no additional complaints except as documented Constitutional Constitutional: Reports chills and Reports fever(s) Eyes Eyes: Denies eye discharge ENT Ears, Nose, Mouth, and Throat: Reports as per HPI Cardiovascular Cardiovascular: Denies chest pain Respiratory Respiratory: Denies chest congestion and Reports cough Gastrointestinal Gastrointestingal: Reports nausea; Denies abdominal pain, constipation, cramping, diarrhea or vomiting Musculoskeletal Musculoskeletal: Denies arthralgias Integumentary/Breasts Skin/Breast: Denies rash Neurologic Neurologic: Denies paresthesias Physical Exam General General appearance: alert and in no apparent distress Head Head exam: atraumatic, normocephalic and normal inspection Eye Eye exam: Present normal appearance, PERRL and EOMI ENT ENT exam: Present mucous membranes moist and normal external ear exam Expanded ENT Exam TM/Canal exam: Bilateral TM: erythema and bulging Nose exam: Absent sinus tenderness Mouth exam: Present normal external inspection; Absent drooling Teeth exam: Present normal inspection Throat exam: Present tonsillar erythema, tonsillomegaly and tonsillar exudate Neck Neck exam: Present normal inspection, full ROM and trachea midline; Absent tenderness, meningismus or lymphadenopathy Chest Chest inspection: Present normal inspection and symmetric chest wall rise; Absent tenderness Respiratory Respiratory exam: Present normal lung sounds bilaterally; Absent respiratory distress, wheezes or stridor Cardiovascular Cardiovascular exam: Present regular rate and normal rhythm; Absent systolic murmur or diastolic murmur Abdominal Exam Abdominal exam: Present soft and normal bowel sounds; Absent distention, tenderness, guarding, rebound or rigidity Extremities Exam Extremities exam: Present normal inspection and normal capillary refill; Absent calf tenderness Back Exam Back exam: Present normal inspection and full ROM; Absent tenderness, CVA tenderness (R) or CVA tenderness (L) Neurological Exam Neurological exam: Present alert, oriented X3 and CN II-XII intact Psychiatric Psychiatric exam: Present normal affect and normal mood Skin Skin exam: Present warm, dry, intact and normal color Medical Decision Making Medical Records Medical records reviewed: No I reviewed the patient's medical records. Prasanna Inquiry Pt receiving controlled substance: No
[2024-03-05 13:15] LABS: UTC Strep Screen (Rapid) Negative (Negative)
[2024-03-05 13:30] VITALS: BP 128/79; PULSE 79; RESP 21; TEMP 36.9; O2SAT 97
== END 2024-03-05 13:36 | disposition home or self-care (01) ==
PROVIDERS: Emergency Provider Nurse Practitioner Family; PCP Nurse Practitioner Family
DX: J02.9 Acute pharyngitis, unspecified (principal); B34.9 Viral infection, unspecified; R50.9 Fever, unspecified
CPT/HCPCS: 87635; 87880; 99212; 99214; G0463

== ENCOUNTER 2024-03-17 00:43 | Emergency (ER) | payer OTHER, SELFPAY ==
[2024-03-17 00:43] VITALS: BP 139/95; PULSE 74; RESP 20; TEMP 36.5; O2SAT 99; BMI 51.5
--- NOTE | 2024-03-17 01:04 | PC.NURSE ---
Contacted Edgar to request an advocate
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
--- NOTE | 2024-03-17 01:18 | PC.NURSE ---
Officers have left bedside. Dr. Lawrence is now with patient
[2024-03-17 01:31] VITALS: BP 142/94; PULSE 75; RESP 20; O2SAT 99
--- NOTE | 2024-03-17 01:45 | PC.NURSE ---
Spoke with Advocate who reports that she is on her way to facility with ETA approx [id number].
[2024-03-17 01:51] LABS: Microscopic, Urine URINE MICROSCOPIC (MICROSCOPIC)
[2024-03-17 01:53] LABS: Appearance,Urine CLEAR (Clear); Bilirubin,Urine Negative (Negative); Blood, Urine Negative (Negative); Color,Urine YELLOW (Yellow); Glucose,Urine (UA) Negative (Negative); Ketones,Urine Negative (Negative); Leukocyte Esterase,Urine Negative (Negative); Nitrate,Urine Negative (Negative); Protein,Urine Negative (Negative); Urobilinogen,Urine 0.2 EU/dl (0.2)
[2024-03-17 01:54] LABS: Urine Pregnancy, HCG Qual. Negative (Negative)
[2024-03-17] MEDS: cefTRIAXone 1GM VIAL 1 GM IM (01:54)
[2024-03-17] MEDS: LIDOCAINE 1% 5ML PF VIAL IM (01:54)
[2024-03-17] MEDS: metroNIDAZOLE 500 MG TABLET PO (01:57)
[2024-03-17] MEDS: DOXYCYCLINE HYCL 100 MG TABLET PO (01:57)
[2024-03-17 02:02] LABS: Basophils # 0.1 K/mm3 (0-0.2); Basophils % 0.5 % (0.1-2.0); Eosinophils # 0.2 K/mm3 (0.0-0.4); Hematocrit 41.9 % (37.0-47.0); Hemoglobin 13.7 g/dL (12.2-16.2); Lymphocytes # 3.2 K/mm3 (0.7-4.5); Lymphocytes % 30.7 % (10-50); Mean Corpuscular HGB Conc 32.8 g/dL (31.8-35.4); Mean Corpuscular Hemoglobin 30.3 pg (27.0-31.2); Mean Corpuscular Volume 92.6 fl (81-99); Mean Platelet Volume 7.2 fl (7.4-10.4); Monocytes # 0.5 K/mm3 (0.1-1.0); Monocytes % 4.4 % (1.7-9.3); Neutrophils # 6.4 K/mm3 (1.8-7.8); Neutrophils % 62.3 % (37.0-80.0); Platelet Count 370 K/mm3 (142-424); Red Blood Count 4.53 M/mm3 (4.20-5.40); Red Cell Distribution Width 13.6 % (11.5-17.5); White Blood Count 10.3 K/mm3 (4.8-10.8)
--- NOTE | 2024-03-17 02:03 | PC.NURSE ---
Rounded on patient and provided update that we are waiting on advocate to arrive. Warm blanket, drink, and remote given for tv. Mother remains at bedside for support. NAD, VSS
[2024-03-17 02:06] LABS: Alanine Aminotransferase 39 U/L (12-78); Albumin Level 4.1 g/dl (3.5-5.0); Albumin/Globulin Ratio 1.2 (1.1-1.8); Alkaline Phosphatase 124 U/L (38-126); Anion Gap 12.4 mEq/L (5-15); Aspartate Amino Transferase 38 U/L (14-36); Bilirubin,Total 0.3 mg/dl (0.2-1.3); Blood Urea Nitrogen 11 mg/dl (7-17); Calcium 9.6 mg/dl (8.4-10.2); Carbon Dioxide 27 mmol/L (22.0-30.0); Chloride 105 mmol/L (98-107); Creatinine Clearance Estimated 84 mL/min (50-200); Estimated Glomerular Filt Rate 86 ml/min (>60); GFR (African American) 104 ML/MIN (>60); Globulin 3.5 g/dL (1.3-3.2); Glucose 101 mg/dl (74-100); Potassium 3.4 mmoL/L (3.5-5.1); Sodium 141 mmol/L (136-145); Total Protein,Serum 7.6 g/dl (6.3-8.2)
[2024-03-17 02:13] LABS: Bacteria,Urine Trace /lpf
[2024-03-17 02:14] LABS: Mucus,Urine Trace /lpf; Squamous Epithelial Cell,Urine Occasional #/hpf (0-5); WBC,Urine Occasional #/hpf (0-3)
[2024-03-17 02:30] VITALS: BP 140/92; PULSE 74; RESP 18; O2SAT 96
[2024-03-17] MEDS: EMTRICITABINE/TENOFOVIR 200/300MG TAB 1 EACH PO (02:50)
[2024-03-17] MEDS: RALTEGRAVIR 400MG TABLET 400 MG PO (02:50)
[2024-03-17] MEDS: [UNRECOGNIZED DRUG - OTHER] 1 PACKET PO (02:51)
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
[2024-03-17 03:30] VITALS: BP 139/90; PULSE 81; RESP 17; O2SAT 96
--- NOTE | 2024-03-17 03:31 | PC.NURSE ---
Called Edgar back to get an update on eta for advocate's arrival
--- NOTE | 2024-03-17 03:56 | PC.NURSE ---
Spoke Rachel Raymond to notify her of SANE exam. She requests I call Bertha Henriquez, the other SOFTWARE QUALITY ENGINEER to notify her as well. Ruby unable to be reached. Darrel called back and she states she will try to call Ruby and call me back. ER Attending notified
--- NOTE | 2024-03-17 03:58 | PC.NURSE ---
Spoke to Darrel again. She states the ER Attending will need to go ahead and perform the exam.
[2024-03-17] MEDS: ACETAMINOPHEN 500MG TAB 1000 MG PO (04:59)
[2024-03-17] MEDS: IBUPROFEN 600 MG TABLET PO (04:59)
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
[2024-03-17 05:34] VITALS: BP 138/82; PULSE 86; RESP 18; TEMP 36.6; O2SAT 97
[2024-03-17 18:09] LABS: HIV (1&2) Antibody Rapid NONREACTIVE (NONREACTIVE)
[2024-03-19 05:09] LABS: HBsAg Screen Negative (Negative); HCV Ab Non Reactive (Non Reactive); Hep A Ab, IGM Negative (Negative); Hep B Core Ab, IgM Negative (Negative)
[2024-03-20 06:14] LABS: Neisseria gonorrhoeae, NAA Negative (Negative)
== END 2024-03-17 05:33 | disposition home or self-care (01) ==
PROVIDERS: Emergency Provider Emergency Medicine; PCP Nurse Practitioner Family
DX: T76.21XA Adult sexual abuse, suspected, initial encounter (principal); Z20.2 Contact with and (suspected) exposure to infections with a predominantly sexual mode of transmission
CPT/HCPCS: 80053; 80074; 81001; 81025; 85025; 87491; 87591; 90471; 96372; 99285; J0696

== ENCOUNTER 2024-05-15 11:40 | Emergency (ER) | payer OTHER, SELFPAY ==
[2024-05-15 11:54] VITALS: BP 159/112; PULSE 86; RESP 20; TEMP 37.3; O2SAT 100; BMI 50.6
--- NOTE | 2024-05-15 11:56 | EXP.UTC ---
Discharge Plan Disposition Patient Disposition: Home, Self-Care Condition: Good Prescriptions Prescriptions: New polymyxin B sulf-trimethoprim 10,000 unit- 1 mg/mL drops 2 drp ophthalmic (eye) Q6H 7 Days Qty: 10 0RF Rx Instructions: left eye while awake; do not exceed 6 doses in 24 hours No Action buspirone 10 mg tablet 10 mg PO BID Qty: 60 1RF quetiapine 25 mg tablet 25 mg PO HS Qty: 30 1RF topiramate 25 mg tablet See Rx Instructions .ROUTE .COMPLEX Qty: 60 0RF Dose Instruction: TAKE 1 TABLET BY MOUTH TWICE A DAY Rx Instructions: TAKE 1 TABLET BY MOUTH TWICE A DAY metformin 500 mg tablet 500 mg PO BIDWMEAL Patient Comments: TAKE 1 TABLET BY MOUTH TWICE DAILY atorvastatin 10 mg tablet 10 mg PO HS Patient Comments: TAKE 1 TABLET BY MOUTH EVERY NIGHT AT BEDTIME propranolol 40 mg tablet 40 mg PO BID Patient Comments: TAKE 1 TABLET BY MOUTH TWICE DAILY Auvelity 45-105 mg Tablet, Ir And Er, Biphasic 1 tab PO BID Referrals Follow up/Referrals: Nikia Harden APRN [Primary Care Provider] - See instructions Activity Restrictions/Add. Instructions Additional Instructions/Restrictions: Wash hands before and after applying eye drops to eye Use Eye drops as prescribed Clean matting from eye with warm water and baby shampoo Follow up with Eye Doctor if no improvement or any worsening of symptoms Return if needed Straight to ER if any life threatening symptoms Clinical Impressions Clinical Impression: Conjunctivitis Instructions Patient Instructions: DI for Conjunctivitis, Conjunctivitis, How to Instill Eye Drops Print Language Print Language: Cymro Discharge ED Provider: Josie Reynolds [facility] [place] HPI General Stated complaint: left eye pain, burning, itching Mode of Arrival: Ambulatory Source of Information: Patient Time Seen by Provider: 05/15/24 11:56 Description of Symptoms (Recalled from Triage Doc. by RN): ITCHY AND BURNING IN LEFT EYE, WHITE MATTED DRAINAGE HEENT Symptoms (Recalled from RN notes): Yes Resp Symptoms (Recalled from RN notes): No Skin Symptoms (Recalled from RN notes): No MS Symptoms (Recalled from RN notes): No Functional Status (Recalled from RN notes): WNL History of Present Illness Provider Complaint: Patient states that she has been having itchy like burning sensation in her left eye with redness, drainage and matting States feels like it did when she had pink eye before Denies known injury Related Data Home Medications ?Medication ?Instructions ?Recorded ?Confirmed atorvastatin 10 mg tablet 10 mg PO HS 03/17/24 05/15/24 metformin 500 mg tablet 500 mg PO BIDWMEAL 03/17/24 05/15/24 propranolol 40 mg tablet 40 mg PO BID 03/17/24 05/15/24 dextromethorphan IR 45 1 tab PO BID 05/15/24 05/15/24 mg-bupropion ER 105 mg biphasic tablet (Auvelity) Previous Rx's ?Medication ?Instructions ?Recorded buspirone 10 mg tablet 10 mg PO BID #60 tabs 05/02/24 quetiapine 25 mg tablet 25 mg PO HS #30 tabs 05/02/24 topiramate 25 mg tablet See Rx Instructions .Route 05/06/24 .COMPLEX #60 tabs polymyxin B sulfate 10,000 2 drp ophthalmic (eye) Q6H 7 days 05/15/24 unit-trimethoprim 1 mg/mL eye drops #10 mL Allergies Allergy/AdvReac Type Severity Reaction Status Date / Time No Known Allergies Allergy Verified 05/10/24 10:13 Worker's Comp Is this a Worker's Comp case?: No [facility] Disclaimer: The information contained in this section may have been updated after the patient was seen, as this information can be updated by other users. 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 (Updated 05/15/24 @ 12:01 by Josie Reynolds APRN) Gestational diabetes mellitus (GDM) Gestational diabetes mellitus (GDM) treated with oral hypoglycemic therapy Hx gestational diabetes Insulin resistance Tachycardia Insomnia Major depressive disorder Generalized anxiety disorder Urinary tract infection History of COVID-19 Asthma History of gastroesophageal reflux (GERD) Hypertension Dizziness Dyspnea Palpitations Abnormal Holter monitor finding Chest pain Depression Anxiety Surgical History History of incision and drainage H/O tubal ligation History of [place] teeth removed History of tonsillectomy and adenoidectomy History of surgery Family History Father Cirrhosis Mother Diabetes Grandmother Breast cancer Heart disease Multiple sclerosis COPD (chronic obstructive pulmonary disease) 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 Smoking Status: Never smoker second hand exposure: No alcohol intake: never counseling given: No substance use type: denies use and other details: delta 8 vape counseling given: No current occupational status: unemployed Travel in the last 8 weeks: None adopted: No caregiver/support person: Yes (she stays home with her kids; [facility]) foster care: No household members: significant other housing: house lives independently: Yes marital status: life partner number of children: 3 number of grandchildren: 0 education level: high school 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 Hx Recent Travel: No sexually active: Yes caffeine: Yes physical activity: none working smoke detector in home: Yes fire extinguisher in home: No carbon monox detector in home: Yes firearms in home: No do you feel safe at home: Yes victim of physical abuse: No victim of emotional abuse: No victim of sexual abuse: No would you like helpful sources: No ROS Obtained: Yes All systems reviewed & no additional complaints except as documented and Yes Systems reviewed as appropriate & no additional complaints except as documented Constitutional Constitutional: Reports system reviewed and no additional complaints, except as documented and Reports as per HPI Eyes Eyes: Reports system reviewed and no additional complaints, except as documented, Reports as per HPI, Reports eye discharge and Reports irritation ENT Ears, Nose, Mouth, and Throat: Reports system reviewed and no additional complaints, except as documented and Reports as per HPI Cardiovascular Cardiovascular: Reports system reviewed and no additional complaints, except as documented and Reports as per HPI Respiratory Respiratory: Reports system reviewed and no additional complaints, except as documented and Reports as per HPI Gastrointestinal Gastrointestingal: Reports system reviewed and no additional complaints, except as documented and as per HPI Physical Exam General General appearance: alert and in no apparent distress Eye Eye exam: Present conjunctival redness (left) and discharge (left with matting like particles noted in lashes) ENT ENT exam: Present mucous membranes moist Expanded ENT Exam Nose exam: Absent sinus tenderness Throat exam: Present normal inspection Respiratory Respiratory exam: Present normal lung sounds bilaterally; Absent respiratory distress or wheezes Cardiovascular Cardiovascular exam: Present regular rate, normal rhythm and normal heart sounds Neurological Exam Neurological exam: Present alert, oriented X3 and normal gait Medical Decision Making Medical Records Screening: Per USPSTF and CDC recommendations, given the prevalence of disease in our region, it is our hospital?s policy to screen for HIV and viral Hepatitis for all patients aged 18 and over and those with ongoing risk factors. Prasanna Inquiry Pt receiving controlled substance: No Prasanna was queried for this patient: No Vital Signs: 05/15/24 11:54 Temperature 99.2 F Temperature Source Oral Pulse Rate [Left Radial] 86 Respiratory Rate 20 Blood Pressure [Left Arm] 159/112 H Blood Pressure Mean [Left Arm] 127 02 Sat by Pulse Oximetry 100
[2024-05-15 12:02] VITALS: BP 159/112; PULSE 86; RESP 20; TEMP 37.3; O2SAT 100
== END 2024-05-15 12:04 | disposition home or self-care (01) ==
PROVIDERS: Emergency Provider Nurse Practitioner; PCP Nurse Practitioner Family
DX: H10.32 Unspecified acute conjunctivitis, left eye (principal); H57.12 Ocular pain, left eye
CPT/HCPCS: 99212; G0381

== ENCOUNTER 2024-07-05 14:17 | Emergency (ER) | payer OTHER, SELFPAY ==
--- NOTE | 2024-07-05 14:21 | XR_ITS ---
PROCEDURE INFORMATION: Exam: XR Left Ankle Exam date and time: 07/05/2024 2:49 PM Age: 29 years old Clinical indication: Injury or trauma; Other: Twisted ankle; Swelling, leg or foot; Sprain or strain; Left TECHNIQUE: Imaging protocol: Radiologic exam of the left ankle. Views: 3 or more views. COMPARISON: CR XR ANKLE LT MIN 3V 07/05/2024 2:49 PM FINDINGS: Bones/joints: Normal. No acute fracture identified.T Soft tissues: Normal. IMPRESSION: No acute findings.
[2024-07-05 14:39] VITALS: BP 126/75; PULSE 73; RESP 20; TEMP 36.8; O2SAT 97; BMI 50.1
--- NOTE | 2024-07-05 14:54 | ED_ITS ---
Discharge Plan Prescriptions Prescriptions: No Action buspirone 10 mg tablet 10 mg PO BID Qty: 60 1RF metformin 500 mg tablet See Rx Instructions .ROUTE .COMPLEX Qty: 60 0RF Dose Instruction: TAKE 1 TABLET BY MOUTH TWICE DAILY Rx Instructions: TAKE 1 TABLET BY MOUTH TWICE DAILY atorvastatin 10 mg tablet See Rx Instructions .ROUTE .COMPLEX Qty: 30 0RF Dose Instruction: TAKE 1 TABLET BY MOUTH EVERY NIGHT AT BEDTIME Rx Instructions: TAKE 1 TABLET BY MOUTH EVERY NIGHT AT BEDTIME quetiapine 25 mg tablet 25 mg PO HS Qty: 30 1RF topiramate 25 mg tablet See Rx Instructions .ROUTE .COMPLEX Qty: 60 0RF Dose Instruction: TAKE 1 TABLET BY MOUTH TWICE A DAY Rx Instructions: TAKE 1 TABLET BY MOUTH TWICE A DAY Auvelity 45-105 mg tablet, IR and ER, biphasic 1 tab PO BID Qty: 60 3RF propranolol 80 mg tablet 80 mg PO BID Qty: 60 4RF Referrals Follow up/Referrals: Nikia Harden APRN [Primary Care Provider] - See instructions Ravin Cain DO [Staff Physician] - See instructions Etelvina Sorto DPM [Staff Physician] - See instructions Activity Restrictions/Add. Instructions Additional Instructions/Restrictions: *weight bearing as tolerated *RICE, Rest the extremity, Ice 15-20 minutes 3-4 times daily, Compress- wear the victor hugo wrap as discussed as much as possible to help reduce swelling and pain, Elevate the extremity when at rest *Victor Hugo wrap is for support and help control swelling, use it except in the shower. Be sure that is not to tight but not to loose either *Elevate when resting? *Ibuprofen 600-800mg every 6-8 hours as needed for pain an inflammation. If need something more can take Tylenol in between doses of Ibuprofen to help Immediately follow up with your family doctor for new or worsening of symptoms, or no noticeable improvement over the next 3-5 days Clinical Impressions Clinical Impression: Ankle sprain Stand Alone Forms Stand Alone Forms: Work/School Release Instructions Patient Instructions: How To Perform RICE (Rest, Ice, Compress, Elevate), Ibuprofen Print Language Print Language: Yi Discharge ED Provider: Josie Reynolds [facility] [place] HPI General Stated complaint: ao 07/03, L ankle injury Mode of Arrival: Ambulatory Source of Information: Patient Time Seen by Provider: 07/05/24 14:54 Description of Symptoms (Recalled from Triage Doc. by RN): LEFT ANKLE INJURY HEENT Symptoms (Recalled from RN notes): No Resp Symptoms (Recalled from RN notes): No Skin Symptoms (Recalled from RN notes): No MS Symptoms (Recalled from RN notes): Yes Functional Status (Recalled from RN notes): WNL History of Present Illness Provider Complaint: Patient states that she was walking out of work a couple days ago and rolled her left ankle and has been having pain in it since States also yesterday she was walking and came down on it wrong and pain shot up from her ankle into her lower leg Denies hitting her lower leg or anything, but pain has continued in her ankle so she came in to get it checked Related Data Previous Rx's ?Medication ?Instructions ?Recorded buspirone 10 mg tablet 10 mg PO BID #60 tabs 05/02/24 atorvastatin 10 mg tablet See Rx Instructions .Route 05/22/24 .COMPLEX #30 tabs metformin 500 mg tablet See Rx Instructions .Route 05/22/24 .COMPLEX #60 tabs quetiapine 25 mg tablet 25 mg PO HS #30 tabs 05/27/24 topiramate 25 mg tablet See Rx Instructions .Route 05/30/24 .COMPLEX #60 tabs dextromethorphan IR 45 1 tab PO BID #60 ea 06/20/24 mg-bupropion ER 105 mg biphasic tablet (Auvelity) propranolol 80 mg tablet 80 mg PO BID #60 tabs 06/24/24 Allergies Allergy/AdvReac Type Severity Reaction Status Date / Time No Known Allergies Allergy Verified 05/10/24 10:13 Worker's Comp Is this a Worker's Comp case?: No [facility] Disclaimer: The information contained in this section may have been updated after the patient was seen, as this information can be updated by other users. 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 (Updated 07/05/24 @ 16:17 by Josie Reynolds APRN) Gestational diabetes mellitus (GDM) Gestational diabetes mellitus (GDM) treated with oral hypoglycemic therapy Hx gestational diabetes Insulin resistance Tachycardia Insomnia Major depressive disorder Generalized anxiety disorder Urinary tract infection History of COVID-19 Asthma History of gastroesophageal reflux (GERD) Hypertension Dizziness Dyspnea Palpitations Abnormal Holter monitor finding Chest pain Depression Anxiety Surgical History History of incision and drainage H/O tubal ligation History of [place] teeth removed History of tonsillectomy and adenoidectomy History of surgery Family History Father Cirrhosis Mother Diabetes Grandmother Breast cancer Heart disease Multiple sclerosis COPD (chronic obstructive pulmonary disease) 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 Smoking Status: Never smoker second hand exposure: No alcohol intake: never counseling given: No substance use type: denies use and other details: delta 8 vape counseling given: No current occupational status: unemployed adopted: No caregiver/support person: Yes (she stays home with her kids; PASHAM) foster care: No household members: significant other housing: house lives independently: Yes marital status: life partner number of children: 3 number of grandchildren: 0 education level: high school 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 Hx Recent Travel: No sexually active: Yes caffeine: Yes physical activity: none working smoke detector in home: Yes fire extinguisher in home: No carbon monox detector in home: Yes firearms in home: No do you feel safe at home: Yes victim of physical abuse: No victim of emotional abuse: No victim of sexual abuse: No would you like helpful sources: No ROS Obtained: Yes All systems reviewed & no additional complaints except as documented and Yes Systems reviewed as appropriate & no additional complaints except as documented Constitutional Constitutional: Reports system reviewed and no additional complaints, except as documented and Reports as per HPI ENT Ears, Nose, Mouth, and Throat: Reports system reviewed and no additional complaints, except as documented and Reports as per HPI Cardiovascular Cardiovascular: Reports system reviewed and no additional complaints, except as documented and Reports as per HPI Respiratory Respiratory: Reports system reviewed and no additional complaints, except as documented and Reports as per HPI Gastrointestinal Gastrointestingal: Reports system reviewed and no additional complaints, except as documented and as per HPI Musculoskeletal Musculoskeletal: Reports system reviewed and no additional complaints, except as documented, Reports as per HPI and Reports other Comments: Pain in left ankle after rolling it a couple days ago and then again yesterday Physical Exam General General appearance: alert and in no apparent distress ENT ENT exam: Present normal exam, normal oropharynx, mucous membranes moist and mucous membranes dry Respiratory Respiratory exam: Present normal lung sounds bilaterally; Absent respiratory distress or wheezes Cardiovascular Cardiovascular exam: Present regular rate, normal rhythm and normal heart sounds Expanded Lower Extremity Exam Left: Leg image: 2 1. reports tenderness, mild swelling, and pain with ambulation no discoloration or temp difference noted Lower leg exam: Present tenderness; Absent swelling, abrasion, laceration, ecchymosis, deformity or erythema Ankle exam: Present tenderness and swelling; Absent ecchymosis, deformity or erythema Foot/toe exam: Present normal inspection Neurovascular/Tendon exam: Present normal capillary refill Gait: observed and limited by pain Neurological Exam Neurological exam: Present alert, oriented X3 and normal gait Medical Decision Making Medical Records Screening: Per USPSTF and CDC recommendations, given the prevalence of disease in our region, it is our hospital?s policy to screen for HIV and viral Hepatitis for all patients aged 18 and over and those with ongoing risk factors. Prasanna Inquiry Pt receiving controlled substance: No Prasanna was queried for this patient: No Vital Signs: 07/05/24 14:39 Temperature 98.2 F Temperature Source Oral Pulse Rate [Left Radial] 73 Respiratory Rate 20 Blood Pressure [Left Arm] 126/75 Blood Pressure Mean [Left Arm] 92 02 Sat by Pulse Oximetry 97 Orders (Tests/Meds): ORDERS Category Date Time Status Ankle XR - Left minimum 3 Views [XR ankle LT min 3V] Exams 07/05/24 14:21 Ordered Stat Radiology Data #1: Image(s): Ankle Image Reviewed: Yes I have reviewed radiologist's interpretation IMPRESSION: No acute findings.
[2024-07-05 16:16] VITALS: BP 126/75; PULSE 73; RESP 20; TEMP 36.8
== END 2024-07-05 16:22 | disposition home or self-care (01) ==
PROVIDERS: Emergency Provider Nurse Practitioner; PCP Nurse Practitioner Family
DX: S93.402A Sprain of unspecified ligament of left ankle, initial encounter (principal); M25.572 Pain in left ankle and joints of left foot
CPT/HCPCS: 73610; 99212; G0381

== ENCOUNTER 2024-07-06 17:27 | Emergency (ER) | payer OTHER, SELFPAY ==
[2024-07-06 18:10] VITALS: BP 131/82; PULSE 82; RESP 21; TEMP 36.9; O2SAT 99; BMI 48.5
[2024-07-06 18:32] LABS: UTC Influenza A Antigen Negative (Negative); UTC Influenza B Antigen Negative (Negative); UTC Strep Screen (Rapid) Negative (Negative)
--- NOTE | 2024-07-06 18:37 | EXP.UTC ---
Discharge Plan Prescriptions Prescriptions: No Action buspirone 10 mg tablet 10 mg PO BID Qty: 60 1RF metformin 500 mg tablet See Rx Instructions .ROUTE .COMPLEX Qty: 60 0RF Dose Instruction: TAKE 1 TABLET BY MOUTH TWICE DAILY Rx Instructions: TAKE 1 TABLET BY MOUTH TWICE DAILY atorvastatin 10 mg tablet See Rx Instructions .ROUTE .COMPLEX Qty: 30 0RF Dose Instruction: TAKE 1 TABLET BY MOUTH EVERY NIGHT AT BEDTIME Rx Instructions: TAKE 1 TABLET BY MOUTH EVERY NIGHT AT BEDTIME quetiapine 25 mg tablet 25 mg PO HS Qty: 30 1RF topiramate 25 mg tablet See Rx Instructions .ROUTE .COMPLEX Qty: 60 0RF Dose Instruction: TAKE 1 TABLET BY MOUTH TWICE A DAY Rx Instructions: TAKE 1 TABLET BY MOUTH TWICE A DAY Auvelity 45-105 mg tablet, IR and ER, biphasic 1 tab PO BID Qty: 60 3RF propranolol 80 mg tablet 80 mg PO BID Qty: 60 4RF Referrals Follow up/Referrals: Nikia Harden APRN [Primary Care Provider] - See instructions Activity Restrictions/Add. Instructions Additional Instructions/Restrictions: No sign of a bacterial infection. Likely viral. Viruses can take 7-14 days to run their course. Nasal saline and bulb syringe or nose [place] to remove nasal drainage to help with nasal congestion. Hard to eat, drink, sleep with nasal congestion so important to keep this cleaned out. Monitor temp. Tylenol or Motrin as needed for pain or fever Encourage fluids, water, Gatorade, Powerade, Pedialyte if infant/toddler/child Warm salt water gargles Warm fluids Sore throat lozenges Sleep elevated Humidifier/vaporizer Follow-up immediately for new or worsening symptoms or no noticeable improvement over the next 48-72 hours. Clinical Impressions Clinical Impression: Upper respiratory infection, viral Instructions Patient Instructions: DI for Viral Upper Respiratory Infection -- Adult Print Language Print Language: Divehi Discharge ED Provider: Carson ([facility] [place] HPI General Stated complaint: cough,fever,sore throat Mode of Arrival: Ambulatory Source of Information: Patient Limitations: No Limitations Time Seen by Provider: 07/06/24 18:18 Description of Symptoms (Recalled from Triage Doc. by RN): PATIENT C/O COUGH AND FEVER X 2 DAYS HEENT Symptoms (Recalled from RN notes): No Resp Symptoms (Recalled from RN notes): Yes Skin Symptoms (Recalled from RN notes): No MS Symptoms (Recalled from RN notes): No Functional Status (Recalled from RN notes): WNL History of Present Illness Provider Complaint: 29-year-old female presents for a cough and subjective fever -patient states she has not checked it but felt like she had 1 for 2 days. Related Data Previous Rx's ?Medication ?Instructions ?Recorded buspirone 10 mg tablet 10 mg PO BID #60 tabs 05/02/24 atorvastatin 10 mg tablet See Rx Instructions .Route 05/22/24 .COMPLEX #30 tabs metformin 500 mg tablet See Rx Instructions .Route 05/22/24 .COMPLEX #60 tabs quetiapine 25 mg tablet 25 mg PO HS #30 tabs 05/27/24 topiramate 25 mg tablet See Rx Instructions .Route 05/30/24 .COMPLEX #60 tabs dextromethorphan IR 45 1 tab PO BID #60 ea 06/20/24 mg-bupropion ER 105 mg biphasic tablet (Auvelity) propranolol 80 mg tablet 80 mg PO BID #60 tabs 06/24/24 Allergies Allergy/AdvReac Type Severity Reaction Status Date / Time No Known Allergies Allergy Verified 05/10/24 10:13 Worker's Comp Is this a Worker's Comp case?: No [facility] Disclaimer: The information contained in this section may have been updated after the patient was seen, as this information can be updated by other users. 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 (Reviewed 07/06/24 @ 18:38 by Juventino Byrd ([facility]), RELATIONSHIP COUNSELOR) Gestational diabetes mellitus (GDM) Gestational diabetes mellitus (GDM) treated with oral hypoglycemic therapy Hx gestational diabetes Insulin resistance Tachycardia Insomnia Major depressive disorder Generalized anxiety disorder Urinary tract infection History of COVID-19 Asthma History of gastroesophageal reflux (GERD) Hypertension Dizziness Dyspnea Palpitations Abnormal Holter monitor finding Chest pain Depression Anxiety Surgical History (Reviewed 07/06/24 @ 18:38 by Juventino Byrd ([facility]), RELATIONSHIP COUNSELOR) History of incision and drainage H/O tubal ligation History of [place] teeth removed History of tonsillectomy and adenoidectomy History of surgery Family History (Reviewed 07/06/24 @ 18:38 by Juventino Byrd ([facility]), RELATIONSHIP COUNSELOR) Diabetes Mother Heart disease Grandmother Cirrhosis Father Breast cancer Grandmother COPD (chronic obstructive pulmonary disease) Grandmother Multiple sclerosis Grandmother 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 (Reviewed 07/06/24 @ 18:38 by Juventino Byrd ([facility]), RELATIONSHIP COUNSELOR) Smoking Status: Never smoker second hand exposure: No alcohol intake: never counseling given: No substance use type: denies use and other details: delta 8 vape counseling given: No current occupational status: unemployed adopted: No caregiver/support person: Yes (she stays home with her kids; SAHM) foster care: No household members: significant other housing: house lives independently: Yes marital status: life partner number of children: 3 number of grandchildren: 0 education level: high school 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 Hx Recent Travel: No sexually active: Yes caffeine: Yes physical activity: none working smoke detector in home: Yes fire extinguisher in home: No carbon monox detector in home: Yes firearms in home: No do you feel safe at home: Yes victim of physical abuse: No victim of emotional abuse: No victim of sexual abuse: No would you like helpful sources: No ROS Obtained: Yes Systems reviewed as appropriate & no additional complaints except as documented Physical Exam General General appearance: alert and in no apparent distress Eye Eye exam: Present normal appearance ENT ENT exam: Present normal oropharynx and mucous membranes moist Expanded ENT Exam TM/Canal exam: Left TM: erythema, perforation (Drainage and canal) and loss of landmarks Respiratory Respiratory exam: Present normal lung sounds bilaterally Cardiovascular Cardiovascular exam: Present regular rate and normal rhythm Neurological Exam Neurological exam: Present alert and oriented X3 Skin Skin exam: Present warm and intact Medical Decision Making Medical Records Medical records reviewed: Yes I reviewed the patient's medical records. Screening: Per USPSTF and CDC recommendations, given the prevalence of disease in our region, it is our hospital?s policy to screen for HIV and viral Hepatitis for all patients aged 18 and over and those with ongoing risk factors. Prasanna Inquiry Pt receiving controlled substance: No Prasanna was queried for this patient: No Vital Signs: 07/06/24 18:10 Temperature 98.4 F Temperature Source Oral Pulse Rate [Left Brachial] 82 Respiratory Rate 21 Blood Pressure [Left Arm] 131/82 Blood Pressure Mean [Left Arm] 98 Blood Pressure Source [Left Arm] Automatic Cuff Blood Pressure Position [Left Arm] Sitting 02 Sat by Pulse Oximetry 99 Oxygen Delivery Method Room Air Lab Data Lab results reviewed: Yes I reviewed the patient's lab results. Lab Results 07/06/24 17:53: Influenza Type A Ag Negative, Influenza Type B Ag Negative, Strep Scn Rapid Clinic Negative Orders (Tests/Meds): ORDERS Category Date Time Status Strep Screen Confirmation Stat Micro 07/06/24 17:53 Received
[2024-07-06 18:44] VITALS: BP 131/82; PULSE 82; RESP 21; TEMP 36.9; O2SAT 99
== END 2024-07-06 19:04 | disposition home or self-care (01) ==
LOC: UTC 17:35
PROVIDERS: Emergency Provider Nurse Practitioner Family; PCP Nurse Practitioner Family
DX: J06.9 Acute upper respiratory infection, unspecified (principal)
CPT/HCPCS: 87804; 87880; 99213; G0381

== ENCOUNTER 2024-07-12 18:20 | Emergency (ER) | payer OTHER, SELFPAY ==
[2024-07-12 18:21] VITALS: BP 144/90; PULSE 103; RESP 18; TEMP 36.5; O2SAT 100; BMI 49.7
--- NOTE | 2024-07-12 18:46 | ED_ITS ---
<Statement entered by Aniceto Salguero MD - 07/12/24 23:22> I was consulted by the STEFAN, and we discussed the complexity of the problems being addressed. I approved the treatment and management plan for this patient's care in the emergency department, thus performing a substantive portion of the medical decision making. Aniceto Salguero MD, BIRDIE, FACEP Discharge Plan Disposition Patient Disposition: Home, Self-Care Condition: Good Prescriptions Prescriptions: New albuterol sulfate 90 mcg/actuation HFA aerosol inhaler 1 inh inhalation Q4H PRN (Reason: shortness of breath or wheezing) Qty: 8.5 0RF prednisone 50 mg tablet 50 mg PO DAILY 5 Days Qty: 5 0RF azithromycin 250 mg tablet See Rx Instructions .ROUTE .COMPLEX Qty: 6 0RF Rx Instructions: For 250 mg dose pack: take 500 mg today (day 1), then 250 mg for 4 days (days 2-5) [id number]-[id number] [Bromfed DM] 2-30-10 mg/5 mL syrup 5 ml PO Q4H PRN (Reason: sinus symptoms) Qty: 118 0RF No Action buspirone 10 mg tablet 10 mg PO BID Qty: 60 1RF metformin 500 mg tablet See Rx Instructions .ROUTE .COMPLEX Qty: 60 0RF Dose Instruction: TAKE 1 TABLET BY MOUTH TWICE DAILY Rx Instructions: TAKE 1 TABLET BY MOUTH TWICE DAILY atorvastatin 10 mg tablet See Rx Instructions .ROUTE .COMPLEX Qty: 30 0RF Dose Instruction: TAKE 1 TABLET BY MOUTH EVERY NIGHT AT BEDTIME Rx Instructions: TAKE 1 TABLET BY MOUTH EVERY NIGHT AT BEDTIME quetiapine 25 mg tablet 25 mg PO HS Qty: 30 1RF topiramate 25 mg tablet See Rx Instructions .ROUTE .COMPLEX Qty: 60 0RF Dose Instruction: TAKE 1 TABLET BY MOUTH TWICE A DAY Rx Instructions: TAKE 1 TABLET BY MOUTH TWICE A DAY Auvelity 45-105 mg tablet, IR and ER, biphasic 1 tab PO BID Qty: 60 3RF propranolol 80 mg tablet 80 mg PO BID Qty: 60 4RF Referrals Follow up/Referrals: Nikia Harden APRN [Primary Care Provider] - See instructions Activity Restrictions/Add. Instructions Additional Instructions/Restrictions: I have sent medications into your pharmacy. Please take the antibiotic till it is completely gone. Follow-up with your PCP next week for recheck or sooner for any worsening signs or symptoms or return to the ER as needed. Clinical Impressions Clinical Impression: Lower resp. tract infection, Bronchitis Print Language Print Language: [place] Discharge ED Provider: Aniceto Salguero General Adult HPI General Chief complaint: Upper Respiratory Infection Stated complaint: cough,bairon, fever Time Seen by Provider: 07/12/24 18:38 Mode of Arrival: Ambulatory Source of Information: Patient Limitations: No Limitations Description of Symptoms (Recalled from ER Triage Doc. by RN): Patient reports cough and congestion for 2 weeks. States that she was seen in the [facility] and told she has a virus however she hasn't gotten better. History of Present Illness HPI narrative: Patient presents for evaluation of 2 weeks of cough congestion. Patient was seen in the [facility] 2 weeks ago old and diagnosed with a cold. She was told to take akkv-rok-mbnjxfh treatments. Patient has done so but had no improvement. She reports increasing cough congestion and malaise. On arrival patient has stable vital signs but is tachycardic in the 103 but no fever at 97.7. She denies cardiac chest pain nausea vomiting diarrhea. Related Data Previous Rx's ?Medication ?Instructions ?Recorded buspirone 10 mg tablet 10 mg PO BID #60 tabs 05/02/24 atorvastatin 10 mg tablet See Rx Instructions .Route 05/22/24 .COMPLEX #30 tabs metformin 500 mg tablet See Rx Instructions .Route 05/22/24 .COMPLEX #60 tabs quetiapine 25 mg tablet 25 mg PO HS #30 tabs 05/27/24 topiramate 25 mg tablet See Rx Instructions .Route 05/30/24 .COMPLEX #60 tabs dextromethorphan IR 45 1 tab PO BID #60 ea 06/20/24 mg-bupropion ER 105 mg biphasic tablet (Auvelity) propranolol 80 mg tablet 80 mg PO BID #60 tabs 06/24/24 albuterol sulfate 90 mcg/actuation 1 inh inhalation Q4H PRN shortness 07/12/24 aerosol inhaler of breath or wheezing #8.5 grams azithromycin 250 mg tablet See Rx Instructions PO .COMPLEX #6 07/12/24 tabs vuufgygxlkttybs-vmcpkxsqfuaiwxw-NB 5 ml PO Q4H PRN sinus symptoms 07/12/24 2 mg-30 mg-10 mg/5 mL oral syrup #118 mL (Bromfed DM) prednisone 50 mg tablet 50 mg PO DAILY 5 days #5 tabs 07/12/24 Allergies Allergy/AdvReac Type Severity Reaction Status Date / Time No Known Allergies Allergy Verified 05/10/24 10:13 [facility] Disclaimer: The information contained in this section may have been updated after the patient was seen, as this information can be updated by other users. 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) Gestational diabetes mellitus (GDM) Gestational diabetes mellitus (GDM) treated with oral hypoglycemic therapy Hx gestational diabetes Insulin resistance Tachycardia Insomnia Major depressive disorder Generalized anxiety disorder Urinary tract infection History of COVID-19 Asthma History of gastroesophageal reflux (GERD) Hypertension Dizziness Dyspnea Palpitations Abnormal Holter monitor finding Chest pain Depression Anxiety Surgical History , CURATOR NATURAL HISTORY MUSEUM) History of incision and drainage H/O tubal ligation History of [place] teeth removed History of tonsillectomy and adenoidectomy History of surgery Family History , CURATOR NATURAL HISTORY MUSEUM) Diabetes Mother Heart disease Grandmother Cirrhosis Father Breast cancer Grandmother COPD (chronic obstructive pulmonary disease) Grandmother Multiple sclerosis Grandmother 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 (Updated 07/06/24 @ 18:41 by Juventino Byrd ([facility]), CURATOR NAT[employer] HISTORY MUSEUM) Smoking Status: Never smoker second hand exposure: No alcohol intake: never counseling given: No substance use type: denies use and other details: delta 8 vape counseling given: No current occupational status: unemployed adopted: No caregiver/support person: Yes (she stays home with her kids; SAHM) foster care: No household members: significant other housing: house lives independently: Yes marital status: life partner number of children: 3 number of grandchildren: 0 education level: high school 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 Hx Recent Travel: No sexually active: Yes caffeine: Yes physical activity: none working smoke detector in home: Yes fire extinguisher in home: No carbon monox detector in home: Yes firearms in home: No do you feel safe at home: Yes victim of physical abuse: No victim of emotional abuse: No victim of sexual abuse: No would you like helpful sources: No Other 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 Have you received the Flu Vaccine for this season: No Have you received the Pneumonia Vaccine: No ROS Obtained: Yes Systems reviewed as appropriate & no additional complaints except as documented Physical Exam General General appearance: alert and in no apparent distress Respiratory Respiratory exam: Present other (Patient has rales left greater than right in the lung bases with no increased work of breathing or accessory muscle use.); Absent normal lung sounds bilaterally Cardiovascular Cardiovascular exam: Present tachycardia Neurological Exam Neurological exam: Present alert and oriented X3 Medical Decision Making Medical Records Medical records reviewed: Yes I reviewed the patient's medical records. Screening: Per USPSTF and CDC recommendations, given the prevalence of disease in our region, it is our hospital?s policy to screen for HIV and viral Hepatitis for all patients aged 18 and over and those with ongoing risk factors. Prasanna Inquiry Pt receiving controlled substance: No Vital Signs: 07/12/24 18:21 07/12/24 20:15 07/12/24 20:23 Temperature 97.7 F Temperature Source Oral Pulse Rate 74 81 Pulse Rate [Radial] 103 H Respiratory Rate 18 Blood Pressure 125/67 Blood Pressure [Right Arm] 144/90 H Blood Pressure Mean [Right Arm] 108 Blood Pressure Source [Right Arm] Automatic Cuff Blood Pressure Position [Right Arm] Sitting 02 Sat by Pulse Oximetry 100 97 Oxygen Delivery Method Room Air 07/12/24 20:23 Temperature Temperature Source Pulse Rate 90 Pulse Rate [Radial] Respiratory Rate Blood Pressure Blood Pressure [Right Arm] Blood Pressure Mean [Right Arm] Blood Pressure Source [Right Arm] Blood Pressure Position [Right Arm] 02 Sat by Pulse Oximetry Oxygen Delivery Method Lab Data Lab results reviewed: Yes I reviewed the patient's lab results. Lab Results 07/12/24 18:58: Chlamy pneumoniae PCR Not detected, Adenovirus (PCR) Not detected, B. pertussis DNA (PCR) Not detected, Coronavirus OC43 (PCR) Not detected, Coronavirus HKU1 (PCR) Not detected, Coronavirus 229E (PCR) Not detected, SARS-CoV-2 (PCR) Detected A, Coronavirus NL63 (PCR) Not detected, Human Metapneumovir PCR Not detected, Influenza A (H1) PCR Not detected, Influ A (H1N1/09) PCR Not detected, Influenza A (H3) PCR Not detected, Influenza Type A (PCR) Not detected, Influenza Type B (PCR) Not detected, M. pneumoniae (PCR) Not detected, Parainfluenza 1 (PCR) Not detected, Parainfluenza 2 (PCR) Not detected, Parainfluenza 3 (PCR) Not detected, Parainfluenza 4 (PCR) Not detected, RSV (PCR) Detected A, Entero/Rhino (PCR) Not detected 07/12/24 19:20: WBC 7.9, RBC 4.45, Hgb 14.0, Hct 40.8, MCV 91.7, MCH 31.6 H, MCHC 34.4, RDW 13.8, Plt Count 274, MPV 7.4, Neut % (Auto) 72.2, Lymph % (Auto) 17.8, [place] % (Auto) 7.1, Eos % (Auto) 2.1, Baso % (Auto) 0.7, Neut # (Auto) 5.7, Lymph # (Auto) 1.4, [place] # (Auto) 0.6, Eos # (Auto) 0.2, Baso # (Auto) 0.1, Sodium 139, Potassium 3.6, Chloride 109 H, Carbon Dioxide 21 L, Anion Gap 12.6, BUN 8, Creatinine 0.80, Estimated Creat Clear 83, Estimated GFR 85, Est GFR ( Amer) 103, Glucose 108 H, Calcium 9.2, Total Bilirubin 0.5, AST 46 H, ALT 33, Alkaline Phosphatase 138 H, Total Protein 8.0, Albumin 4.4, Globulin 3.6 H, Albumin/Globulin Ratio 1.2, Serum HCG, Qual Negative 07/12/24 19:20 07/12/24 19:20 Orders (Tests/Meds): ED MEDICATIONS Generic Name Dose Route Start Last Admin Trade Name Freq PRN Reason Stop Dose Admin Azithromycin 500 mg 07/12/24 20:42 Azithromycin 250mg Tablet PO 07/12/24 20:43 ONCE ONE Discontinued Medications Generic Name Dose Route Start Last Admin Trade Name Freq PRN Reason Stop Dose Admin Acetaminophen 1,000 mg 07/12/24 18:56 07/12/24 19:24 Acetaminophen 500mg Tab PO 07/12/24 18:57 1,000 mg ONCE ONE Administration Albuterol/Ipratropium 3 ml 07/12/24 19:34 07/12/24 20:23 Ipratropium/Albuterol 3 Ml Neb IH 11/29/24 19:35 3 ml ONCE ONE Administration Dexamethasone Sodium Phosphate 10 mg 07/12/24 19:34 07/12/24 20:14 Dexamethasone 4mg/Ml 5ml Mdv IV 07/12/24 19:35 10 mg ONCE ONE Administration Sodium Chloride 1,000 mls @ 999 mls/hr 07/12/24 19:34 07/12/24 20:14 Sod Chlor 0.9% 1000ml Bag IV 07/12/24 20:34 999 mls/hr .Q1H1M ONE Administration Ketorolac Tromethamine 15 mg 07/12/24 18:56 07/12/24 19:23 Ketorolac 30mg/Ml Vial IV 07/12/24 18:57 15 mg ONCE ONE Administration ORDERS Category Date Time Status Chest XR 2 view (NOT portable) [XR chest 2V] Stat Exams 07/12/24 18:57 Taken CBC w/Auto Diff [Complete Blood Count Auto Diff] Stat Lab 07/12/24 19:20 Completed CMP [Comprehensive Metabolic Panel] Stat Lab 07/12/24 19:20 Completed Full Resp Panel w/COVID ([facility]) Routine Lab 07/12/24 18:58 Completed HCG Qualitative, Serum Stat Lab 07/12/24 19:20 Completed Medical Decision Narrative: In summary patient is a [place] 9-year-old female who presents to the emergency department for evaluation of persistent cough and congestion for 2 weeks. Patient is normotensive but tachycardic otherwise hemodynamically stable upon arrival, afebrile. Physical exam is remarkable for bibasilar rales, left greater than right, with no increased work of breathing or accessory muscle use.. Differential diagnosis includes bronchitis versus pneumonia etc. Initial workup will be conducted with hematologic labs respiratory panel chest x-ray. Initial interventions include Tylenol Toradol DuoNeb fluid bolus. Initial workup reviewed by me shows her hematologic labs are nonactionable and my informed interpretation of her plain film chest x-ray shows no consolidations though it does show some bronchial thickening. Upon repeat evaluation patient actually had significant improvement with breathing treatment although I did not give her steroids. Given this given this patient is appropriate for discharge and given the 14 days of prolonged symptoms similar to treat her for an atypical infection with azithromycin as well as Bromfed albuterol and prednisone prescription sent to her pharmacy. Patient is appropriate for discharge with strict return precautions. Critical Care Critical Care Time Critical Care Time: No
--- NOTE | 2024-07-12 18:49 | PC.NURSE ---
Amandeep Cash PAC at bedside
--- NOTE | 2024-07-12 18:57 | XR_ITS ---
PROCEDURE INFORMATION: Exam: XR Chest Exam date and time: 07/12/2024 7:51 PM Age: 29 years old Clinical indication: Cough; Additional info: Uri, 2 weeks of cough TECHNIQUE: Imaging protocol: Radiologic exam of the chest. Views: 2 views. COMPARISON: CR XR CHEST 2V 12/12/2023 9:23 AM FINDINGS: Lungs: There is mild elevation of the right hemidiaphragm. Lung volumes are mildly diminished. The lungs appear clear. No focal areas of consolidation. Pleural spaces: No pleural effusions. Negative for pneumothorax. Heart/Mediastinum: Cardiac silhouette and pulmonary vasculature are within range of normal. Bones/joints: There is no evidence of acute fracture. IMPRESSION: Negative for an acute cardiopulmonary abnormality.
[2024-07-12 19:04] LABS: Adenovirus,PCR Not Detected (NotDetected); Bordetella Pertussis Not Detected (NotDetected); Chlamydophila Pneumoniae, PCR Not Detected (NotDetected); Coronavirus 229E Not Detected (NotDetected); Coronavirus NL63 Not Detected (NotDetected); Coronavirus OC43 Not Detected (NotDetected); Coronovirus HKU1,PCR Not Detected (NotDetected); Human Metapneumovirus Not Detected (NotDetected); Influenza A, PCR Not Detected (NotDetected); Influenza AH1, 2009 Not Detected (NotDetected); Influenza AH1, PCR Not Detected (NotDetected); Influenza AH3,PCR Not Detected (NotDetected); Influenza B, PCR Not Detected (NotDetected); Mycoplasma Pneumoniae, PCR Not Detected (NotDetected); Parainfluenza 1, PCR Not Detected (NotDetected); Parainfluenza 2, PCR Not Detected (NotDetected); Parainfluenza 3, PCR Not Detected (NotDetected); Parainfluenza 4, PCR Not Detected (NotDetected); Rhinovirus/Enterovirus Not Detected (NotDetected)
[2024-07-12] MEDS: KETOROLAC 30MG/ML VIAL 15 MG IV (19:23)
[2024-07-12] MEDS: ACETAMINOPHEN 500MG TAB 1000 MG PO (19:24)
[2024-07-12 19:37] LABS: Basophils # 0.1 K/mm3 (0-0.2); Basophils % 0.7 % (0.1-2.0); Eosinophils # 0.2 K/mm3 (0.0-0.4); Eosinophils % 2.1 % (0.1-12.0); Hematocrit 40.8 % (37.0-47.0); Lymphocytes # 1.4 K/mm3 (0.7-4.5); Lymphocytes % 17.8 % (10-50); Mean Corpuscular HGB Conc 34.4 g/dL (31.8-35.4); Mean Corpuscular Hemoglobin 31.6 pg (27.0-31.2); Mean Corpuscular Volume 91.7 fl (81-99); Mean Platelet Volume 7.4 fl (7.4-10.4); Monocytes # 0.6 K/mm3 (0.1-1.0); Monocytes % 7.1 % (1.7-9.3); Neutrophils # 5.7 K/mm3 (1.8-7.8); Neutrophils % 72.2 % (37.0-80.0); Platelet Count 274 K/mm3 (142-424); Red Blood Count 4.45 M/mm3 (4.20-5.40); Red Cell Distribution Width 13.8 % (11.5-17.5); White Blood Count 7.9 K/mm3 (4.8-10.8)
[2024-07-12 19:38] LABS: Chloride 109 mmol/L (98-107)
[2024-07-12 19:39] LABS: Albumin Level 4.4 g/dl (3.5-5.0); Potassium 3.6 mmoL/L (3.5-5.1); Sodium 139 mmol/L (136-145)
[2024-07-12 19:41] LABS: Blood Urea Nitrogen 8 mg/dl (7-17); Creatinine Clearance Estimated 83 mL/min (50-200); Estimated Glomerular Filt Rate 85 ml/min (>60); GFR (African American) 103 ML/MIN (>60)
[2024-07-12 19:42] LABS: Alanine Aminotransferase 33 U/L (12-78); Albumin/Globulin Ratio 1.2 (1.1-1.8); Alkaline Phosphatase 138 U/L (38-126); Anion Gap 12.6 mEq/L (5-15); Aspartate Amino Transferase 46 U/L (14-36); Bilirubin,Total 0.5 mg/dl (0.2-1.3); Calcium 9.2 mg/dl (8.4-10.2); Carbon Dioxide 21 mmol/L (22.0-30.0); Globulin 3.6 g/dL (1.3-3.2); Glucose 108 mg/dl (74-100)
[2024-07-12 19:43] LABS: HCG Qualitative, Serum Negative (Negative)
[2024-07-12] MEDS: DEXAMETHASONE 4MG/ML 5ML MDV 10 MG IV (20:14)
[2024-07-12] MEDS: 0.9 % SODIUM CHLORIDE 1000ML 1,000 ML 999 ML IV (20:14)
[2024-07-12 20:15] VITALS: BP 125/67; PULSE 74; O2SAT 97
[2024-07-12 20:23] VITALS: PULSE 81; PULSE 90
[2024-07-12] MEDS: IPRATROPIUM/ALBUTEROL 3 ML NEB IH (20:23)
[2024-07-12 20:34] LABS: Respiratory Syncytial Virus Detected (NotDetected)
[2024-07-12 20:35] LABS: Coronavirus 19, PCR Detected (NotDetected)
[2024-07-12 20:55] VITALS: BP 124/72; PULSE 76; RESP 18; TEMP 36.6; O2SAT 98
[2024-07-12] MEDS: AZITHROMYCIN 250MG TABLET 500 MG PO (20:55)
== END 2024-07-12 21:00 | disposition home or self-care (01) ==
PROVIDERS: Physician Assistant; Emergency Provider Student in an Organized Health Care Education/Training Program; PCP Nurse Practitioner Family
DX: J40 Bronchitis, not specified as acute or chronic (principal); J22 Unspecified acute lower respiratory infection; R05.9 Cough, unspecified; R50.9 Fever, unspecified; R09.81 Nasal congestion; R53.81 Other malaise
CPT/HCPCS: 71046; 80053; 84703; 85025; 87633; 96361; 96374; 96375; 99283; J1100; J1885; J7030; J7620

== ENCOUNTER 2024-07-24 18:47 | Emergency (ER) | payer OTHER, SELFPAY ==
[2024-07-24 19:05] VITALS: BP 156/73; PULSE 80; RESP 20; TEMP 36.8; O2SAT 98; BMI 49.7
[2024-07-24 19:15] LABS: Apearance,Urine Cloudy (Clear); Color,Urine Dark Yellow (Yellow)
[2024-07-24 19:16] LABS: Bilirubin,Urine Negative (Negative); Blood, Urine Trace (Negative); Glucose,Urine (UA) Negative (Negative); Ketones,Urine Negative (Negative); Protein,Urine Negative (Negative); Specific Gravity, Urine 1.025 (1.005-1.030); UTC Leukocyte Esterase,Urine 1+ (Negative); UTC Nitrate,Urine Negative (Negative); Urobilinogen,Urine 0.2 EU/dl (0.2)
--- NOTE | 2024-07-24 19:21 | ED_ITS ---
Discharge Plan Disposition Patient Disposition: Still a Patient Prescriptions Prescriptions: No Action buspirone 10 mg tablet 10 mg PO BID Qty: 60 1RF metformin 500 mg tablet See Rx Instructions .ROUTE .COMPLEX Qty: 60 0RF Dose Instruction: TAKE 1 TABLET BY MOUTH TWICE DAILY Rx Instructions: TAKE 1 TABLET BY MOUTH TWICE DAILY atorvastatin 10 mg tablet See Rx Instructions .ROUTE .COMPLEX Qty: 30 0RF Dose Instruction: TAKE 1 TABLET BY MOUTH EVERY NIGHT AT BEDTIME Rx Instructions: TAKE 1 TABLET BY MOUTH EVERY NIGHT AT BEDTIME quetiapine 25 mg tablet 25 mg PO HS Qty: 30 1RF topiramate 25 mg tablet See Rx Instructions .ROUTE .COMPLEX Qty: 60 0RF Dose Instruction: TAKE 1 TABLET BY MOUTH TWICE A DAY Rx Instructions: TAKE 1 TABLET BY MOUTH TWICE A DAY Auvelity 45-105 mg tablet, IR and ER, biphasic 1 tab PO BID Qty: 60 3RF propranolol 80 mg tablet 80 mg PO BID Qty: 60 4RF Referrals Follow up/Referrals: Nikia Harden APRN [Primary Care Provider] - See instructions Print Language Print Language: [place] Discharge ED Provider: Josie Reynolds [facility] [place] General Stated complaint: back pain painful urination pelvic pain Mode of Arrival: Ambulatory Source of Information: Patient Limitations: No Limitations Time Seen by Provider: 07/24/24 19:21 Description of Symptoms (Recalled from Triage Doc. by RN): PATIENT C/O PAIN TO LOWER BACK AND PELVIC AREA AND FREQUENT URINATION X 3 DAYS HEENT Symptoms (Recalled from RN notes): No Resp Symptoms (Recalled from RN notes): No Skin Symptoms (Recalled from RN notes): No MS Symptoms (Recalled from RN notes): No Functional Status (Recalled from RN notes): WNL History of Present Illness Provider Complaint: Patient states that she has been having pain in her lower back, pain when she urinates and pain and pressure in her pelvic area with urinary frequency but only going small amounts at a time. States this evening the pain is worse and more on the left side and feels like it is radiating around her left side to her pelvic area States pain is now a 05/23 Related Data Previous Rx's ?Medication ?Instructions ?Recorded buspirone 10 mg tablet 10 mg PO BID #60 tabs 05/02/24 atorvastatin 10 mg tablet See Rx Instructions .Route 05/22/24 .COMPLEX #30 tabs metformin 500 mg tablet See Rx Instructions .Route 05/22/24 .COMPLEX #60 tabs quetiapine 25 mg tablet 25 mg PO HS #30 tabs 05/27/24 topiramate 25 mg tablet See Rx Instructions .Route 05/30/24 .COMPLEX #60 tabs dextromethorphan IR 45 1 tab PO BID #60 ea 06/20/24 mg-bupropion ER 105 mg biphasic tablet (Auvelity) propranolol 80 mg tablet 80 mg PO BID #60 tabs 06/24/24 Allergies Allergy/AdvReac Type Severity Reaction Status Date / Time No Known Allergies Allergy Verified 05/10/24 10:13 Worker's Comp Is this a Worker's Comp case?: No [facility] Disclaimer: The information contained in this section may have been updated after the patient was seen, as this information can be updated by other users. 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) Gestational diabetes mellitus (GDM) Gestational diabetes mellitus (GDM) treated with oral hypoglycemic therapy Hx gestational diabetes Insulin resistance Tachycardia Insomnia Major depressive disorder Generalized anxiety disorder Urinary tract infection History of COVID-19 Asthma History of gastroesophageal reflux (GERD) Hypertension Dizziness Dyspnea Palpitations Abnormal Holter monitor finding Chest pain Depression Anxiety Surgical History , SKIN DIVER) History of incision and drainage H/O tubal ligation History of [place] teeth removed History of tonsillectomy and adenoidectomy History of surgery Family History , SKIN DIVER) Diabetes Mother Heart disease Grandmother Cirrhosis Father Breast cancer Grandmother COPD (chronic obstructive pulmonary disease) Grandmother Multiple sclerosis Grandmother 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 (Updated 07/06/24 @ 18:41 by Juventino Byrd ([facility]), SKIN DIVER) Smoking Status: Never smoker second hand exposure: No alcohol intake: never counseling given: No substance use type: denies use and other details: delta 8 vape counseling given: No current occupational status: unemployed Travel in the last 8 weeks: None adopted: No caregiver/support person: Yes (she stays home with her kids; SAHM) foster care: No household members: significant other housing: house lives independently: Yes marital status: life partner number of children: 3 number of grandchildren: 0 education level: high school 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 Hx Recent Travel: No sexually active: Yes caffeine: Yes physical activity: none working smoke detector in home: Yes fire extinguisher in home: No carbon monox detector in home: Yes firearms in home: No do you feel safe at home: Yes victim of physical abuse: No victim of emotional abuse: No victim of sexual abuse: No would you like helpful sources: No ROS Obtained: Yes All systems reviewed & no additional complaints except as documented and Yes Systems reviewed as appropriate & no additional complaints except as documented Constitutional Constitutional: Reports system reviewed and no additional complaints, except as documented, Reports as per HPI, Denies body ache, Denies chills and Denies fever(s) ENT Ears, Nose, Mouth, and Throat: Reports system reviewed and no additional complaints, except as documented and Reports as per HPI Cardiovascular Cardiovascular: Reports system reviewed and no additional complaints, except as documented and Reports as per HPI Respiratory Respiratory: Reports system reviewed and no additional complaints, except as documented and Reports as per HPI Gastrointestinal Gastrointestingal: Reports system reviewed and no additional complaints, except as documented and as per HPI Genitourinary Female Genitourinary: Reports system reviewed and no additional complaints, except as documented, Reports as per HPI, Reports dysuria, Reports flank pain and Reports pelvic pain Comments: Pain in left lower back, radiating around left side into pelvic area, denies hx of kidney stones Physical Exam General General appearance: alert and other (patient tearful crying holding her left side moving around in chair) Respiratory Respiratory exam: Present normal lung sounds bilaterally; Absent respiratory distress or wheezes Cardiovascular Cardiovascular exam: Present regular rate, normal rhythm and normal heart sounds Back Exam Back exam: Present CVA tenderness (L) Back 1 view image: 2 1. reports pain in flank area lower back worse on left side feels like it is moving around to her pelvic area Neurological Exam Neurological exam: Present alert, oriented X3 and normal gait Medical Decision Making Medical Records Screening: Per USPSTF and CDC recommendations, given the prevalence of disease in our region, it is our hospital?s policy to screen for HIV and viral Hepatitis for all patients aged 18 and over and those with ongoing risk factors. Prasanna Inquiry Pt receiving controlled substance: No Prasanna was queried for this patient: No Vital Signs: 07/24/24 19:05 Temperature 98.3 F Temperature Source Oral Pulse Rate [Left Brachial] 80 Respiratory Rate 20 Blood Pressure [Left Arm] 156/73 H Blood Pressure Mean [Left Arm] 100 Blood Pressure Source [Left Arm] Automatic Cuff Blood Pressure Position [Left Arm] Sitting 02 Sat by Pulse Oximetry 98 Oxygen Delivery Method Room Air Lab Data Lab results reviewed: Yes I reviewed the patient's lab results. Lab Results 07/24/24 19:05: Urine Color Dark yellow, Urine Appearance Cloudy, Urine pH 7.0, Ur Specific [place] 1.025, Urine Protein Negative, Urine Glucose (UA) Negative, Urine Ketones Negative, Urine Blood Trace, Urine Nitrate Negative, Urine Bilirubin Negative, Urine Urobilinogen 0.2, Ur Leukocyte Esterase 1+ A Medical Decision Narrative: Patient denies hx of kidney stones, patient sitting on exam table crying holding her left flank area reports that pain is radiating around her left side to her pelvic area rates pain a 10/10 discussed with patient and due to location of pain and complaint and in UTC started crying and vomiting due to the pain in left flank area concern for kidney stones will transfer to the ED for further work up and evaluation, UA showed trace blood awaiting ED call back Spoke with ED charge patient will be moved to room 10
[2024-07-24 19:25] LABS: UTC Pregnancy Test, Urine Negative (Negative)
[2024-07-24 20:08] VITALS: BP 143/85; PULSE 78; RESP 20; TEMP 37.1; O2SAT 97; BMI 50.1
--- NOTE | 2024-07-24 20:20 | CT_ITS ---
PROCEDURE INFORMATION: Exam: CT Abdomen And Pelvis Without Contrast Exam date and time: 07/24/2024 8:35 PM Age: 29 years old Clinical indication: Abdominal pain; Flank; Left; Additional info: L flank pain, dysuria TECHNIQUE: Imaging protocol: Computed tomography of the abdomen and pelvis without contrast. Radiation optimization: All CT scans at this facility use at least one of these dose optimization techniques: automated exposure control; mA and/or kV adjustment per patient size (includes targeted exams where dose is matched to clinical indication); or iterative reconstruction. COMPARISON: CT ABDOMEN PELVIS WO CON 11/01/2022 21:03 FINDINGS: Liver: Hepatic steatosis. Gallbladder and biliary ducts: Normal. No calcified stones. No ductal dilation. Pancreas: Normal. No ductal dilation. Spleen: Normal. No splenomegaly. Adrenal glands: Normal. No mass. 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 Stomach and bowel: Unremarkable. No obstruction. No mucosal thickening. Appendix: Unremarkable appendix. Intraperitoneal space: Unremarkable. No free air. No significant fluid collection. Vasculature: Unremarkable. No abdominal aortic aneurysm. Lymph nodes: Unremarkable. No enlarged lymph nodes. Urinary bladder: Unremarkable as visualized. Reproductive: Unremarkable as visualized. Bones/joints: Unremarkable. No acute fracture. Soft tissues: Unremarkable. IMPRESSION: 1. No acute findings. 2. Hepatic steatosis.
[2024-07-24] MEDS: KETOROLAC 30MG/ML VIAL 15 MG IV (20:27)
[2024-07-24] MEDS: LACTATED RINGERS 1000ML 1,000 ML 999 ML IV (20:27)
[2024-07-24] MEDS: MORPHINE 4MG/ML SYRINGE 4 MG IV (20:28)
[2024-07-24 20:30] LABS: Basophils # 0.1 K/mm3 (0-0.2); Basophils % 0.9 % (0.1-2.0); Eosinophils # 0.3 K/mm3 (0.0-0.4); Eosinophils % 2.7 % (0.1-12.0); Hemoglobin 13.8 g/dL (12.2-16.2); Lymphocytes # 3.5 K/mm3 (0.7-4.5); Lymphocytes % 29.4 % (10-50); Mean Corpuscular HGB Conc 32.2 g/dL (31.8-35.4); Mean Corpuscular Volume 93.1 fl (81-99); Mean Platelet Volume 7.2 fl (7.4-10.4); Monocytes # 0.7 K/mm3 (0.1-1.0); Monocytes % 5.6 % (1.7-9.3); Neutrophils # 7.4 K/mm3 (1.8-7.8); Neutrophils % 61.3 % (37.0-80.0); Platelet Count 372 K/mm3 (142-424); Red Blood Count 4.61 M/mm3 (4.20-5.40); Red Cell Distribution Width 13.7 % (11.5-17.5)
[2024-07-24 20:34] LABS: Albumin Level 4.1 g/dl (3.5-5.0); Chloride 108 mmol/L (98-107); Potassium 4.4 mmoL/L (3.5-5.1); Sodium 136 mmol/L (136-145)
--- NOTE | 2024-07-24 20:35 | PC.NURSE ---
pt to RAD at this time
[2024-07-24 20:36] LABS: Blood Urea Nitrogen 13 mg/dl (7-17); Creatinine Clearance Estimated 74 mL/min (50-200); Estimated Glomerular Filt Rate 75 ml/min (>60); GFR (African American) 90 ML/MIN (>60)
[2024-07-24 20:37] LABS: Alanine Aminotransferase 25 U/L (12-78); Alkaline Phosphatase 133 U/L (38-126); Anion Gap 5.4 mEq/L (5-15); Aspartate Amino Transferase 30 U/L (14-36); Bilirubin,Total 0.4 mg/dl (0.2-1.3); Calcium 9.5 mg/dl (8.4-10.2); Carbon Dioxide 27 mmol/L (22.0-30.0); Glucose 100 mg/dl (74-100); Total Protein,Serum 7.1 g/dl (6.3-8.2)
[2024-07-24 20:38] LABS: Albumin/Globulin Ratio 1.4 (1.1-1.8)
--- NOTE | 2024-07-24 20:38 | PC.NURSE ---
pt returned from RAD at this time
[2024-07-24 20:43] LABS: Microscopic, Urine URINE MICROSCOPIC (MICROSCOPIC)
[2024-07-24 20:47] LABS: Bilirubin,Urine Negative (Negative); Blood, Urine 1+ (Negative); Color,Urine YELLOW (Yellow); Glucose,Urine (UA) Negative (Negative); Ketones,Urine Negative (Negative); Leukocyte Esterase,Urine Negative (Negative); Nitrate,Urine Negative (Negative); Protein,Urine Negative (Negative); Urobilinogen,Urine 0.2 EU/dl (0.2)
[2024-07-24 20:51] LABS: Appearance,Urine Slightly Cloudy (Clear)
[2024-07-24 21:21] LABS: Bacteria,Urine 3+ /lpf
--- NOTE | 2024-07-24 21:47 | PC.NURSE ---
Rounded on patient, patient rates pain 0/10 at this time. Mother at bedside.
[2024-07-24] MEDS: CEFTRIAXONE 1 GM 1 GM in 0.9 % SODIUM CHLORIDE 50 ML IV (22:06)
[2024-07-24 22:20] VITALS: BP 148/91; PULSE 84; RESP 20; TEMP 37.1; O2SAT 99
--- NOTE | 2024-07-27 08:51 | PC.NURSE ---
URINE CULTURE DISCUSSED WITH DR RODRÍGUEZ, NO NEW ORDERS
--- NOTE | 2024-08-05 14:16 | HMH.EDGENADL ---
Discharge Plan Disposition Patient Disposition: Home, Self-Care Condition: Good Prescriptions Prescriptions: New cefdinir 300 mg capsule 300 mg PO BID 10 Days Qty: 20 0RF ondansetron 4 mg tablet,disintegrating 4 mg PO Q8H PRN (Reason: nausea and vomiting) 5 Days Qty: 10 0RF ketorolac 10 mg tablet 10 mg PO Q8H PRN (Reason: pain) 5 Days Qty: 10 0RF No Action buspirone 10 mg tablet 10 mg PO BID Qty: 60 1RF metformin 500 mg tablet See Rx Instructions .ROUTE .COMPLEX Qty: 60 0RF Dose Instruction: TAKE 1 TABLET BY MOUTH TWICE DAILY Rx Instructions: TAKE 1 TABLET BY MOUTH TWICE DAILY atorvastatin 10 mg tablet See Rx Instructions .ROUTE .COMPLEX Qty: 30 0RF Dose Instruction: TAKE 1 TABLET BY MOUTH EVERY NIGHT AT BEDTIME Rx Instructions: TAKE 1 TABLET BY MOUTH EVERY NIGHT AT BEDTIME quetiapine 25 mg tablet 25 mg PO HS Qty: 30 1RF topiramate 25 mg tablet See Rx Instructions .ROUTE .COMPLEX Qty: 60 0RF Dose Instruction: TAKE 1 TABLET BY MOUTH TWICE A DAY Rx Instructions: TAKE 1 TABLET BY MOUTH TWICE A DAY Auvelity 45-105 mg tablet, IR and ER, biphasic 1 tab PO BID Qty: 60 3RF propranolol 80 mg tablet 80 mg PO BID Qty: 60 4RF Referrals Follow up/Referrals: Nikia Harden APRN [Primary Care Provider] - See instructions Activity Restrictions/Add. Instructions Additional Instructions/Restrictions: As we discussed, it appears that you have a UTI that spread to your kidneys. I have prescribed a course of antibiotics, you received a dose of antibiotics here so that you will be able to picker feeder a prescription on the morning once the pharmacy opens. I have prescribed pain medication and nausea medication as well. Please follow-up with your primary care doctor and return with any new or worsening symptoms. Clinical Impressions Clinical Impression: Pyelonephritis Instructions Patient Instructions: DI for Kidney Infection Print Language Print Language: Turkmen Discharge ED Provider: Guanaco Fuller Adult HPI General Chief complaint: Abdominal Pain Stated complaint: back pain painful urination pelvic pain Time Seen by Provider: 07/24/24 19:21 Mode of Arrival: Wheelchair Source of Information: Patient Limitations: No Limitations Description of Symptoms (Recalled from ER Triage Doc. by RN): Patient presents to ED with lower back pain that radiates to her groin area for 3 days. Patient rates pain 10/10 at this time. Pt has been taking tylenol and ibuprofen for pain. Patient was seen in [facility] then trasnferred to ED. History of Present Illness HPI narrative: Patient presents for evaluation of bilateral flank pain, gradual in onset, radiating to groin, it is moderate in severity, with waves of severe pain. Associated symptoms include dysuria. No fevers or chills. No sick contacts. No recent travel. No recent antibiotic usage. Patient has been able to move bowels without difficulty. Please note that above description of symptoms, in this electronic medical record under categorization of recalled from ER triage doctor by RN are reflective of an initial nursing assessment, however, is not reflective of my full history and physical exam that was personally taken and clarified. Consequentially, this preceding description of symptoms, which may include the patient's categorized chief complaint in the EMR, do not reflect my personal clinical impression, and the ultimate description of history of present illness and patient stated complaints should be deferred to this section of the note. Unless stated otherwise or congruent with this section of the note, additional signs, symptoms, or incongruence should be interpreted as inaccurate with my clinical impression. Related Data Previous Rx's ?Medication ?Instructions ?Recorded buspirone 10 mg tablet 10 mg PO BID #60 tabs 05/02/24 atorvastatin 10 mg tablet See Rx Instructions .Route 05/22/24 .COMPLEX #30 tabs metformin 500 mg tablet See Rx Instructions .Route 05/22/24 .COMPLEX #60 tabs quetiapine 25 mg tablet 25 mg PO HS #30 tabs 05/27/24 topiramate 25 mg tablet See Rx Instructions .Route 05/30/24 .COMPLEX #60 tabs dextromethorphan IR 45 1 tab PO BID #60 ea 06/20/24 mg-bupropion ER 105 mg biphasic tablet (Auvelity) propranolol 80 mg tablet 80 mg PO BID #60 tabs 06/24/24 cefdinir 300 mg capsule 300 mg PO BID 10 days #20 caps 07/24/24 ketorolac 10 mg tablet 10 mg PO Q8H PRN pain 5 days #10 07/24/24 tabs ondansetron 4 mg disintegrating 4 mg PO Q8H PRN nausea and 07/24/24 tablet vomiting 5 days #10 tabs Allergies Allergy/AdvReac Type Severity Reaction Status Date / Time No Known Allergies Allergy Verified 05/10/24 10:13 [facility] Disclaimer: The information contained in this section may have been updated after the patient was seen, as this information can be updated by other users. 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) History of incision and drainage H/O tubal ligation History of [place] teeth removed History of tonsillectomy and adenoidectomy History of surgery Family History , 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) Diabetes Mother Heart disease Grandmother Cirrhosis Father Breast cancer Grandmother COPD (chronic obstructive pulmonary disease) Grandmother Multiple sclerosis Grandmother 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 (Updated 07/06/24 @ 18:41 by Juventino Byrd ([facility]), [employer]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) Smoking Status: Never smoker second hand exposure: No alcohol intake: never counseling given: No substance use type: denies use and other details: delta 8 vape counseling given: No current occupational status: unemployed Travel in the last 8 weeks: None adopted: No caregiver/support person: Yes (she stays home with her kids; [facility]) foster care: No household members: significant other housing: house lives independently: Yes marital status: life partner number of children: 3 number of grandchildren: 0 education level: high school 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 Hx Recent Travel: No sexually active: Yes caffeine: Yes physical activity: none working smoke detector in home: Yes fire extinguisher in home: No carbon monox detector in home: Yes firearms in home: No do you feel safe at home: Yes victim of physical abuse: No victim of emotional abuse: No victim of sexual abuse: No would you like helpful sources: No Have you lived/traveled outside [place] in past 30 days?: No Contact w/someone who lives/traveled outside [place] past 30 days?: No Exposure to someone with infectious disease in past 14 days?: No Do you have a fever (greater than 100.4 F or 38 C)?: No Have you tested positive for COVID-19: Yes Exposed to someone with COVID-19 in past 14 days?: No Do you have a sore throat?: No Do you have a cough?: No Do you have any weakness?: No Do you have any diarrhea?: No Are you experiencing any unusual bleeding?: No Do you have any muscle aches/pain?: No Do you have any abdominal pain?: No Are you experiencing loss of taste or smell?: No Other 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 Have you received the Flu Vaccine for this season: No Have you received the Pneumonia Vaccine: No ROS Obtained: Yes other As per HPI Physical Exam General General appearance: alert and other (patient tearful crying holding her left side moving around in chair) Head Head exam: atraumatic and normocephalic Eye Eye exam: Present normal appearance Neck Neck exam: Present normal inspection Chest Chest inspection: Present normal inspection and symmetric chest wall rise Respiratory Respiratory exam: Present normal lung sounds bilaterally; Absent respiratory distress Cardiovascular Cardiovascular exam: Present regular rate and normal rhythm Abdominal Exam Abdominal exam: Present soft Neurological Exam Neurological exam: Present alert and oriented X3 Psychiatric Psychiatric exam: Present normal affect and normal mood Skin Skin exam: Present warm and dry Medical Decision Making Medical Records Medical records reviewed: Yes I reviewed the patient's medical records. Screening: Per USPSTF and CDC recommendations, given the prevalence of disease in our region, it is our hospital?s policy to screen for HIV and viral Hepatitis for all patients aged 18 and over and those with ongoing risk factors. Prasanna Inquiry Pt receiving controlled substance: No Vital Signs: 07/24/24 19:05 07/24/24 20:08 07/24/24 22:20 Temperature 98.3 F 98.7 F 98.7 F Temperature Source Oral Oral Oral Pulse Rate 84 Pulse Rate [Left Brachial] 80 78 Respiratory Rate 20 20 20 Blood Pressure 148/91 H Blood Pressure [Left Arm] 156/73 H 143/85 H Blood Pressure Mean [Left Arm] 100 104 Blood Pressure Source Automatic Cuff Blood Pressure Source [Left Arm] Automatic Cuff Automatic Cuff Blood Pressure Position Sitting Blood Pressure Position [Left Arm] Sitting Supine 02 Sat by Pulse Oximetry 98 97 Oxygen Delivery Method Room Air Room Air Room Air Lab Data Lab Results 07/24/24 19:00: Urine Color Yellow, Urine Appearance Slightly cloudy, Urine pH 7.0, Ur Specific [place] 1.020, Urine Protein Negative, Urine Glucose (UA) Negative, Urine Ketones Negative, Urine Blood 1+ A, Urine Nitrate Negative, Urine Bilirubin Negative, Urine Urobilinogen 0.2, Ur Leukocyte Esterase Negative, Urine RBC 5-10, Urine WBC 10-20, Ur Squamous Epith Cells 10-20, Urine Bacteria 3+ 07/24/24 19:05: Urine Color Dark yellow, Urine Appearance Cloudy, Urine pH 7.0, Ur Specific [place] 1.025, Urine Protein Negative, Urine Glucose (UA) Negative, Urine Ketones Negative, Urine Blood Trace, Urine Nitrate Negative, Urine Bilirubin Negative, Urine Urobilinogen 0.2, Ur Leukocyte Esterase 1+ A 07/24/24 19:24: [facility] Clinic Negative 07/24/24 20:20: WBC 12.0 H, RBC 4.61, Hgb 13.8, Hct 43.0, MCV 93.1, MCH 30.0, MCHC 32.2, RDW 13.7, Plt Count 372, MPV 7.2 L, Neut % (Auto) 61.3, Lymph % (Auto) 29.4, [place] % (Auto) 5.6, Eos % (Auto) 2.7, Baso % (Auto) 0.9, Neut # (Auto) 7.4, Lymph # (Auto) 3.5, [place] # (Auto) 0.7, Eos # (Auto) 0.3, Baso # (Auto) 0.1, Sodium 136, Potassium 4.4, Chloride 108 H, Carbon Dioxide 27, Anion Gap 5.4, BUN 13, Creatinine 0.90, Estimated Creat Clear 74, Estimated GFR 75, Est GFR ( Amer) 90, Glucose 100, Calcium 9.5, Total Bilirubin 0.4, AST 30, ALT 25, Alkaline Phosphatase 133 H, Total Protein 7.1, Albumin 4.1, Globulin 3.0, Albumin/Globulin Ratio 1.4 07/24/24 20:20 07/24/24 20:20 Orders (Tests/Meds): ED MEDICATIONS Discontinued Medications Generic Name Dose Route Start Last Admin Trade Name Freq PRN Reason Stop Dose Admin Lactated Ringer's 1,000 mls @ 999 mls/hr 07/24/24 20:20 07/24/24 20:27 Lactated Ringer's 1000 Ml Bag IV 07/24/24 21:20 999 mls/hr .Q1H1M ONE Administration Ceftriaxone Sodium 1 gm/ 50 mls @ 100 mls/hr 07/24/24 22:01 07/24/24 22:06 Sodium Chloride IV 07/24/24 22:30 100 mls/hr ONCE STA Administration Ketorolac Tromethamine 15 mg 07/24/24 20:20 07/24/24 20:27 Ketorolac 30mg/Ml Vial IV 07/24/24 20:21 15 mg ONCE ONE Administration Morphine Sulfate 4 mg 07/24/24 20:20 07/24/24 20:28 Morphine 4mg/Ml Syringe IV 07/24/24 20:21 4 mg ONCE ONE Administration ORDERS Category Date Time Status CT abdomen pelvis wo con Stat Cat Scan 07/24/24 20:20 Completed CBC w/Auto Diff [Complete Blood Count Auto Diff] Stat Lab 07/24/24 20:20 Completed CMP [Comprehensive Metabolic Panel] Stat Lab 07/24/24 20:20 Completed Urinalysis and Microscopic Stat Lab 07/24/24 19:00 Completed Urine Culture Stat Micro 07/24/24 19:00 Completed Medical Decision Narrative: Patient with history and exam per above presenting for evaluation of flank pain Diagnoses considered include urolithiasis, pyelonephritis, appendicitis, diverticulitis, among others ED workup and treatment included: ED MEDICATIONS Discontinued Medications Generic Name Dose Route Start Last Admin Trade Name Rusty PRN Reason Stop Dose Admin Lactated Ringer's 1,000 mls @ 999 mls/hr 07/24/24 20:20 07/24/24 20:27 Lactated Ringer's 1000 Ml Bag IV 07/24/24 21:20 999 mls/hr .Q1H1M ONE Administration Ceftriaxone Sodium 1 gm/ 50 mls @ 100 mls/hr 07/24/24 22:01 07/24/24 22:06 Sodium Chloride IV 07/24/24 22:30 100 mls/hr ONCE STA Administration Ketorolac Tromethamine 15 mg 07/24/24 20:20 07/24/24 20:27 Ketorolac 30mg/Ml Vial IV 07/24/24 20:21 15 mg ONCE ONE Administration Morphine Sulfate 4 mg 07/24/24 20:20 07/24/24 20:28 Morphine 4mg/Ml Syringe IV 07/24/24 20:21 4 mg ONCE ONE Administration ORDERS Category Date Time Status CT abdomen pelvis wo con Stat Cat Scan 07/24/24 20:20 Completed CBC w/Auto Diff [Complete Blood Count Auto Diff] Stat Lab 07/24/24 20:20 Completed CMP [Comprehensive Metabolic Panel] Stat Lab 07/24/24 20:20 Completed Urinalysis and Microscopic Stat Lab 07/24/24 19:00 Completed Urine Culture Stat Micro 07/24/24 19:00 Completed Labs were independently interpreted by me, significant for leukocytosis, bacteriuria Imaging was independently visualized and interpreted by me, significant for no acute surgical pathology Please refer to radiology report for full details. My clinical impression at this time is most consistent with pyelonephritis I discussed my clinical impression with patient and answered all questions. At this time, the evidence for any other entities in the differential is insufficient to warrant any further testing or ED observation. This was explained to the patient. The patient was advised that persistent or worsening symptoms require further evaluation. Critical Care Critical Care Time Critical Care Time: No
== END 2024-07-24 22:22 | disposition home or self-care (01) ==
LOC: UTC 19:30 → ER 20:03
PROVIDERS: Nurse Practitioner; Emergency Provider Emergency Medicine; PCP Nurse Practitioner Family
DX: N12 Tubulo-interstitial nephritis, not specified as acute or chronic (principal); M54.50 Low back pain, unspecified; R30.9 Painful micturition, unspecified; R10.9 Unspecified abdominal pain; R35.0 Frequency of micturition
CPT/HCPCS: 74176; 80053; 81001; 81003; 81025; 85025; 87086; 87088; 87186; 96361; 96365; 96374; 96375; 99284; J0696; J1885; J2270; J7120

== ENCOUNTER 2024-10-03 09:44 | Outpatient (CLI) | payer OTHER, SELFPAY ==
[2024-10-03 16:26] LABS: Coronavirus 19, PCR Not Detected (NotDetected); Human Rhinovirus Not Detected (NotDetected); Influenza A, PCR Not Detected (NotDetected); Influenza B, PCR Not Detected (NotDetected); Respiratory Syncytial Virus Not Detected (NotDetected)
== END 2024-10-03 23:59 | disposition home or self-care (01) ==
LOC: LAB.DROPOF 10-04 11:08
PROVIDERS: PCP Nurse Practitioner; Visit Provider Nurse Practitioner
DX: J06.9 Acute upper respiratory infection, unspecified (principal); J02.9 Acute pharyngitis, unspecified
CPT/HCPCS: 87631

== ENCOUNTER 2024-12-09 07:44 | Emergency (ER) | payer OTHER, SELFPAY ==
[2024-12-09 07:57] VITALS: BP 148/89; PULSE 82; RESP 20; TEMP 37.1; O2SAT 97; BMI 54.1
[2024-12-09 07:57] LABS: Microscopic, Urine URINE MICROSCOPIC (MICROSCOPIC)
[2024-12-09 08:04] LABS: Appearance,Urine CLEAR (Clear); Bilirubin,Urine Negative (Negative); Blood, Urine Negative (Negative); Color,Urine YELLOW (Yellow); Glucose,Urine (UA) Negative (Negative); Ketones,Urine Negative (Negative); Leukocyte Esterase,Urine Negative (Negative); Nitrate,Urine Negative (Negative); Protein,Urine Negative (Negative); Specific Gravity, Urine >= 1.030 (1.005-1.030); Urobilinogen,Urine 0.2 EU/dl (0.2)
--- NOTE | 2024-12-09 08:04 | ED_ITS ---
Discharge Plan Disposition Patient Disposition: Home, Self-Care Condition: Good Prescriptions Prescriptions: New promethazine 25 mg tablet 25 mg PO Q6H PRN (Reason: nausea and vomiting) Qty: 14 0RF famotidine [Pepcid] 20 mg tablet 20 mg PO BID 14 Days Qty: 28 0RF No Action albuterol sulfate [Ventolin HFA] 90 mcg/actuation HFA aerosol inhaler inhalation metformin 500 mg tablet See Rx Instructions .ROUTE .COMPLEX Qty: 60 0RF Dose Instruction: TAKE 1 TABLET BY MOUTH TWICE DAILY Rx Instructions: TAKE 1 TABLET BY MOUTH TWICE DAILY topiramate 25 mg tablet See Rx Instructions .ROUTE .COMPLEX Qty: 60 0RF Dose Instruction: TAKE 1 TABLET BY MOUTH TWICE A DAY Rx Instructions: TAKE 1 TABLET BY MOUTH TWICE A DAY Auvelity 45-105 mg tablet, IR and ER, biphasic 1 tab PO BID Qty: 60 3RF propranolol 80 mg tablet 80 mg PO BID Qty: 60 4RF buspirone 10 mg tablet See Rx Instructions .ROUTE .COMPLEX Qty: 60 0RF Dose Instruction: TAKE 1 TABLET BY MOUTH TWICE DAILY Rx Instructions: TAKE 1 TABLET BY MOUTH TWICE DAILY quetiapine 25 mg tablet 25 mg PO HS Qty: 30 0RF Referrals Follow up/Referrals: Deneen Garcia PA [Primary Care Provider] - See instructions Activity Restrictions/Add. Instructions Additional Instructions/Restrictions: You were evaluated in the emergency department today. 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 Take Tylenol and ibuprofen every 4-6 hours as needed for pain. Follow-up closely with your primary care provider. Return to the emergency department for new or worsening symptoms. Clinical Impressions Clinical Impression: Nausea, vomiting and diarrhea Stand Alone Forms Stand Alone Forms: Work/School Release Instructions Patient Instructions: DI for Diarrhea and Traveler's Diarrhea -- Adult, DI for Nausea -- Adult Print Language Print Language: Portuguese Discharge ED Provider: Samira Vergara General Adult HPI General Chief complaint: Abdominal Pain Stated complaint: vomiting diarrhea 4+ days Time Seen by Provider: 12/09/24 07:59 Mode of Arrival: Ambulatory Source of Information: Patient and Spouse Description of Symptoms (Recalled from ER Triage Doc. by RN): pt is here for n/v/d for the last 3 days, pt thinks she ate some bad food, no fever and some mild adb pain/cramping History of Present Illness HPI narrative: This patient is a 29-year-old female with a history of morbid obesity, hypertension, hyperlipidemia, generalized anxiety disorder, major depressive disorder, and tobacco abuse presenting to the emergency department for evaluation with concern for nausea, vomiting, and diarrhea for 4 days. She has mild upper abdominal cramping but no localizable abdominal pain. No fevers, but she is having some night sweats. No cough, congestion, melena, hematochezia, or hematemesis. Emesis is nonbloody and nonbilious. She has had prior and tubal ligation but no other prior surgical abdominal history. Related Data Home Medications ?Medication ?Instructions ?Recorded ?Confirmed albuterol sulfate 90 mcg/actuation inhalation 10/03/24 10/03/24 aerosol inhaler (Ventolin HFA) Previous Rx's ?Medication ?Instructions ?Recorded metformin 500 mg tablet See Rx Instructions .Route 05/22/24 .COMPLEX #60 tabs topiramate 25 mg tablet See Rx Instructions .Route 05/30/24 .COMPLEX #60 tabs dextromethorphan IR 45 1 tab PO BID #60 ea 06/20/24 mg-bupropion ER 105 mg biphasic tablet (Auvelity) propranolol 80 mg tablet 80 mg PO BID #60 tabs 06/24/24 buspirone 10 mg tablet See Rx Instructions .Route 10/11/24 .COMPLEX #60 tabs quetiapine 25 mg tablet 25 mg PO HS #30 tabs 10/30/24 famotidine 20 mg tablet (Pepcid) 20 mg PO BID 2 weeks #28 tabs 12/09/24 promethazine 25 mg tablet 25 mg PO Q6H PRN nausea and 12/09/24 vomiting #14 tabs Allergies Allergy/AdvReac Type Severity Reaction Status Date / Time No Known Allergies Allergy Verified 10/03/24 09:35 [facility] Disclaimer: The information contained in this section may have been updated after the patient was seen, as this information can be updated by other users. 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 Gestational diabetes mellitus (GDM) Gestational diabetes mellitus (GDM) treated with oral hypoglycemic therapy Hx gestational diabetes Insulin resistance Tachycardia Insomnia Major depressive disorder Generalized anxiety disorder Urinary tract infection History of COVID-19 Asthma History of gastroesophageal reflux (GERD) Hypertension Dizziness Dyspnea Palpitations Abnormal Holter monitor finding Chest pain Depression Anxiety Surgical History History of incision and drainage H/O tubal ligation History of [place] teeth removed History of tonsillectomy and adenoidectomy History of surgery Family History Father Cirrhosis Mother Diabetes Grandmother Breast cancer Heart disease Multiple sclerosis COPD (chronic obstructive pulmonary disease) 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 Smoking Status: Never smoker second hand exposure: No alcohol intake: never counseling given: No substance use type: denies use and other details: delta 8 vape counseling given: No current occupational status: unemployed Travel in the last 8 weeks: None adopted: No caregiver/support person: Yes (she stays home with her kids; LANEY) foster care: No household members: significant other housing: house lives independently: Yes marital status: life partner number of children: 3 number of grandchildren: 0 education level: high school 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 Hx Recent Travel: No sexually active: Yes caffeine: Yes physical activity: none working smoke detector in home: Yes fire extinguisher in home: No carbon monox detector in home: Yes firearms in home: No do you feel safe at home: Yes victim of physical abuse: No victim of emotional abuse: No victim of sexual abuse: No would you like helpful sources: No Have you lived/traveled outside [place] in past 30 days?: No Contact w/someone who lives/traveled outside [place] past 30 days?: No Exposure to someone with infectious disease in past 14 days?: No Do you have a fever (greater than 100.4 F or 38 C)?: No Have you tested positive for COVID-19: No Exposed to someone with COVID-19 in past 14 days?: No Do you have a sore throat?: No Do you have a cough?: No Do you have any weakness?: No Do you have any diarrhea?: Yes Are you experiencing any unusual bleeding?: No Do you have any muscle aches/pain?: No Do you have any abdominal pain?: Yes Are you experiencing loss of taste or smell?: No Other 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 Have you received the Flu Vaccine for this season: No Have you received the Pneumonia Vaccine: No ROS Obtained: Yes All systems reviewed & no additional complaints except as documented Physical Exam General General appearance: alert, in no apparent distress and obese Head Head exam: atraumatic and normocephalic Eye Eye exam: Present normal appearance, PERRL and EOMI ENT ENT exam: Present normal exam, normal oropharynx, mucous membranes moist and normal external ear exam Neck Neck exam: Present normal inspection, full ROM and trachea midline; Absent tenderness Chest Chest inspection: Present normal inspection and symmetric chest wall rise; Absent tenderness Respiratory Respiratory exam: Present normal lung sounds bilaterally; Absent respiratory distress, wheezes, stridor or accessory muscle use Cardiovascular Cardiovascular exam: Present regular rate and normal rhythm Abdominal Exam Abdominal exam: Present soft; Absent distention, tenderness or guarding Extremities Exam Extremities exam: Present normal inspection, full ROM and normal capillary refill; Absent tenderness or edema Back Exam Back exam: Present normal inspection and full ROM; Absent tenderness Neurological Exam Neurological exam: Present alert, oriented X3, CN II-XII intact and normal gait; Absent motor sensory deficit Psychiatric Psychiatric exam: Present normal affect and normal mood Skin Skin exam: Present warm and dry Medical Decision Making Medical Records Medical records reviewed: Yes I reviewed the patient's medical records. Screening: Per USPSTF and CDC recommendations, given the prevalence of disease in our region, it is our hospital?s policy to screen for HIV and viral Hepatitis for all patients aged 18 and over and those with ongoing risk factors. Prasanna Inquiry Pt receiving controlled substance: No Vital Signs: 12/09/24 07:57 12/09/24 08:30 12/09/24 08:39 Temperature 98.8 F Temperature Source Oral Pulse Rate 71 69 Pulse Rate [Left Radial] 82 Respiratory Rate 20 Blood Pressure 114/70 122/69 Blood Pressure [Right Arm] 148/89 H Blood Pressure Mean [Right Arm] 108 Blood Pressure Source Blood Pressure Position 02 Sat by Pulse Oximetry 97 92 L 95 Oxygen Delivery Method Room Air 12/09/24 08:59 12/09/24 09:37 12/09/24 09:49 Temperature 98.7 F Temperature Source Oral Pulse Rate 72 98 H Pulse Rate [Left Radial] Respiratory Rate 18 Blood Pressure 135/22 L 118/77 Blood Pressure [Right Arm] Blood Pressure Mean [Right Arm] Blood Pressure Source Automatic Cuff Blood Pressure Position Supine 02 Sat by Pulse Oximetry 85 L 100 Oxygen Delivery Method Room Air Room Air Lab Data Lab results reviewed: Yes I reviewed the patient's lab results. Lab Results 12/09/24 07:49: Urine Color Yellow, Urine Appearance Clear, Urine pH 6.0, Ur Specific [place] >= 1.030, Urine Protein Negative, Urine Glucose (UA) Negative, Urine Ketones Negative, Urine Blood Negative, Urine Nitrate Negative, Urine Bilirubin Negative, Urine Urobilinogen 0.2, Ur Leukocyte Esterase Negative, Urine RBC None, Urine WBC Occasional, Ur Squamous Epith Cells 3-5, Amorphous Sediment Trace, Urine Bacteria Trace 12/09/24 08:10: WBC 8.0, RBC 4.08 L, Hgb 12.5, Hct 37.8, MCV 92.6, MCH 30.6, MCHC 33.1, RDW 13.0, Plt Count 285, MPV 9.1, Neut % (Auto) 64.0, Lymph % (Auto) 22.3, [place] % (Auto) 9.6 H, Eos % (Auto) 3.4, Baso % (Auto) 0.4, Neut # (Auto) 5.1, Lymph # (Auto) 1.8, [place] # (Auto) 0.8, Eos # (Auto) 0.3, Baso # (Auto) 0.0, Sodium 138, Potassium 3.4 L, Chloride 106, Carbon Dioxide 27, Anion Gap 8.4, BUN 9, Creatinine 0.70, Estimated Creat Clear 95, Estimated GFR 100, Est GFR ( Amer) 121, Glucose 122 H, Calcium 8.7, Magnesium 2.1, Total Bilirubin 0.4, AST 38 H, ALT 32, Alkaline Phosphatase 111, Total Protein 7.0, Albumin 3.7, Globulin 3.3 H, Albumin/Globulin Ratio 1.1, Lipase 63 12/09/24 08:10 12/09/24 08:10 Orders (Tests/Meds): ED MEDICATIONS Discontinued Medications Generic Name Dose Route Start Last Admin Trade Name Freq PRN Reason Stop Dose Admin Famotidine 20 mg 12/09/24 08:03 12/09/24 08:08 Famotidine 20mg/2ml Vial IV 12/09/24 08:04 20 mg ONCE ONE Administration Lactated Ringer's 1,000 mls @ 999 mls/hr 12/09/24 08:03 12/09/24 08:09 Lactated Ringer's 1000 Ml Bag IV 12/09/24 09:03 999 mls/hr .Q1H1M ONE Administration Ondansetron HCl 4 mg 12/09/24 08:03 12/09/24 08:08 Ondansetron 4mg/2ml Vial IV 12/09/24 08:04 4 mg ONCE ONE Administration Potassium Chloride 40 meq 12/09/24 09:05 12/09/24 09:08 Potassium Chloride 20meq Tab PO 12/09/24 09:06 40 meq ONCE ONE Administration Sodium Chloride 8 ml 12/09/24 08:03 12/09/24 08:08 Sodium Chloride 0.9% 10ml Vial IV 01/08/25 08:02 8 ml NEEDED PRN Administration dilute pepcid ORDERS Category Date Time Status Complete Blood Count Auto Diff Stat Lab 12/09/24 08:10 Completed Comprehensive Metabolic Panel Stat Lab 12/09/24 08:10 Completed Lipase Stat Lab 12/09/24 08:10 Completed MAG [Magnesium] Stat Lab 12/09/24 08:10 Completed UA [Urinalysis and Microscopic] Stat Lab 12/09/24 07:49 Completed Medical Decision Narrative: In summary, this patient is a 29-year-old female presenting to the Emergency Department for evaluation of nausea, vomiting, and diarrhea. Differential diagnoses considered include but are not limited to viral gastroenteritis, bacterial gastroenteritis, colitis, pancreatitis, cholecystitis. Ruling out the most morbid conditions drove assessment. It should be noted patient's history includes obesity, hypertension, hyperlipidemia which likely are not at goal therapy. This complicates all aspects of care by increasing patient's risk for morbidity. I reviewed patient's past medical records and noted prior ED evaluation with diagnosis of pyelonephritis back in July. On exam, the patient is lying in bed in no acute distress. Abdominal exam is benign with no localizable tenderness. Vitals are normal on cardiac telemetry. Workup included CBC, CMP, lipase, magnesium, urinalysis, diarrhea panel. Patient was given a bolus of IV fluids as well as IV Zofran and Pepcid for symptomatic improvement. I considered obtaining abdominal imaging such as CT scan, however based on reassuring exam with no localizable tenderness I feel that patient is unlikely to have acute surgical intra-abdominal pathology so I do not feel that imaging would tar heat exchanger cleaner.. On reassessment, the patient is resting currently with no recurrence of vomiting or diarrhea here in the emergency department. She was unable to provide stool specimen. CBC is reassuring with no significant leukocytosis. Chemistry is reassuring with only mild hypokalemia with a potassium of 3.4. She has mildly elevated AST at 38, but ALT, bilirubin, lipase are normal. She was given oral replacement of potassium and is able to tolerate oral intake. Given this, I feel that she is appropriate for discharge home with prescriptions for Phenergan and Pepcid and instructions for supportive management of likely an effect of gastroenteritis. Strict return precautions given Critical Care Critical Care Time Critical Care Time: No
[2024-12-09] MEDS: ONDANSETRON 4MG/2ML VIAL 4 MG IV (08:08)
[2024-12-09] MEDS: FAMOTIDINE 20MG/2ML VIAL 20 MG IV (08:08)
[2024-12-09] MEDS: SODIUM CHLORIDE 0.9% 10ML VIAL 8 ML IV (08:08)
[2024-12-09] MEDS: LACTATED RINGERS 1000ML 1,000 ML 999 ML IV (08:09)
[2024-12-09 08:24] LABS: Basophils % 0.4 % (0.1-2.0); Eosinophils # 0.3 Kmm3 (0.0-0.4); Eosinophils % 3.4 % (0.1-12.0); Hematocrit 37.8 % (37.0-47.0); Hemoglobin 12.5 g/dL (12.2-16.2); Lymphocytes # 1.8 K/mm3 (0.7-4.5); Lymphocytes % 22.3 % (10-50); Mean Corpuscular HGB Conc 33.1 g/dL (31.8-35.4); Mean Corpuscular Hemoglobin 30.6 pg (27.0-31.2); Mean Corpuscular Volume 92.6 fl (81-99); Mean Platelet Volume 9.1 fl (7.4-10.4); Monocytes # 0.8 K/mm3 (0.1-1.0); Monocytes % 9.6 % (1.7-9.3); Neutrophils # 5.1 K/mm3 (1.8-7.8); Nucleated Red Blood Cells # 0 10^3/uL; Nucleated Red Blood Cells % 0 %; Platelet Count 285 K/mm3 (142-424); Red Blood Count 4.08 M/mm3 (4.20-5.40); Red Cell Distribution Width-SD 43.8 fL
[2024-12-09 08:30] VITALS: BP 114/70; PULSE 71; O2SAT 92
[2024-12-09 08:35] LABS: Amorphous Sediment,Urine Trace /lpf; Bacteria,Urine Trace /lpf; WBC,Urine Occasional #/hpf (0-3)
[2024-12-09 08:39] VITALS: BP 122/69; PULSE 69; O2SAT 95
[2024-12-09 08:48] LABS: Alanine Aminotransferase 32 U/L (12-78); Albumin Level 3.7 g/dl (3.5-5.0); Albumin/Globulin Ratio 1.1 (1.1-1.8); Alkaline Phosphatase 111 U/L (38-126); Anion Gap 8.4 mEq/L (5-15); Aspartate Amino Transferase 38 U/L (14-36); Bilirubin,Total 0.4 mg/dl (0.2-1.3); Blood Urea Nitrogen 9 mg/dl (7-17); Calcium 8.7 mg/dl (8.4-10.2); Carbon Dioxide 27 mmol/L (22.0-30.0); Chloride 106 mmol/L (98-107); Creatinine Clearance Estimated 95 mL/min (50-200); Estimated Glomerular Filt Rate 100 ml/min (>60); GFR (African American) 121 ML/MIN (>60); Globulin 3.3 g/dL (1.3-3.2); Glucose 122 mg/dl (74-100); Lipase 63 U/L (23-300); Magnesium 2.1 mg/dl (1.6-2.3); Potassium 3.4 mmoL/L (3.5-5.1); Sodium 138 mmol/L (136-145)
[2024-12-09 08:59] VITALS: BP 135/22; PULSE 72; O2SAT 85
[2024-12-09] MEDS: POTASSIUM CHLORIDE 20MEQ TAB 40 MEQ PO (09:08)
[2024-12-09 09:37] VITALS: O2SAT 100
[2024-12-09 09:49] VITALS: BP 118/77; PULSE 98; RESP 18; TEMP 37.1; O2SAT 98
== END 2024-12-09 09:55 | disposition home or self-care (01) ==
PROVIDERS: Emergency Provider Emergency Medicine; PCP Physician Assistant
DX: R10.817 Generalized abdominal tenderness (principal); R11.2 Nausea with vomiting, unspecified; R19.7 Diarrhea, unspecified
CPT/HCPCS: 80053; 81001; 83690; 83735; 85025; 96361; 96374; 96375; 99284; J2405; J7120

== ENCOUNTER 2024-12-13 08:40 | Emergency (ER) | payer OTHER, SELFPAY ==
[2024-12-13] VITALS (10 sets, daily range): BP systolic 102–140; BP diastolic 58–79; PULSE 62–80; RESP 16–18; TEMP 36.7–36.8; O2SAT 91–100; BMI 54.3
[2024-12-13 09:19] LABS: Microscopic, Urine URINE MICROSCOPIC (MICROSCOPIC)
[2024-12-13 09:23] LABS: Appearance,Urine CLEAR (Clear); Bilirubin,Urine Negative (Negative); Blood, Urine Negative (Negative); Color,Urine YELLOW (Yellow); Glucose,Urine (UA) Negative (Negative); Ketones,Urine Negative (Negative); Leukocyte Esterase,Urine Negative (Negative); Nitrate,Urine Negative (Negative); Protein,Urine Negative (Negative); Specific Gravity, Urine 1.025 (1.005-1.030); Urobilinogen,Urine 0.2 EU/dl (0.2)
[2024-12-13 09:45] LABS: Bacteria,Urine 3+ /lpf; WBC,Urine Occasional #/hpf (0-3)
[2024-12-13 09:46] LABS: Amorphous Sediment,Urine Trace /lpf; Squamous Epithelial Cell,Urine 20-50 #/hpf (0-5)
--- NOTE | 2024-12-13 09:58 | CT_ITS ---
FINAL REPORT TECHNIQUE: After the administration of intravenous contrast, axial images were obtained through the abdomen and pelvis by computed tomography. The study was performed with techniques to keep radiation dose as low as reasonably achievable, (ALARA). Individual dose reduction techniques using automated exposure control or adjustment of mA and/or kV according to the patient's size were employed. CLINICAL HISTORY: diffuse cramping abd pain, comiting, failed OP tx COMPARISON: 07/25/2024 FINDINGS: Abdomen: Mild scarring is noted at the lung bases. There is moderate fatty infiltration of the liver. The gallbladder is contracted. The spleen, pancreas, adrenals and kidneys appear unremarkable. The aorta is normal in caliber. There is no free fluid or adenopathy. Pelvis: The appendix is unremarkable. The urinary bladder is unremarkable. The uterus is anteverted. There is no free fluid or adenopathy. IMPRESSION: Moderate fatty liver. Contracted gallbladder. Reviewed, Interpreted and Dictated by Richard Amezcua MD Transcribed by Melody Ramirez Authenticated and [facility]
[2024-12-13 10:25] LABS: Basophils % 0.1 % (0.1-2.0); Eosinophils # 0.3 Kmm3 (0.0-0.4); Eosinophils % 3.6 % (0.1-12.0); Hematocrit 36.8 % (37.0-47.0); Hemoglobin 11.8 g/dL (12.2-16.2); Lymphocytes # 2.3 K/mm3 (0.7-4.5); Lymphocytes % 27.8 % (10-50); Mean Corpuscular HGB Conc 32.1 g/dL (31.8-35.4); Mean Corpuscular Hemoglobin 30.3 pg (27.0-31.2); Mean Corpuscular Volume 94.6 fl (81-99); Mean Platelet Volume 9.2 fl (7.4-10.4); Monocytes # 0.5 K/mm3 (0.1-1.0); Monocytes % 6.4 % (1.7-9.3); Neutrophils # 5.1 K/mm3 (1.8-7.8); Neutrophils % 61.9 % (37.0-80.0); Nucleated Red Blood Cells # 0 10^3/uL; Nucleated Red Blood Cells % 0 %; Platelet Count 285 K/mm3 (142-424); Red Blood Count 3.89 M/mm3 (4.20-5.40); Red Cell Distribution Width-SD 44.7 fL; White Blood Count 8.2 K/mm3 (4.8-10.8)
--- NOTE | 2024-12-13 10:31 | ED_ITS ---
Discharge Plan Disposition Patient Disposition: Home, Self-Care Prescriptions Prescriptions: New ondansetron 4 mg tablet,disintegrating 4 mg PO Q6H PRN (Reason: nausea and vomiting) Qty: 10 0RF No Action albuterol sulfate [Ventolin HFA] 90 mcg/actuation HFA aerosol inhaler inhalation metformin 500 mg tablet See Rx Instructions .ROUTE .COMPLEX Qty: 60 0RF Dose Instruction: TAKE 1 TABLET BY MOUTH TWICE DAILY Rx Instructions: TAKE 1 TABLET BY MOUTH TWICE DAILY topiramate 25 mg tablet See Rx Instructions .ROUTE .COMPLEX Qty: 60 0RF Dose Instruction: TAKE 1 TABLET BY MOUTH TWICE A DAY Rx Instructions: TAKE 1 TABLET BY MOUTH TWICE A DAY Auvelity 45-105 mg tablet, IR and ER, biphasic 1 tab PO BID Qty: 60 3RF propranolol 80 mg tablet 80 mg PO BID Qty: 60 4RF buspirone 10 mg tablet See Rx Instructions .ROUTE .COMPLEX Qty: 60 0RF Dose Instruction: TAKE 1 TABLET BY MOUTH TWICE DAILY Rx Instructions: TAKE 1 TABLET BY MOUTH TWICE DAILY quetiapine 25 mg tablet 25 mg PO HS Qty: 30 0RF promethazine 25 mg tablet 25 mg PO Q6H PRN (Reason: nausea and vomiting) Qty: 14 0RF famotidine [Pepcid] 20 mg tablet 20 mg PO BID 14 Days Qty: 28 0RF Referrals Follow up/Referrals: Deneen Garcia PA [Primary Care Provider] - See instructions Activity Restrictions/Add. Instructions Additional Instructions/Restrictions: Zofran for nausea. Put under your tongue and allow to dissolve every 6 hours as needed or before meals to help with nausea and stimulate p.o. intake. Call your family doctor to establish care for this visit to the emergency department and schedule follow-up within 48 hours to ensure improvement. If you have any worsening of your condition or any other concerning signs or symptoms, return to the emergency department or your primary care doctor for further evaluation. Clinical Impressions Clinical Impression: Gastroenteritis Instructions Patient Instructions: DI for Acute Abdominal Pain Print Language Print Language: Stateless Discharge ED Provider: Lkoesh Marlow General Adult HPI General Chief complaint: Abdominal Pain Stated complaint: Abd. pain, Vomiting, Nausea, GERD Time Seen by Provider: 12/13/24 09:18 Mode of Arrival: Ambulatory Source of Information: Patient Description of Symptoms (Recalled from ER Triage Doc. by RN): Reports being here last week for abdomen pain, vomiting and sulfa burps. States that she hasn't gotten any better and presents to the er with the same complaints today. History of Present Illness HPI narrative: Please note that above description of symptoms, in this electronic medical record under categorization of recalled from ER triage doctor by RN are reflective of an initial nursing assessment, however, is not reflective of my full history and physical exam that was personally taken and clarified. Consequentially, this preceding description of symptoms, which may include the patient's categorized chief complaint in the EMR, do not reflect my personal clinical impression, and the ultimate description of history of present illness and patient stated complaints should be deferred to this section of the note. Unless stated otherwise or congruent with this section of the note, additional signs, symptoms, or incongruence should be interpreted as inaccurate with my clinical impression. Related Data Home Medications ?Medication ?Instructions ?Recorded ?Confirmed albuterol sulfate 90 mcg/actuation inhalation 10/03/24 10/03/24 aerosol inhaler (Ventolin HFA) Previous Rx's ?Medication ?Instructions ?Recorded metformin 500 mg tablet See Rx Instructions .Route 05/22/24 .COMPLEX #60 tabs topiramate 25 mg tablet See Rx Instructions .Route 05/30/24 .COMPLEX #60 tabs dextromethorphan IR 45 1 tab PO BID #60 ea 06/20/24 mg-bupropion ER 105 mg biphasic tablet (Auvelity) propranolol 80 mg tablet 80 mg PO BID #60 tabs 06/24/24 famotidine 20 mg tablet (Pepcid) 20 mg PO BID 2 weeks #28 tabs 12/09/24 promethazine 25 mg tablet 25 mg PO Q6H PRN nausea and 12/09/24 vomiting #14 tabs buspirone 10 mg tablet See Rx Instructions .Route 12/10/24 .COMPLEX #60 tabs quetiapine 25 mg tablet 25 mg PO HS #30 tabs 12/10/24 ondansetron 4 mg disintegrating 4 mg PO Q6H PRN nausea and 12/13/24 tablet vomiting #10 tabs Allergies Allergy/AdvReac Type Severity Reaction Status Date / Time No Known Allergies Allergy Verified 10/03/24 09:35 [facility] Disclaimer: The information contained in this section may have been updated after the patient was seen, as this information can be updated by other users. 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 Gestational diabetes mellitus (GDM) Gestational diabetes mellitus (GDM) treated with oral hypoglycemic therapy Hx gestational diabetes Insulin resistance Tachycardia Insomnia Major depressive disorder Generalized anxiety disorder Urinary tract infection History of COVID-19 Asthma History of gastroesophageal reflux (GERD) Hypertension Dizziness Dyspnea Palpitations Abnormal Holter monitor finding Chest pain Depression Anxiety Surgical History History of incision and drainage H/O tubal ligation History of [place] teeth removed History of tonsillectomy and adenoidectomy History of surgery Family History Father Cirrhosis Mother Diabetes Grandmother Breast cancer Heart disease Multiple sclerosis COPD (chronic obstructive pulmonary disease) 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 Smoking Status: Never smoker second hand exposure: No alcohol intake: never counseling given: No substance use type: denies use and other details: delta 8 vape counseling given: No current occupational status: unemployed Travel in the last 8 weeks?: None adopted: No caregiver/support person: Yes (she stays home with her kids; PASHADarshan) foster care: No household members: significant other housing: house lives independently: Yes marital status: life partner number of children: 3 number of grandchildren: 0 education level: high school 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 Hx Recent Travel: No sexually active: Yes caffeine: Yes physical activity: none working smoke detector in home: Yes fire extinguisher in home: No carbon monox detector in home: Yes firearms in home: No do you feel safe at home: Yes victim of physical abuse: No victim of emotional abuse: No victim of sexual abuse: No would you like helpful sources: No Have you lived/traveled outside [place] in past 30 days?: No Contact w/someone who lives/traveled outside US past 30 days?: No Exposure to someone with infectious disease in past 14 days?: No Do you have a fever (greater than 100.4 F or 38 C)?: No Have you tested positive for COVID-19?: No Exposed to someone with COVID-19 in past 14 days?: No Do you have a sore throat?: No Do you have a cough?: No Do you have any weakness?: No Do you have any diarrhea?: No Are you experiencing any unusual bleeding?: No Do you have any muscle aches/pain?: Yes Do you have any abdominal pain?: Yes Are you experiencing loss of taste or smell?: No Other 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 Have you received the Flu Vaccine for this season: No Have you received the Pneumonia Vaccine: No ROS Obtained: Yes All systems reviewed & no additional complaints except as documented Physical Exam General General appearance: alert Head Head exam: atraumatic and normocephalic Eye Eye exam: Present normal appearance, PERRL and EOMI Neck Neck exam: Present normal inspection, full ROM and trachea midline Respiratory Respiratory exam: Absent respiratory distress, wheezes, stridor, accessory muscle use or prolonged expiratory phase Cardiovascular Cardiovascular exam: Present other (Pulses equal symmetric in upper and lower extremities) Abdominal Exam Abdominal exam: Present soft; Absent distention, tenderness or pulsatile mass Extremities Exam Extremities exam: Absent edema Neurological Exam Neurological exam: Present alert, oriented X3 and CN II-XII intact; Absent motor sensory deficit Skin Skin exam: Present warm and dry; Absent diaphoresis or erythema Medical Decision Making Medical Records Medical records reviewed: Yes I reviewed the patient's medical records. Screening: Per USPSTF and CDC recommendations, given the prevalence of disease in our region, it is our hospital?s policy to screen for HIV and viral Hepatitis for all patients aged 18 and over and those with ongoing risk factors. Prasanna Inquiry Pt receiving controlled substance: No Prasanna was queried for this patient: No Vital Signs: 12/13/24 09:16 12/13/24 09:19 12/13/24 09:30 Temperature 98.0 F Temperature Source Oral Pulse Rate 69 80 Pulse Rate [Radial] 72 Respiratory Rate 18 Blood Pressure 132/79 Blood Pressure [Right Arm] 132/79 Blood Pressure Mean 88 Blood Pressure Mean [Right Arm] 96 Blood Pressure Source [Right Arm] Automatic Cuff Blood Pressure Position [Right Arm] Sitting 02 Sat by Pulse Oximetry 100 98 91 L Oxygen Delivery Method Room Air Room Air 12/13/24 09:32 12/13/24 10:00 12/13/24 10:46 Temperature Temperature Source Pulse Rate 70 62 78 Pulse Rate [Radial] Respiratory Rate Blood Pressure 140/58 L 131/69 119/77 Blood Pressure [Right Arm] Blood Pressure Mean 81 Blood Pressure Mean [Right Arm] Blood Pressure Source [Right Arm] Blood Pressure Position [Right Arm] 02 Sat by Pulse Oximetry 100 100 100 Oxygen Delivery Method Room Air Room Air 12/13/24 11:00 12/13/24 11:30 12/13/24 12:00 Temperature Temperature Source Pulse Rate 64 72 Pulse Rate [Radial] Respiratory Rate Blood Pressure 110/61 119/68 102/58 L Blood Pressure [Right Arm] Blood Pressure Mean 77 84 Blood Pressure Mean [Right Arm] Blood Pressure Source [Right Arm] Blood Pressure Position [Right Arm] 02 Sat by Pulse Oximetry 100 99 Oxygen Delivery Method Lab Data Lab Results 12/13/24 09:15: Urine Color Yellow, Urine Appearance Clear, Urine pH 6.0, Ur Specific [place] 1.025, Urine Protein Negative, Urine Glucose (UA) Negative, Urine Ketones Negative, Urine Blood Negative, Urine Nitrate Negative, Urine Bilirubin Negative, Urine Urobilinogen 0.2, Ur Leukocyte Esterase Negative, Urine RBC None, Urine WBC Occasional, Ur Squamous Epith Cells 20-50, Amorphous Sediment Trace, Urine Bacteria 3+ 12/13/24 10:19: WBC 8.2, RBC 3.89 L, Hgb 11.8 L, Hct 36.8 L, MCV 94.6, MCH 30.3, MCHC 32.1, RDW 13.0, Plt Count 285, MPV 9.2, Neut % (Auto) 61.9, Lymph % (Auto) 27.8, [place] % (Auto) 6.4, Eos % (Auto) 3.6, Baso % (Auto) 0.1, Neut # (Auto) 5.1, Lymph # (Auto) 2.3, [place] # (Auto) 0.5, Eos # (Auto) 0.3, Baso # (Auto) 0.0, Sodium 140, Potassium 4.4, Chloride 112 H, Carbon Dioxide 25, Anion Gap 7.4, BUN 11, Creatinine 0.80, Estimated Creat Clear 83, Estimated GFR 85, Est GFR ( Amer) 103, Glucose 100, Calcium 9.1, Total Bilirubin 0.3, AST 30, ALT 33, Alkaline Phosphatase 134 H, Total Protein 6.8, Albumin 3.5, Globulin 3.3 H, Albumin/Globulin Ratio 1.1, Lipase 72 12/13/24 10:19 12/13/24 10:19 Orders (Tests/Meds): ED MEDICATIONS Generic Name Dose Route Start Last Admin Trade Name Freq PRN Reason Stop Dose Admin Sodium Chloride 10 ml 12/13/24 10:53 12/13/24 10:54 Sodium Chloride 0.9% 10ml Syr (Rad Only) IV 01/12/25 10:52 10 ml NEEDED PRN Administration Maintain IV Site Discontinued Medications Generic Name Dose Route Start Last Admin Trade Name Freq PRN Reason Stop Dose Admin Lactated Ringer's 1,000 mls @ 999 mls/hr 12/13/24 10:45 12/13/24 10:46 Lactated Ringer's 1000 Ml Bag IV 12/13/24 11:45 999 mls/hr .Q1H1M ONE Administration Iopamidol 75 ml 12/13/24 10:53 12/13/24 10:54 Iopamidol-370 (76%);100ml Bottle IV 12/13/24 10:54 75 ml ONCE ONE Administration Ondansetron HCl 4 mg 12/13/24 10:45 12/13/24 10:47 Ondansetron 4mg/2ml Vial IV 12/13/24 10:46 4 mg ONCE ONE Administration ORDERS Category Date Time Status CT abdomen pelvis w con Stat Cat Scan 12/13/24 09:58 Taken Complete Blood Count Auto Diff Stat Lab 12/13/24 10:19 Completed Comprehensive Metabolic Panel Stat Lab 12/13/24 10:19 Completed Lipase Stat Lab 12/13/24 10:19 Completed UA [Urinalysis and Microscopic] Stat Lab 12/13/24 09:15 Completed Urine Culture Stat Micro 12/13/24 09:15 Received Medical Decision Narrative: 29-year-old female presenting with abdominal pain and vomiting. She states that this started a few days ago, was seen in the emergency department, given Zofran and fluids and discharged home, felt better. She has been now having sulfur burps, for the last few days and severe nausea and vomiting. Vomiting is dark green to yellow. Last bowel movement was today, 5/2 normal were without blood. She did not any strain. No fevers or chills, no urinary symptoms, she has had a tubal, last period was a couple of weeks prior to this normal for her. Abdominal pain is epigastric, does not radiate, cramping/burning. Nothing in particular makes it better. Came in for further evaluation. History obtained with patient, significant other, and chart review. On arrival, very clinically well. She is obese, speaking full sentences, not currently retching. Differential includes PUD, gastritis, enteritis, gastroenteritis, pancreatitis, SBO, colitis, diverticulitis, nephrolithiasis, UTI, cholecystitis, choledocholithiasis, appendicitis, hepatitis, less likely torsion, aortic pathology, mesenteric ischemia among others. Patient given fluids, Zofran. Workup was independently interpreted by me and demonstrated nonactionable hematologic labs or kidney function. Lipase negative, urinalysis nonactionable. CT scan of the abdomen and pelvis was independently interpreted and patient has no acute intra-abdominal abnormality. Mild mesenteric and bowel wall thickening consistent with enteritis. On reevaluation, resting comfortably, no acute complaints. Tolerating p.o. intake. Because patient at baseline without signs or symptoms of clinical decompensation, deemed appropriate for discharge. Results were relayed to patient who voiced understanding and were agreeable to outpatient management and follow up. I discussed my clinical impression with patient and answered all questions. At this time, the evidence for any other entities in the differential is insufficient to warrant any further testing or ED observation. This was explained as well. Advisory was given that persistent or worsening symptoms require further evaluation. I confirmed the understanding of this discussion. Manager Care disclaimer Much of this encounter note is an electronic dog trainer spoken language to printed text. Electronic dog trainer of the spoken language may permit errors. Although I have reviewed the note, some errors may still exist. Critical Care Critical Care Time Critical Care Time: No
[2024-12-13 10:39] LABS: Alanine Aminotransferase 33 U/L (12-78); Albumin Level 3.5 g/dl (3.5-5.0); Albumin/Globulin Ratio 1.1 (1.1-1.8); Alkaline Phosphatase 134 U/L (38-126); Anion Gap 7.4 mEq/L (5-15); Aspartate Amino Transferase 30 U/L (14-36); Bilirubin,Total 0.3 mg/dl (0.2-1.3); Blood Urea Nitrogen 11 mg/dl (7-17); Calcium 9.1 mg/dl (8.4-10.2); Carbon Dioxide 25 mmol/L (22.0-30.0); Chloride 112 mmol/L (98-107); Creatinine Clearance Estimated 83 mL/min (50-200); Estimated Glomerular Filt Rate 85 ml/min (>60); GFR (African American) 103 ML/MIN (>60); Globulin 3.3 g/dL (1.3-3.2); Glucose 100 mg/dl (74-100); Lipase 72 U/L (23-300); Potassium 4.4 mmoL/L (3.5-5.1); Sodium 140 mmol/L (136-145); Total Protein,Serum 6.8 g/dl (6.3-8.2)
[2024-12-13] MEDS: LACTATED RINGERS 1000ML 1,000 ML 999 ML IV (10:46)
[2024-12-13] MEDS: ONDANSETRON 4MG/2ML VIAL 4 MG IV (10:47)
--- NOTE | 2024-12-13 10:50 | PC.NURSE ---
pt ambulatory to scan
[2024-12-13] MEDS: IOPAMIDOL-370 (76%);100ML BOTTLE 75 ML IV (10:54)
[2024-12-13] MEDS: SODIUM CHLORIDE 0.9% 10ML SYR (RAD ONLY) 10 ML IV (10:54)
--- NOTE | 2024-12-13 10:56 | PC.NURSE ---
pt back to room
== END 2024-12-13 12:54 | disposition home or self-care (01) ==
PROVIDERS: Emergency Provider Emergency Medicine; PCP Physician Assistant
DX: R10.13 Epigastric pain (principal); K52.9 Noninfective gastroenteritis and colitis, unspecified; R11.2 Nausea with vomiting, unspecified
CPT/HCPCS: 74177; 80053; 81001; 83690; 85025; 87086; 96361; 96374; 99284; J2405; J7120; Q9967

== ENCOUNTER 2025-01-09 15:06 | Outpatient (CLI) | payer OTHER, SELFPAY ==
[2025-01-09 15:08] LABS: Adenovirus F 40/41, stool Not Detected (NotDetected); Astrovirus Not Detected (NotDetected); Campylobacter Not Detected (NotDetected); Clostridium Difficile A/B, PCR Not Detected (NotDetected); Cryptosporidium Not Detected (NotDetected); Cyclospora Cayetanesis Not Detected (NotDetected); Entamoeba histolytica Not Detected (NotDetected); Enteroaggregative E coli Not Detected (NotDetected); Enteropathogenic E coli Not Detected (NotDetected); Enterotoxigenic E coli Not Detected (NotDetected); Giardia lamblia Not Detected (NotDetected); Norovirus Not Detected (NotDetected); Plesimonas Shigalloides, PCR Not Detected (NotDetected); Rotavirus A Not Detected (NotDetected); Salmonella, PCR Not Detected (NotDetected); Sapovirus Not Detected (NotDetected); Shiga-like toxin E coli Not Detected (NotDetected); Shigella Enterovasive E coli Not Detected (NotDetected); Vibrio Cholerae Not Detected (NotDetected); Vibrio, PCR Not Detected (NotDetected); Yersinia Entercolitica, PCR Not Detected (NotDetected)
== END 2025-01-09 23:59 | disposition home or self-care (01) ==
LOC: LAB 15:06
PROVIDERS: PCP Physician Assistant; Visit Provider Nurse Practitioner Family
DX: R19.7 Diarrhea, unspecified (principal)
CPT/HCPCS: 87506

== ENCOUNTER 2025-01-20 07:48 | Day surgery (SDC) | payer OTHER, SELFPAY ==
[2025-01-20 08:31] VITALS: BMI 52.1
[2025-01-20 08:37] VITALS: BP 142/70; PULSE 78; RESP 18; TEMP 36.6; O2SAT 98; BMI 52.1
[2025-01-20 08:38] LABS: Urine Pregnancy, HCG Qual. Negative (Negative)
[2025-01-20] MEDS: LACTATED RINGERS 1000ML 1,000 ML 50 ML IV (08:52)
--- NOTE | 2025-01-20 08:54 | EXP.ANES.CKL ---
[facility] Disclaimer: The information contained in this section may have been updated after the patient was seen, as this information can be updated by other users. 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 Gestational diabetes mellitus (GDM) Gestational diabetes mellitus (GDM) treated with oral hypoglycemic therapy Hx gestational diabetes Insulin resistance Tachycardia Insomnia Major depressive disorder Generalized anxiety disorder Urinary tract infection History of COVID-19 Asthma History of gastroesophageal reflux (GERD) Hypertension Dizziness Dyspnea Palpitations Abnormal Holter monitor finding Chest pain Depression Anxiety Surgical History History of incision and drainage H/O tubal ligation History of [place] teeth removed History of tonsillectomy and adenoidectomy History of surgery right knee Family History Father Cirrhosis Mother Diabetes Grandmother Breast cancer Heart disease Multiple sclerosis COPD (chronic obstructive pulmonary disease) 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 (Updated 01/20/25 @ 08:39 by Joann Byrd RN) Smoking Status: Never smoker second hand exposure: No alcohol intake: never counseling given: No substance use type: denies use and other details: delta 8 vape counseling given: No current occupational status: unemployed Travel in the last 8 weeks?: None adopted: No caregiver/support person: Yes (she stays home with her kids; [facility] foster care: No household members: significant other housing: house lives independently: Yes marital status: life partner number of children: 3 number of grandchildren: 0 education level: high school 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 Recent Travel: No sexually active: Yes caffeine: No physical activity: none working smoke detector in home: Yes fire extinguisher in home: No carbon monox detector in home: Yes firearms in home: No do you feel safe at home: Yes victim of physical abuse: No victim of emotional abuse: No victim of sexual abuse: No would you like helpful sources: No Have you lived/traveled outside [place] in past 30 days?: No Contact w/someone who lives/traveled outside US past 30 days?: No Exposure to someone with infectious disease in past 14 days?: No Do you have a fever (greater than 100.4 F or 38 C)?: No Have you tested positive for COVID-19?: No Exposed to someone with COVID-19 in past 14 days?: No Do you have a sore throat?: No Do you have a cough?: No Do you have any weakness?: No Are you experiencing any nausea/vomitting?: No Do you have any diarrhea?: No Are you experiencing any unusual bleeding?: No Do you have any muscle aches/pain?: No Do you have any abdominal pain?: No Are you experiencing loss of taste or smell?: No [facility] Anesthesia Checklist Patient Identification Patient Identification: Verbal (Name & ) Structural Data Admitted From: Home Planned Operative Procedure/s: egd,colon Consent for Planned Operative Procedure(s) Verified: Yes NPO Status Verified Time NPO: 00:00 Additional verifications Anesthesia Reactions: No Hx Blood Transfusions: No Blood Transfusion Reaction: No Airway Assessment Mallampati Score:: Class II C-Spine Mobility Assessed: Yes TMJ Mobility Assessed: Yes Dentition: Good Dentition Neurological Assessment Level of Consciousness: Awake, Alert and Appropriate Anesthesia Plan Anesthesia Risk discussed: Yes Anesthesia Plan: Verified ASA Class: III Anesthesia Type: MAC
--- NOTE | 2025-01-20 09:11 | EXP.HP ---
History of Present Illness *Admission Date: 01/20/25 *Reason for visit:: Fecal urgency and fecal incontinence *History of present illness: Mrs. Sanders is a 29-year-old female who is here for diagnostic colonoscopy secondary to fecal urgency, diarrhea and fecal incontinence for the last year. The patient also has some hemorrhoidal bleeding and had hemorrhoid banding about a month ago in [place] ([facility]). The examination is deemed medically necessary for diagnostic colonoscopy. The patient has been seen, interviewed and examined prior to the procedure by both myself and the anesthesia provider. [facility] Disclaimer: The information contained in this section may have been updated after the patient was seen, as this information can be updated by other users. 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 Gestational diabetes mellitus (GDM) Gestational diabetes mellitus (GDM) treated with oral hypoglycemic therapy Hx gestational diabetes Insulin resistance Tachycardia Insomnia Major depressive disorder Generalized anxiety disorder Urinary tract infection History of COVID-19 Asthma History of gastroesophageal reflux (GERD) Hypertension Dizziness Dyspnea Palpitations Abnormal Holter monitor finding Chest pain Depression Anxiety Surgical History History of incision and drainage H/O tubal ligation History of [place] teeth removed History of tonsillectomy and adenoidectomy History of surgery right knee Family History Father Cirrhosis Mother Diabetes Grandmother Breast cancer Heart disease Multiple sclerosis COPD (chronic obstructive pulmonary disease) 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 (Updated 01/20/25 @ 08:39 by Joann Byrd RN) Smoking Status: Never smoker second hand exposure: No alcohol intake: never counseling given: No substance use type: denies use and other details: delta 8 vape counseling given: No current occupational status: unemployed Travel in the last 8 weeks?: None adopted: No caregiver/support person: Yes (she stays home with her kids; SAHM) foster care: No household members: significant other housing: house lives independently: Yes marital status: life partner number of children: 3 number of grandchildren: 0 education level: high school 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 Hx Recent Travel: No sexually active: Yes caffeine: No physical activity: none working smoke detector in home: Yes fire extinguisher in home: No carbon monox detector in home: Yes firearms in home: No do you feel safe at home: Yes victim of physical abuse: No victim of emotional abuse: No victim of sexual abuse: No would you like helpful sources: No Have you lived/traveled outside [place] in past 30 days?: No Contact w/someone who lives/traveled outside US past 30 days?: No Exposure to someone with infectious disease in past 14 days?: No Do you have a fever (greater than 100.4 F or 38 C)?: No Have you tested positive for COVID-19?: No Exposed to someone with COVID-19 in past 14 days?: No Do you have a sore throat?: No Do you have a cough?: No Do you have any weakness?: No Are you experiencing any nausea/vomitting?: No Do you have any diarrhea?: No Are you experiencing any unusual bleeding?: No Do you have any muscle aches/pain?: No Do you have any abdominal pain?: No Are you experiencing loss of taste or smell?: No Other 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 Have you received the Flu Vaccine for this season: No Have you received the Pneumonia Vaccine: No Review of Systems Review of Systems Review of systems (narrative): Negative *Cardiovascular Comments: Negative *Gastrointestinal Comments: Negative *Genitourinary Comments: Negative *Musculoskeletal Comments: Negative *Neurologic Comments: Negative Meds Home Medications and Allergies Home Medications ?Medication ?Instructions ?Recorded ?Confirmed ?Type metformin 500 mg tablet See Rx Instructions .Route 05/22/24 01/20/25 Rx .COMPLEX #60 tabs topiramate 25 mg tablet See Rx Instructions .Route 05/30/24 01/20/25 Rx .COMPLEX #60 tabs propranolol 80 mg tablet 80 mg PO BID #60 tabs 06/24/24 01/20/25 Rx albuterol sulfate 90 mcg/actuation 2 puff inhalation DAILYP PRN Asthma 10/03/24 01/20/25 History aerosol inhaler (Ventolin HFA) famotidine 20 mg tablet (Pepcid) 20 mg PO BID 2 weeks #28 tabs 12/09/24 01/20/25 Rx atorvastatin 20 mg tablet 20 mg PO DAILY High cholesterol 01/08/25 01/20/25 History cholecalciferol (vitamin D3) 50 50 mcg PO DAILY Vitamin deficiency 01/08/25 01/20/25 History mcg (2,000 unit) capsule (Vitamin D3) ergocalciferol (vitamin D2) 1,250 1,250 mcg PO WEEKLY 01/08/25 01/20/25 History mcg (50,000 unit) capsule atomoxetine 40 mg capsule 40 mg PO DAILY #30 caps 01/16/25 01/20/25 Rx (Strattera) buspirone 10 mg tablet 10 mg PO BID #60 tabs 01/16/25 01/20/25 Rx olanzapine 10 mg-samidorphan 10 mg 1 tab PO HS #30 tabs 01/16/25 01/20/25 Rx tablet (Lybalvi) New Prescriptions to Start Prescriptions: Allergies Allergy/AdvReac Type Severity Reaction Status Date / Time No Known Allergies Allergy Verified 01/20/25 08:27 Exam Data for Last 24 hours Vital signs and Labs for Last 24 Hours: Temp Pulse Resp BP Pulse Ox O2 Del Method 97.9 F 78 18 142/70 H 98 Room Air 01/20/25 08:37 01/20/25 08:37 01/20/25 08:37 01/20/25 08:37 01/20/25 08:37 01/20/25 08:37 Laboratory Results - last 24 hr 01/20/25 08:20: Urine HCG, Qual Negative I & O for Last 24 hours: Intake & Output 01/17/25 01/18/25 01/19/25 01/20/25 23:59 23:59 23:59 23:59 Weight 628 lb 5.079 oz *Routine HEENT Exam Head: Present normocephalic Eye: Present EOMI and PERRL ENT: Present mucous membranes moist *Routine Neck Exam Neck: Present supple *Routine Respiratory Exam Respiratory: Present CTA bilaterally *Routine Cardiovascular Exam Cardiovascular: Present RRR *Routine Abdominal Exam Abdominal: Present soft and normoactive bowel sounds; Absent tenderness *Routine Rectal Exam Rectal:: deferred *Routine Genitalia Exam Genitalia:: deferred *Routine Extremities Exam Extremities: Absent cyanosis, clubbing or edema *Routine Skin Exam Skin: Present warm; Absent rash *Routine Neurological Exam Neurological: Present alert and oriented X3 Assessment and Plan *Assessment and plan (1) Incontinence of feces with fecal urgency: Status: Acute Category: Medical Code(s): R15.9 - Full incontinence of feces; R15.2 - Fecal urgency (2) Chronic diarrhea: Status: Acute Category: Medical Code(s): K52.9 - Noninfective gastroenteritis and colitis, unspecified (3) Bloating: Status: Acute Category: Medical Code(s): R14.0 - Abdominal distension (gaseous) (4) Internal hemorrhoid, bleeding: Status: Acute Category: Medical Code(s): K64.8 - Other hemorrhoids Plan A/P: 1. Fecal urgency with fecal incontinence, chronic diarrhea and bloating is the preprocedural diagnosis. The patient also has some internal hemorrhoid bleeding. The patient will be anesthetized/sedated using MAC sedation. The patient has been seen and examined. Cardiac and lung assessment prior to the examination is stable. Proceed with planned diagnostic colonoscopy.
--- NOTE | 2025-01-20 09:32 | HMH.PROCNOTE ---
[facility] Procedure Note Date: 01/20/25 Time: 09:38 Procedure Note:: Upper Endoscopy Procedure Report: Esophagogastroduodenoscopy with cold biopsies Endoscopost: Renato Trinidad II, MD Referring Physician: Deneen Garcia PA-C Date of Procedure: January 20, 2025 Equipment: Olympus GIF 190 standard upper endoscope Sedation: MAC sedation Indications: Mrs. Sanders is a 29-year-old female here for diagnostic upper endoscopy secondary to nausea, vomiting, belching, bloating and gassiness. She reports early satiety. She does get nausea every morning and the vomiting is intermittent. This is often undigested food. She does have sulfur burping and severe bloating. Her H. pylori breath testing was normal. The patient also has had diarrhea with urgency and fecal incontinence. She does get some epigastric abdominal discomfort. She reports no dysphagia. She is on Topamax but still cannot lose weight. Her thyroid testing was normal. The patient did have recent hemorrhoid banding at [facility] (Fabian Quintana MD). Procedure: Prior to the procedure, a history and physical exam was performed, and patient's medications and allergies were reviewed. The risks, benefits and alternatives of the sedation and procedure were discussed with the patient. All questions were answered and informed consent was obtained. The patient was brought to the procedure room. Patient identification and proposed procedure were verified by the physician and the nurse. The patient was placed in a left lateral decubitus position and the scope was passed under direct vision. Throughout the procedure, the patient's blood pressure, pulse, and oxygen saturations were monitored continuously. The upper GI endoscopy was accomplished without difficulty. The patient tolerated the procedure well. Findings: The scope was passed directly into the upper esophagus and advanced to the fourth portion of duodenum and proximal jejunum. A cold biopsy was taken from the proximal jejunum for disaccharidase assay. The proximal jejunum, post bulbar duodenum, ampulla and duodenal bulb were normal with normal mucosa and conniventes. Cold biopsies were taken from the first portion of duodenum to rule out celiac disease. The scope was withdrawn through a normal duodenal bulb and pylorus into the stomach. There was some mild linear antral gastropathy. The body and fundus of the stomach were normal. Upon retroflexion there was a small 2 cm hiatal hernia. The scope was then withdrawn into the esophagus. There was no evidence of reflux esophagitis or Chavez's. There were tertiary contractions and evidence of mild esophageal dysmotility. The remainder of the esophageal mucosa was normal. Impression: 1. Nonerosive GERD with moderate esophageal dysmotility and small 2 cm hiatal hernia 2. Mild linear gastropathy of antrum Plan: I will follow-up the biopsies and disaccharidase assay. The patient does have functional dyspepsia and we will discuss treatment options. I will proceed with diagnostic colonoscopy.
--- NOTE | 2025-01-20 09:40 | P.PCN_ITS ---
[facility] Procedure Note Date: 01/20/25 Time: 09:55 Procedure Note:: Colonoscopy Procedure Report: Colonoscopy with cold snare polypectomy and cold biopsies Endoscopist: Renato Trinidad II, MD Referring physician: Deneen Garcia PA-C Date of Procedure: January 20, 2025 Equipment: Olympus 190 variable stiffness pediatric colonoscope Sedation: MAC sedation Indication: Mrs. Sanders is a 29-year-old female with fecal urgency and fecal incontinence. She has had diarrhea and has at least 5 bowel movements daily. She also has bloating and gassiness with dyspepsia. The patient recently had hemorrhoid banding (Fabian Quintana MD at [facility]). She has never had a colonoscopy. She does get some intermittent hemorrhoidal bleeding but has not had any in more than 2 weeks. She reports no weight loss or family history of colitis, Crohn's disease or colon cancer. Procedure: Prior to the procedure, a history and physical exam was performed, and patient's medications and allergies were reviewed. The risks, benefits and alternatives of the sedation and procedure were discussed with the patient. All questions were answered and informed consent was obtained. The patient was brought to the procedure room. Patient identification and proposed procedure were verified by the physician and the nurse. The patient was placed in a left lateral decubitus position and the scope was passed under direct vision. Throughout the procedure, the patient's blood pressure, pulse, and oxygen saturations were monitored continuously. The colonoscopy was accomplished without difficulty. The patient tolerated the procedure well. Findings: On digital rectal examination there was normal rectal tone. There were no external hemorrhoids. The colonoscope was introduced through the anal canal to the rectum and advanced to the cecum. The ileocecal valve and appendiceal orifice were identified. The scope was advanced a short distance into the ileum which appeared grossly normal. Biopsies were taken from the ileum to rule out ileitis. The scope was then withdrawn into the colon. The cecum, ascending, transverse, descending, sigmoid and rectum were grossly normal. There was a single diminutive 3 to 4 mm polyp in the transverse colon removed via cold snare polypectomy. Cold biopsies were taken from both the right and the left colon separately to rule out microscopic colitis. There were no other mucosal abnormalities identified. Upon retroflexion within the rectum there were grade 1-2 internal hemorrhoids. There was some granulation tissue adjacent to where there was a single prior hemorrhoid band ligation. The preparation was excellent throughout with [place] Preparation Score of 9. The cecal time was 12 minutes. Impression: 1. Diminutive transverse colon polyp 2. Grade 1-2 internal hemorrhoids Plan: I will follow-up the polyp histology and biopsies to rule out microscopic colitis. If the biopsies are normal, I would consider Viberzi treatment. We will discuss additional dietary measures and treatment options.
[2025-01-20 10:00] VITALS: BP 99/64; PULSE 81; RESP 16; TEMP 36.1; O2SAT 97
[2025-01-20 10:10] VITALS: BP 106/72; PULSE 87; RESP 16; O2SAT 98
[2025-01-20 10:20] VITALS: BP 106/64; PULSE 81; O2SAT 99
[2025-01-20 10:30] VITALS: BP 113/86; PULSE 80; RESP 16; O2SAT 100
[2025-01-22 17:51] LABS: Disclaimer Notes (.); Interpretation Notes (.); Lactase 12.81 (>/= 14.0); Maltase 246.79 (>/= 110.0); Palatinase 16.01 (>/= 8.5); Reference Notes (.); Sucrase 50.11 (>/= 25.0)
== END 2025-01-20 10:40 | disposition home or self-care (01) ==
PROVIDERS: PCP Physician Assistant; Visit Provider Internal Medicine Gastroenterology
PROC: 0DJ08ZZ Inspection of Upper Intestinal Tract, Via Natural or Artificial Opening Endoscopic (ICD-10-PCS; CPT 45378; principal; 2025-01-20 09:30)
DX: D12.3 Benign neoplasm of transverse colon (principal); K64.1 Second degree hemorrhoids; K31.89 Other diseases of stomach and duodenum; K22.4 Dyskinesia of esophagus; K44.9 Diaphragmatic hernia without obstruction or gangrene; K29.80 Duodenitis without bleeding; K21.9 Gastro-esophageal reflux disease without esophagitis; F32.9 Major depressive disorder, single episode, unspecified; F41.1 Generalized anxiety disorder; J45.909 Unspecified asthma, uncomplicated; I10 Essential (primary) hypertension; Z01.812 Encounter for preprocedural laboratory examination; Z83.3 Family history of diabetes mellitus; Z82.49 Family history of ischemic heart disease and other diseases of the circulatory system; Z82.5 Family history of asthma and other chronic lower respiratory diseases; Z80.3 Family history of malignant neoplasm of breast; Z79.899 Other long term (current) drug therapy; Z79.84 Long term (current) use of oral hypoglycemic drugs
CPT/HCPCS: 43239; 45380; 45385; 81025; 82657; J2003; J2704; J7120

== ENCOUNTER 2025-06-20 21:15 | Emergency (ER) | payer OTHER, SELFPAY ==
[2025-06-20 21:09] VITALS: BP 136/78; PULSE 85; RESP 16; TEMP 36.6; O2SAT 98; BMI 49.4
--- NOTE | 2025-06-20 21:11 | CT_ITS ---
PROCEDURE INFORMATION: Exam: CT Head Without Contrast Exam date and time: 06/20/2025 9:38 PM Age: 30 years old Clinical indication: Injury or trauma; Fall; Other: Pain TECHNIQUE: Imaging protocol: Computed tomography of the head without contrast. Radiation optimization: All CT scans at this facility use at least one of these dose optimization techniques: automated exposure control; mA and/or kV adjustment per patient size (includes targeted exams where dose is matched to clinical indication); or iterative reconstruction. COMPARISON: CT HEAD/BRAIN WO CON 04/06/2023 6:47 PM FINDINGS: Brain: No acute intracranial hemorrhage, midline shift, or mass effect. Cerebral ventricles: No ventriculomegaly. Paranasal sinuses: Minimal maxillary sinus mucosal thickening. Small maxillary sinus air-fluid levels suggestive of acute sinusitis. Mastoid air cells: Visualized mastoid air cells are well aerated. Bones: Unremarkable. No acute fracture. Soft tissues: Unremarkable. IMPRESSION: No acute intracranial findings.
--- NOTE | 2025-06-20 21:11 | XR_ITS ---
PROCEDURE INFORMATION: Exam: XR Chest Exam date and time: 06/20/2025 9:25 PM Age: 30 years old Clinical indication: Shortness of breath; Additional info: Short of breath TECHNIQUE: Imaging protocol: Radiologic exam of the chest. Views: 1 view. COMPARISON: CR XR CHEST 2V 07/12/2024 7:51 PM FINDINGS: Lungs: No consolidation. Pleural spaces: No pleural effusion. No pneumothorax. Heart/Mediastinum: No cardiomegaly. Bones/joints: Unremarkable. IMPRESSION: No acute findings.
--- NOTE | 2025-06-20 21:14 | ED_ITS ---
<Statement entered by Lucinda Bean DO - 06/21/25 00:24> I was consulted by the STEFAN, and we discussed the complexity of problems being addressed. I approve the treatment and management plan for this patient's care in the emergency department, thus performing a substantial portion of the medical decision making. Lucinda Bean DO Discharge Plan Disposition Patient Disposition: Home, Self-Care Condition: Good Prescriptions Prescriptions: No Action albuterol sulfate [Ventolin HFA] 90 mcg/actuation HFA aerosol inhaler 2 puff inhalation DAILYP PRN (Reason: Asthma) atorvastatin 20 mg tablet 20 mg PO DAILY ergocalciferol (vitamin D2) 1,250 mcg (50,000 unit) capsule 1,250 mcg PO WEEKLY cholecalciferol (vitamin D3) [Vitamin D3] 50 mcg (2,000 unit) capsule 50 mcg PO DAILY atomoxetine 40 mg capsule 40 mg PO DAILY Qty: 30 3RF buspirone 10 mg tablet 10 mg PO BID Qty: 60 3RF Lybalvi 10-10 mg tablet 1 tab PO HS Qty: 30 3RF metformin 500 mg tablet See Rx Instructions .ROUTE .COMPLEX Qty: 60 0RF Dose Instruction: TAKE 1 TABLET BY MOUTH TWICE DAILY Rx Instructions: TAKE 1 TABLET BY MOUTH TWICE DAILY topiramate 25 mg tablet See Rx Instructions .ROUTE .COMPLEX Qty: 60 0RF Dose Instruction: TAKE 1 TABLET BY MOUTH TWICE A DAY Rx Instructions: TAKE 1 TABLET BY MOUTH TWICE A DAY Viberzi 100 mg tablet 100 mg PO BID Qty: 60 5RF Rx Instructions: Please take 1 tablet p.o. twice daily and must administer with a meal/food propranolol 80 mg tablet 80 mg PO BID Qty: 60 4RF famotidine [Pepcid] 20 mg tablet 20 mg PO BID 14 Days Qty: 28 0RF Referrals Follow up/Referrals: Deneen Garcia PA [Primary Care Provider, Medical] - See instructions Activity Restrictions/Add. Instructions Additional Instructions/Restrictions: Return to the ER if you have return of your symptoms. Otherwise follow-up with your primary care provider. Clinical Impressions Clinical Impression: Syncope Instructions Patient Instructions: DI for Syncope in Adults (Fainting) Print Language Print Language: Palestinian Discharge ED Provider: Lucinda Bean General Adult HPI <Natasha Thayer (ED), PARTS INSPECTOR - Last Filed: 06/20/25 22:01> General Chief complaint: Syncope Stated complaint: Syncope Time Seen by Provider: 06/20/25 21:26 History of Present Illness HPI narrative: 30-year-old female presents via EMS for an episode where she got dizzy, passed out for about a minute. She is now alert and oriented x 4. She has no headache, no chest pain, no recent illness, no nausea, no vomiting no diarrhea. She has had and she does not feel hungry. She says she was making dinner today and passed out at the time. No other issues. She does have history of hypertension and she takes blood pressure medicine. She tells me that she has not eaten today. She takes Topamax which curbs her appetite. She said she did pass out at [facility] about a month ago while she was in line. Related Data Home Medications ?Medication ?Instructions ?Recorded ?Confirmed albuterol sulfate 90 mcg/actuation 2 puff inhalation D AILYP PRN Asthma 10/03/24 03/13/25 aerosol inhaler (Ventolin HFA) atorvastatin 20 mg tablet 20 mg PO DAILY High choleste rol 01/08/25 03/13/25 cholecalciferol (vitamin D3) 50 50 mcg PO DAILY Vitami n deficiency 01/08/25 03/13/25 mcg (2,000 unit) capsule (Vitamin D3) ergocalciferol (vitamin D2) 1,250 1,250 mcg PO WEEKLY 01/08/25 03/13/25 mcg (50,000 unit) capsule Previous Rx's ?Medication ?Instructions ?Recorded metformin 500 mg tablet See Rx Instructions .Route 1 .COMPLEX #60 tabs topiramate 25 mg tablet See Rx Instructions .Route 1 .COMPLEX #60 tabs famotidine 20 mg tablet (Pepcid) 20 mg PO BID 2 weeks #28 tabs 12/09/24 Viberzi 100 mg tablet (eluxadoline) 100 mg PO BID #60 tabs 01/23/25 propranolol 80 mg tablet 80 mg PO BID #60 tabs atomoxetine 40 mg capsule 40 mg PO DAILY #30 caps 02/13 09/07 buspirone 10 mg tablet 10 mg PO BID #60 tabs olanzapine 10 mg-samidorphan 10 mg 1 tab PO HS #30 tab s 03/13/25 tablet (Lybalvi) Allergies Allergy/AdvReac Type Severity Reaction Status Date / Time No Known Allergies Allergy Verified 03/13/25 08:42 PFS <Natasha Thayer (ED), PARTS INSPECTOR - Last Filed: 06/20/25 22:01> [facility] Disclaimer: The information contained in this section may have been updated after the patient was seen, as this information can be updated by other users. 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 Gestational diabetes mellitus (GDM) Gestational diabetes mellitus (GDM) treated with oral hypoglycemic therapy Hx gestational diabetes Insulin resistance Tachycardia Insomnia Major depressive disorder Generalized anxiety disorder Urinary tract infection History of COVID-19 Asthma History of gastroesophageal reflux (GERD) Hypertension Dizziness Dyspnea Palpitations Abnormal Holter monitor finding Chest pain Depression Anxiety Surgical History History of incision and drainage H/O tubal ligation History of [place] teeth removed History of tonsillectomy and adenoidectomy History of surgery right knee Family History Father Cirrhosis Mother Diabetes Grandmother Breast cancer Heart disease Multiple sclerosis COPD (chronic obstructive pulmonary disease) 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 Smoking Status: Unknown if ever smoked second hand exposure: No alcohol intake: never counseling given: No substance use type: denies use and other details: delta 8 vape counseling given: No current occupational status: unemployed Travel in the last 8 weeks?: None adopted: No caregiver/support person: Yes (she stays home with her kids; 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 Hx Recent Travel: No sexually active: Yes caffeine: No physical activity: none working smoke detector in home: Yes fire extinguisher in home: No carbon monox detector in home: Yes firearms in home: No do you feel safe at home: Yes victim of physical abuse: No victim of emotional abuse: No victim of sexual abuse: No would you like helpful sources: No Have you lived/traveled outside [place] in past 30 days?: No Contact w/someone who lives/traveled outside US past 30 days?: No Exposure to someone with infectious disease in past 14 days?: No Do you have a fever (greater than 100.4 F or 38 C)?: No Have you tested positive for COVID-19?: No Exposed to someone with COVID-19 in past 14 days?: No Do you have a sore throat?: No Do you have a cough?: No Do you have any weakness?: No Do you have any diarrhea?: No Are you experiencing any unusual bleeding?: No Do you have any muscle aches/pain?: No Do you have any abdominal pain?: No Are you experiencing loss of taste or smell?: No Other 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 Have you received the Flu Vaccine for this season: No Have you received the Pneumonia Vaccine: No <Natasha Thayer (ED), PARTS INSPECTOR - Last Filed: 06/20/25 22:01> ROS Obtained: Yes Systems reviewed as appropriate & no additional complaints except as documented Constitutional Constitutional: Reports as per HPI Physical Exam <Natasha Thayer (ED), PARTS INSPECTOR - Last Filed: 06/20/25 22:01> General General appearance: alert and anxious Head Head exam: normocephalic Eye Eye exam: Present PERRL and EOMI ENT ENT exam: Present normal oropharynx and mucous membranes moist Neck Neck exam: Present full ROM and trachea midline Respiratory Respiratory exam: Present normal lung sounds bilaterally Cardiovascular Cardiovascular exam: Present regular rate, normal rhythm, normal heart sounds, +S1 and +S2 Abdominal Exam Abdominal exam: Present soft and normal bowel sounds Extremities Exam Extremities exam: Present full ROM and normal capillary refill Neurological Exam Neurological exam: Present alert and oriented X3 Skin Skin exam: Present warm and dry Medical Decision Making <Natasha Thayer (ED), PARTS INSPECTOR - Last Filed: 06/20/25 22:01> Medical Records Screening: Per USPSTF and CDC recommendations, given the prevalence of disease in our region, it is our hospital?s policy to screen for HIV and viral Hepatitis for all patients aged 18 and over and those with ongoing risk factors. Prasanna Inquiry Pt receiving controlled substance: No Prasanna was queried for this patient: No Vital Signs: 06/20/25 21:09 06/20/25 22:01 06/20/25 22:30 Temperature 97.9 F Temperature Source Oral Pulse Rate 79 75 Pulse Rate [Left] 85 Respiratory Rate 16 Blood Pressure 128/88 117/68 Blood Pressure [Right Arm] 136/78 Blood Pressure Mean [Right Arm] 97 Blood Pressure Source Automatic Cuff Blood Pressure Position 02 Sat by Pulse Oximetry 98 99 98 Oxygen Delivery Method Room Air Room Air Room Air 06/20/25 23:01 06/20/25 23:41 Temperature 97.8 F Temperature Source Oral Pulse Rate 72 89 Pulse Rate [Left] Respiratory Rate 16 Blood Pressure 105/60 L 106/48 L Blood Pressure [Right Arm] Blood Pressure Mean [Right Arm] Blood Pressure Source Automatic Cuff Automatic Cuff Blood Pressure Position Sitting 02 Sat by Pulse Oximetry 98 Oxygen Delivery Method Room Air Room Air Lab Data Lab Results 06/20/25 21:11: WBC 11.4 H, RBC 4.15 L, Hgb 12.8, Hct 37.5, MCV 90.4, MCH 30.8, MCHC 34.1, RDW 12.3, Plt Count 341, MPV 9.2, Neut % (Auto) 52.8, Lymph % (Auto) 34.2, Kidder % (Auto) 7.0, Eos % (Auto) 5.2, Baso % (Auto) 0.6, Neut # (Auto) 6.1, Lymph # (Auto) 3.9, Kidder # (Auto) 0.8, Eos # (Auto) 0.6 H, Baso # (Auto) 0.1, S odium 133 L, Potassium 3.6, Chloride 105, Carbon Dioxide 19 L, Anion Gap 12.6, BUN 10, Creatinine 0.80, Estimated Creat Clear 82, Estimated GFR 85, Est GFR ( Amer) 103, Glucose 121 H, Calcium 9.3, Magnesium 1.9, Total Bilirubin 0.6, AST 32, ALT 30, Alkaline Phosphatase 109, Troponin I < 0.01, Total Protein 7.6, Albumin 4.2, Globulin 3.4 H, Albumin/Globulin Ratio 1.2, Lipase 49, HCV Ab MADINA w/Rflx PCR Qn Negative, HIV Ag/Ab Combo Qual Negative 06/20/25 22:10: SARS-CoV-2 (PCR) Not detected, Influenza A Untype (PCR) Not detected, Influenza Type B (PCR) Not detected 06/20/25 21:11 06/20/25 21:11 Orders (Tests/Meds): ED MEDICATIONS Discontinued Medications Generic Name Dose Route Start Last Admin Trade Name Rusty PRN Reason Stop Dose Admin Sodium Chloride 1,000 mls @ 999 mls/hr 06/20/25 21:11 06/20/25 22:29 Sod Chlor 0.9% 1000ml Bag IV 06/20/25 22:11 Infused .Q1H1M ONE Infusion ORDERS Category Date Time Status CT head/brain wo con Stat Cat Scan 06/20/25 21:11 Completed Chest XR -- portable [XR chest portable] Stat Exams 06/20/25 21:11 Completed CBC [Complete Blood Count Auto Diff] Stat Lab 06/20/25 21:11 Completed Comprehensive Metabolic Panel Stat Lab 06/20/25 21:11 Completed HIV Combo Stat Lab 06/20/25 21:11 Completed Hepatitis C Ab Qual. W/ RFX Stat Lab 06/20/25 21:11 Completed Lipase Stat Lab 06/20/25 21:11 Completed Magnesium Stat Lab 06/20/25 21:11 Completed Rapid PCR Covid and Flu A/B Stat Lab 06/20/25 22:10 Completed Trop I [Troponin I] Stat Lab 06/20/25 21:11 Completed Medical Decision Narrative: patient is a 30-year-old female presenting to the emergency department for evaluation of dizziness and a syncopal episode prior to arrival. Of note she has not eaten today. Patient is hemodynamically stable and nontoxic-appearing upon arrival, afebrile. Differential diagnosis includes syncope, seizure, electrolyte disorder, among others. Workup will be conducted with hematologic labs, specific imaging, provocative tests. Initial inventions include crystalloid bolus, analgesics, antibiotics, etc.. White cell count is 11.4 H&H is 12.8 and 37.5, sodium is 133, potassium 3.6, BUN and creatinine were normal, mag was normal liver function was normal, troponin was less than 0.01.Waiting for chest x-ray and head CT to be read. Gave report to Dr. Bean <Lucinda Bean, DO - Last Filed: 06/21/25 00:24> Vital Signs: 06/20/25 21:09 06/20/25 22:01 06/20/25 22:30 Temperature 97.9 F Temperature Source Oral Pulse Rate 79 75 Pulse Rate [Left] 85 Respiratory Rate 16 Blood Pressure 128/88 117/68 Blood Pressure [Right Arm] 136/78 Blood Pressure Mean [Right Arm] 97 Blood Pressure Source Automatic Cuff Blood Pressure Position 02 Sat by Pulse Oximetry 98 99 98 Oxygen Delivery Method Room Air Room Air Room Air 06/20/25 23:01 06/20/25 23:41 Temperature 97.8 F Temperature Source Oral Pulse Rate 72 89 Pulse Rate [Left] Respiratory Rate 16 Blood Pressure 105/60 L 106/48 L Blood Pressure [Right Arm] Blood Pressure Mean [Right Arm] Blood Pressure Source Automatic Cuff Automatic Cuff Blood Pressure Position Sitting 02 Sat by Pulse Oximetry 98 Oxygen Delivery Method Room Air Room Air Lab Data Lab results reviewed: Yes I reviewed the patient's lab results. Lab Results 06/20/25 21:11: WBC 11.4 H, RBC 4.15 L, Hgb 12.8, Hct 37.5, MCV 90.4, MCH 30.8, MCHC 34.1, RDW 12.3, Plt Count 341, MPV 9.2, Neut % (Auto) 52.8, Lymph % (Auto) 34.2, Kidder % (Auto) 7.0, Eos % (Auto) 5.2, Baso % (Auto) 0.6, Neut # (Auto) 6.1, Lymph # (Auto) 3.9, Kidder # (Auto) 0.8, Eos # (Auto) 0.6 H, Baso # (Auto) 0.1, S odium 133 L, Potassium 3.6, Chloride 105, Carbon Dioxide 19 L, Anion Gap 12.6, BUN 10, Creatinine 0.80, Estimated Creat Clear 82, Estimated GFR 85, Est GFR ( Amer) 103, Glucose 121 H, Calcium 9.3, Magnesium 1.9, Total Bilirubin 0.6, AST 32, ALT 30, Alkaline Phosphatase 109, Troponin I < 0.01, Total Protein 7.6, Albumin 4.2, Globulin 3.4 H, Albumin/Globulin Ratio 1.2, Lipase 49, HCV Ab MADINA w/Rflx PCR Qn Negative, HIV Ag/Ab Combo Qual Negative 06/20/25 22:10: SARS-CoV-2 (PCR) Not detected, Influenza A Untype (PCR) Not detected, Influenza Type B (PCR) Not detected Orders (Tests/Meds): ED MEDICATIONS Discontinued Medications Generic Name Dose Route Start Last Admin Trade Name Rusty PRN Reason Stop Dose Admin Sodium Chloride 1,000 mls @ 999 mls/hr 06/20/25 21:11 06/20/25 22:29 Sod Chlor 0.9% 1000ml Bag IV 06/20/25 22:11 Infused .Q1H1M ONE Infusion ORDERS Category Date Time Status CT head/brain wo con Stat Cat Scan 06/20/25 21:11 Completed Chest XR -- portable [XR chest portable] Stat Exams 06/20/25 21:11 Completed CBC [Complete Blood Count Auto Diff] Stat Lab 06/20/25 21:11 Completed Comprehensive Metabolic Panel Stat Lab 06/20/25 21:11 Completed HIV Combo Stat Lab 06/20/25 21:11 Completed Hepatitis C Ab Qual. W/ RFX Stat Lab 06/20/25 21:11 Completed Lipase Stat Lab 06/20/25 21:11 Completed Magnesium Stat Lab 06/20/25 21:11 Completed Rapid PCR Covid and Flu A/B Stat Lab 06/20/25 22:10 Completed Trop I [Troponin I] Stat Lab 06/20/25 21:11 Completed Medical Decision Narrative: patient is a 30-year-old female presenting to the emergency department for evaluation of dizziness and a syncopal episode prior to arrival. Of note she has not eaten today. Patient is hemodynamically stable and nontoxic-appearing upon arrival, afebrile. Differential diagnosis includes syncope, seizure, electrolyte disorder, among others. Workup will be conducted with hematologic labs, specific imaging, provocative tests. Initial inventions include crystalloid bolus, analgesics, antibiotics, etc.. White cell count is 11.4 H&H is 12.8 and 37.5, sodium is 133, potassium 3.6, BUN and creatinine were normal, mag was normal liver function was normal, troponin was less than 0.01.Waiting for chest x-ray and head CT to be read. Gave report to Dr. Vikas Bean, DO I assumed care of the patient at 2200. CT head and chest x-ray reviewed and interpreted by myself and showed no acute process. EKG was reviewed and interpreted by myself and showed normal sinus rhythm without acute ST or T wave changes concerning for ischemia no evidence of arrhythmia. Given patient's description of her symptoms, most likely vasovagal syncope less likely to be seizure. Patient was able to ambulate in the emergency department without difficulties. Patient was alert and oriented. Patient had no confusion tongue bite or urinary incontinence after her episode. Her syncope likely was only 30 seconds. Patient was instructed to follow-up with her primary care provider or return to the emergency department for any acute or worsening symptoms Critical Care <Natasha Thayer (MARÍA), PARTS INSPECTOR - Last Filed: 06/20/25 22:01> Critical Care Time Critical Care Time: No
[2025-06-20] MEDS: 0.9 % SODIUM CHLORIDE 1000ML 1,000 ML 999 ML IV (21:16)
--- OUTSIDE RECORDS SUMMARY | 2025-06-20 21:18 | XMS_ITS | Data Portability ---
Author Organization [facility] Address [address] [place] [address] Assessment No assessment recorded. Plan of Treatment Reminders Order Date Submit Date Provider Last Modified By Organization Details Last Modified Time Details Appointments None recorded. Lab H pylori urea breath test, co2 infrared 2024 025 [facility] [place], [address], 5 15:08:14 hemoglobin (Hb), fingerstick , blood [address], [address] [place] [address], [place], [address], 5 17:54:54 lipid panel, serum 2024 025 [place] [facility] [place], [address], 5 09:08:40 CMP, serum or plasma 2024 025 [facility] ([place]), [address] [place], [address], 5 09:08:39 CBC w/ auto diff 2024 025 [place] [facility] [address] [place] [address], [address], 5 09:08:38 vitamin D, 25-hydroxy, total, serum 2024 025 [facility] ([place]), [address] [place], [address], 5 09:08:42 TSH, ultra-sensi tive, serum 2024 025 [facility] ([place]), [address] [place], [address], 5 09:08:41 Hepatitis C IgG Ab, qual, serum 2024 025 [facility] ([place]), [address] [place], [address], 5 09:08:41 HIV 1 + 2, meaningful use set 2024 025 [facility] ([place]), [address] [place], [address], 5 09:08:43 Referral gastroenter ologist referral - STAT 2024 025 CAMPOS Trinidad MD, [address], [place], [address], 5 14:48:47 colon & rectal surgeon referral - first available appt 2024 025 [place], [address], [place], [address], 5 14:05:29 Procedures None recorded. Surgeries None recorded. Imaging None recorded. Medication Orders promethazin e-DM 6.25 mg-15 mg/5 mL oral syrup 2024 025 [place] [facility][id number], [address] [facility] [address], [place], [id number], 5 15:35:48 Proctocort 30 mg rectal suppository 2024 [id number], [address] [facility] [address], [place], [id number], 5 15:35:41 atorvastati n 10 mg tablet 2024 025 [place] [facility] #11868, [address] [facility] [address] , [place], [id number], 5 17:42:44 metformin ER 500 mg tablet,exte nded release 24 hr 2024 025 [place] [facility] #[id number], [address] [facility] [address] , [place], [id number], 5 16:29:52 topiramate 50 mg tablet 2024 [place] [facility]72, [address] [facility] [address] [place], [id number], 5 16:29:53 Patient TargetsNo targets recorded. Patient Instructions Encounter Date Encounter Id Patient Instructions Last Modified By Organization Details Last Modified Time 10/08/2024 [id number] high cholesterol : care instructions [email or web address] Not available 10/08/2024 16:29:46 body mass index: care instructions [email or web address] Not available 10/08/2024 16:29:46 learning about healthy weight [email or web address] Not available 10/08/2024 16:29:45 When You Want to Lose Weight: Care Instructions [email or web address] Not available 10/08/2024 16:29:46 HIV testing: car e instructions [email or web address] Not available 10/08/2024 16:45:12 11/01/2024 [id number] cough: care instructions [email or web address] Not available 11/01/2024 17:51:28 12/31/2024 [id number] abdominal pain: care instructions [email or web address] Not available 12/31/2024 16:23:59 rectal bleeding: care instructions [email or web address] Not available 12/31/2024 14:56:10 abnormal weight loss: care instructions [email or web address] Not available 12/31/2024 16:23:33 Reason for Referral Colon & Rectal Surgeon Refer ral for Rectal prolapse first available appt Referring Physician: Deneen Garcia [facility], Encounter Date: 11/01/2024 Zigzagger Referral for Rectal hemorrhage STAT Referring Physician: Deneen Garcia [facility] Rodger, Encounter Date: 12/31/2024 Results Created Date Observation Date Name Description Value Unit Range Abnormal Flag Note LastModifiedBy Organization Detail LastModifiedTime 10/08/1910/09/2024 CBC WITH DIFFE RENTI AL/PL ATELE T WBC 9.0 x10e3 /uL 3.4-10 .8 normal Not Available [facility] ([facility]) [address] [place], [address], 10/09/2024 09:08:38 10/08/1910/09/2024 CBC WITH DIFFE RENTI AL/PL ATELE T RBC 4.11 x10e6 /uL 3.77-5 .28 normal Not Available [facility] ([facility]) [address] [place], [address], 10/09/2024 09:08:38 10/08/1910/09/2024 CBC WITH DIFFE RENTI AL/PL ATELE T hemoglobin 12.6 g/dL 11.1-1 5.9 normal Not Available [facility] ([facility]) [address] [place], [address], 10/09/2024 09:08:38 10/08/1910/09/2024 CBC WITH DIFFE RENTI AL/PL ATELE T hematocrit 38.2 % 34.0-4 6.6 normal Not Available [facility] ([facility]) [address] [place], [address], 10/09/2024 09:08:38 10/08/19 25 10/09/2024 CBC WITH DIFFE RENTI AL/PL ATELE T MCV 93 fL 79-97 normal Not Available [facility] ([facility]) [address] [place], [address], 10/09/2024 09:08:38 10/08/1910/09/2024 CBC WITH DIFFE RENTI AL/PL ATELE T MCH 30.7 pg 26.6-3 3.0 normal Not Available [facility] ([facility]) [address] [place], [address], 10/09/2024 09:08:38 10/08/1910/09/2024 CBC WITH DIFFE RENTI AL/PL ATELE T MCHC 33.0 g/dL 31.5-3 5.7 normal Not Available [facility] ([facility]) [address] [place], [address], 10/09/2024 09:08:38 10/08/1910/09/2024 CBC WITH DIFFE RENTI AL/PL ATELE T RDW 12.3 % 11.7-1 5.4 Not Available [facility] ([facility]) [address] [place], [address], 10/09/2024 09:08:38 10/08/1910/09/2024 CBC WITH DIFFE RENTI AL/PL ATELE T platelets 401 x10e3 /uL 150-45 0 normal Not Available [facility] ([facility]) [address] [place], [address], 10/09/2024 09:08:38 10/08/1910/09/2024 CBC WITH DIFFE RENTI AL/PL ATELE T neutrophils 60 % not estab. normal Not Available [facility] ([facility]) [address] [place], [address], 10/09/2024 09:08:38 10/08/19 25 10/09/2024 CBC WITH DIFFE RENTI AL/PL ATELE T lymphs 31 % not estab. normal Not Available [facility] ([facility]) [address] [place], [address], 10/09/2024 09:08:38 10/08/1910/09/2024 CBC WITH DIFFE RENTI AL/PL ATELE T monocytes 5 % not estab. normal Not Available [facility] ([facility]) [address] [place], [address], 10/09/2024 09:08:38 10/08/1910/09/2024 CBC WITH DIFFE RENTI AL/PL ATELE T eos 4 % not estab. normal Not Available [facility] ([facility]) [address] [place], [address], 10/09/2024 09:08:38 10/08/1910/09/2024 CBC WITH DIFFE RENTI AL/PL ATELE T basos 0 % not estab. normal Not Available [facility] ([facility]) [address] [place], [address], 10/09/2024 09:08:38 10/08/1910/09/2024 CBC WITH DIFFE RENTI AL/PL ATELE T immature cells [employer] Not Available [facility] ([facility]) [address] [place], [address], 10/09/2024 09:08:38 10/08/1910/09/2024 CBC WITH DIFFE RENTI AL/PL ATELE T neutrophils (absolute) 5.4 x10e3 /uL 1.4-7. 0 normal Not Available [facility] ([facility]) [address] [place], [address], 10/09/2024 09:08:38 10/08/1910/09/2024 CBC WITH DIFFE RENTI AL/PL ATELE T lymphs (absolute) 2.8 x10e3 /uL 0.7-3. 1 normal Not Available [facility] ([facility]) [address] [place], [address], 10/09/2024 09:08:38 10/08/19 25 10/09/2024 CBC WITH DIFFE RENTI AL/PL ATELE T monocytes(ab solute) 0.5 x10e3 /uL 0.1-0. 9 normal Not Available [facility] ([facility]) [address] [facility], [place], [address], 10/09/2024 09:08:38 10/08/1910/09/2024 CBC WITH DIFFE RENTI AL/PL ATELE T eos (absolute) 0.3 x10e3 /uL 0.0-0. 4 normal Not Available [facility] ([facility]) [address] [place], [address], 10/09/2024 09:08:38 10/08/1910/09/2024 CBC WITH DIFFE RENTI AL/PL ATELE T baso (absolute) 0.0 x10e3 /uL 0.0-0. 2 normal Not Available [facility] ([facility]) [address] [place], [address], 10/09/2024 09:08:38 10/08/1910/09/2024 CBC WITH DIFFE RENTI AL/PL ATELE T immature granulocytes 0 % not estab. Not Available [facility] ([facility]) [address] [place], [address], 10/09/2024 09:08:38 10/08/1910/09/2024 CBC WITH DIFFE RENTI AL/PL ATELE T immature grans (abs) 0.0 x10e3 /uL 0.0-0. 1 Not Available [facility] ([facility]) [address] [place], [address], 10/09/2024 09:08:38 10/08/19 25 10/09/2024 CBC WITH DIFFE RENTI AL/PL ATELE T NRBC [employer] Not Available [facility] ([facility]) [address] [place], [address], 10/09/2024 09:08:38 10/08/19 25 10/09/2024 CBC WITH DIFFE JAKE AL/KYMBERLY Renae hematology comments: [employer] Not Available [facility] ([facility]) [address] [facility], [place], [address], 10/09/2024 09:08:38 10/08/19 25 10/09/2024 COMP. METAB OLIC PANEL (14) glucose 106 mg/dL 70-99 above high normal Not Available [facility] ([facility]) [address] [facility], [place], [address], 10/09/2024 09:08:39 10/08/19 25 10/09/2024 COMP. METAB OLIC PANEL (14) BUN 12 mg/dL 6-20 normal Not Available [facility] ([facility]) [address] [facility], [place], [address], 10/09/2024 09:08:39 10/08/19 25 10/09/2024 COMP. METAB OLIC PANEL (14) creatinine 0.55 mg/dL 0.57-1 .00 below low normal Not Available [facility] ([facility]) [address] [facility], [place], [address], 10/09/2024 09:08:39 10/08/19 25 10/09/2024 COMP. METAB OLIC PANEL (14) eGFR 128 mL/mi n/1.7 3 >59 normal Not Available [facility] ([facility]) [address] [facility], [place], [address], 10/09/2024 09:08:39 10/08/19 25 10/09/2024 COMP. METAB OLIC PANEL (14) BUN/creatini ne ratio 22 9-23 normal Not Available [facility] ([facility]) [address] [facility], [place], [address], 10/09/2024 09:08:39 10/08/19 25 10/09/2024 COMP. METAB OLIC PANEL (14) sodium 139 mmol/ L 134-14 4 normal Not Available [facility] ([facility]) [address] [place], [address], 10/09/2024 09:08:39 10/08/19 25 10/09/2024 COMP. METAB OLIC PANEL (14) potassium 3.9 mmol/ L 3.5-5. 2 normal Not Available [facility] ([facility]) [address] [place], [address], 10/09/2024 09:08:39 10/08/1910/09/2024 COMP. METAB OLIC PANEL (14) chloride 106 mmol/ L 96-106 normal Not Available [facility] ([facility]) [address] [place], [address], 10/09/2024 09:08:39 10/08/19 25 10/09/2024 COMP. METAB OLIC PANEL (14) carbon dioxide, total 21 mmol/ L 20-29 normal Not Available [facility] ([facility]) [address] [place], [address], 10/09/2024 09:08:39 10/08/19 25 10/09/2024 COMP. METAB OLIC PANEL (14) calcium 9.0 mg/dL 8.7-10 .2 normal Not Available [facility] ([facility]) [address] [place], [address], 10/09/2024 09:08:39 10/08/19 25 10/09/2024 COMP. METAB OLIC PANEL (14) protein, total 6.6 g/dL 6.0-8. 5 normal Not Available [facility] ([facility]) [address] [place], [address], 10/09/2024 09:08:39 10/08/19 25 10/09/2024 COMP. METAB OLIC PANEL (14) albumin 3.9 g/dL 4.0-5. 0 below low normal Not Available [facility] ([facility]) [address] [place], [address], 10/09/2024 09:08:39 10/08/19 25 10/09/2024 COMP. METAB OLIC PANEL (14) globulin, total 2.7 g/dL 1.5-4. 5 Not Available [facility] ([facility]) [address] [place], [address], 10/09/2024 09:08:39 10/08/19 25 10/09/2024 COMP. METAB OLIC PANEL (14) bilirubin, total <0.2 mg/dL 0.0-1. 2 Not Available [facility] ([facility]) [address] [place], [address], 10/09/2024 09:08:39 10/08/19 25 10/09/2024 COMP. METAB OLIC PANEL (14) alkaline phosphatase 131 IU/L 44-121 above high normal Not Available [facility] ([facility]) [address] [place], [address], 10/09/2024 09:08:39 10/08/19 25 10/09/2024 COMP. METAB OLIC PANEL (14) AST (SGOT) 19 IU/L 0-40 normal Not Available [facility] ([facility]) [address] [place], [address], 10/09/2024 09:08:39 10/08/19 25 10/09/2024 COMP. METAB OLIC PANEL (14) ALT (SGPT) 24 IU/L 0-32 normal Not Available [facility] ([facility]) [address] [place], [address], 10/09/2024 09:08:39 10/08/19 25 10/09/2024 LIPID PANEL cholesterol, total 240 mg/dL 100-19 9 above high normal Not Available [facility] ([facility]) [address] [place], [address], 10/09/2024 09:08:40 10/08/19 25 10/09/2024 LIPID PANEL triglyceride s 370 mg/dL 0-149 above high normal Not Available [facility] ([facility]) [address] [place], [address], 10/09/2024 09:08:40 10/08/19 25 10/09/2024 LIPID PANEL HDL cholesterol 37 mg/dL >39 below low normal Not Available [facility] ([facility]) [address] [place], [address], 10/09/2024 09:08:40 10/08/19 25 10/09/2024 LIPID PANEL VLDL cholesterol sri 67 mg/dL 5-40 above high normal Not Available [facility] ([facility]) [address] [place], [address], 10/09/2024 09:08:40 10/08/19 25 10/09/2024 LIPID PANEL LDL chol calc ([facility]) 136 mg/dL 0-99 above high normal Not Available [facility] ([facility]) [address] [place], [address], 10/09/2024 09:08:40 10/08/19 25 10/09/2024 LIPID PANEL LDL calc comment: [employer] Not Available [facility] ([facility]) [address] [place], [address], 10/09/2024 09:08:40 10/08/19 25 10/09/2024 HCV ANTIB NITIN CASCA DE(PC R/GEN O) HCV Ab Non Reacti ve non reacti ve Not Available [facility] ([facility]) [address] [place], [address], 10/09/2024 09:08:41 10/08/19 25 10/09/2024 HCV ANTIB NITIN CASCA DE(PC R/GEN O) interpretati on: Commen t Not infec jaki with HCV unles s early or acute infec tion is suspe cted (whic h may be delay ed in an immun ocomp romis ed indiv idual ), or other evide nce exist s to indic ate HCV infec tion. Not Available [facility] ([facility]) [address] [facility], [place], [address], 10/09/2024 09:08:41 10/08/1910/09/2024 TSH TSH 1.280 uIU/m L 0.450- 4.500 normal Not Available [facility] ([facility]) [address] [facility], [place], [address], 10/09/2024 09:08:41 10/08/1910/09/2024 VITAM IN D, 25-HY DROXY vitamin D, 25-hydroxy 19.0 NG/mL 30.0-1 00.0 below low normal Vitam in D defic iency has been defin ed by the Insti tute of Medic ine and an Endoc rine Socie ty pract ice guide line as a level of serum 25-OH vitam in D less than 20 ng/mL (1,2) . The Endoc rine Socie ty went on to furth er defin e vitam in D insuf ficie ncy as a level betwe en 21 and 29 ng/mL (2). 1. IOM (Inst itute of Medic ine). 2009. Dieta ry refer ence intak es for calci um and D. Eleni goel [place]: The Natio nal [facility] Press . 2. Parag fernandez [place], Kait noriega [place], Sherif off-F errar i CARTAGENA, et al. Evalu ation , treat ment, and preve ntion of vitam in D defic iency : an Endoc rine Socie ty clini sri pract ice guide line. JCEM. 2010; 96(7) :1911 -30. Not Available [facility] ([facility]) [address] [facility], [place], [address], 10/09/2024 09:08:42 10/08/19 25 10/09/2024 HIV AB/P2 4 AG WITH REFLE X HIV Ab/P24 Ag screen Non Reacti ve non reacti ve HIV Negat rosi HIV-1 /HIV- 2 antib odies and HIV-1 p24 antig en were NOT detec jaki. There is no labor atory evide nce of HIV infec tion. Not Available [facility] ([facility]) [address] [facility], [place], [address], 10/09/2024 09:08:43 11/02/19 25 11/01/2024 hemog lobin (Hb), finge rstic k, blood HGB 12.1 Not Available [facility] [address] [facility], [place], [address], 11/01/2024 17:54:36 01/01/20 25 01/01/2025 H PYLOR I BREAT H TEST H pylori breath test Negati ve negati ve Not Available [facility] ([facility]) [address] [facility], [place], [address], 01/01/2025 15:08:14 Result Notes None recorded. Problems Name Problem SNOMED Code Status Onset Date Resolution Date Notes Provider Name and Address Organization Details Recorded Time Hyperlipidemia 74826940 Active 2024 JUAN Matthews [address] [place] [address], [phone], [employer] 16:25:50 Obesity 325019236 Active 2024 JUAN Matthews [address] [place] [address], [phone] 8, [employer] 16:25:56 Vitamin D deficiency 13746192 Active 2024 JUAN Matthews [address] [place] [address], [phone] 8, [employer] 14:39:00 Cough 94170940 Active 2024 JUAN Matthews [address] [place] [address], [address] 8, [employer] 17:50:36 Hematochezia 990398442 Active 2024 JUAN Matthews [address] [place] [address], [phone] 8, [employer] 17:50:46 Rectal prolapse 80130184 Active 2024 JUAN Matthews [address] [place] [address], [address] 8, [employer] 17:50:53 Rectal hemorrhage 79409717 Active 2024 JUAN Matthews [address] [place] [address], [address] 8, [employer] 14:55:46 Weight decreased 158981694 Active 2024 JUAN Matthews [address] [place] [address], [phone] 8, [employer] 16:23:26 Generalized abdominal pain 025511179 Active 2024 JUAN Matthews [address] [place] [address], [address] 8, [employer] 5 16:23:33 Palpitations 89582880 Active 2024 JUAN Matthews [address] [place] [address], [phone] 8, [employer] 13:13:33 Problem Notes None recorded. Procedures Surgical History Date Name Laterality Status Provider Name and Address Organization Details Recorded Time Breast Surgery completed [employer] 10/08/2024 16:01:12 Caesarean Section completed [employer] 10/08/2024 16:01:12 Tonsillectomy completed [employer] 10/08/2024 16:01:12 Tubal Ligation completed [employer] 10/08/2024 16:01:12 Other completed [facility] 10/08/2024 16:01:12 rubber band ligation of hemorrhoid(s) [email or web address] 12/31/2024 14:29:57 Imaging Results None recorded. Procedure Notes None recorded. Medical Equipment None Reported. Allergies No known drug allergies Medications Name Sig Start Date Stop Date Status Note LastModified by Organization Details LastModified Time quetiapine 25 mg tablet TAKE 1 TABLET BY MOUTH AT BEDTIME EVERY NIGHT active Not Available Not Available No t Available metformin 500 mg tablet TAKE 1 TABLET BY MOUTH TWICE DAILY 11/01 completed Not Available Not Available Not Available promethazin e-DM 6.25 mg-15 mg/5 mL oral syrup TAKE 5 ML BY MOUTH EVERY 4 HOURS FOR 10 DAYS NEEDED 12/31 completed Not Available Not Available Not Available propranolol 80 mg tablet TAKE 1 TABLET BY MOUTH TWICE DAILY active Not Available Not Available No t Available atorvastati n 20 mg tablet TAKE 1 TABLET BY MOUTH EVERY DAY AT BEDTIME FOR HIGH CHOLESTER OL 2024 active Not Available Not Available Not Avai lable Proctocort 30 mg rectal suppository Insert 1 supposito ry 4 times a day by rectal route for 3 days. 12/31 completed Not Available Not Available Not Available atorvastati n 10 mg tablet Take 1 tablet every day by oral route at bedtime for 90 days. 11/01 completed Not Available Not Available Not Available azithromyci n 250 mg tablet TAKE 2 TABLETS BY MOUTH ON DAY 1, AND THEN TAKE 1 TABLET BY MOUTH ONCE A DAY ON DAY 2 THROUGH DAY 5 10/08 completed Not Available Not Available Not Available hydroxyzine pamoate 50 mg capsule TAKE 1 CAPSULE BY MOUTH EVERY 8 HOURS NEEDED 10/08 completed Not Available Not Available Not Available topiramate 25 mg tablet TAKE 1 TABLET BY MOUTH TWICE A DAY 11/01 completed Not Available Not Available Not Available metronidazo le 500 mg tablet TAKE 1 TABLET BY MOUTH TWICE DAILY FOR 7 DAYS 10/08 completed Not Available Not Available Not Available sulfamethox azole 800 mg-trimetho prim 160 mg tablet TAKE 1 TABLET BY MOUTH EVERY 12 HOURS FOR 10 DAYS 10/08 completed Not Available Not Available Not Available lamotrigine 25 mg tablet TAKE 1 TABLET BY MOUTH ONCE DAILY FOR 14 DAYS THEN INCREASE TO 2 TABLETS DAILY FOR 14 DAYS active Not Available Not Available No t Available ketorolac 10 mg tablet TAKE 1 TABLET BY MOUTH EVERY 8 HOURS FOR 5 DAYS NEEDED FOR PAIN 10/08 completed Not Available Not Available Not Available propranolol 40 mg tablet TAKE 1 TABLET BY MOUTH TWICE DAILY 10/08 completed Not Available Not Available Not Available amoxicillin 875 mg tablet TAKE 1 TABLET BY MOUTH EVERY 12 HOURS FOR 10 DAYS 10/08 completed Not Available Not Available Not Available famotidine 20 mg tablet TAKE 1 TABLET BY MOUTH TWICE DAILY FOR 2 WEEKS active Not Available Not Available No t Available trazodone 100 mg tablet TAKE 1 TO 2 TABLETS BY MOUTH AT BEDTIME NEEDED FOR SLEEP 10/08 completed Not Available Not Available Not Available Proctofoam HC 1 %-1 % INSERT 1 APPLICATI ON 3 TIMES A DAY RECTALLY NEEDED 12/31 completed Not Available Not Available Not Available buspirone 10 mg tablet TAKE 1 TABLET BY MOUTH TWICE DAILY active Not Available Not Available No t Available prednisone 50 mg tablet TAKE 1 TABLET BY MOUTH ONCE DAILY FOR 5 DAYS 10/08 completed Not Available Not Available Not Available promethazin e 25 mg tablet TAKE 1 TABLET BY MOUTH EVERY 6 HOURS NEEDED FOR NAUSEA OR VOMITING 12/31 completed Not Available Not Available Not Available polymyxin B sulfate 10,000 unit-trimet hoprim 1 mg/mL eye drops INSTILL 2 DROPS INTO LEFT EYE EVERY 6 HOURS WHILE AWAKE FOR 7 DAYS 10/08 completed Not Available Not Available Not Available ergocalcife rol (vitamin D2) 1,250 mcg (50,000 unit) capsule TAKE 1 CAPSULE BY MOUTH ONCE WEEKLY ON SAME DAY EACH WEEK FOR VITAMIN DAILY DEFICIENC Y active Not Available Not Available No t Available bromphenira mine-pseudo ephedrine-D M 2 mg-30 mg-10 mg/5 mL oral syrup TAKE 5 ML BY MOUTH EVERY 4 HOURS NEEDED FOR SINUS SYMPTOMS 10/08 completed Not Available Not Available Not Available ondansetron 4 mg disintegrat ing tablet DISSOLVE 1 TABLET ON THE TONGUE EVERY 8 HOURS FOR 5 DAYS NEEDED FOR NAUSEA OR VOMITING 10/08 completed Not Available Not Available Not Available cefdinir 300 mg capsule TAKE 1 CAPSULE BY MOUTH TWICE DAILY FOR 10 DAYS 10/08 completed Not Available Not Available Not Available metformin ER 500 mg tablet,exte nded release 24 hr TAKE 1 TABLET BY MOUTH EVERY DAY 2024 active Not Available Not Available Not Avai lable doxycycline hyclate 100 mg tablet TAKE 1 TABLET BY MOUTH TWICE DAILY FOR 7 DAYS 10/08 completed Not Available Not Available Not Available dicyclomine 10 mg capsule TAKE 1 CAPSULE BY MOUTH FOUR TIMES DAILY NEEDED FOR ABDOMINAL PAIN 10/08 completed Not Available Not Available Not Available Ventolin HFA 90 mcg/actuati on aerosol inhaler INHALE 1 PUFF BY MOUTH EVERY 4 HOURS NEEDED FOR SHORTNESS OF BREATH OR WHEEZING active Not Available Not Available No t Available atomoxetine 40 mg capsule TAKE 1 CAPSULE BY MOUTH DAILY active Not Available Not Available No t Available topiramate 50 mg tablet TAKE 1 TABLET BY MOUTH TWICE DAILY 2024 active Not Available Not Available Not Avai lable emtricitabi ne 200 mg-tenofovi r disoproxil fumarate 300 mg tablet TAKE 1 TABLET BY MOUTH DAILY 10/08 completed Not Available Not Available Not Available omega-3 acid ethyl esters 1 gram capsule TAKE 1 CAPSULE BY MOUTH ONCE DAILY FOR HIGH CHOLESTER OL active Not Available Not Available No t Available peg 3350-electr olytes 236 gram-22.74 gram-6.74 gram-5.86 gram solution FOLLOW PACKAGE DIRECTION S active Not Available Not Available No t Available Isentress 400 mg tablet TAKE 1 TABLET BY MOUTH TWICE DAILY 10/08 completed Not Available Not Available Not Available cholecalcif kolton (vitamin D3) 50 mcg (2,000 unit) tablet TAKE 1 TABLET BY MOUTH ONCE DAILY FOR VITAMIN DAILY DEFICIENC Y active Not Available Not Available No t Available omega 3-dha-epa-f camille oil 1,000 mg (120 mg-180 mg) capsule Take 1 capsule every day by oral route for 90 days, for high cholester ol. 11/01 completed Not Available Not Available Not Available BinaxNOW COVID-19 Ag Self Test kit TEST DIRECTED TODAY active Not Available Not Available No t Available Lybalvi 10 mg-10 mg tablet TAKE 1 TABLET BY MOUTH AT BEDTIME EVERY NIGHT active Not Available Not Available No t Available Auvelity 45 mg-105 mg tablet, extended release TAKE 1 TABLET BY MOUTH TWICE DAILY active Not Available Not Available No t Available Vitals Date Recorded Body weight Body mass index (BMI) Body height Body temperature Heart rate Oxygen saturation Oxygen saturation in Arterial blood by Pulse oximetry Systolic And Diastolic Systolic And Diastolic Systolic And Diastolic Provider Name and Address Organization Details Last Updated DateTime 5 709120. 25 g 53.4 kg/m2 157.48 cm 98.3 [degF] 76 /min 96 % 96 % 148/84 mm[Hg] 134/86 mm[Hg] 136/84 mm[Hg] [employer] [employer] 5 16:06:13 Date Recorded Body height Body mass index (BMI) Body weight Heart rate Oxygen saturation Oxygen saturation in Arterial blood by Pulse oximetry Body temperature Systolic And Diastolic Provider Name and Address Organization Details Last Updated DateTime 5 157.48 cm 52.4 kg/m2 832240. 85 g 72 /min 95 % 95 % 98.6 [degF] 124/86 mm[Hg] [employer] 5 17:41:02 Date Recorded Body height Body mass index (BMI) Body weight Oxygen saturation Oxygen saturation in Arterial blood by Pulse oximetry Heart rate Body temperature Systolic And Diastolic Provider Name and Address Organization Details Last Updated DateTime 5 157.48 cm 52.8 kg/m2 319237. 76 g 98 % 98 % 82 /min 98.5 [degF] 136/88 mm[Hg] [employer] 5 14:27:50 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 Question Answer Notes LastModified by Organizat ion Details LastModified Time Tobacco Smoking Status Former Smoker [facility] 10/08/2024 16:01:11 Do You Have An Advance Directive? No Information not available 10/08/2024 Is Your Home Air Conditioned? Yes Information not available 10/08/2024 Do You Wear A Helmet When Biking? Yes Information not available 10/08/2024 Are You Blind Or Do You Have Difficulty Seeing? No Information not available 10/08/2024 What Is Your Level Of Caffeine Consumption? Moderate Information not available 10/08/2024 What Type Of Distribution Agent Do You Use? Relative Information not available 10/08/2024 Have You Been To An Area Known To Be High Risk For COVID-19? No Information not available 10/08/2024 Are You Deaf Or Do You Have Serious Difficulty Hearing? No Information not available 10/08/2024 What Type Of Diet Are You Following? REGULAR Information not available 10/08/2024 Who Is Your Employer? [employer] Information not available 10/08/2024 Have There Been Any Changes To Your Family Or Social Situation? No Information no t available 10/08/2024 When Did You Quit Smoking? 1-5yearssincelast cigarette Information not available 10/08/2024 Are There Any Guns Present In Your Home? No Information not available 10/08/2024 Which Of Your Hands Is Dominant? Right Information not available 10/08/2024 What Is Your Home Situation? Other Information not available 10/08/2024 Do You Have A Medical Power Of Apiculture Teacher? No Information not available 10/08/2024 What Was The Date Of Your Most Recent Tobacco Screening? 12/31/2024 Information not available 12/31/2024 Are There Any Occupational Health Risks Where You Work? No Information not available 10/08/2024 What Is Your Current Pack Years? 10packyears Information not available 10/08/2024 Do You Have Any Pets? Yes Information not available 10/08/2024 Do You Use Protection During Sex? No Information not available 10/08/2024 What Is Your Relationship Status? Information not available 10/08/2024 Have You Repeated Any Grades? Yes Information not available 10/08/2024 Do You Use Your Seat Belt Or Car Seat Routinely? Yes Information not available 10/08/2024 Are You Sexually Active? Yes Information not available 10/08/2024 Do You Have Any Siblings? Yes Information not available 10/08/2024 Do You Have Smoke And Carbon Monoxide Detectors In Your Home? Yes Information not available 10/08/2024 At What Age Did You Start Smoking Tobacco? 16 Information not available 10/08/2024 Are You Passively Exposed To Smoke? No Information no t available 10/08/2024 Are There Any Smokers In Your House? No Information not available 10/08/2024 How Much Tobacco Do You Smoke? No Information not available 10/08/2024 Do You Participate In Social Media? Yes Information not available 10/08/2024 Do You Use Sunscreen Routinely? No Information not available 10/08/2024 Has Tobacco Cessation Counseling Been Provided? No Information not available 10/08/2024 How Many Years Have You Smoked Tobacco? 8 Information not available 10/08/2024 Have You Recently Traveled Abroad? No Information not available 10/08/2024 Do You Have Difficulty Walking Or Climbing Stairs? No Information not available 10/08/2024 Are You Currently In School? No Information not available 10/08/2024 What Contraceptive Method Was Reported At Start Of This Visit? Female Sterilization Information not available 10/08/2024 Do You Have Any Dietary Restrictions? No Information not available 10/08/2024 Sex: Unknown Functional Status Question Answer Note LastModified by Organizat ion Details LastModified Time Do you use any illicit or recreational drugs? No Information not available 10/08/2024 Do you or have you ever used any other forms of tobacco or nicotine? No Information not available 10/08/2024 What is your level of alcohol consumption? None Information not available 10/08/2024 Are you currently employed? Yes Information not available 10/08/2024 Do you have transportation difficulties? No Information not available 10/08/2024 Are you able to walk independently without assistance or assistive devices? YESWOREST Information not available 10/08/2024 Do you have difficulty doing errands alone? No Information not available 10/08/2024 Are you able to care for yourself independently? Yes Information not available 10/08/2024 Do you have difficulty dressing, bathing, grooming, or toileting? No Information not available 10/08/2024 What is your exercise level? None Information not available 10/08/2024 Mental Status Question Answer Note LastModified by Organizat ion Details LastModified Time Do you feel stressed (tense, restless, nervous, or anxious, or unable to sleep at night)? [id number] Information not available 10/08/2024 Do you have difficulty concentrating, remembering or making decisions? No Information no t available 10/08/2024 Are you or have you been involved with bullying? No Information not available 10/08/2024 Family History Relationship Description Onset Age of this Age Resolved Age Notes LastModified by Organization Details LastModified Time Brother Asthma Not available 16:01:09 Brother Anxiety disorder Not available 2024 16:01:09 Brother Depressive disorder Not available 2024 16:01:09 Brother Hypertensive disorder Not available 2024 16:01:09 Father Hypercholest erolemia Not available 2024 16:01:09 Father Harmful pattern of use of alcohol Not available 2024 16:01:09 Father Depressive disorder Not available 2024 16:01:09 Father Hypertensive disorder Not available 2024 16:01:09 Paternal Grandmother Asthma Not available 2024 16:01:09 Paternal Grandmother Hypertensive disorder Not available 2024 16:01:09 Paternal Grandmother Diabetes mellitus Not available 2024 16:01:09 Mother Anxiety disorder Not available 2024 16:01:09 Mother Depressive disorder Not available 2024 16:01:09 Mother Hypertensive disorder Not available 2024 16:01:09 Mother Diabetes mellitus Not available 2024 16:01:09 Maternal Grandmother Malignant neoplasm of breast Not available 2024 16:01:09 Maternal Grandmother Hypertensive disorder Not available 2024 16:01:09 Maternal Grandmother Heart disease Not available 2024 16:01:09 Maternal Grandfather Hypertensive disorder Not available 2024 16:01:09 Maternal Grandfather Diabetes mellitus Not available 2024 16:01:09 Paternal Grandfather Hypercholest erolemia Not available 2024 16:01:09 Paternal Grandfather Hypertensive disorder Not available 2024 16:01:09 Paternal Grandfather Heart disease Not available 2024 16:01:09 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 Condition Response Depression Y Anxiety Disorder Y Obesity Y High Cholesterol Y Asthma Y Hypertension Y Gynecological History Statement/Question Response Flow Moderate Date of LMP 12/25/2024 Menses Monthly Y Date of Last Pap Smear Current Control Method Tubal Ligat ion Most Recent Mammogram LMP Approximate Obstetrics History GPAL:G 5 P 3 0 2 3 Type Value Multiple Births 0 Full Term 3 Induced 0 Spontaneous 2 Premature 0 Living 3 Ectopics 0 Total 5 Immunizations Vaccine Type Date Status Note Provider Nam e and Address Organization Details Recorded Time Hib, unspecified formulation 8 completed Sheila Vice null, [employer] 10/08/2024 16:01:22 Hib, unspecified formulation 7 completed Sheila Vice null, [employer] 10/08/2024 16:01:22 IPV 0 completed Sheila Vice null, [employer] 10/08/2024 16:01:22 MMR 8 completed Sheila Vice null, [employer] 10/08/2024 16:01:22 MMR 0 completed Sheila Vice null, [employer] 10/08/2024 16:01:22 COVID-19, mRNA, LNP-S, PF, 30 mcg/0.3 mL dose 2 completed Sheila Vice null, [employer] 10/08/2024 16:01:22 Tdap 8 completed Sheila Vice null, [employer] 10/08/2024 16:01:23 varicella 8 completed Sheila Vice null, [employer] 10/08/2024 16:01:23 OPV, trivalent 7 completed Sheila Vice null, [employer] 10/08/2024 16:01:23 OPV, trivalent 8 completed Sheila Vice null, [employer] 10/08/2024 16:01:23 OPV, trivalent 7 completed Sheila Vice null, [employer] 10/08/2024 16:01:23 DTP-Hib 7 completed Sheila Vice null, [employer] 10/08/2024 16:01:23 Influenza, split virus, trivalent, preservative 9 completed Sheila Vice null, [employer] 10/08/2024 16:01:23 Influenza, split virus, trivalent, preservative 4 completed Sheila Vice null, [employer] 10/08/2024 16:01:23 HPV, quadrivalent 1 completed Sheila Vice null, [employer] 10/08/2024 16:01:23 HPV, quadrivalent 1 completed Sheila Vice null, [employer] 10/08/2024 16:01:23 HPV, quadrivalent 1 completed Sheila Vice null, [employer] 10/08/2024 16:01:23 Td (adult) 0 completed Sheila Vice null, [employer] 10/08/2024 16:01:23 Hep B, adolescent or pediatric 7 completed Sheila Vice null, [employer] 10/08/2024 16:01:23 Hep B, adolescent or pediatric 6 completed Sheila Vice null, [employer] 10/08/2024 16:01:23 Hep B, adolescent or pediatric 7 completed Sheila Vice null, [employer] 10/08/2024 16:01:23 DTaP, unspecified formulation 8 completed Sheila Vice null, [employer] 10/08/2024 16:01:23 DTaP, unspecified formulation 8 completed Sheila Vice null, [employer] 10/08/2024 16:01:23 DTaP, unspecified formulation 0 completed Sheila Vice null, [employer] 10/08/2024 16:01:23 DTaP, unspecified formulation 7 completed Sheila Vice null, [employer] 10/08/2024 16:01:23 meningococcal MCV4, unspecified formulation 1 completed Sheila Vice null, [employer] 10/08/2024 16:01:23 Influenza, split virus, quadrivalent, PF 2 completed Sheila Vice null, [employer] 10/08/2024 16:01:23 Influenza, split virus, quadrivalent, PF 3 completed Sheila Vice null, [employer] 10/08/2024 16:01:23 Past Encounters Encounter ID Performer Location Encounter Start Date Encounter Closed Date Diagnosis/Indication Diagnosis SNOMED-CT Code Diagnosis ICD10 Code Diagnosis IMO Codes Diagnosis Note [id number] JUAN Matthews [facility] [address] [place] [address] 10/08/2024 15:43:35 10/08/2024 16:40:32 Hyperlipidemia 53577083 E78.5 Obesity 289859062 E66.9 Body mass index 40+ - severely obese 288891859 Z68.43 Adult heal th examination 113629762 Z00.00 HIV screening 522878199 Z11.4 Hepatitis C screening 41 2639666 Z11.59 [id number] JUAN Matthews [facility] [address] [place] [address] 11/01/2024 17:33:09 11/01/2024 17:54:50 Cough 65328510 R05.9 Hematochezia 483465834 K 92.1 Call if not improving Rectal prolapse 07439314 K62.3 [id number] JUAN Matthews [facility] [address] [place] [address] 12/31/2024 14:16:02 12/31/2024 15:14:41 Rectal hemorrhage 40094031 K62.5 06362 Increased belching 92618 005 R14.2 4317385559 Family his tory of inflammatory bowel disease 8380771591 193143 Z83.79 117950 Weight decreased 7320665 01 R63.4 70464 Generalize d abdominal pain 147476559 R10.84 142587 Health Concerns Section Related Observation LastModified by Organization Detai ls LastModified Time None Recorded Concern Status LastModified by Organization Details LastModified Time None Recorded Advance Directives Directive N: Payers Insurance Date Sequence Insurance Name Policy Number Policy Smith Covered Member ID Smith Member ID Guarantor Name 02/15/2025 1 [facility] (MEDICAID HMO) Yaritza Tommy [id number] Yaritza Tommy 10/09/2024 1 *SELF PAY* Ananda paz Tommy Notes Date Note Type Note Provider Name and Address Organization Details Recorded Time 10/08/2024 text/html ROS as noted in the HPI [facility].Patient has a history of PCOS.History of anxiety/depression JUAN Matthews [address] [place], [address], [place] [employer] 10/10/2024 14:17:38 11/01/2024 text/html ROS as noted in the HPI Patient had a bloody bowel movement earlier today. Has had rectal pain for the past few days. Has had incomplete rectal prolapse since childbirth. She is always able to get it back in. It is not prolapsed today. She did have bright red blood today. No fever. Normal BM - no diarrhea or constipation. JUAN Matthews [address] [place], [address], [employer] 11/04/2024 13:48:35 12/31/2024 text/html ROS as noted in the HPI Patient presents for followup. She had hemorrhoid banding performed 12/01/24. She was feeling better but then last week she began having BRBPR again with bowel movements and passing blood clots. She has been vomiting undigested food like it is not passing thru her body. She has rotten egg burps. Her stomach hurts. She has lost a few pounds. Her paternal grandfather has ulcerative colitis. JUAN Matthews [address] [place] [address], [place], [address], [employer] 12/31/2024 16:24:02 OBGyn Episode No OBEpisode recorded.
--- OUTSIDE RECORDS SUMMARY | 2025-06-20 21:18 | XMS_ITS | Clinical Summary ---
Author Organization [facility] Address [address] [place] [place] [address] Care Team Providers Care Ophthalmologist Retina Specialist Name Role Phone Provider, No Known Primary Care Provider Unavail able Allergies No known active allergies Medications Vit-Fe Fumarate-FA ( -) 27-1 MG tablet tablet Take 1 tablet by mouth Daily. Active ferrous sulfate 325 (65 FE) MG tablet Take 325 mg by mouth Daily With Breakfast. Active FLUoxetine (PROzac) 20 MG capsule Take 20 mg by mouth Daily. Active labetalol (NORMODYNE) 200 MG tablet Take 200 mg by mouth 2 (Two) Times a Day. Active glyburide (DIAbeta) 2.5 MG tablet Take 1 tablet by mouth 2 (Two) Times a Day With Meals. 60 tablet 1 04/05/2021 Active Active Problems Problem Noted Date Diagnosed Date Chronic hypertension in 04/05/2021 Uterine size date discrepancy 04/05/20 21 04/05/2021 Gestational diabetes mellitus, class A1 04/05/20 21 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 Tobacco Use Types Packs/Day Years Used Date Smoking Tobacco: Every Day Cigarettes Smokeless Tobacco: Never Alcohol Use Standard Drinks/Week Comments Not Currently 0 (1 standard drink = 0.6 oz pur e alcohol) Abuse Screen Answer Date Recorded Unsafe at Home or Work/School Not on file Feels Threatened by Someone? Not on file 04/2023 Does Anyone Keep You from Co ntacting Others or Doint Things Outside the Home? Not on file 05/22/2023 Physical Sign of Abuse Present Not on file 1 Housing Stability Answer Date Recorded Current Living Arrangements Not on file 04/2023 Potentially Unsafe Housing Conditions Not on geena e 05/22/2023 Family and Community Support Answer Pedro Luis e Recorded Help with Day-to-Day Activities Not on file 05/22/2023 Lonely or Isolated Not on file 05/22/2023 Employment Answer Date Recorded Do you want help finding or keeping work or a augustina b? Not on file 05/22/2023 Disabilities Answer Date Recorded Concentrating, Remembering, or Making Decisions Difficulty Not on file 05/22/2023 Doing Errands Independently Difficulty Not on fi le 05/22/2023 Education Answer Date Recorded Help with school or training? Not on file Preferred Language Not on file 05/22/2023 Comments No Sex and Gender Information Value Date Recorded Sex Assigned at Not on file Legal Sex Female 10:56 AM EDT Gender Identity Not on file Sexual Orientation Not on file Last Filed Vital Signs Vital Sign Reading Time Taken Comments Blood Pressure 105/66 04/05/2021 3:30 PM EDT Pulse - - Temperature - - Respiratory Rate - - Oxygen Saturation - - Inhaled Oxygen Concentration - - Weight 123 kg (271 lb) 04/05/2021 3:30 PM EDT Height 157.5 cm (5' 2 ) 04/05/2021 3:36 PM EDT Body Mass Index 49.57 04/05/2021 3:30 PM EDT Plan of Treatment Health Maintenance Due Date Last Done Comments Annual Gynecologic Pelvic an d Breast Exam 1996 ANNUAL PHYSICAL 04/05/2021 HEPATITIS C SCREENING 04/05/2021 INFLUENZA VACCINE 03/14/2025 TDAP/TD VACCINES (3 - Td or Tdap) 02/14/2030 02/15/2020, 12/26/2007 Pneumococcal Vaccine 0-49 Aged Out No longer eligible based on patient's age to complete this topic Insurance AME BERMUDEZ [id number] [facility] Care Teams Ophthalmologist Retina Specialist Relationship Specialty Start Date End Date Provider, [place] [address] PCP - General 03/26/21
[2025-06-20 21:20] LABS: Hematocrit 37.5 % (37.0-47.0); Hemoglobin 12.8 g/dL (12.2-16.2); Immature Granulocytes % 0.2 %; Mean Corpuscular HGB Conc 34.1 g/dL (31.8-35.4); Mean Corpuscular Hemoglobin 30.8 pg (27.0-31.2); Mean Corpuscular Volume 90.4 fl (81-99); Nucleated Red Blood Cells % 0 %; Platelet Count 341 K/mm3 (142-424); Red Blood Count 4.15 M/mm3 (4.20-5.40); Red Cell Distribution Width-SD 40.2 fL; White Blood Count 11.4 K/mm3 (4.8-10.8)
--- NOTE | 2025-06-20 21:23 | ECG_ITS ---
APPROVED REPORT Exam: Resting ECG HR:79 bpm ECG Measurements Heart Rate 79 AXES AK 199 P 48 QRSd 93 QRS 63 QT 337 T 17 QTc 372 Conclusion SINUS RHYTHM WITH SINUS ARRHYTHMIA NORMAL ECG UNCONFIRMED REPORT Electronically signed by : SHERIDAN ALEXANDRE, 06/22/2025 02:19:01
[2025-06-20 21:26] LABS: Alanine Aminotransferase 30 U/L (12-78); Albumin Level 4.2 g/dl (3.5-5.0); Albumin/Globulin Ratio 1.2 (1.1-1.8); Alkaline Phosphatase 109 U/L (38-126); Anion Gap 12.6 mEq/L (5-15); Aspartate Amino Transferase 32 U/L (14-36); Bilirubin,Total 0.6 mg/dl (0.2-1.3); Blood Urea Nitrogen 10 mg/dl (7-17); Calcium 9.3 mg/dl (8.4-10.2); Carbon Dioxide 19 mmol/L (22.0-30.0); Chloride 105 mmol/L (98-107); Creatinine Clearance Estimated 82 mL/min (50-200); Creatinine,Serum 0.80 mg/dl (0.52-1.04); Estimated Glomerular Filt Rate 85 ml/min (>60); GFR (African American) 103 ML/MIN (>60); Globulin 3.4 g/dL (1.3-3.2); Glucose 121 mg/dl (74-100); Lipase 49 U/L (23-300); Magnesium 1.9 mg/dl (1.6-2.3); Potassium 3.6 mmoL/L (3.5-5.1); Sodium 133 mmol/L (136-145); Total Protein,Serum 7.6 g/dl (6.3-8.2)
[2025-06-20 21:40] LABS: Troponin I < 0.01 ng/ml (0.00-0.034)
[2025-06-20 22:01] VITALS: BP 128/88; PULSE 79; O2SAT 99
[2025-06-20 22:14] LABS: Coronavirus 19, PCR Not Detected (NotDetected); Influenza A, PCR Not Detected (NotDetected); Influenza B, PCR Not Detected (NotDetected)
[2025-06-20 22:30] VITALS: BP 117/68; PULSE 75; O2SAT 98
[2025-06-20 23:01] VITALS: BP 105/60; PULSE 72; O2SAT 98
[2025-06-20 23:11] LABS: Hepatitis C Ab Qual. W/ RFX NEGATIVE (Negative)
[2025-06-20 23:41] VITALS: BP 106/48; PULSE 89; RESP 16; TEMP 36.6; O2SAT 98
== END 2025-06-20 23:47 | disposition home or self-care (01) ==
PROVIDERS: Nurse Practitioner; Emergency Provider Student in an Organized Health Care Education/Training Program; PCP Physician Assistant
DX: R55 Syncope and collapse (principal); I10 Essential (primary) hypertension
CPT/HCPCS: 70450; 71045; 80053; 83690; 83735; 84484; 85025; 86803; 87389; 87636; 93005; 96360; 99285; J7030

== ENCOUNTER 2025-06-24 11:56 | Outpatient (CLI) | payer OTHER, SELFPAY ==
--- OUTSIDE RECORDS SUMMARY | 2025-06-24 11:58 | XMS_ITS | Clinical Summary ---
Author Organization [facility] Address [address] [place] [address] Care Team Providers Care Mattress Filler Name Role Phone Provider, No Known Primary [...] help finding or keeping work or a uagustina b? Not on file 05/22/2023 Disabilities Answer [...] to complete this topic Insurance AME BERMUDEZ [id number] [facility] Care Teams Mattress Filler Relationship Specialty Start Date End Date Provider, [place] [address] PCP - General 03/26/21
--- OUTSIDE RECORDS SUMMARY | 2025-06-24 11:58 | XMS_ITS | Clinical Summary ---
Author Organization [facility] Address [address] [place] [address] Care Team Providers Care Hot Top Liner Name Role Phone Nikia Haywood MICHAEL Primary Care Provider [phone] Family History 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 Relation Name Comments Breast cancer Maternal Grandmother Relation Name Status Comments Maternal Grandmother 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 Tobacco Use Types Packs/Day Years Used Date Smoking Tobacco: Never Alcohol Use Standard Drinks/Week Comments No 0 (1 standard drink = 0.6 oz pur e alcohol) Comments Unknown Sex and Gender Information Value Date Recorded Sex Assigned at Not on file Legal Sex Female 7:59 PM EDT Gender Identity Not on file Sexual Orientation Not on file Last Filed Vital Signs Vital Sign Reading Time Taken Comments Blood Pressure 130/86 05/06/2019 10:51 AM EDT Pulse 87 05/06/2019 10:51 AM EDT Temperature 36.6 C (97.9 F) 05/06/2019 10:51 AM EDT Respiratory Rate - - Oxygen Saturation - - Inhaled Oxygen Concentration - - Weight 111 kg (244 lb 11.4 oz) 05/06/2019 10:51 AM EDT Height 157.5 cm (5' 2 ) 05/06/2019 10:51 AM EDT Body Mass Index 44.76 05/06/2019 10:51 AM EDT Plan of Treatment Health Maintenance Due Date Last Done Comments [facility]-Depression Screening 1996 [facility]-/Child/Adol SDOH Screenings 1996 [facility]-Varicella Vaccines (2 of 2 - 2-dose childhood series) 2000 12/16/1997 [facility]-IPV Vaccines (2 of 3 - 4-dose series) 06/02/2000 05/05/2000 [facility]- SDOH Screenings 2014 [facility]-Adult SDOH Screenings 2014 [facility]-Pap Smear 2017 [facility]-DTaP,Tdap,and Td Vaccines (2 - Td or Tdap) 12/25/2017 12/26/2007 [id number] Vaccine (2 - season) 2025 09/20/2021 [facility]-Influenza Vaccine (#1) 04/14/202509/20, 06/04/2014, 05/14/2009 [facility]-Zoster Vaccines (1 of 2) 2046 12/16/1997 [facility]-Hepatitis B Vaccines Completed 997, 1996, 1996 HPV Vaccines Completed 03/02/2011, 11/10/2010, 09/01/2010 [facility]-HIB Vaccines Aged Out No longer e ligible based on patient's age to complete this topic [facility]-Hepatitis A Vaccines Aged Out No longer eligible based on patient's age to complete this topic [facility]-Pneumococcal Vaccine: Pediatrics (0 to 5 Years) and At-Risk Patients (6 to 49 Years) Aged Out No longer eligible b ased on patient's age to complete this topic [facility]-Rotavirus Vaccines Aged Out No lo nger eligible based on patient's age to complete this topic Insurance [facility] MEDICAID Care Teams Hot Top Liner Relationship Specialty Start Date End Date Nikia Haywood APRN [address] [place] [address] [facility] - General 12/25/20
== END 2025-06-24 23:59 | disposition home or self-care (01) ==
LOC: RT 11:56
PROVIDERS: PCP Physician Assistant; Visit Provider Internal Medicine
DX: I49.1 Atrial premature depolarization (principal); I49.3 Ventricular premature depolarization; I10 Essential (primary) hypertension; R00.0 Tachycardia, unspecified; R55 Syncope and collapse; R42 Dizziness and giddiness
CPT/HCPCS: 93270